=== PATIENT | female | born 1965 | race Caucasian/White ===

== ENCOUNTER → 2021-03-05 12:32 | Outpatient (BNVA) | payer MEDICARE, MEDICAID, SELFPAY | PROVIDERS: PCP Internal Medicine; Referring Provider Internal Medicine; Visit Provider Internal Medicine Cardiovascular Disease | DX: Z45.02 Encounter for adjustment and management of automatic implantable cardiac defibrillator (principal); R06.02 Shortness of breath; Z86.74 Personal history of sudden cardiac arrest | CPT/HCPCS: 93005; 99212 ==

== ENCOUNTER → 2021-10-02 14:09 | Outpatient (BNVA) | payer MEDICARE, MEDICAID, SELFPAY | PROVIDERS: PCP Internal Medicine; Referring Provider Internal Medicine; Visit Provider Internal Medicine Cardiovascular Disease | DX: Z45.02 Encounter for adjustment and management of automatic implantable cardiac defibrillator (principal); Z86.74 Personal history of sudden cardiac arrest | CPT/HCPCS: 99212 ==

== ENCOUNTER → 2022-03-14 14:04 | Outpatient (BNVA) | payer MEDICARE, MEDICAID, SELFPAY | PROVIDERS: PCP Internal Medicine; Referring Provider Internal Medicine; Visit Provider Internal Medicine Cardiovascular Disease | DX: Z45.02 Encounter for adjustment and management of automatic implantable cardiac defibrillator (principal) | CPT/HCPCS: 93005; 99212 ==

== ENCOUNTER 2022-05-25 14:18 | Inpatient (IN) | payer MEDICARE, MEDICAID, SELFPAY ==
[2022-05-25] VITALS (18 sets, daily range): BP systolic 92–173; BP diastolic 11–117; PULSE 92–134; RESP 13–18; TEMP 34.8–37.7; O2SAT 92–98; BMI 39.2; BMI 44.6; BMI 34.5; BMI 39.0
--- NOTE | ~2022-05-25 | CT_ITS ---
EXAMINATION: CT ANGIOGRAM OF THE CHEST WITH AND WITHOUT CONTRAST (CT PULMONARY ANGIOGRAM FOR PE) CT ABDOMEN AND PELVIS WITH IV CONTRAST CLINICAL INFORMATION: Shortness of breath, elevated d-dimer. Nausea/vomiting. COMPARISON: CT of the chest dated from 04/06/2016. Abdominal ultrasound dated from 05/16/2010. TECHNIQUE: Prior to contrast administration, noncontrast localization images were obtained. Subsequently, multidetector volumetric imaging was performed from the thoracic inlet to the pubic symphysis through the chest, abdomen, and pelvis following the administration of 100 mL Omnipaque 350 intravenous contrast. No contrast reaction reported Sagittal, coronal, and MIP oblique sagittal (through the chest only) reformatted images were obtained on the CT workstation, uploaded to PACS, and reviewed. Total exam dose-length product 1328 mGy-cm This CT examination was performed using dose optimization techniques as appropriate, variously including the following: *Automated exposure control *Adjustment of mA and/or kV according to patient size (this includes techniques or standardized protocols for targeted exams where dose is matched to indication/reason for exam; i.e. extremities or head) *Use of iterative reconstruction technique FINDINGS: QUALITY OF STUDY/CONTRAST BOLUS: Suboptimal. PULMONARY ARTERIES: Evaluation is limited due to respiratory motion. No central pulmonary emboli. There are equivocal nonocclusive filling defects in segmental branches of the left lower lobe. THORACIC AORTA: No aneurysm or dissection. Atherosclerotic disease. LUNG: Evaluation of parenchymal details and small pulmonary nodules is limited due to respiratory motion. An endotracheal tube terminates at 1 cm above the mary. There are dense airspace opacities in the left greater than right lung bases. There are multiple additional groundglass and patchy opacities bilaterally, for instance anteriorly in the right upper lobe image 152 and anterolateral in the left upper lobe image 130, series 9. No pulmonary mass. PLEURA: Small bilateral pleural effusions. No pneumothorax. MEDIASTINUM: Cardiomegaly. No pericardial effusion. No evidence of septal bowing or right heart strain. Coronary calcifications. No bulky mediastinal or hilar lymphadenopathy. There is a 1.6 cm left-sided thyroid nodule. CHEST WALL/AXILLA: Left-sided pacer/AICD with leads projecting over the right atrium and right ventricle. No chest wall mass. No axillary lymphadenopathy by size criteria. ABDOMEN/PELVIS: LIVER, GALLBLADDER AND BILIARY TREE: Hepatomegaly with decreased parenchymal attenuation suggesting hepatic steatosis. No focal liver lesions. Cholecystectomy. Mild dilatation of the common bile duct, not unusual in a post cholecystectomy state. No intrahepatic biliary ductal dilatation. PANCREAS: Normal; no mass or surrounding fluid. SPLEEN: Splenomegaly with heterogeneous attenuation of the parenchyma, likely related to early timing of IV contrast, limiting evaluation of focal abnormality. ADRENAL GLANDS: Normal; no mass. KIDNEYS AND URETERS: The kidneys are normal in size, shape, and attenuation. No hydronephrosis, hydroureter, or calculi. GASTROINTESTINAL TRACT: Enteric tube terminates in the stomach. There is wall thickening of the descending colon with mild pericolonic fat stranding. No evidence of bowel obstruction. Normal appendix. ABDOMINAL WALL: Anterior abdominal rectus muscle diastases. No significant hernia. LYMPHOVASCULAR STRUCTURES: No lymphadenopathy by size criteria. Aortoiliac atherosclerosis. BLADDER: Markedly distended. No focal abnormality. PELVIC VISCERA: No pelvic mass. OSSEOUS STRUCTURES: Posterior instrumentation at L4, L5 and S1 with interdisc spacers. Unchanged irregularity of the inferior endplate of L4 and superior endplate of L5 when compared to 12/20/2014. Vertebroplasty cement at L1 and L2. Progression of the compression deformity at L2 and new compression deformity at L1 when compared to 2015. CT/CT angio chest PE protocol IMPRESSION: Limited evaluation of PE due to respiratory motion. Equivocal nonocclusive filling defects in segmental branches of the left lower lobe. Endotracheal tube terminates a 1 cm above the mary. Recommend repositioning. Multifocal airspace opacities suggesting the presence of an atypical infectious or inflammatory process. These opacities are denser in the lung bases in which aspiration is not excluded. There are small bilateral pleural effusions. Colonic wall thickening and mild pericolonic fat stranding involving the descending colon suggesting acute colitis, uncertain etiology, could be ischemic due to distribution. Correlate clinically. Progression of compression deformity at the L2 vertebral body and new compression deformity at the L1 vertebral body when compared to a prior CT of the lumbar spine available from 12/20/2014. Correlate with point tenderness. Hepatomegaly and hepatic steatosis. Splenomegaly. Incidentally noted up to 1.6 cm left-sided thyroid nodule. If clinically deemed appropriate, correlation with an elective nonemergent thyroid ultrasound is recommended. VTE: indeterminate This critical result was discussed with DALLIN Hampton at 05/25/2022 6:54 PM and it was ascertained that the content and urgency of the report was understood at the time of direct communication.
--- NOTE | ~2022-05-25 | CT_ITS ---
EXAMINATION: CT HEAD WITHOUT CONTRAST CLINICAL INFORMATION: Altered mental status. COMPARISON: CT head dated from 02/20/2019. TECHNIQUE: Contiguous axial imaging was performed from the skull base to vertex without intravenous administration of contrast. This CT examination was performed using dose optimization techniques as appropriate, variously including the following: *Automated exposure control *Adjustment of mA and/or kV according to patient size (this includes techniques or standardized protocols for targeted exams where dose is matched to indication/reason for exam; i.e. extremities or head) *Use of iterative reconstruction technique DLP: 589 mGy-cm FINDINGS: There is no evidence of acute intracranial hemorrhage or edematous territorial infarction. There is no abnormal attenuation within the brain parenchyma. Helton-white matter differentiation is preserved. The ventricles are normal in size and configuration. No evidence for obstructive hydrocephalus. No abnormal mass effect or midline shift. No extra-axial fluid collections. No acute soft tissue or osseous abnormalities. The mastoid air cells and paranasal sinuses are clear. CT/CT head/brain wo IV con IMPRESSION: No evidence of acute intracranial hemorrhage or edematous territorial infarction.
--- NOTE | ~2022-05-25 | US_ITS ---
EXAMINATION: US EXTRACRANIAL CAROTID DUPLEX, BILATERAL CLINICAL INFORMATION: Left carotid not palpable. Question stenosis. COMPARISON: None TECHNIQUE: Real-time ultrasound and Doppler techniques (integrating B-mode 2-D vascular images, Doppler spectral analysis and color-flow Doppler imaging) were utilized to interrogate the extracranial carotid arteries, the vertebral arteries and proximal subclavian arteries bilaterally. The degree of stenosis is determined by criteria similar to NASCET. FINDINGS: Right Side: 1. There is no atherosclerotic plaque seen in the bifurcation/proximal ICA region. 2. The common carotid artery PSV proximally is 102 cm/s and distally 67.6 cm/s. 3. The proximal internal carotid artery velocities are 71.8 cm/s systolic and 31.0 cm/s diastolic. 4. The proximal external carotid artery PSV is 86.5 cm/s. 5. The vertebral artery shows 47.8 flow. 6. The subclavian artery waveforms are normal. The right central line obscures mid right CCA Left Side: 1. There is no atherosclerotic plaque seen in the bifurcation/proximal ICA region. 2. The common carotid artery PSV proximally is 116 cm/s and distally 82.6 cm/s. 3. The proximal internal carotid artery velocities are 71.1 cm/s systolic and 33.4 cm/s diastolic. 4. The proximal external carotid artery PSV is 67.6 cm/s. 5. The vertebral artery shows antegrade flow. 6. The subclavian artery waveforms are normal. Incidental finding of a heterogeneous area in the left neck question thyroid nodule versus artifact. Best visualized on image 47 of 79.. Bilateral internal jugular veins are patent. US/US carotid duplex BI IMPRESSION: 1. RIGHT: Normal right internal carotid artery without atherosclerotic plaque or hemodynamically significant stenosis. 2. LEFT: 0-49% range stenosis left ICA. 3. Normal antegrade flow seen in both vertebral arteries.
--- NOTE | ~2022-05-25 | XR_ITS ---
EXAMINATION: XR CHEST CLINICAL INFORMATION: Indication COMPARISON: Previous dated 04/06/2016 TECHNIQUE: Frontal view of the chest was obtained. FINDINGS: The ET tube is 1.6 cm above the mary. Catheter overlying the superior vena cava. There is no pneumothorax. Pacer wires overlying the right atrium and right ventricle. NG tube overlying the fundus of the stomach. The underlying lung [place] show mild vascular congestion. Mild elevation left hemidiaphragm. Left basilar atelectasis would be a consideration. XR/XR chest 1V IMPRESSION: ET tube 1.6 cm above mary. Other tubes and catheters as noted above. Mild elevation left hemidiaphragm. Left basilar atelectasis or possibly infiltrate. Mild vascular congestion.
--- NOTE | 2022-05-25 14:33 | ECG_ITS ---
Test Reason : WEAKNESS/ SEPSIS Blood Pressure : / mmHG Vent. Rate : 117 BPM Atrial Rate : 117 BPM P-R Int : 136 ms QRS Dur : 066 ms QT Int : 276 ms P-R-T Axes : 103 022 090 degrees QTc Int : 385 ms Sinus tachycardia Inferior infarct , age undetermined Possible Anterior infarct , age undetermined Abnormal ECG When compared with ECG of 06-APR-2016 17:53, Borderline criteria for Anterior infarct are now Present Inferior infarct is now Present Non-specific change in ST segment in Inferior leads Nonspecific T wave abnormality, worse in Anterior leads Referred By: Damon Heart Electronically Signed By:ROBERT SUAREZ
--- NOTE | 2022-05-25 14:34 | ED.AMS ---
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 Patient is not responding to my questions she is not alert, for EMS patient was saturating the low 80s on room air, according to boyfriend patient is not on oxygen. Patient was also noted to be hypotensive per EMS. I spoke to the boyfriend that tells me that since , 3 days ago patient has not been responding to him she has been altered since that day. Denies any trauma. He tells me she was complaining that she was not feeling well and since then she has been lethargic, somnolent and not responding. Unable to obtain an accurate history as dedraiend is not the best historian, patient unable to provide me history. Sepsis alert called upon patient's arrival to the Emergency Department Related Data Home Medications Medication Instructions Recorded Confirmed gabapentin 800 mg tablet 800 mg PO TID 03/05/21 05/25/22 clonazepam 1 mg tablet 1 mg PO BID 10/02/21 05/25/22 carisoprodol 350 mg tablet 350 mg PO BID PRN Spondylosis 03/14/22 05/25/22 dicyclomine 20 mg tablet 20 mg PO QID 03/14/22 05/25/22 morphine 15 mg tablet,extended 15 mg PO Q8H 03/14/22 05/25/22 release sucralfate 1 gram tablet 1 g PO BID 03/14/22 05/25/22 morphine 15 mg immediate release 1 tab PO Q8H PRN Pain (Scale Score 05/25/22 05/25/22 tablet 4-6) Previous Rx's Medication Instructions Recorded metoprolol tartrate 100 mg tablet 100 mg PO BID #180 tabs 05/24/22 Allergies Allergy/AdvReac Type Severity Reaction Status Date / Time Penicillins [PENICILLINS] Allergy Severe ANAPHYLAXIS Verified 03/14/22 14:29 hydromorphone [From DILAUDID] Allergy Unknown STOPS HEART Verified 03/14/22 14:29 ibuprofen [From MOTRIN] Allergy Unknown SEIZURE Verified 03/14/22 14:29 Review of Systems Review of Systems: Yes Unobtainable due to mental status [facility] Past Medical History Attestation statement: The following information was validated with the patient. Source: old records reviewed and nursing notes reviewed Medical History History of sudden cardiac successfully resuscitated ICD (implantable cardioverter-defibrillator) in place Surgical History History of cholecystectomy History of spinal surgery Family History Family History Mother Dementia Cancer Father Heart disease Social History Social History Alcohol intake: never Patient Tobacco Use Status: Current everyday Tobacco user Tobacco use type: Cigarette Cigarette Packs Per Day: 0.5 Cigarettes Per Day: 10 Years Smoked: 40 +/- Advance Directives: No Advance Directives Information Provided: Yes Physical Exam ED Vital Signs: Vital Signs - 24 hr 05/25/22 14:47 05/25/22 16:00 05/25/22 16:08 Temperature Pulse Rate 117 H 134 H Respiratory Rate 13 18 Blood Pressure 171/117 H Pulse Oximetry 95 98 Oxygen Delivery Method Nasal Cannula Fraction of Inspired Oxygen 100 05/25/22 15:00 05/25/22 17:51 Temperature 99.6 F Pulse Rate 107 H Respiratory Rate 14 Blood Pressure 114/58 L Pulse Oximetry 93 Oxygen Delivery Method Mechanical Ventilation Fraction of Inspired Oxygen BMI result Body Mass Index 34.5 Appearance: Patient lethargic, somnolent, not responding to verbal or physical stimuli. Patient with unlabored breathing however gargling is noted. Patient covered in feces upon arrival, unkempt. Head: Normocephalic, atraumatic, no step-offs or deformities Eyes: Pupils equal, round and reactive to light.? ENT: Pharynx normal. +Dry mucous membranes? However patient having difficulty controlling secretions. Neck: Normal inspection.? Neck supple.? CVS: M rate regular rhythm..? Pulses normal.? Respiratory: No respiratory distress.? Crackles appreciated throughout. Abdomen: Soft and nontender.? Skin: Skin warm and dry.? Normal skin color.? Normal skin turgor.?+ burn to buttocks with honey combing appearance Extremities: No lower extremity edema.? + extrmeities limp Neuro: + Patient lethargic, somnolent, not responding to verbal or physical stimuli. Not following comands. Unable to obtain an accurate neurological examination secondary to patient's altered mental status. Course Reevaluation(s) Reevaluation #1: Patient is noted to have a significant leukocytosis, with altered mental status, hypotension and hypoxia at this time infection suspected, a sepsis focused exam was done, patient anaphylactic to penicillin therefore Levaquin and vancomycin will be given. Will try to identify source likely UTI or aspiration pneumonia. Time: 15:09 Reevaluation #2: Patient started vomiting what looked like stool, question bowel obstruction. Patient unable to control her own airway therefore this PA-C intubated patient for airway protection. Patient is noted to have a significant acute kidney injury with an anion gap. Patient's lactic acid 2.5. Transaminases are noted to be markedly elevated. Troponin elevated at 4185.[address] elevations noted on EKG, concerns for ischemic event. BNP 341. Will continue the 30 cc/kilos bolus at this time. Creatinine kinase also markedly elevated concerning for rhabdomyolysis. Time: 15:49 Reevaluation #3: An OG tube was placed w/ large amount of dark brown content espressed. Bedside echo by Dr. Guillen- normal valve function. grossly normal echo. IVC flat likely secondary to dehydration/ poor po intake. States low suspicion for PE. Time: 16:14 Additional Reevaluation(s): 1614 Central line placed 16 G in right IJ CXR ordered for confirmation breath sounds present . Propofol for maintenance ordered. Patient with diarrhea, stool studies also ordered. 1800 Patient will be going to the ICU under the care of MDM - Altered Mental Status MDM Narrative Medical decision making narrative: [id number] 57-year-old female presenting to the emergency department from home with altered mental status x3 days. Not responding to verbal or painful stimuli. Noted to be hypoxic and hypotensive for EMS. Unable to obtain an accurate history as patient is not responding. Significant cardiac history. Upon chart review it appears as though patient is followed by cardiology. Physical examination patient unkempt, patient not responding, extremities limp, pupils equal round and reactive. No pain with palpation of abdomen, crackles noted bilaterally. Rapid rate regular rhythm, likely sinus tachycardia unable to appreciate a murmur. Patient dry mucous membranes. Skin with what appears to be a burn to buttocks w/ honey combing appearance. Unable to obtain an accurate neurological examination. Patient not following commands. Normal Babinski. Vital signs are stable at this time patient is currently on 4 L and saturating sign 94% Upon my initial examination patient having trouble with secretions, suction at the bedside with success. Plan at this time is to initiate a sepsis alert. Concerns for infection particularly pneumonia or aspiration pneumonia Will obtain cardiac workup as well to rule out cardiac etiologies. Obtain a CTA to rule out PE as patient was hypoxic at home. Will rule out toxic ingestion and drug abuse. Will obtain ABG to rule out metabolic imbalances. And urine to rule out UTI or infection. Patient in sinus tach on the monitor. Narcan given w/o effect. Medical Records Attestation: I reviewed the patient's medical records. Lab Data Attestation: I reviewed the patient's lab results. Result diagrams: 05/25/22 14:49 05/25/22 14:49 Labs: Lab Results 05/25/22 05/25/22 05/25/22 Range/Units 14:49 14:49 14:49 WBC 22.1 H (4.8-10.8) X10*3/uL RBC 4.81 (4.20-5.50) X10*6/uL Hgb 15.5 (12.0-16.0) g/dl Hct 47.0 (37.0-47.0) % MCV 97.7 (80.0-98.0) fL MCH 32.2 (27.0-33.0) pg MCHC 33.0 (31.0-35.0) g/dl RDW 14.4 (11.0-16.0) % Plt Count 103 L (160-400) X10*3/uL MPV 10.6 (9.4-12.3) fL Immature Gran % (Auto) 1.1 H (0.0-0.4) % Neut % (Auto) 79.4 H (45-73) % Lymph % (Auto) 13.1 L (20-40) % [place] % (Auto) 4.4 (2-11) % Eos % (Auto) 1.6 (0-4) % Baso % (Auto) 0.4 (0-2) % Lymph # (Auto) 2.9 (1.2-4.9) X10*3/uL [place] # (Auto) 1.0 (0.1-1.2) X10*3/uL Eos # (Auto) 0.4 (0.0-0.4) X10*3/uL Baso # (Auto) 0.1 (0.0-0.2) X10*3/uL Abs Immat Gran (auto) 0.24 H (0.00-0.03) X10*3/uL Absolute Neuts (auto) 17.6 H (2.0-8.3) x10*3/uL Absolute Nucleated RBC 0.020 H (0.0-0.012) X10*3/uL Nucleated RBC % (auto) 0.1 (0.0-0.2) /100WBC D-Dimer High Sensitivty 3082 NG/ML VBG pH (7.32-7.43) VBG pCO2 mmHg VBG pO2 mmHg VBG HCO3 (22-26) mmol/L VBG O2 Saturation % VBG Base Excess mmol/L Sodium 136 (135-145) mmol/L Potassium 4.8 (3.3-5.1) mmol/L Chloride 97 (96-108) mmol/L Carbon Dioxide 23 (22-29) mmol/L Anion Gap 21 H (12-20) BUN 54 H (9-16) mg/dL Creatinine 2.93 H (0.5-1.4) mg/dL Estim Creat Clear Calc 29.6 Estimated GFR 17 Random Glucose 138 H (60-115) mg/dL Lactic Acid (0.5-2.0) mmol/L Calcium 8.8 (8.4-10.2) mg/dL Magnesium 2.2 (1.6-2.6) mg/dL Total Bilirubin 1.0 (0.0-1.0) mg/dL AST 1042 H (5-31) U/L ALT 669 H (0-31) U/L Alkaline Phosphatase 106 (39-117) U/L Total Creatine Kinase 57159 H (26-140) U/L Troponin I High Sens (<3.5-17.0) ng/L B-Natriuretic Peptide (<100) pg/mL Total Protein 6.7 (6.5-8.0) g/dL Albumin 3.8 (3.5-5.0) g/dL Ethyl Alcohol < 10 mg/dL COVID-19 ([facility]) (Negative) COVID-19 Clin Com 05/25/22 05/25/22 05/25/22 Range/Units 14:49 14:49 14:49 WBC (4.8-10.8) X10*3/uL RBC (4.20-5.50) X10*6/uL Hgb (12.0-16.0) g/dl Hct (37.0-47.0) % MCV (80.0-98.0) fL MCH (27.0-33.0) pg MCHC (31.0-35.0) g/dl RDW (11.0-16.0) % Plt Count (160-400) X10*3/uL MPV (9.4-12.3) fL Immature Gran % (Auto) (0.0-0.4) % Neut % (Auto) (45-73) % Lymph % (Auto) (20-40) % [place] % (Auto) (2-11) % Eos % (Auto) (0-4) % Baso % (Auto) (0-2) % Lymph # (Auto) (1.2-4.9) X10*3/uL [place] # (Auto) (0.1-1.2) X10*3/uL Eos # (Auto) (0.0-0.4) X10*3/uL Baso # (Auto) (0.0-0.2) X10*3/uL Abs Immat Gran (auto) (0.00-0.03) X10*3/uL Absolute Neuts (auto) (2.0-8.3) x10*3/uL Absolute Nucleated RBC (0.0-0.012) X10*3/uL Nucleated RBC % (auto) (0.0-0.2) /100WBC D-Dimer High Sensitivty NG/ML VBG pH (7.32-7.43) VBG pCO2 mmHg VBG pO2 mmHg VBG HCO3 (22-26) mmol/L VBG O2 Saturation % VBG Base Excess mmol/L Sodium (135-145) mmol/L Potassium (3.3-5.1) mmol/L Chloride (96-108) mmol/L Carbon Dioxide (22-29) mmol/L Anion Gap (12-20) BUN (9-16) mg/dL Creatinine (0.5-1.4) mg/dL Estim Creat Clear Calc Estimated GFR Random Glucose (60-115) mg/dL Lactic Acid 2.5 H* (0.5-2.0) mmol/L Calcium (8.4-10.2) mg/dL Magnesium (1.6-2.6) mg/dL Total Bilirubin (0.0-1.0) mg/dL AST (5-31) U/L ALT (0-31) U/L Alkaline Phosphatase (39-117) U/L Total Creatine Kinase (26-140) U/L Troponin I High Sens 4185.7 H* (<3.5-17.0) ng/L B-Natriuretic Peptide 341 H (<100) pg/mL Total Protein (6.5-8.0) g/dL Albumin (3.5-5.0) g/dL Ethyl Alcohol mg/dL COVID-19 ([facility]) Negative (Negative) COVID-19 Clin Com See Note 05/25/22 Range/Units 16:16 WBC (4.8-10.8) X10*3/uL RBC (4.20-5.50) X10*6/uL Hgb (12.0-16.0) g/dl Hct (37.0-47.0) % MCV (80.0-98.0) fL MCH (27.0-33.0) pg MCHC (31.0-35.0) g/dl RDW (11.0-16.0) % Plt Count (160-400) X10*3/uL MPV (9.4-12.3) fL Immature Gran % (Auto) (0.0-0.4) % Neut % (Auto) (45-73) % Lymph % (Auto) (20-40) % [place] % (Auto) (2-11) % Eos % (Auto) (0-4) % Baso % (Auto) (0-2) % Lymph # (Auto) (1.2-4.9) X10*3/uL [place] # (Auto) (0.1-1.2) X10*3/uL Eos # (Auto) (0.0-0.4) X10*3/uL Baso # (Auto) (0.0-0.2) X10*3/uL Abs Immat Gran (auto) (0.00-0.03) X10*3/uL Absolute Neuts (auto) (2.0-8.3) x10*3/uL Absolute Nucleated RBC (0.0-0.012) X10*3/uL Nucleated RBC % (auto) (0.0-0.2) /100WBC D-Dimer High Sensitivty NG/ML VBG pH 7.36 (7.32-7.43) VBG pCO2 34 mmHg VBG pO2 119 mmHg VBG HCO3 19 L (22-26) mmol/L VBG O2 Saturation 99.0 % VBG Base Excess -4.7 mmol/L Sodium (135-145) mmol/L Potassium (3.3-5.1) mmol/L Chloride (96-108) mmol/L Carbon Dioxide (22-29) mmol/L Anion Gap (12-20) BUN (9-16) mg/dL Creatinine (0.5-1.4) mg/dL Estim Creat Clear Calc Estimated GFR Random Glucose (60-115) mg/dL Lactic Acid (0.5-2.0) mmol/L Calcium (8.4-10.2) mg/dL Magnesium (1.6-2.6) mg/dL Total Bilirubin (0.0-1.0) mg/dL AST (5-31) U/L ALT (0-31) U/L Alkaline Phosphatase (39-117) U/L Total Creatine Kinase (26-140) U/L Troponin I High Sens (<3.5-17.0) ng/L B-Natriuretic Peptide (<100) pg/mL Total Protein (6.5-8.0) g/dL Albumin (3.5-5.0) g/dL Ethyl Alcohol mg/dL COVID-19 ([facility]) (Negative) COVID-19 Clin Com Procedures Central Line Placement Right IJ: Time Out Performed: Yes Patient Placed on Monitor/Pulse Ox: Yes MD Prep: mask, gown and gloves Central Line Prep: Povidone-Iodine 1% and sterile drapes applied Local Anesthetic: lidocaine 1% Amount of anesthesia used (mL): 4 Ultrasound Used for Placement: Yes Central Line Lumen Inserted: triple Post Procedure: sutured in place, good blood return, all ports aspirated, flushed, capped and sterile dressing applied Post Procedure X-Ray: tip of catheter in good position Patient Tolerated Procedure: well Complications: none Intubation Time out performed: Yes sedative: Etomidate paralytic: Rocuronium Laryngoscope: fiber optic video scope Assist Device Used: fiber optic device ET Tube Size: 7.5 ET Tube Uncuffed: No Tube Secured Depth (cm): 23 Tube Secured Location: teeth Tube Placement Confirmation: visualized tube passing through cords, equal breath sounds bilaterally and confirmation by capnometry Patient Tolerated Procedure: well Intubation Complications: none Critical Care Time Critical Care Time Critical Care Time: Yes Total Critical Care Time: 120 Attestation: I attest to this time spent taking care of the patient, obtaining history, physical, reviewing labs, imaging, speaking to my attending, speaking to specialist. Discharge Plan Discharge Clinical Impression: Altered mental status, Sepsis, Elevated troponin, ASHLEY (acute kidney injury), Rhabdomyolysis Patient Disposition: Still a Patient Prescriptions: No Action metoprolol tartrate 100 mg tablet 100 mg PO BID Qty: 180 3RF morphine 15 mg tablet 1 tab PO Q8H PRN (Reason: Pain (Scale Score 4-6)) gabapentin 800 mg tablet 800 mg PO TID morphine 15 mg tablet extended release 15 mg PO Q8H clonazepam 1 mg tablet 1 mg PO BID carisoprodol 350 mg tablet 350 mg PO BID PRN (Reason: Spondylosis) dicyclomine 20 mg tablet 20 mg PO QID sucralfate 1 gram tablet 1 g PO BID Rx Instructions: before meals
[2022-05-25 14:58] LABS: MANUAL DIFF FLAG NO
[2022-05-25 15:03] LABS: Basophils Absolute Auto 0.1 X10*3/uL (0.0-0.2); Basophils Percent Auto 0.4 % (0-2); Eosinophils Absolute Auto 0.4 X10*3/uL (0.0-0.4); Eosinophils Percent Auto 1.6 % (0-4); Hemoglobin 15.5 g/dl (12.0-16.0); Imm Gran Abs Auto 0.24 X10*3/uL (0.00-0.03); Imm Gran Pct Auto 1.1 % (0.0-0.4); Lymphocytes Absolute Auto 2.9 X10*3/uL (1.2-4.9); Lymphocytes Percent Auto 13.1 % (20-40); Mean Corpuscular Hemoglobin 32.2 pg (27.0-33.0); Mean Corpuscular Volume 97.7 fL (80.0-98.0); Mean Platelet Volume 10.6 fL (9.4-12.3); Monocytes Percent Auto 4.4 % (2-11); NRBC Pct Auto 0.1 /100WBC (0.0-0.2); Neutrophils Absolute Auto 17.6 x10*3/uL (2.0-8.3); Neutrophils Percent Auto 79.4 % (45-73); Platelet Count 103 X10*3/uL (160-400); Red Blood Count 4.81 X10*6/uL (4.20-5.50); Red Cell Distribution Width 14.4 % (11.0-16.0); White Blood Count 22.1 X10*3/uL (4.8-10.8)
[2022-05-25] MEDS: Naloxone HCl Nasal 4 MG SPRAY NOSTRILALT (15:05)
[2022-05-25 15:09] LABS: D Dimer High Sensitivity 3082 NG/ML
[2022-05-25 15:23] LABS: COVID-19 Test Negative (Negative); IDNOW Serial# 55D5AD1C
[2022-05-25] MEDS: levoFLOXacin/D5W 750 MG/150 ML PIGGYBACK 100 MG IV (15:23)
[2022-05-25 15:24] LABS: Alanine Aminotransferase 669 U/L (0-31); Albumin Level 3.8 g/dL (3.5-5.0); Alkaline Phosphatase 106 U/L (39-117); Anion Gap 21 (12-20); Aspartate Amino Transferase 1042 U/L (5-31); Blood Urea Nitrogen 54 mg/dL (9-16); Calcium 8.8 mg/dL (8.4-10.2); Carbon Dioxide 23 mmol/L (22-29); Chloride 97 mmol/L (96-108); Creatinine Clr Calc Pharmacy 29.6; Estimated Glomerular Filt Rate 17; Ethanol < 10 mg/dL; Glucose Random 138 mg/dL (60-115); Magnesium 2.2 mg/dL (1.6-2.6); Potassium 4.8 mmol/L (3.3-5.1); Sodium 136 mmol/L (135-145); Total Protein 6.7 g/dL (6.5-8.0)
[2022-05-25 15:28] LABS: B Type Natriuretic Peptide 341 pg/mL (<100)
[2022-05-25 15:29] LABS: Lactic Acid 2.5 mmol/L (0.5-2.0)
[2022-05-25] MEDS: propofoL 1,000 MG/100 ML VIAL 23.27 MG IVCONT (16:08)
--- NOTE | 2022-05-25 16:19 | PC.NURSE ---
recorder note pt vomited approx 2L coffee ground emesis at 1430, celery stripper Dr. Guillen at bedside with u/s. plan to intubate pt. at bedside, estimated weight by staff approximately 100kg. 30 mg IV Etomidate given at 1543 by Niyah RN 50 mg IV Rocuronium given at 1544 by Niyah GARCÍA pt intubated with a 7.5 tube at 23 at the lip at 1545 by Kary ZAMARRIPA OG tube inserted at 1554 and connected to suction. coffee ground emesis visible in suction container Propofol 1000mg/100ml started at 30mcg/kg/hr with an estimated pt weight of 100kg. started at 1605. vitals: HR 134, 98% ventiator, 18 RR, BP 171/117 ([id number]) at 1607 Dr. Evans placed a 16F central line on the right at 1610. pt pending to go to CT
[2022-05-25 16:21] LABS: Venous Blood Gas Refer to POC result
[2022-05-25 16:22] LABS: VBG Base Excess -4.7 mmol/L; VBG HCO3 19 mmol/L (22-26); VBG pCO2 34 mmHg; VBG pH 7.36 (7.32-7.43); VBG pO2 119 mmHg
--- NOTE | 2022-05-25 16:23 | PHA.MEDREC ---
Pharmacy Consult ? Medication Reconciliation Pharmacy has completed the medication reconciliation. Patient could not answer any of my questions. Called son home phone number several times with no response. Called pharmacies ([facility] + [facility]) to confirm meds. [facility] confirmed most recent meds on claim history and verified that they were picked up. [facility] filled metoprolol tartrate 100mg on 05/24/22, however patient has not picked up medication yet according to them. Last time patient filled metoprolol tartrate was back in February according to [facility] for 90 day supply.
--- NOTE | 2022-05-25 16:37 | PM.CCHP ---
History of Present Illness Date of Service: 05/25/22 Attending physician on admission: Margarita Guillen Chief Complaint: altered mental status/ hypoxemic respiratory failure 57-year-old morbidly obese female nondiabetic began with altered mental status 2 days earlier brought in when unresponsive with room air saturation of 80% and in the emergency room witnessed aspiration with large volume of fecal into vomitus requiring emergent intubation at that time her GCS score was less than 3 and emergent right internal jugular central line was placed without complication and all imaging is still pending but there was a question of thrombus that I id noted in the left internal jugular vein and she has got an Arb background in that several years ago had a pacing ICD placed because of a sudden event apparently witnessed ventricular fibrillation but I have no indication from her primary apartment maintenance manager's note as to whether she had cardiac catheterization done at that time to rule out an ischemic etiology versus inherited channel op the Daiys blood pressure was 170 systolic and bedside echo revealed hyperdynamic left and right ventricle with preserved wall motion globally just did not get a great look at the lateral wall but everything else was moving and EKG although there were Q-waves in 3 and AVF that could be the vector of septal depolarization and the diminished R-wave progression but still with micro R-waves in V1 to V4 could easily be a clockwise rotation and there was no evidence of acute ST-T change but we have a 4000 troponin and 13,000 CPK and a BNP of 340 so clearly there is some kind of myocardial damaging Avante whether this might be ischemic or possibly even from her right ventricle due to an acute pulmonary embolism and with a D-dimer of 3000 not withstanding the fact that she has got a BUN and creatinine of 59 and 2.4 an obvious acute the renal failure and probable element of of rhabdomyolysis we need to proceed with contrast injection for a PE protocol and given the fecal in vomitus I think we need to at least dry scan her abdomen and pelvis and at some point I am going to need to get a stat duplex scan to look at her carotids and her jugular veins current rhythm is sinus tachycardia with resighini conduction and narrow QR when was described to me that some of her altered mental status at home had the appearance of just staring as though she was not there it may me wonder about potential seizure activity and then subsequently although not on her medication list we found out that she was on Keppra and was a history of seizure activity and due to deteriorating mental status at least the last 48 hours she may have withdrawn from that medication Review of Systems Review of Systems: Yes Unobtainable due to mental status PMFSH Past Medical History Medical History History of sudden cardiac successfully resuscitated ICD (implantable cardioverter-defibrillator) in place Family History Family History Mother Dementia Cancer Father Heart disease Surgical History Surgical History History of cholecystectomy History of spinal surgery Social History Social History Household Members: Unknown / Unable to assess Housing: Unknown / Unable to assess Unable to assess alcohol history related to: Unable to respond and Unknown Alcohol intake: unknown Patient Tobacco Use Status: Tobacco use Unknown Tobacco use type: Cigarette Cigarette Packs Per Day: 0.5 Cigarettes Per Day: 10 Years Smoked: 40 +/- Use of substances other than those prescribed or required for medical reasons: Unknown Currently Displaying Signs/Symptoms of Drug Intoxication Withdrawal: No Spiritual Healthcare Practices: UNKNOWN Religion Healthcare Practices: UNKNOWN Cultural Healthcare Practices: UNKNOWN Advance Directives: No Advance Directives Information Provided: Yes Advance Directives on File: No Meds Allergies Allergy/AdvReac Type Severity Reaction Status Date / Time Penicillins [PENICILLINS] Allergy Severe ANAPHYLAXIS Verified 03/14/22 14:29 hydromorphone [From DILAUDID] Allergy Unknown STOPS HEART Verified 03/14/22 14:29 ibuprofen [From MOTRIN] Allergy Unknown SEIZURE Verified 03/14/22 14:29 Active Medications: Current Medications Chlorhexidine Gluconate (Chlorhexidine Gluc Oral Rinse 15 Ml Mouthwash) 15 ml BUCCAL Q8H [facility] Levofloxacin (Levaquin) 750 mg in 150 mls @ 100 mls/hr IV ONCE ONE Stop: 05/25/22 16:36 Last Admin: 05/25/22 15:23 Dose: 100 mls/hr Vancomycin HCl (Vancomycin/Ns) 2,000 mg in 520 mls @ 260 mls/hr IV ONCE ONE Stop: 05/25/22 17:06 Propofol (Diprivan) 1,000 mg in 100 mls @ 0 mls/hr IVCONT .Q0M [facility]; Protocol Last Admin: 05/25/22 16:08 Dose: 30 mcg/kg/min, 23.27 mls/hr Sodium Chloride (Ns) 1,000 mls @ 100 mls/hr IVCONT .Q10H [facility] Pantoprazole Sodium 40 mg/ (Sodium Chloride) 110 mls @ 400 mls/hr IV DAILY@0630 [facility] Propofol (Diprivan) 1,000 mg in 100 mls @ 0 mls/hr IVCONT .Q0M [facility]; Protocol Pharmacy Consult (Consult Rx Perform Med Rec) 1 each MISCELLANE ONCE PRN PRN Reason: Consult order Pharmacy Consult (Consult Rx Vancomycin Dosing) 1 each MISCELLANE DAILY PRN PRN Reason: Consult order Home Medications Medication Instructions Recorded Confirmed Last Taken Type gabapentin 800 mg tablet 800 mg PO TID 03/05/21 05/25/22 Unknown History clonazepam 1 mg tablet 1 mg PO BID 10/02/21 05/25/22 Unknown History carisoprodol 350 mg tablet 350 mg PO BID PRN Spondylosis 03/14/22 05/25/22 Unknown History dicyclomine 20 mg tablet 20 mg PO QID 03/14/22 05/25/22 Unknown History morphine 15 mg tablet,extended 15 mg PO Q8H 03/14/22 05/25/22 Unknown History release sucralfate 1 gram tablet 1 g PO BID 03/14/22 05/25/22 Unknown History morphine 15 mg immediate release 1 tab PO Q8H PRN Pain (Scale Score 05/25/22 05/25/22 Unknown History tablet 4-6) Physical Exam Vital Signs: Vital Signs: Last Vital Signs Pulse 134 H 05/25/22 16:08 Resp 18 05/25/22 16:08 BP 171/117 H 05/25/22 16:08 Pulse Ox 98 05/25/22 16:08 O2 Del Method 05/25/22 14:47 FiO2 100 05/25/22 16:00 Oxygen Flow Rate 4 05/25/22 14:47 BMI result Body Mass Index 34.5 clearly was completely unresponsive and may actually been having an underlying seizure although at the very least clearly encephalopathic and hypoxic and then I immediately witnessed her with very high volume fecal in vomitus and and witnessed aspiration requiring immediate intubation for airway protection which went without complication central line access was obtained and then bedside echo indicated concentric left ventricular hypertrophy but no segmental wall motion abnormality ejection fraction if anything somewhat hyperdynamic and right ventricular dimension even though a little bit prominent was not terribly distended in the free wall was definitely moving it did not give me the impression of some body had significant pulmonary emboli but subsequent CT angiogram of the chest questions some segmental clot which I did not appreciate but definite left lower lobe consolidation consistent with probable aspiration the abdomen was difficult to evaluate no palpable organomegaly but CT of the abdomen showed thickening of the descending colon with some fat stranding in that area implying the possibility of colitis and given the history from home of a probable shaking chills 3 days earlier this might be even and infectious colitis/diverticulitis pressure sore on the buttocks was noted otherwise no peripheral livedo or acrocyanosis Results Labs CBC and Chem 7: 05/26/22 05:18 05/26/22 05:18 Labs: Laboratory Results - last 24 hr 05/25/22 05/25/22 05/25/22 14:49 14:49 14:49 MCV 97.7 MCH 32.2 MCHC 33.0 RDW 14.4 Plt Count 103 L MPV 10.6 Immature Gran % (Auto) 1.1 H Neut % (Auto) 79.4 H Lymph % (Auto) 13.1 L [place] % (Auto) 4.4 Eos % (Auto) 1.6 Baso % (Auto) 0.4 Lymph # (Auto) 2.9 [place] # (Auto) 1.0 Eos # (Auto) 0.4 Baso # (Auto) 0.1 Abs Immat Gran (auto) 0.24 H Absolute Neuts (auto) 17.6 H Absolute Nucleated RBC 0.020 H Nucleated RBC % (auto) 0.1 D-Dimer High Sensitivty 3082 VBG pH VBG pCO2 VBG pO2 VBG HCO3 VBG O2 Saturation VBG Base Excess Anion Gap 21 H Estim Creat Clear Calc 29.6 Estimated GFR 17 Random Glucose 138 H Lactic Acid Calcium 8.8 Magnesium 2.2 Total Bilirubin 1.0 AST 1042 H ALT 669 H Alkaline Phosphatase 106 Total Creatine Kinase 88874 H B-Natriuretic Peptide Total Protein 6.7 Albumin 3.8 Ethyl Alcohol < 10 COVID-19 ([facility]) COVID-19 Clin Com 05/25/22 05/25/22 05/25/22 14:49 14:49 14:49 MCV MCH MCHC RDW Plt Count MPV Immature Gran % (Auto) Neut % (Auto) Lymph % (Auto) [place] % (Auto) Eos % (Auto) Baso % (Auto) Lymph # (Auto) [place] # (Auto) Eos # (Auto) Baso # (Auto) Abs Immat Gran (auto) Absolute Neuts (auto) Absolute Nucleated RBC Nucleated RBC % (auto) D-Dimer High Sensitivty VBG pH VBG pCO2 VBG pO2 VBG HCO3 VBG O2 Saturation VBG Base Excess Anion Gap Estim Creat Clear Calc Estimated GFR Random Glucose Lactic Acid 2.5 H* Calcium Magnesium Total Bilirubin AST ALT Alkaline Phosphatase Total Creatine Kinase B-Natriuretic Peptide 341 H Total Protein Albumin Ethyl Alcohol COVID-19 ([facility]) Negative COVID-19 [email or web address] Com See Note 05/25/22 16:16 MCV MCH MCHC RDW Plt Count MPV Immature Gran % (Auto) Neut % (Auto) Lymph % (Auto) [place] % (Auto) Eos % (Auto) Baso % (Auto) Lymph # (Auto) [place] # (Auto) Eos # (Auto) Baso # (Auto) Abs Immat Gran (auto) Absolute Neuts (auto) Absolute Nucleated RBC Nucleated RBC % (auto) D-Dimer High Sensitivty VBG pH 7.36 VBG pCO2 34 VBG pO2 119 VBG HCO3 19 L VBG O2 Saturation 99.0 VBG Base Excess -4.7 Anion Gap Estim Creat Clear Calc Estimated GFR Random Glucose Lactic Acid Calcium Magnesium Total Bilirubin AST ALT Alkaline Phosphatase Total Creatine Kinase B-Natriuretic Peptide Total Protein Albumin Ethyl Alcohol COVID-19 ([facility]) COVID-19 [email or web address] Com Assessment and Plan (1) Altered mental status: Status: Acute (2) Sepsis: Status: Acute (3) Elevated troponin: Status: Acute (4) ASHLEY (acute kidney injury): Status: Acute (5) Rhabdomyolysis: Status: Acute (6) History of sudden cardiac successfully resuscitated: Status: Acute (7) ICD (implantable cardioverter-defibrillator) in place: Status: Acute (8) Colitis, acute: Status: Acute (9) Seizures complicating infection: Status: Acute (10) Sepsis with acute hypoxic respiratory failure: Status: Acute (11) Encephalopathy acute: Status: Acute Plan plan is to maintain antibiotics to cover abdominal source of infection with additional benefit for him potential aspiration with continued airway protection and ventilator support for probable sepsis with CVP monitoring via central line and restoring the by IV her a Keppra because of probable contribution from repeated seizures to her mental status
--- NOTE | 2022-05-25 16:49 | PC.NURSE ---
pt linens changed, soiled heavily w emesis/stool. tolerated procedure well, pt now being transported to ct scan w nurse and resp tx.
[2022-05-25 16:56] LABS: Reflex Lactate? Lactic Acid Added
[2022-05-25] MEDS: iohexoL 350 MG/ML 100 ML INFUS..BTL IV (17:26)
[2022-05-25] MEDS: Rocuronium Bromide 50 MG/5 ML VIAL IVPUSH (17:53)
[2022-05-25] MEDS: Etomidate 20 MG/10 ML VIAL 30 MG IVPUSH (17:55)
[2022-05-25 17:58] LABS: Appearance Urine Cloudy; Color Urine Dark Yellow; Glucose Urine UA Negative (Negative); Leukocyte Esterase Urine Trace (Negative); Nitrite Urine Negative (Negative); Specific Gravity - Urine 1.025 (1.005-1.025); UMIC TRIGGER UACC YES; Urine Blood Large (3+) (Negative); Urine Ketones Trace mg/dL (Negative); Urine Protein 100 (2+) mg/dL (Neg-Trace)
[2022-05-25 18:14] LABS: Amphetamine Screen Urine Not Detected (Not Detect); Barbiturates, Urine Not Detected (Not Detect); Benzodiazepines Screen Urine Not Detected (Not Detect); Cannabinoid Screen Urine Not Detected (Not Detect); Cocaine Screen Urine Not Detected (Not Detect); Fentanyl, urine Not Detected (Not Detect); Opiate Screen Urine POSITIVE (Not Detect); Phencyclidine Screen Urine Not Detected (Not Detect)
[2022-05-25 18:15] LABS: Bacteria Urine None Seen (None Seen); Granular Casts Urine Present; RBC Urine >20 /HPF (0-2); Squamous Epithelial Cell Urine 0-2 /HPF (0-2); WBC Urine 0-5 /HPF (0-5)
[2022-05-25] MEDS: propofoL 1,000 MG/100 ML VIAL 21 MG IVCONT (19:15)
[2022-05-25] MEDS: 0.9 % Sodium Chloride 1,000 ML 100 ML IVCONT (19:15)
[2022-05-25 19:49] LABS: Ammonia 68 umol/L (13-55)
[2022-05-25 19:57] LABS: Acetaminophen LAB < 1 mcg/mL (<30); Salicylate < 5.0 mg/dL (15-30)
[2022-05-25 20:07] LABS: Troponin-I High Sensitivity 3872.3 ng/L (<3.5-17.0); ~Lactic Acid-LAB USE ONLY 2.3 mmol/L (0.5-2.0)
[2022-05-25 20:51] LABS: Appearance Urine Clear; Color Urine Yellow; Glucose Urine UA Negative (Negative); Leukocyte Esterase Urine Negative (Negative); Nitrite Urine Negative (Negative); Specific Gravity - Urine >= 1.030 (1.005-1.025); UMIC TRIGGER UACC YES; Urine Blood Large (3+) (Negative); Urine Ketones Trace mg/dL (Negative); Urine Protein 100 (2+) mg/dL (Neg-Trace)
[2022-05-25 21:07] LABS: Occult Blood Gastric POSITIVE (NEG)
[2022-05-25 21:09] LABS: GASOB Int Neg Ctl Valid YES; GASOB Int Pos Ctl Valid YES; GASOB Lot 20512
[2022-05-25 21:14] LABS: INTERNATIONAL NORM RATIO 1.5 (0.9-1.1); Prothrombin Time 17.3 SEC (10.0-13.1)
[2022-05-25 21:39] LABS: Reflex Lactate? 2 Y
[2022-05-25] MEDS: metroNIDAZOLE/NS 500 MG/100 ML PIGGYBACK 100 MG IV (21:41)
[2022-05-25 21:46] LABS: PTT Heparin Drip 21.4 SEC (53-77.9)
[2022-05-25] MEDS: Chlorhexidine Gluc Oral Rinse 15 ML MOUTHWASH BUCCAL ×2 (22:04→22:27)
[2022-05-25 22:07] LABS: Venous Blood Gas Refer to POC result
[2022-05-25 22:08] LABS: VBG Base Excess -2.1 mmol/L; VBG HCO3 22 mmol/L (22-26); VBG pCO2 35 mmHg; VBG pH 7.39 (7.32-7.43); VBG pO2 57 mmHg
[2022-05-25] MEDS: Pantoprazole Sodium 40 MG/10 ML VIAL IVPUSH (22:16)
[2022-05-25 22:23] LABS: Bacteria Urine None Seen (None Seen); WBC Urine 0-5 /HPF (0-5)
[2022-05-25] MEDS: levETIRAcetam in NaCl (iso-os) 500 MG/100 ML PIGGYBACK 400 MG IV (22:27)
[2022-05-25 22:34] LABS: Alanine Aminotransferase 543 U/L (0-31); Albumin Level 3.1 g/dL (3.5-5.0); Alkaline Phosphatase 83 U/L (39-117); Anion Gap 20 (12-20); Aspartate Amino Transferase 818 U/L (5-31); Bilirubin Total 0.8 mg/dL (0.0-1.0); Blood Urea Nitrogen 48 mg/dL (9-16); Carbon Dioxide 19 mmol/L (22-29); Chloride 103 mmol/L (96-108); Creatinine Clr Calc Pharmacy 38.1; Estimated Glomerular Filt Rate 26; Glucose Random 112 mg/dL (60-115); Potassium 4.3 mmol/L (3.3-5.1); Sodium 138 mmol/L (135-145); Total Protein 5.3 g/dL (6.5-8.0)
[2022-05-25 22:43] LABS: TSH reflex Free T4 0.08 uIU/mL (0.32-4.0)
[2022-05-25 22:50] LABS: Phosphorus 1.4 mg/dL (2.7-4.5)
[2022-05-25 23:20] LABS: Free T4 (Free Thyroxine) 0.91 ng/dL (0.71-1.85)
[2022-05-25] MEDS: propofoL 1,000 MG/100 ML VIAL 18 MG IVCONT (23:29)
[2022-05-25 23:40] LABS: Procalcitonin 3.61 ng/mL
[2022-05-26] VITALS (36 sets, daily range): BP systolic 93–139; BP diastolic 47–75; PULSE 86–106; RESP 12–21; TEMP 34.8–37.9; O2SAT 91–99; BMI 40.6
--- NOTE | 2022-05-26 | ECG_ITS ---
Test Reason : check rthym Blood Pressure : / mmHG Vent. Rate : 102 BPM Atrial Rate : 102 BPM P-R Int : 112 ms QRS Dur : 058 ms QT Int : 306 ms P-R-T Axes : 000 029 042 degrees QTc Int : 398 ms Sinus tachycardia Otherwise normal ECG When compared with ECG of 25-MAY-2022 14:46, Criteria for Inferior infarct are no longer Present Nonspecific T wave abnormality is no longer Present Referred By: Margarita Guillen Electronically Signed By:ROBERT SUAREZ
[2022-05-26] MEDS: Lactated Ringers 1,000 ML 999 ML IV (01:00)
[2022-05-26 01:08] LABS: Hemoglobin 13.2 g/dl (12.0-16.0); PLT CLUMP 1
[2022-05-26 01:10] LABS: Hematocrit 39.2 % (37.0-47.0); Mean Corpuscular HGB Conc 33.7 g/dl (31.0-35.0); Mean Corpuscular Hemoglobin 32.8 pg (27.0-33.0); Mean Corpuscular Volume 97.5 fL (80.0-98.0); Mean Platelet Volume 10.4 fL (9.4-12.3); NRBC Pct Auto 0.1 /100WBC (0.0-0.2); Red Blood Count 4.02 X10*6/uL (4.20-5.50); Red Cell Distribution Width 14.4 % (11.0-16.0)
[2022-05-26 01:11] LABS: White Blood Count 16.5 X10*3/uL (4.8-10.8)
[2022-05-26 01:25] LABS: Platelet Count 74 X10*3/uL (160-400)
[2022-05-26] MEDS: 0.9 % Sodium Chloride 1,000 ML 100 ML IVCONT ×3 (01:27→20:54)
[2022-05-26 01:28] LABS: Band Neutrophils Percent 22 % (3-5); Lymphocytes Absolute Manual 1.3 X10*3/uL (1.2-4.9); Lymphocytes Percent Manual 8 % (20-40); Metamyelocytes Absolute 0.2 X10*3/uL; Metamyelocytes Percent 1 %; Monocytes Absolute Manual 0.8 X10*3/uL (0.1-1.2); Monocytes Percent Manual 5 % (2-11); Neutrophils Absolute Manual 14.2 X10*3/uL (2.0-8.3); Neutrophils Percent Manual 64 % (45-73)
[2022-05-26 01:29] LABS: Nucleated Red Blood Cells 2 /100WBC (0-0)
[2022-05-26 01:30] LABS: Platelet Estimate DECREASED (NORMAL); Platelet Morphology Comment NORMAL; RBC Morphology NOTED
[2022-05-26 01:31] LABS: Burr Cells 1+ (0-2) /OIF; Dohle Bodies PRESENT; Polychromasia 1+ (0-2) /OIF; Toxic Vacuolation PRESENT
[2022-05-26] MEDS: Pantoprazole Sodium 80 MG in 0.9 % Sodium Chloride 80 ML 10 MG IV ×3 (01:31→20:54)
[2022-05-26] MEDS: Potassium Phosphate/NS 15 MMOL/250 ML PLAST..BAG 62.5 MMOL IV (02:07)
[2022-05-26 05:23] LABS: VBG Base Excess -1.8 mmol/L; VBG HCO3 22 mmol/L (22-26); VBG pCO2 35 mmHg; VBG pO2 47 mmHg
[2022-05-26 05:27] LABS: Hematocrit 36.8 % (37.0-47.0); Hemoglobin 12.3 g/dl (12.0-16.0); Mean Corpuscular HGB Conc 33.4 g/dl (31.0-35.0); Mean Corpuscular Hemoglobin 33.1 pg (27.0-33.0); Mean Corpuscular Volume 98.9 fL (80.0-98.0); Mean Platelet Volume 10.7 fL (9.4-12.3); NRBC Pct Auto 0.1 /100WBC (0.0-0.2); Red Blood Count 3.72 X10*6/uL (4.20-5.50); Red Cell Distribution Width 14.6 % (11.0-16.0); WBC ABN SCTR FOR CBC 1
[2022-05-26 05:28] LABS: Platelet Count 68 X10*3/uL (160-400); White Blood Count 15.9 X10*3/uL (4.8-10.8)
[2022-05-26] MEDS: propofoL 1,000 MG/100 ML VIAL 18 MG IVCONT ×4 (05:29→18:15)
[2022-05-26] MEDS: metroNIDAZOLE/NS 500 MG/100 ML PIGGYBACK 100 MG IV ×3 (05:32→20:54)
[2022-05-26 05:49] LABS: Alanine Aminotransferase 465 U/L (0-31); Albumin Level 2.7 g/dL (3.5-5.0); Alkaline Phosphatase 75 U/L (39-117); Anion Gap 16 (12-20); Aspartate Amino Transferase 638 U/L (5-31); Bilirubin Total 0.8 mg/dL (0.0-1.0); Blood Urea Nitrogen 37 mg/dL (9-16); Calcium 7.6 mg/dL (8.4-10.2); Carbon Dioxide 21 mmol/L (22-29); Chloride 108 mmol/L (96-108); Creatinine Clr Calc Pharmacy 54.5; Estimated Glomerular Filt Rate 36; Glucose Random 121 mg/dL (60-115); Phosphorus 2.3 mg/dL (2.7-4.5); Potassium 4.3 mmol/L (3.3-5.1); Sodium 141 mmol/L (135-145); Total Protein 4.6 g/dL (6.5-8.0)
[2022-05-26 05:51] LABS: Troponin-I High Sensitivity 2386.5 ng/L (<3.5-17.0)
[2022-05-26 05:56] LABS: Band Neutrophils Percent 32 % (3-5); Lymphocytes Absolute Manual 1.3 X10*3/uL (1.2-4.9); Lymphocytes Percent Manual 8 % (20-40); Monocytes Absolute Manual 0.3 X10*3/uL (0.1-1.2); Monocytes Percent Manual 2 % (2-11); Neutrophils Absolute Manual 14.3 X10*3/uL (2.0-8.3); Neutrophils Percent Manual 58 % (45-73)
[2022-05-26 05:57] LABS: Burr Cells 1+ (0-2) /OIF; Dohle Bodies PRESENT; Large Platelet PRESENT; Platelet Estimate DECREASED (NORMAL); Platelet Morphology Comment NOTED; Polychromasia 1+ (0-2) /OIF; RBC Morphology NOTED; Toxic Vacuolation PRESENT
[2022-05-26 06:07] LABS: C Reactive Protein 16.83 mg/dL (< or = 0.50)
[2022-05-26] MEDS: Albumin Human 25 % 100 ML IV ×4 (06:21→10:11)
--- NOTE | 2022-05-26 06:35 | PC.NURSE ---
PT TO ICU LAST NIGHT AT 1900. ON ARRIVAL TO ICU, PT ON PROPOFOL GTT, INTUBATED AND ON AC VENT SETTINGS. GOOD VENT CCONTROL ON PROPOFOL. PT NOT FOLLOWING COMMANDS, OPENS EYES, NO TRACKING, MOVING ALL EXTREMITIES, RESPONSIVE TO TACTILE STIMULI. BP STABLE ON ARRIVAL TO THE UNIT. CENTRAL LINE INTACT RIGHT IJ. CVP 8 ON ARRIVAL. SPECIMEN SENT TO LAB FOR GASTRIC CONTENTS WHICH CAME BACK POSITIVE FOR OCCULT BLOOD. ASAD MOSCOSO PERFORMED DIGITAL EXAM FOR STOOL SAMPLE FOR OCCULT BLOOD WHICH CAME BACK POSITIVE. OGT TO LWS AND ONLY SMALL AMOUNT OF BROWN RETURNS NOTED. NS AT 100 ML/HR. BP STARTED DROPPING AROUND 0100 TO SBP 80'S-90'S. CVP DROPPED TO 2. U/O GOOD. STAT LABS DRAWN TO CHECK HGB/HCT BUT IT WAS GOOD 13.2 AND 39.2. PT STARTED ON LEVOPHED WITH QUICK RESPONSE AND CURRENTLY INFUSING AT 0.02 MCG/KG/MIN. PT ALSO GIVEN 1 LITER OF LR. PROTONIX GTT INFUS AT 8 MG/HR.
[2022-05-26 06:51] LABS: Venous Blood Gas Refer to POC result
[2022-05-26] MEDS: Chlorhexidine Gluc Oral Rinse 15 ML MOUTHWASH BUCCAL ×2 (07:34→15:17)
[2022-05-26] MEDS: levETIRAcetam in NaCl (iso-os) 500 MG/100 ML PIGGYBACK 400 MG IV ×2 (10:11→22:30)
[2022-05-26] MEDS: levoFLOXacin/D5W 250 MG/50 ML PIGGYBACK 50 MG IV (15:15)
--- NOTE | 2022-05-26 15:29 | PM.CCPN ---
Subjective Subjective Date of Service: 05/26/22 Interval History: 57-year-old obese female presented 4 days earlier with shaking chill progressive alteration in mental status to on arousability yesterday min brought to the emergency room and then had copious fecal into vomitus with aspiration witnessed emergent intubation for airway protection and central line placement ultimately probably has sepsis with an abdominal source questionable diverticulitis/colitis of the descending colon and then secondarily an aspiration pneumonia who came in with acute kidney insufficiency as well as acute hepatic failure and encephalopathy in a positive troponin for 4000 and CPK of over 13,000 in part I am sure myocardial in origin and in part rhabdomyolysis and with hydration and pressure support and ventilator support it seems that mental status was somewhat appropriate on upon some sedation withdrawal old today in and there is resolving renal and hepatic function is well Critical Care Time (minutes): 60 Physical Exam Vital Signs: Vital Signs: Last Vital Signs Temp 99.8 F 05/26/22 08:00 Pulse 93 05/26/22 14:00 Resp 17 05/26/22 14:00 BP 110/54 L 05/26/22 14:00 Pulse Ox 94 05/26/22 14:00 O2 Del Method 05/26/22 14:00 O2 Flow Rate 4 05/25/22 14:30 FiO2 35 05/26/22 14:00 Oxygen Flow Rate 4 05/25/22 14:47 BMI result Body Mass Index 40.6 she did respond appropriately on lower sedation doing well with modest minutes ventilatory requirement and reduced FiO2 to 30% bedside echo still preserved systolic LV function without segmental wall motion abnormality and troponin and CPK are all diminishing abdomen is soft with no organomegaly lungs without adventitious sounds Objective Data Labs CBC & Chem 7: 05/26/22 05:18 05/26/22 05:18 Labs: Laboratory Results - last 24 hr 05/25/22 05/25/22 05/25/22 14:49 14:49 14:49 WBC RBC Hgb Hct MCV MCH MCHC RDW Plt Count MPV Immature Gran % (Auto) Neut % (Auto) Lymph % (Auto) [place]icks[place] % (Auto) Eos % (Auto) Baso % (Auto) Lymph # (Auto) [place]ickson # (Auto) Eos # (Auto) Baso # (Auto) Abs Immat Gran (auto) Absolute Neuts (auto) Absolute Nucleated RBC Nucleated RBC % (auto) Neutrophils % (Manual) Band Neutrophils % Lymphocytes % (Manual) Monocytes % (Manual) Metamyelocytes % Abs Neuts (Manual) Lymphocytes # (Manual) Monocytes # (Manual) Metamyelocytes # Nucleated RBCs Toxic Vacuolation Dohle Bodies Platelet Estimate Large Platelets Plt Morphology Comment RBC Morphology Polychromasia [place] Cells PT INR aPTT Heparin Protocol VBG pH VBG pCO2 VBG pO2 VBG HCO3 VBG O2 Saturation VBG Base Excess Sodium Potassium Chloride Carbon Dioxide Anion Gap BUN Creatinine Estim Creat Clear Calc Estimated GFR Random Glucose Lactic Acid 2.5 H* Lactic Acid F/U @ 2Hr Calcium Phosphorus Total Bilirubin AST ALT Alkaline Phosphatase Ammonia Total Creatine Kinase 98912 H Troponin I High Sens 4185.7 H* C-Reactive Protein B-Natriuretic Peptide 341 H Total Protein Albumin Procalcitonin TSH Free T4 Urine Color Urine Appearance Urine pH Ur Specific [place] Urine Protein Urine Glucose (UA) Urine Ketones Urine Blood Urine Nitrite Ur Leukocyte Esterase Urine RBC Urine WBC Ur Squamous Epith Cells Urine Bacteria Hyaline Casts Granular Casts Gastric Occult Blood Stool Leukocytes, Qual Salicylates Urine Opiates Screen Urine Fentanyl Screen Acetaminophen Ur Barbiturates Screen Ur Phencyclidine Scrn Ur Amphetamines Screen U Benzodiazepines Scrn Urine Cocaine Screen U Marijuana (THC) Screen Blood Type Antibody Screen Crossmatch 05/25/22 05/25/22 05/25/22 16:16 17:50 17:50 WBC RBC Hgb Hct MCV MCH MCHC RDW Plt Count MPV Immature Gran % (Auto) Neut % (Auto) Lymph % (Auto) [place] % (Auto) Eos % (Auto) Baso % (Auto) Lymph # (Auto) [place] # (Auto) Eos # (Auto) Baso # (Auto) Abs Immat Gran (auto) Absolute Neuts (auto) Absolute Nucleated RBC Nucleated RBC % (auto) Neutrophils % (Manual) Band Neutrophils % Lymphocytes % (Manual) Monocytes % (Manual) Metamyelocytes % Abs Neuts (Manual) Lymphocytes # (Manual) Monocytes # (Manual) Metamyelocytes # Nucleated RBCs Toxic Vacuolation Dohle Bodies Platelet Estimate Large Platelets Plt Morphology Comment RBC Morphology Polychromasia [place] Cells PT INR aPTT Heparin Protocol VBG pH 7.36 VBG pCO2 34 VBG pO2 119 VBG HCO3 19 L VBG O2 Saturation 99.0 VBG Base Excess -4.7 Sodium Potassium Chloride Carbon Dioxide Anion Gap BUN Creatinine Estim Creat Clear Calc Estimated GFR Random Glucose Lactic Acid Lactic Acid F/U @ 2Hr Calcium Phosphorus Total Bilirubin AST ALT Alkaline Phosphatase Ammonia Total Creatine Kinase Troponin I High Sens C-Reactive Protein B-Natriuretic Peptide Total Protein Albumin Procalcitonin TSH Free T4 Urine Color Dark Yellow Urine Appearance Cloudy Urine pH 5.0 Ur Specific [place] 1.025 Urine Protein 100 (2+) H Urine Glucose (UA) Negative Urine Ketones Trace Urine Blood Large (3+) H Urine Nitrite Negative Ur Leukocyte Esterase Trace H Urine RBC >20 H Urine WBC 0-5 Ur Squamous Epith Cells 0-2 Urine Bacteria None Seen Hyaline Casts 3-5 Granular Casts Present Gastric Occult Blood Stool Leukocytes, Qual Salicylates Urine Opiates Screen POSITIVE H Urine Fentanyl Screen Not Detected Acetaminophen Ur Barbiturates Screen Not Detected Ur Phencyclidine Scrn Not Detected Ur Amphetamines Screen Not Detected U Benzodiazepines Scrn Not Detected Urine Cocaine Screen Not Detected U Marijuana (THC) Screen Not Detected Blood Type Antibody Screen Crossmatch 05/25/22 05/25/22 05/25/22 19:34 19:34 19:34 WBC RBC Hgb Hct MCV MCH MCHC RDW Plt Count MPV Immature Gran % (Auto) Neut % (Auto) Lymph % (Auto) [place]ickson % (Auto) Eos % (Auto) Baso % (Auto) Lymph # (Auto) [place]on # (Auto) Eos # (Auto) Baso # (Auto) Abs Immat Gran (auto) Absolute Neuts (auto) Absolute Nucleated RBC Nucleated RBC % (auto) Neutrophils % (Manual) Band Neutrophils % Lymphocytes % (Manual) Monocytes % (Manual) Metamyelocytes % Abs Neuts (Manual) Lymphocytes # (Manual) Monocytes # (Manual) Metamyelocytes # Nucleated RBCs Toxic Vacuolation Dohle Bodies Platelet Estimate Large Platelets Plt Morphology Comment RBC Morphology Polychromasia [place] Cells PT INR aPTT Heparin Protocol VBG pH VBG pCO2 VBG pO2 VBG HCO3 VBG O2 Saturation VBG Base Excess Sodium Potassium Chloride Carbon Dioxide Anion Gap BUN Creatinine Estim Creat Clear Calc Estimated GFR Random Glucose Lactic Acid Lactic Acid F/U @ 2Hr 2.3 H* Calcium Phosphorus Total Bilirubin AST ALT Alkaline Phosphatase Ammonia 68 H Total Creatine Kinase Troponin I High Sens C-Reactive Protein B-Natriuretic Peptide Total Protein Albumin Procalcitonin TSH Free T4 Urine Color Urine Appearance Urine pH Ur Specific [place] Urine Protein Urine Glucose (UA) Urine Ketones Urine Blood Urine Nitrite Ur Leukocyte Esterase Urine RBC Urine WBC Ur Squamous Epith Cells Urine Bacteria Hyaline Casts Granular Casts Gastric Occult Blood Stool Leukocytes, Qual Salicylates < 5.0 L Urine Opiates Screen Urine Fentanyl Screen Acetaminophen < 1 Ur Barbiturates Screen Ur Phencyclidine Scrn Ur Amphetamines Screen U Benzodiazepines Scrn Urine Cocaine Screen U Marijuana (THC) Screen Blood Type Antibody Screen Crossmatch 05/25/22 05/25/22 05/25/22 19:34 20:10 20:21 WBC RBC Hgb Hct MCV MCH MCHC RDW Plt Count MPV Immature Gran % (Auto) Neut % (Auto) Lymph % (Auto) [place] % (Auto) Eos % (Auto) Baso % (Auto) Lymph # (Auto) [place] # (Auto) Eos # (Auto) Baso # (Auto) Abs Immat Gran (auto) Absolute Neuts (auto) Absolute Nucleated RBC Nucleated RBC % (auto) Neutrophils % (Manual) Band Neutrophils % Lymphocytes % (Manual) Monocytes % (Manual) Metamyelocytes % Abs Neuts (Manual) Lymphocytes # (Manual) Monocytes # (Manual) Metamyelocytes # Nucleated RBCs Toxic Vacuolation Dohle Bodies Platelet Estimate Large Platelets Plt Morphology Comment RBC Morphology Polychromasia [place] Cells PT 17.3 H INR 1.5 H aPTT Heparin Protocol 21.4 L VBG pH VBG pCO2 VBG pO2 VBG HCO3 VBG O2 Saturation VBG Base Excess Sodium Potassium Chloride Carbon Dioxide Anion Gap BUN Creatinine Estim Creat Clear Calc Estimated GFR Random Glucose Lactic Acid Lactic Acid F/U @ 2Hr Calcium Phosphorus Total Bilirubin AST ALT Alkaline Phosphatase Ammonia Total Creatine Kinase Troponin I High Sens 3872.3 H* C-Reactive Protein B-Natriuretic Peptide Total Protein Albumin Procalcitonin TSH Free T4 Urine Color Urine Appearance Urine pH Ur Specific [place] Urine Protein Urine Glucose (UA) Urine Ketones Urine Blood Urine Nitrite Ur Leukocyte Esterase Urine RBC Urine WBC Ur Squamous Epith Cells Urine Bacteria Hyaline Casts Granular Casts Gastric Occult Blood POSITIVE H Stool Leukocytes, Qual Salicylates Urine Opiates Screen Urine Fentanyl Screen Acetaminophen Ur Barbiturates Screen Ur Phencyclidine Scrn Ur Amphetamines Screen U Benzodiazepines Scrn Urine Cocaine Screen U Marijuana (THC) Screen Blood Type Antibody Screen Crossmatch 05/25/22 05/25/22 05/25/22 21:58 21:58 21:58 WBC RBC Hgb Hct MCV MCH MCHC RDW Plt Count MPV Immature Gran % (Auto) Neut % (Auto) Lymph % (Auto) [place] % (Auto) Eos % (Auto) Baso % (Auto) Lymph # (Auto) [place] # (Auto) Eos # (Auto) Baso # (Auto) Abs Immat Gran (auto) Absolute Neuts (auto) Absolute Nucleated RBC Nucleated RBC % (auto) Neutrophils % (Manual) Band Neutrophils % Lymphocytes % (Manual) Monocytes % (Manual) Metamyelocytes % Abs Neuts (Manual) Lymphocytes # (Manual) Monocytes # (Manual) Metamyelocytes # Nucleated RBCs Toxic Vacuolation Dohle Bodies Platelet Estimate Large Platelets Plt Morphology Comment RBC Morphology Polychromasia [place] Cells PT INR aPTT Heparin Protocol VBG pH VBG pCO2 VBG pO2 VBG HCO3 VBG O2 Saturation VBG Base Excess Sodium 138 Potassium 4.3 Chloride 103 Carbon Dioxide 19 L Anion Gap 20 BUN 48 H Creatinine 1.98 H Estim Creat Clear Calc 38.1 Estimated GFR 26 Random Glucose 112 Lactic Acid 2.0 Lactic Acid F/U @ 2Hr Calcium 8.0 L D Phosphorus 1.4 L Total Bilirubin 0.8 AST 818 H ALT 543 H Alkaline Phosphatase 83 D Ammonia Total Creatine Kinase 78293 H Troponin I High Sens 3487.2 H* C-Reactive Protein B-Natriuretic Peptide Total Protein 5.3 L D Albumin 3.1 L Procalcitonin TSH 0.08 L Free T4 0.91 Urine Color Urine Appearance Urine pH Ur Specific [place] Urine Protein Urine Glucose (UA) Urine Ketones Urine Blood Urine Nitrite Ur Leukocyte Esterase Urine RBC Urine WBC Ur Squamous Epith Cells Urine Bacteria Hyaline Casts Granular Casts Gastric Occult Blood Stool Leukocytes, Qual Salicylates Urine Opiates Screen Urine Fentanyl Screen Acetaminophen Ur Barbiturates Screen Ur Phencyclidine Scrn Ur Amphetamines Screen U Benzodiazepines Scrn Urine Cocaine Screen U Marijuana (THC) Screen Blood Type Antibody Screen Crossmatch 05/25/22 05/25/22 05/25/22 22:01 22:28 Unknown WBC RBC Hgb Hct MCV MCH MCHC RDW Plt Count MPV Immature Gran % (Auto) Neut % (Auto) Lymph % (Auto) [place] % (Auto) Eos % (Auto) Baso % (Auto) Lymph # (Auto) [place] # (Auto) Eos # (Auto) Baso # (Auto) Abs Immat Gran (auto) Absolute Neuts (auto) Absolute Nucleated RBC Nucleated RBC % (auto) Neutrophils % (Manual) Band Neutrophils % Lymphocytes % (Manual) Monocytes % (Manual) Metamyelocytes % Abs Neuts (Manual) Lymphocytes # (Manual) Monocytes # (Manual) Metamyelocytes # Nucleated RBCs Toxic Vacuolation Dohle Bodies Platelet Estimate Large Platelets Plt Morphology Comment RBC Morphology Polychromasia [place] Cells PT INR aPTT Heparin Protocol VBG pH 7.39 VBG pCO2 35 VBG pO2 57 VBG HCO3 22 VBG O2 Saturation 87.0 VBG Base Excess -2.1 Sodium Potassium Chloride Carbon Dioxide Anion Gap BUN Creatinine Estim Creat Clear Calc Estimated GFR Random Glucose Lactic Acid Lactic Acid F/U @ 2Hr Calcium Phosphorus Total Bilirubin AST ALT Alkaline Phosphatase Ammonia Total Creatine Kinase Troponin I High Sens C-Reactive Protein B-Natriuretic Peptide Total Protein Albumin Procalcitonin 3.61 TSH Free T4 Urine Color Urine Appearance Urine pH Ur Specific [place] Urine Protein Urine Glucose (UA) Urine Ketones Urine Blood Urine Nitrite Ur Leukocyte Esterase Urine RBC Urine WBC Ur Squamous Epith Cells Urine Bacteria Hyaline Casts Granular Casts Gastric Occult Blood Stool Leukocytes, Qual Cancelled Salicylates Urine Opiates Screen Urine Fentanyl Screen Acetaminophen Ur Barbiturates Screen Ur Phencyclidine Scrn Ur Amphetamines Screen U Benzodiazepines Scrn Urine Cocaine Screen U Marijuana (THC) Screen Blood Type Antibody Screen Crossmatch 05/25/22 05/26/22 05/26/22 Unknown 01:01 01:01 WBC 16.5 H RBC 4.02 L Hgb 13.2 Hct 39.2 MCV 97.5 MCH 32.8 MCHC 33.7 RDW 14.4 Plt Count 74 L D MPV 10.4 Immature Gran % (Auto) Cancelled Neut % (Auto) Cancelled Lymph % (Auto) Cancelled [place] % (Auto) Cancelled Eos % (Auto) Cancelled Baso % (Auto) Cancelled Lymph # (Auto) Cancelled [place] # (Auto) Cancelled Eos # (Auto) Cancelled Baso # (Auto) Cancelled Abs Immat Gran (auto) Cancelled Absolute Neuts (auto) Cancelled Absolute Nucleated RBC 0.020 H Nucleated RBC % (auto) 0.1 Neutrophils % (Manual) 64 Band Neutrophils % 22 H Lymphocytes % (Manual) 8 L Monocytes % (Manual) 5 Metamyelocytes % 1 Abs Neuts (Manual) 14.2 H Lymphocytes # (Manual) 1.3 Monocytes # (Manual) 0.8 Metamyelocytes # 0.2 Nucleated RBCs 2 H Toxic Vacuolation PRESENT Dohle Bodies PRESENT Platelet Estimate DECREASED Large Platelets Plt Morphology Comment NORMAL RBC Morphology NOTED Polychromasia 1+ (0-2) [place] Cells 1+ (0-2) PT INR aPTT Heparin Protocol VBG pH VBG pCO2 VBG pO2 VBG HCO3 VBG O2 Saturation VBG Base Excess Sodium Potassium Chloride Carbon Dioxide Anion Gap BUN Creatinine Estim Creat Clear Calc Estimated GFR Random Glucose Lactic Acid 2.0 Lactic Acid F/U @ 2Hr Calcium Phosphorus Total Bilirubin AST ALT Alkaline Phosphatase Ammonia Total Creatine Kinase Troponin I High Sens C-Reactive Protein B-Natriuretic Peptide Total Protein Albumin Procalcitonin TSH Free T4 Urine Color Yellow Urine Appearance Clear Urine pH 6.0 Ur Specific [place] >= 1.030 H Urine Protein 100 (2+) H Urine Glucose (UA) Negative Urine Ketones Trace Urine Blood Large (3+) H Urine Nitrite Negative Ur Leukocyte Esterase Negative Urine RBC 3-5 H Urine WBC 0-5 Ur Squamous Epith Cells 3-5 Urine Bacteria None Seen Hyaline Casts 3-5 Granular Casts Gastric Occult Blood Stool Leukocytes, Qual Salicylates Urine Opiates Screen Urine Fentanyl Screen Acetaminophen Ur Barbiturates Screen Ur Phencyclidine Scrn Ur Amphetamines Screen U Benzodiazepines Scrn Urine Cocaine Screen U Marijuana (THC) Screen Blood Type Antibody Screen Crossmatch 05/26/22 05/26/22 05/26/22 01:01 05:17 05:18 WBC 15.9 H RBC 3.72 L Hgb 12.3 Hct 36.8 L MCV 98.9 H MCH 33.1 H MCHC 33.4 RDW 14.6 Plt Count 68 L MPV 10.7 Immature Gran % (Auto) Cancelled Neut % (Auto) Cancelled Lymph % (Auto) Cancelled [place] % (Auto) Cancelled Eos % (Auto) Cancelled Baso % (Auto) Cancelled Lymph # (Auto) Cancelled [place] # (Auto) Cancelled Eos # (Auto) Cancelled Baso # (Auto) Cancelled Abs Immat Gran (auto) Cancelled Absolute Neuts (auto) Cancelled Absolute Nucleated RBC 0.020 H Nucleated RBC % (auto) 0.1 Neutrophils % (Manual) 58 Band Neutrophils % 32 H Lymphocytes % (Manual) 8 L Monocytes % (Manual) 2 Metamyelocytes % Abs Neuts (Manual) 14.3 H Lymphocytes # (Manual) 1.3 Monocytes # (Manual) 0.3 Metamyelocytes # Nucleated RBCs Toxic Vacuolation PRESENT Dohle Bodies PRESENT Platelet Estimate DECREASED Large Platelets PRESENT Plt Morphology Comment NOTED RBC Morphology NOTED Polychromasia 1+ (0-2) [place] Cells 1+ (0-2) PT INR aPTT Heparin Protocol VBG pH 7.40 VBG pCO2 35 VBG pO2 47 VBG HCO3 22 VBG O2 Saturation 78.0 VBG Base Excess -1.8 Sodium Potassium Chloride Carbon Dioxide Anion Gap BUN Creatinine Estim Creat Clear Calc Estimated GFR Random Glucose Lactic Acid Lactic Acid F/U @ 2Hr Calcium Phosphorus Total Bilirubin AST ALT Alkaline Phosphatase Ammonia Total Creatine Kinase Troponin I High Sens C-Reactive Protein B-Natriuretic Peptide Total Protein Albumin Procalcitonin TSH Free T4 Urine Color Urine Appearance Urine pH Ur Specific [place] Urine Protein Urine Glucose (UA) Urine Ketones Urine Blood Urine Nitrite Ur Leukocyte Esterase Urine RBC Urine WBC Ur Squamous Epith Cells Urine Bacteria Hyaline Casts Granular Casts Gastric Occult Blood Stool Leukocytes, Qual Salicylates Urine Opiates Screen Urine Fentanyl Screen Acetaminophen Ur Barbiturates Screen Ur Phencyclidine Scrn Ur Amphetamines Screen U Benzodiazepines Scrn Urine Cocaine Screen U Marijuana (THC) Screen Blood Type O Positive Antibody Screen NEGATIVE Crossmatch See Detail 05/26/22 05/26/22 05:18 05:18 WBC RBC Hgb Hct MCV MCH MCHC RDW Plt Count MPV Immature Gran % (Auto) Neut % (Auto) Lymph % (Auto) [place] % (Auto) Eos % (Auto) Baso % (Auto) Lymph # (Auto) [place] # (Auto) Eos # (Auto) Baso # (Auto) Abs Immat Gran (auto) Absolute Neuts (auto) Absolute Nucleated RBC Nucleated RBC % (auto) Neutrophils % (Manual) Band Neutrophils % Lymphocytes % (Manual) Monocytes % (Manual) Metamyelocytes % Abs Neuts (Manual) Lymphocytes # (Manual) Monocytes # (Manual) Metamyelocytes # Nucleated RBCs Toxic Vacuolation Dohle Bodies Platelet Estimate Large Platelets Plt Morphology Comment RBC Morphology Polychromasia [place] Cells PT INR aPTT Heparin Protocol VBG pH VBG pCO2 VBG pO2 VBG HCO3 VBG O2 Saturation VBG Base Excess Sodium 141 Potassium 4.3 Chloride 108 Carbon Dioxide 21 L Anion Gap 16 BUN 37 H Creatinine 1.51 H Estim Creat Clear Calc 54.5 Estimated GFR 36 Random Glucose 121 H Lactic Acid Lactic Acid F/U @ 2Hr Calcium 7.6 L Phosphorus 2.3 L Total Bilirubin 0.8 AST 638 H ALT 465 H Alkaline Phosphatase 75 Ammonia Total Creatine Kinase Troponin I High Sens 2386.5 H* C-Reactive Protein 16.83 H B-Natriuretic Peptide Total Protein 4.6 L Albumin 2.7 L Procalcitonin TSH Free T4 Urine Color Urine Appearance Urine pH Ur Specific [place] Urine Protein Urine Glucose (UA) Urine Ketones Urine Blood Urine Nitrite Ur Leukocyte Esterase Urine RBC Urine WBC Ur Squamous Epith Cells Urine Bacteria Hyaline Casts Granular Casts Gastric Occult Blood Stool Leukocytes, Qual Salicylates Urine Opiates Screen Urine Fentanyl Screen Acetaminophen Ur Barbiturates Screen Ur Phencyclidine Scrn Ur Amphetamines Screen U Benzodiazepines Scrn Urine Cocaine Screen U Marijuana (THC) Screen Blood Type Antibody Screen Crossmatch Progress Note: A&P Assessment and plan (1) Pressure sore on buttocks: Status: Acute (2) Encephalopathy acute: Status: Acute (3) Sepsis with acute hypoxic respiratory failure: Status: Acute (4) Seizures complicating infection: Status: Acute (5) Colitis, acute: Status: Acute (6) Altered mental status: Status: Acute (7) Sepsis: Status: Acute (8) Elevated troponin: Status: Acute (9) ASHLEY (acute kidney injury): Status: Acute (10) Rhabdomyolysis: Status: Acute (11) History of sudden cardiac successfully resuscitated: Status: Acute (12) ICD (implantable cardioverter-defibrillator) in place: Status: Acute Plan plan is to continue antibiotics as above and other sedation holiday with attempt to wean if if cognitive function is appropriate and lung function appropriate and will try to obtain some of the old notes from the GI on previous endoscopy and continue Keppra maintenance as antiseizure Quality Stroke Does the patient have a stroke diagnosis?: No VTE Prior VTE?: No VTE Risk Level:: Medical - moderate - high VTE Device Contraindication: N/A - Device Ordered VTE Drug Contraindication: N/A - Med Ordered
[2022-05-26] MEDS: propofoL 1,000 MG/100 ML VIAL 24 MG IVCONT (21:33)
[2022-05-27] VITALS (20 sets, daily range): BP systolic 115–168; BP diastolic 62–93; PULSE 74–90; RESP 16–26; TEMP 34.8–37.1; O2SAT 90–99; BMI 42.4
[2022-05-27] MEDS: propofoL 1,000 MG/100 ML VIAL 24 MG IVCONT ×3 (01:23→07:07)
[2022-05-27] MEDS: metroNIDAZOLE/NS 500 MG/100 ML PIGGYBACK 100 MG IV ×3 (04:15→21:15)
[2022-05-27 05:21] LABS: VBG Base Excess -1.5 mmol/L; VBG HCO3 21 mmol/L (22-26); VBG pCO2 30 mmHg; VBG pH 7.45 (7.32-7.43); VBG pO2 47 mmHg
[2022-05-27 05:56] LABS: MANUAL DIFF FLAG NO
[2022-05-27 05:59] LABS: Basophils Absolute Auto 0.1 X10*3/uL (0.0-0.2); Basophils Percent Auto 0.5 % (0-2); Eosinophils Absolute Auto 0.1 X10*3/uL (0.0-0.4); Eosinophils Percent Auto 0.8 % (0-4); Hematocrit 31.7 % (37.0-47.0); Hemoglobin 10.5 g/dl (12.0-16.0); Imm Gran Abs Auto 0.27 X10*3/uL (0.00-0.03); Imm Gran Pct Auto 1.8 % (0.0-0.4); Lymphocytes Absolute Auto 3.3 X10*3/uL (1.2-4.9); Lymphocytes Percent Auto 21.7 % (20-40); Mean Corpuscular HGB Conc 33.1 g/dl (31.0-35.0); Mean Corpuscular Hemoglobin 32.7 pg (27.0-33.0); Mean Corpuscular Volume 98.8 fL (80.0-98.0); Monocytes Absolute Auto 1.2 X10*3/uL (0.1-1.2); Monocytes Percent Auto 7.8 % (2-11); NRBC Pct Auto 0.4 /100WBC (0.0-0.2); Neutrophils Absolute Auto 10.1 x10*3/uL (2.0-8.3); Neutrophils Percent Auto 67.4 % (45-73); Platelet Count 39 X10*3/uL (160-400); Red Blood Count 3.21 X10*6/uL (4.20-5.50); Red Cell Distribution Width 15.1 % (11.0-16.0)
[2022-05-27] MEDS: 0.9 % Sodium Chloride 1,000 ML 100 ML IVCONT ×2 (06:06→15:26)
[2022-05-27] MEDS: Pantoprazole Sodium 80 MG in 0.9 % Sodium Chloride 80 ML 10 MG IV ×2 (06:06→16:18)
[2022-05-27 06:24] LABS: Alanine Aminotransferase 272 U/L (0-31); Albumin Level 3.4 g/dL (3.5-5.0); Alkaline Phosphatase 66 U/L (39-117); Anion Gap 14 (12-20); Aspartate Amino Transferase 311 U/L (5-31); Bilirubin Total 1.1 mg/dL (0.0-1.0); Blood Urea Nitrogen 19 mg/dL (9-16); Calcium 7.8 mg/dL (8.4-10.2); Carbon Dioxide 20 mmol/L (22-29); Chloride 113 mmol/L (96-108); Creatinine Clr Calc Pharmacy 94.8; Estimated Glomerular Filt Rate > 60; Glucose Random 100 mg/dL (60-115); Phosphorus 0.9 mg/dL (2.7-4.5); Potassium 3.4 mmol/L (3.3-5.1); Sodium 144 mmol/L (135-145)
[2022-05-27 06:30] LABS: Troponin-I High Sensitivity 883.8 ng/L (<3.5-17.0)
[2022-05-27 06:38] LABS: Venous Blood Gas Refer to POC result
[2022-05-27] MEDS: Potassium Phosphate/NS 15 MMOL/250 ML PLAST..BAG 62.5 MMOL IV ×2 (07:07→11:20)
[2022-05-27] MEDS: Chlorhexidine Gluc Oral Rinse 15 ML MOUTHWASH BUCCAL (07:07)
--- NOTE | 2022-05-27 07:59 | ECG_ITS ---
Test Reason : patient had run of pvcs/checking rthym Blood Pressure : / mmHG Vent. Rate : 082 BPM Atrial Rate : 082 BPM P-R Int : 150 ms QRS Dur : 068 ms QT Int : 358 ms P-R-T Axes : 051 040 044 degrees QTc Int : 418 ms Atrial-paced rhythm Low voltage QRS Abnormal ECG When compared with ECG of 26-MAY-2022 07:29, Atrial-paced rhythm is now Present Referred By: Margarita Guillen Electronically Signed By:ROBERT SUAREZ
--- NOTE | 2022-05-27 09:35 | CA_ITS ---
Transthoracic Echocardiogram Patient (Last, First, Middle): Gayatri Lopez, Gender: Female Date of : 1965 Age: 57 Procedure Date: 05/27/2022 Procedure Type: Transthoracic Echocardiogram Location: ICU Height: 170.18 cm Weight: 122.47 kg BSA: 2.30 m2 Heart Rate: bpm BP: 149 / 83 mmHg Commercial L[employer] Assistant: HEATHER Referring MD: Margarita Guillen MD Symptoms: elevated troponin Study Quality: Technically Difficult/Contrast ECG Rhythm: Sinus Conclusions: - The left ventricular systolic function is normal. The visually estimated ejection fraction is between 65-70%. - Moderately increased right ventricular cavity size. - There is mild tricuspid valve regurgitation. - There is a small loculated pericardial effusion overlying the left ventricle. Findings Procedure Information Contrast agent, definity, is being given per protocol without apparent complications. Left Ventricle Normal left ventricular cavity size. There is mildly increased left ventricular wall thickness. The left ventricular systolic function is normal. The visually estimated ejection fraction is between 65-70%. There is no evidence of regional wall motion abnormalities. Diastolic function is normal for age. Right Ventricle The right ventricle was not well visualized. Moderately increased right ventricular cavity size. There is normal right ventricular systolic function. There is an ICD wire seen in the right ventricle. Atria Both atria are normal in size. Aortic Valve There is a normal trileaflet aortic valve. There is no aortic valve stenosis. There is no aortic valve regurgitation. Mitral Valve The mitral valve appears normal. There is trace mitral valve regurgitation. There is no mitral valve stenosis. Pulmonic Valve The pulmonic valve was not well visualized. Tricuspid Valve There is mild tricuspid valve regurgitation. The pulmonary artery systolic pressure is normal. Great Vessels The asc aorta is normal in size. Venous The inferior vena cava was not well visualized. Pericardium/Pleural There is a small loculated pericardial effusion overlying the left ventricle. There are no definitive echocardiographic findings of tamponade physiology. Prior Study Comparison Changes noted compared to prior study dated: 03/27/2017. Increase in right ventricular size. Measurements 2D Linear Measurements IVSd: 1.23 0.6-0.9/0.6-1.0 cm LVIDd: 4.86 3.9-5.3/4.2-5.9 cm LVIDd Index: 2.11 2.4-3.2/2.2-3.1 cm/m2 LVIDs: 3.70 2.0-3.6 cm LVPWd: 0.89 0.7-1.1 cm LA Diam: 3.40 2.7-3.8/3.0-4.0 cm LAIDs Index: 1.48 1.5-2.3 cm/m2 LV Mass: 234.44 67-162/88-224 g LV Mass Index: 101.93 43-95/49-115 g/m2 LVOT Diam: 2.10 3.0+(-)1.3 cm 2D Systolic Function EF 4C: 66.00 >55% EF 2C: 77.10 >55% EF BiP: 72.50 >55% Mitral Valve MV Pk E: 0.92 MV PK A: 0.97 MV Decel Time: 157.00 E/A: 0.90 E'Lateral: 10.30 E'Medial: 8.16 E/E' Med: 11.30 E/E' Lat: 8.90 PHT: 46.00 MVA PHT: 4.78 Decel [place]: 5.88 Aortic Valve AoV Pk Shady: 1.38 AoV Mn Shady: 1.00 AoV VTI: 0.28 AoV Pk Grad: 8.00 Aov Mn Grad: 4.00 RENY Cont.VTI: 3.76 LVOT LVOT Pk Shady: 1.20 LVOT Mn Shady: 0.80 LVOT VTI: 0.31 LVOT Pk Grad: 6.00 LVOT Mn Grad: 3.00 LVOT Diam: 2.10 LVOT Area: 3.46 Diastolic Function MV Pk E: 0.92 MV Pk A: 0.97 E/A: 0.90 E'Medial: 8.16 E/E' Med: 11.30 E' Laterial: 10.30 E/E' Lat: 8.90 Right Ventricle TAPSE (mm): 23.30 TVS' Shady: 15.50 Tricuspid Valve TR Pk Shady: 2.82 TR Pk Grad: 32.00 Great Vessels Aorta Sinus of Valsalva: 3.52 2.0-3.5 cm Ao Asc: 3.50 2.1-3.4 cm Updated in Other Vendor System with Status of Final Godwin Mcleod MD electronically signed on 05/27/2022 3:50:16 PM with status of Final
[2022-05-27] MEDS: levETIRAcetam in NaCl (iso-os) 500 MG/100 ML PIGGYBACK 400 MG IV ×2 (10:16→21:14)
--- NOTE | 2022-05-27 11:23 | P.CDIC_ITS ---
CDI Concurrent Query Documentation Clarification: PHYSICIAN'S DOCUMENTATION REQUEST Date of Query: 05/27/22 1124 Patient Name: Gayatri Lopez Admit Date: 05/25/22 Dear Doctor, A review of the medical record indicates additional documentation may be needed. Please review below and update the documentation accordingly. Clinical Indicators: Risk Factors/Clinical Indicators/Treatments PN - 05/26 - Encephalopathy Progressive alteration of mental status. History of seizure activity on Keppra, possible withdrawing from medication due to deterioration of mental status at least last 48 hours. Based on the above, please further specify, in the Progress Notes, the known or suspected type of the documented encephalopathy: * Metabolic * Septic * Toxic * Toxic metabolic * Hepatic (reported as hepatic failure and needs further specificity as to acute, subacute, or chronic) * Other (please specify) * Unable to determine Use of terms such as suspected, likely, concern for, or probable (associated with a specific diagnosis that is being evaluated, monitored, or treated as if it exists) are acceptable and can be coded in the inpatient setting, when documented at the time of discharge. Thank you, Bushra Caldwell [facility], CDIS Extension: [phone] Please use your independent medical judgment in providing your response. THIS QUERY IS PART OF THE PERMANENT MEDICAL RECORD
[2022-05-27 12:03] LABS: CDiff Gene PCR NEGATIVE (Negative)
[2022-05-27] MEDS: Sucralfate Oral Suspension 1 GM/10 ML ORAL.SUSP PO ×2 (13:05→21:15)
--- NOTE | 2022-05-27 15:05 | MHC.CM.PN ---
Met with patient and significant other @ beside. Patient was able to answer most questions. Patient would like to go home but also stating she's open to rehab if recommended. Reports having HCP @ [facility]. Not vaccinated for COVID. No services prior to admission. Significant other to transport @ D/C.
--- NOTE | 2022-05-27 15:24 | P.PNCC_ITS ---
Subjective Subjective Date of Service: 05/27/22 Interval History: 57-year-old morbidly obese female presented with altered mental status and hypoxic respiratory failure while in the emergency room had copious feet healing vomitus with aspiration witnessed emergent intubation required but extubated today and doing beautifully post extubation being observed all day with no respiratory difficulty and she is a smoker but she does not have a significant treated background lung history in 2013 had a witnessed primary VFib arrest and has a dual-chamber ICD that has not delivered a therapy and on my echo and the official echo she has I hypertrophic cardiomyopathy which may be primary and the 4000 CPK not withstanding she still does not have any acute ST-T changes nor did she have any wall motion abnormality so this does not appear to be ischemic but I would nonetheless recommend a screening nuclear stress test prior to leaving the hospital being followed now by Dr. Calero and [place] had previous colonoscopy without any significant pathology but the concern here was that she may have had a and ischemic colitis involving that portion of the descending colon and this could have precipitated a bacteremic episode accounting for the acute renal insufficiency and the acute elevation of liver function tests as well as potential myocarditis and everything is currently resolving comfortably extubated no respiratory insufficiency or difficulty and she remains on Levaquin and Flagyl as her antibiotics to which she is obviously responding and she passed her swallow study ready to eat and is on clear liquids currently and because she is chronically on clonazepam I am keeping her on a small dose of 0.25 mg b.i.d. to keep her from withdrawing Critical Care Time (minutes): 45 Physical Exam Vital Signs: Vital Signs: Last Vital Signs Temp 98.7 F 05/27/22 12:00 Pulse 84 05/27/22 14:00 Resp 19 05/27/22 14:00 BP 164/91 H 05/27/22 14:00 Pulse Ox 92 05/27/22 14:00 O2 Del Method 05/27/22 14:00 O2 Flow Rate 4 05/27/22 14:00 FiO2 35 05/27/22 11:06 Oxygen Flow Rate 4 05/25/22 14:47 BMI result Body Mass Index 42.4 awake alert oriented nonfocal neurologically she is back on Keppra which she was supposed to be taking at home so I would maintain the 500 mg IV b.i.d. lungs without adventitious sounds or effort bedside cardiac by echo as I explained concentrically hypertrophied with normal systoli c function abdomen is soft no organomegaly Objective Data Labs CBC & Chem 7: 05/27/22 05:13 05/27/22 05:13 Labs: Laboratory Results - last 24 hr 05/25/22 05/26/22 05/27/22 Unknown 01:01 05:13 WBC RBC Hgb Hct MCV MCH MCHC RDW Plt Count MPV Immature Gran % (Auto) Neut % (Auto) Lymph % (Auto) [place] % (Auto) Eos % (Auto) Baso % (Auto) Lymph # (Auto) [place] # (Auto) Eos # (Auto) Baso # (Auto) Abs Immat Gran (auto) Absolute Neuts (auto) Absolute Nucleated RBC Nucleated RBC % (auto) Smear Path Review SEE NOTE VBG pH VBG pCO2 VBG pO2 VBG HCO3 VBG O2 Saturation VBG Base Excess Sodium Potassium Chloride Carbon Dioxide Anion Gap BUN Creatinine Estim Creat Clear Calc Estimated GFR Random Glucose Calcium Phosphorus Total Bilirubin AST ALT Alkaline Phosphatase Troponin I High Sens 883.8 H* D Total Protein Albumin C. difficile Tox B Gene O & P Trichrome Stain Cancelled 05/27/22 05/27/22 05/27/22 05:13 05:13 05:16 WBC 15.0 H RBC 3.21 L Hgb 10.5 L Hct 31.7 L MCV 98.8 H MCH 32.7 MCHC 33.1 RDW 15.1 Plt Count 39 L D MPV 11.0 Immature Gran % (Auto) 1.8 H Neut % (Auto) 67.4 Lymph % (Auto) 21.7 [place] % (Auto) 7.8 Eos % (Auto) 0.8 Baso % (Auto) 0.5 Lymph # (Auto) 3.3 [place] # (Auto) 1.2 Eos # (Auto) 0.1 Baso # (Auto) 0.1 Abs Immat Gran (auto) 0.27 H Absolute Neuts (auto) 10.1 H Absolute Nucleated RBC 0.060 H Nucleated RBC % (auto) 0.4 H Smear Path Review VBG pH 7.45 H VBG pCO2 30 VBG pO2 47 VBG HCO3 21 L VBG O2 Saturation 80.0 VBG Base Excess -1.5 Sodium 144 Potassium 3.4 D Chloride 113 H Carbon Dioxide 20 L Anion Gap 14 BUN 19 H Creatinine 0.89 Estim Creat Clear Calc 94.8 Estimated GFR > 60 Random Glucose 100 Calcium 7.8 L Phosphorus 0.9 L* Total Bilirubin 1.1 H AST 311 H ALT 272 H Alkaline Phosphatase 66 Troponin I High Sens Total Protein 5.0 L Albumin 3.4 L D C. difficile Tox B Gene O & P Trichrome Stain 05/27/22 10:14 WBC RBC Hgb Hct MCV MCH MCHC RDW Plt Count MPV Immature Gran % (Auto) Neut % (Auto) Lymph % (Auto) [place] % (Auto) Eos % (Auto) Baso % (Auto) Lymph # (Auto) [place] # (Auto) Eos # (Auto) Baso # (Auto) Abs Immat Gran (auto) Absolute Neuts (auto) Absolute Nucleated RBC Nucleated RBC % (auto) Smear Path Review VBG pH VBG pCO2 VBG pO2 VBG HCO3 VBG O2 Saturation VBG Base Excess Sodium Potassium Chloride Carbon Dioxide Anion Gap BUN Creatinine Estim Creat Clear Calc Estimated GFR Random Glucose Calcium Phosphorus Total Bilirubin AST ALT Alkaline Phosphatase Troponin I High Sens Total Protein Albumin C. difficile Tox B Gene NEGATIVE O & P Trichrome Stain Microbiology Microbiology Results: Microbiology 05/25/22 15:06 Blood - Venous Blood Culture - Preliminary No growth after 24 hours. 05/25/22 14:49 Blood - Venous Blood Culture - Preliminary No growth after 24 hours. Progress Note: A&P Assessment and plan (1) Pressure sore on buttocks: Status: Acute (2) Encephalopathy acute: Status: Acute (3) Sepsis with acute hypoxic respiratory failure: Status: Acute (4) Seizures complicating infection: Status: Acute (5) Colitis, acute: Status: Acute (6) Altered mental status: Status: Acute (7) Sepsis: Status: Acute (8) Elevated troponin: Status: Acute (9) ASHLEY (acute kidney injury): Status: Acute (10) Rhabdomyolysis: Status: Acute (11) History of sudden cardiac successfully resuscitated: Status: Acute (12) ICD (implantable cardioverter-defibrillator) in place: Status: Acute Plan so we continue with the above antibiotics and and graduation if he tolerates on her diet eventual possibly pre discharge Lexiscan nuclear stress testing as a screen for underlying ischemia foot given the positive troponin continue to follow both renal function and and her liver functions a until they completely resolve as I presume they will Quality Stroke Does the patient have a stroke diagnosis?: No VTE Prior VTE?: No VTE Risk Level:: Medical - moderate - high VTE Device Contraindication: N/A - Device Ordered VTE Drug Contraindication: N/A - Med Ordered
[2022-05-27] MEDS: levoFLOXacin/D5W 250 MG/50 ML PIGGYBACK 50 MG IV (15:26)
[2022-05-27] MEDS: traMADoL HCL 50 MG TABLET 25 MG PO (16:16)
--- NOTE | 2022-05-27 16:31 | PM.EVENT ---
Event Note Date of Service: 05/27/22 Event Note: GI consult dictated Picture seems consistent with ischemic colitis, which she also had in 2017. GI panel ordered. Hold off on colonoscopy given elevated troponins.
[2022-05-27 17:37] LABS: Triiodothyronine T3 Free 1.7 pg/mL (2.3-4.2)
--- NOTE | 2022-05-28 02:39 | CONS_ITS ---
DATE OF SERVICE: 05/27/2022 REFERRING PHYSICIAN: Margarita Guillen MD REASON FOR CONSULTATION: Colitis. HISTORY OF PRESENT ILLNESS: The patient is a pleasant 57-year-old woman, who was admitted to the hospital after presenting to the emergency room with altered mental status and respiratory failure. She was reportedly found to be minimally responsive at home and was brought to the emergency room, where an oxygen saturation was 80% and she vomited a large amount of brownish stomach contents. She required intubation and was monitored overnight in the ICU, where she was extubated later this morning. She reportedly had some diarrhea and as part of evaluation underwent CT scanning of the abdomen and pelvis, which is reviewed. This is interpreted as showing colonic wall thickening and mild pericolonic fat stranding involving the descending colon suggesting acute colitis, possibly ischemic. She did undergo colonoscopy in 2017 at [facility], which showed ischemic colitis. Currently, the patient complains of some generalized abdominal discomfort. She has had diarrhea and stool specimens have been sent with Clostridium difficile testing negative. PAST MEDICAL HISTORY: 1. ICD placement for history of sudden cardiac . 2. LV systolic dysfunction. 3. Irritable bowel syndrome. 4. Back pain. 5. Vitamin D deficiency. 6. Anxiety/depression. CURRENT MEDICATIONS: Her current medication list is reviewed in the chart. ALLERGIES: MULTIPLE MEDICATION ALLERGIES ARE REVIEWED. FAMILY HISTORY: This is reviewed in the electronic medical record and is noncontributory. SOCIAL HISTORY: She reportedly does use tobacco. There is no history of alcohol abuse. REVIEW OF SYSTEMS: SKIN: No pruritus. HEENT: Negative. CARDIOPULMONARY: She denies shortness of breath or chest pain. GASTROINTESTINAL: As above. GENITOURINARY: Negative. NEUROPSYCHIATRIC: Negative. PHYSICAL EXAMINATION: GENERAL: Shows a pleasant female, lying comfortably in bed. VITAL SIGNS: Reviewed in electronic medical record and are stable. SKIN: Pale. HEENT: Shows no scleral icterus. NECK: Without lymphadenopathy or thyromegaly. LUNGS: Clear. HEART: Shows a regular rate and rhythm. S1, S2. No murmur. ABDOMEN: Obese, soft, and mildly diffusely tender. Bowel sounds are present. No organomegaly is noted. EXTREMITIES: Without edema. LABORATORY DATA: Shows a white blood cell count of 15, hematocrit 31.7. IMPRESSION: Abdominal pain with history of ischemic colitis. The CT scan is suggestive of another episode of ischemic colitis based on its location. I would recommend checking stool GI panel and hold off on any lower gastrointestinal tract endoscopy given her elevated troponin levels. She is currently being treated with antibiotics, which should cover any type of infectious colitis as well. Thanks for asking me to see her. I will follow her in the hospital with you. MD LESLYE Braswell/DEVON / [phone] BELLA
[2022-05-28] MEDS: Pantoprazole Sodium 80 MG in 0.9 % Sodium Chloride 80 ML 10 MG IV (03:09)
[2022-05-28 03:26] VITALS: BP 138/76; PULSE 77; RESP 14; TEMP 36.6; O2SAT 96
[2022-05-28 06:00] VITALS: BMI 41.8
[2022-05-28] MEDS: metroNIDAZOLE/NS 500 MG/100 ML PIGGYBACK 100 MG IV ×3 (07:24→21:08)
[2022-05-28 08:00] VITALS: BP 142/80; PULSE 79; RESP 18; TEMP 36.6; O2SAT 97
--- NOTE | 2022-05-28 10:03 | PM.CNCAR ---
History of Present Illness History of Present Illness Date of Service: 05/28/22 Chief complaint: AMS Hypoxemic Resp Failure Narrative: We have been asked to see her regarding NSTEMI. Chart was reviewed and also discussed with Dr. Bruno from hospitalist service. Based on the ER note, it seems that patient came to the ER from home with altered mental status for a few days time. She was apparently hypoxic and hypotensive for EMS. No clear history of obtainable. There was concern for infection, particularly pneumonia or aspiration pneumonia. It seems that at that point she was intubated and then sent to the ICU where she was for a few days. Now she is in the floor. Patient states that she really cannot recall much but things that she mainly had some abdominal discomfort prior to coming in and probable diarrhea but again somewhat vague. There is a concern that she could be having ischemic colitis. From a cardiac and, there has been a high elevation of CK and troponins and hence we have been asked to see her. Patient however does not have any chest pain or in fact any cardiac symptoms at all. In fact she states she has had no cardiac symptoms at any point. However, there is a history of sudden cardiac of unclear etiology, suspect to be long QT syndrome from many years ago. She is being followed by Dr. Cain. She also has an ICD in place. Review of Systems Review of Systems: Yes all other systems are reviewed and are negative Constitutional: Constitutional: Reports as per HPI Eyes: Eyes: Reports as per HPI ENT: Reports as per HPI Cardiovascular: Cardiovascular: Reports as per HPI, Denies acrocyanosis, Denies cool extremities, Denies chest pain, Denies leg edema, Denies lightheadedness, Denies palpitations and Denies dyspnea Respiratory: Respiratory: Reports as per HPI, Reports no additional respiratory complaints and Denies dyspnea Gastrointestinal: Gastrointestinal: Reports as per HPI and Reports no additional gastrointestinal complaints Genitourinary: Genitourinary: Reports as per HPI Musculoskeletal: Musculoskeletal: Reports no additional musculoskeletal complaints and Reports as per HPI Integumentary/Breasts: Skin/Breast: Reports system reviewed and no additional complaints, except as docu Neurologic: Reports system reviewed and no additional complaints, except as documented and Reports as per HPI Psychiatric: Psychiatric: Reports no additional psychiatric complaints and Reports as per HPI Endocrine: Endocrine: Reports no additional endocrine complaints, Reports as per HPI and Denies palpitations Hematologic/Lymphatic: Hematologic/Lymphatic: Reports no additional hematologic/lymphatic complaints and Reports as per HPI Allergic/Immunologic: Allergic/Immunologic: Reports no additional allergic/immunologic complaints and Reports as per HPI [facility] Past Medical History Medical History History of sudden cardiac successfully resuscitated ICD (implantable cardioverter-defibrillator) in place Family History Family History Mother Dementia Cancer Father Heart disease Surgical History Surgical History History of cholecystectomy History of spinal surgery Social History Social History Household Members: Unknown / Unable to assess Housing: Unknown / Unable to assess Unable to assess alcohol history related to: Unable to respond and Unknown Alcohol intake: unknown Patient Tobacco Use Status: Tobacco use Unknown Tobacco use type: Cigarette Cigarette Packs Per Day: 0.5 Cigarettes Per Day: 10 Years Smoked: 40 +/- Use of substances other than those prescribed or required for medical reasons: Unknown Currently Displaying Signs/Symptoms of Drug Intoxication Withdrawal: No Spiritual Healthcare Practices: UNKNOWN Sabianism Healthcare Practices: UNKNOWN Cultural Healthcare Practices: UNKNOWN Advance Directives: No Advance Directives Information Provided: Yes Advance Directives on File: No service: No Current occupational status: disabled Meds Allergies Allergy/AdvReac Type Severity Reaction Status Date / Time Penicillins [PENICILLINS] Allergy Severe ANAPHYLAXIS Verified 03/14/22 14:29 hydromorphone [From DILAUDID] Allergy Unknown STOPS HEART Verified 03/14/22 14:29 ibuprofen [From MOTRIN] Allergy Unknown SEIZURE Verified 03/14/22 14:29 Active Medications: Current Medications Carisoprodol (Carisoprodol 350 Mg Tablet) 350 mg PO BID PRN PRN Reason: Spondylosis Clonazepam (Clonazepam 0.125 Mg Tab.Rapdis) 0.25 mg PO BID [facility]AN Last Admin: 05/27/22 21:15 Dose: 0.25 mg Gabapentin (Gabapentin 400 Mg Capsule) 800 mg PO TID BOSSMAN Levofloxacin (Levaquin) 250 mg in 50 mls @ 50 mls/hr IV Q24H [facility] Last Infusion: 05/27/22 16:26 Dose: Infused Metronidazole (Flagyl) 500 mg in 100 mls @ 100 mls/hr IV Q8H [facility] Last Admin: 05/28/22 07:24 Dose: 100 mls/hr Levetiracetam (Levetiracetam 500 Mg Tablet) 500 mg PO BID [facility] Metoprolol Tartrate (Metoprolol Tartrate 100 Mg Tablet) 100 mg PO BID [facility]; Protocol Morphine Sulfate (Morphine Sulfate Er 15 Mg Tablet.Er) 15 mg PO Q8H [facility] Ondansetron HCl (Ondansetron Hcl 4 Mg/2 Ml Vial) 4 mg IVPUSH Q8H PRN PRN Reason: Nausea and Vomiting Pharmacy Consult (Consult Rx Perform Med Rec) 1 each MISCELLANE ONCE PRN PRN Reason: Consult order Pharmacy Consult (Consult Rx Vancomycin Dosing) 1 each MISCELLANE DAILY PRN PRN Reason: Consult order Sucralfate (Sucralfate Oral Suspension 1 Gm/10 Ml Oral.Susp) 1 gm PO QIDACHS [facility] Last Admin: 05/27/22 21:15 Dose: 1 gm Home Medications Medication Instructions Recorded Confirmed Last Taken Type gabapentin 800 mg tablet 800 mg PO TID 03/05/21 05/25/22 Unknown History clonazepam 1 mg tablet 1 mg PO BID 10/02/21 05/25/22 Unknown History carisoprodol 350 mg tablet 350 mg PO BID PRN Spondylosis 03/14/22 05/25/22 Unknown History dicyclomine 20 mg tablet 20 mg PO QID 03/14/22 05/25/22 Unknown History morphine 15 mg tablet,extended 15 mg PO Q8H 03/14/22 05/25/22 Unknown History release sucralfate 1 gram tablet 1 g PO BID 03/14/22 05/25/22 Unknown History morphine 15 mg immediate release 1 tab PO Q8H PRN Pain (Scale Score 05/25/22 05/25/22 Unknown History tablet 4-6) Physical Exam Vital Signs: Vital Signs: Last Vital Signs Temp 97.8 F 05/28/22 08:00 Pulse 79 05/28/22 08:00 Resp 18 05/28/22 08:00 BP 142/80 H 05/28/22 08:00 Pulse Ox 97 05/28/22 08:00 O2 Del Method 05/28/22 08:00 O2 Flow Rate 2 05/28/22 03:26 FiO2 35 05/27/22 11:06 Oxygen Flow Rate 4 05/25/22 14:47 BMI result Body Mass Index 41.8 Const: General: comfortable and no acute distress Orientation/consciousness: patient oriented x3 HEENT: Other: Unremarkable Head: Yes normal to inspection Neck: Neck: Yes normal visual inspection Chest: Chest palpation & inspection: normal inspection of the chest Resp: Auscultation: clear to auscultation bilaterally Cardio: Palpation: normal PMI Heart sounds: S1 normal heart sound present, S2 normal heart sound present, no gallops, no murmurs and no rubs GI: Palpation (GI): Soft to palpation Back/Spine/Pelvis: Other: unremarkable Skin: General skin exam: no rashes or lesions noted Neuro: General: patient oriented x3 Extrem: General: Yes normal to inspection Psych: Mental Status: mental status grossly normal Objective Labs and Meds Result diagrams: 05/27/22 05:13 05/27/22 05:13 Lab results: Laboratory Results - last 24 hr 05/25/22 05/26/22 05/27/22 22:28 01:01 10:14 Smear Path Review SEE NOTE Free T3 1.7 L C. difficile Tox B Gene NEGATIVE ECG Interpretation: EKG from 05/25-sinus tachycardia, 117/Min; cannot exclude old anterior infarct or inferior infarct. Compared to prior EKG, there is loss of QRS amplitude along the anterior leads. Inferior changes also new. However, in the repeat EKG these changes seem essentially resolved. Hence could be all from lead placement. Assessment and Plan (1) NSTEMI (non-ST elevated myocardial infarction): Status: Acute (2) Thrombocytopenia: Status: Acute Plan Labs reviewed. Peak troponin is 4185. It has been coming down since that time. Peak CK is 13,358. That is also improving. Not clear if it is all rhabdomyolysis or a coronary event. She has no coronary symptoms whatsoever. She has multiple other laboratory abnormalities including low phosphorus, elevated liver enzymes, abnormal thyroid, very low platelets among others. Echocardiogram with LVEF 65-70% without any clear wall motion abnormalities. RV size appears enlarged. Small loculated effusion over the left ventricle. At this time, no clear evidence of type 1 NSTEMI. Either this is rhabdomyolysis or type 2 NSTEMI but not clear either way. She has no chest pain any case. Due to markedly low platelets, not suitable for any cardiac procedures at this time. Possibly consider perfusion imaging once more stable. Will follow up with you. Discussed with Dr. Bruno. Procedures Date of Service Date of Service: 05/28/22
[2022-05-28] MEDS: Sucralfate Oral Suspension 1 GM/10 ML ORAL.SUSP PO ×4 (10:13→21:08)
[2022-05-28] MEDS: levETIRAcetam 500 MG TABLET PO ×2 (10:13→21:08)
[2022-05-28] MEDS: Morphine Sulfate ER 15 MG TABLET.ER PO ×2 (10:13→17:29)
--- NOTE | 2022-05-28 10:34 | MHC.CLN ---
F/U PT EXTUBATED YESTERDAY AND TRANSFERRED OUT OF ICU PT WITH INCREASED NUTRITION RISK R/T PRESSURE INJURY DIET RX: REGULAR-APPROPRIATE RECOMMEND ADDING ENSURE BID TO INCREASE KCALS AND PROMOTE WOUND HEALING SUPP TO PROVIDE 700KCALS, 40G PROTEIN MONITOR PO INTAKE CLOSELY
--- NOTE | 2022-05-28 11:25 | HO.PM.IMPN ---
Subjective Subjective Date of Service: 05/28/22 Interval History: cc: abd pain diarrhea interval history: back pain, weakness Cardiovascular Cardiovascular: Reports no additional cardiovascular complaints Respiratory Respiratory: Reports no additional respiratory complaints Physical Exam Vital Signs: Vital Signs: Last Vital Signs Temp 97.8 F 05/28/22 08:00 Pulse 79 05/28/22 08:00 Resp 18 05/28/22 08:00 BP 142/80 H 05/28/22 08:00 Pulse Ox 97 05/28/22 08:00 O2 Del Method 05/28/22 08:00 O2 Flow Rate 2 05/28/22 03:26 FiO2 35 05/27/22 11:06 Oxygen Flow Rate 4 05/25/22 14:47 BMI result Body Mass Index 41.8 General: AO X 3, no acute distress, ill appearing Resp: CTA bilateral, no accessory muscles used CVS: S1,S2,RRR GI: soft, non tender, non distended Neuro: motor grossly intact, alert Psych: appropriate affect, appropriate insight Objective Data Active Medications Carisoprodol (Carisoprodol 350 Mg Tablet) 350 mg PO BID PRN PRN Reason: Spondylosis Clonazepam (Clonazepam 0.125 Mg Tab.Rapdis) 0.25 mg PO BID [facility] Last Admin: 05/28/22 10:13 Dose: 0.25 mg Documented By: RITA Gabapentin (Gabapentin 400 Mg Capsule) 800 mg PO TID [facility] Levofloxacin (Levaquin) 250 mg in 50 mls @ 50 mls/hr IV Q24H [facility] Last Infusion: 05/27/22 16:26 Dose: 0 mls/hr Documented By: YANELI Metronidazole (Flagyl) 500 mg in 100 mls @ 100 mls/hr IV Q8H [facility] Last Infusion: 05/28/22 10:04 Dose: 0 mls/hr Documented By: RITA Levetiracetam (Levetiracetam 500 Mg Tablet) 500 mg PO BID [facility] Last Admin: 05/28/22 10:13 Dose: 500 mg Documented By: RITA Metoprolol Tartrate (Metoprolol Tartrate 100 Mg Tablet) 100 mg PO BID [facility]; Protocol Morphine Sulfate (Morphine Sulfate Er 15 Mg Tablet.Er) 15 mg PO Q8H [facility] Last Admin: 05/28/22 10:13 Dose: 15 mg Documented By: RITA Ondansetron HCl (Ondansetron Hcl 4 Mg/2 Ml Vial) 4 mg IVPUSH Q8H PRN PRN Reason: Nausea and Vomiting Pharmacy Consult (Consult Rx Perform Med Rec) 1 each MISCELLANE ONCE PRN PRN Reason: Consult order Pharmacy Consult (Consult Rx Vancomycin Dosing) 1 each MISCELLANE DAILY PRN PRN Reason: Consult order Sucralfate (Sucralfate Oral Suspension 1 Gm/10 Ml Oral.Susp) 1 gm PO QIDACHS [facility] Last Admin: 05/28/22 10:13 Dose: 1 gm Documented By: RITA Labs CBC & Chem 7: 05/27/22 05:13 05/27/22 05:13 Labs: Laboratory Results - last 24 hr 05/25/22 05/26/22 05/27/22 22:28 01:01 10:14 Smear Path Review SEE NOTE Free T3 1.7 L C. difficile Tox B Gene NEGATIVE Microbiology Microbiology Results: Microbiology 05/25/22 15:06 Blood Culture - Preliminary Blood - Venous No growth after 48 hours. 05/25/22 14:49 Blood Culture - Preliminary Blood - Venous No growth after 48 hours. Assessment and Plan (1) Thrombocytopenia: Status: Acute Plan 57F with PMH seizures, morbid obesity, chronic back pain, LongQT s/p cardiac arrest and AICD, presented to ED with abdominal pain and diarrhea, CT with colitis, then vomitted fecal material and aspirated leading to acute hypoxic respiratory failure, septic shock requiring intubation, complicated by NSTEMI, thrombocytopenia, now extubated and downgraded to medical floor Ischemic colitis Levaquin Flagyl Tolerating solid diet Acute hypoxic respiratory failure and septic shock due to aspiration pneumonia/pneumonitis Continue Levaquin and Flagyl Respiratory failure resolved Septic shock resolved NSTEMI Cardiology appreciated Not candidate for anticoagulation due to thrombocytopenia Rhabdomyolysis would be differential No regional wall motion abnormality on echocardiogram Severe thrombocytopenia CT abdomen did show splenomegaly and steatohepatitis Hematology eval Long QT Has AICD Seizure disorder Keppra Chronic back pain/opiate dependence Continue pain meds Morbid obesity Weight loss DVT prophylaxis-mechanical due to thrombocytopenia DNR/DNI-discussion had with patient at bedside, she would like to be do not resuscitate/do not intubate reason for continued hospitalization: monitoring thrombocytopenia, iv abx for colitis and pneumonia Quality Stroke Does the patient have a stroke diagnosis?: No VTE Prior VTE?: No VTE Risk Level:: Medical - moderate - high VTE Device Contraindication: N/A - Device Ordered VTE Drug Contraindication: N/A - Med Ordered
[2022-05-28 11:37] VITALS: BP 138/73; PULSE 75; RESP 18; TEMP 36.4; O2SAT 96
[2022-05-28] MEDS: Gabapentin 400 MG CAPSULE 800 MG PO ×2 (15:48→21:08)
[2022-05-28 15:49] VITALS: BP 137/69; PULSE 79; RESP 20; TEMP 36.6; O2SAT 96
[2022-05-28] MEDS: levoFLOXacin/D5W 250 MG/50 ML PIGGYBACK 50 MG IV (15:49)
--- NOTE | 2022-05-28 16:47 | PM.GIPN ---
Subjective Subjective Date of Service: 05/28/22 Interval History: abdominal pain improving tolerating clear liquids Critical Care Time (minutes): 0 Physical Exam Vital Signs: Vital Signs: Last Vital Signs Temp 97.9 F 05/28/22 15:49 Pulse 79 05/28/22 15:49 Resp 20 05/28/22 15:49 BP 137/69 05/28/22 15:49 Pulse Ox 96 05/28/22 15:49 O2 Del Method 05/28/22 15:49 O2 Flow Rate 2 05/28/22 03:26 FiO2 35 05/27/22 11:06 Oxygen Flow Rate 4 05/25/22 14:47 BMI result Body Mass Index 41.8 GI: Other: soft, nontender Objective Data Labs CBC & Chem 7: 05/27/22 05:13 05/27/22 05:13 Labs: Laboratory Results - last 24 hr 05/25/22 22:28 Free T3 1.7 L Microbiology Microbiology Results: Microbiology 05/25/22 15:06 Blood - Venous Blood Culture - Preliminary No growth after 48 hours. 05/25/22 14:49 Blood - Venous Blood Culture - Preliminary No growth after 48 hours. Procedures Date of Service Date of Service: 05/28/22 Progress Note: A&P Assessment and plan (1) Colitis, acute: Status: Acute Assessment and Plan: improving gi panel pending advance diet Time Spent With Patient Time: Total time spent is greater than 50% in coordination of care (as documented) at patient's floor/unit and/or counseling patient: Quality Stroke Does the patient have a stroke diagnosis?: No VTE Prior VTE?: No VTE Risk Level:: Medical - moderate - high VTE Device Contraindication: N/A - Device Ordered VTE Drug Contraindication: N/A - Med Ordered
--- NOTE | 2022-05-28 17:09 | P.CNHO_ITS ---
Subjective - Subjective Chief complaint: Abdominal discomfort Patient: new to practice Consult date: 05/28/22 Primary Care Provider: Brad Kebede III, MD HPI - Consult Narrative Reason for consult: Thrombocytopenia Narrative: Gayatri Lopez is a 57 year old female who has been admitted because of colitis and abdominal pain. She was briefly intubated because of respiratory failure. She presented to the hospital with altered mental status and respiratory failure, CT abdomen revealed colonic wall thickening and mild pericolonic fat stranding involving descending colon suggestive of acute colitis, possibly ischemic. She has a history of ischemic colitis diagnosed at [facility] in 2017. On the day of admission her platelet counts were low at 103 K, she had leukocytosis but normal hemoglobin. Prior to that in 2019 she had normal platelet counts of 246 K with normal WBC and hemoglobin. Since admission she has had gradual drop in platelet counts as well as anemia. Patient states that she has been on Keppra for about 4-5 years. She has not been told of low blood counts in the past. At this time she has no acute complaints but reports some generalized discomfort. She is beginning to eat, denies nausea or emesis. No fever or chills. Review of Systems - Constitutional Reports as per HPI, Reports fatigue, Denies fever(s), Reports malaise - Cardiovascular Reports no additional cardiovascular complaints - Respiratory Reports no additional respiratory complaints - Neurologic Reports no additional neurologic complaints, Reports as per HPI [facility] Medical History: Medical History (Last Reviewed 05/26/22 @ 04:51 by Kirti Blas RN) History of sudden cardiac successfully resuscitated ICD (implantable cardioverter-defibrillator) in place Family History: Family History (Last Reviewed 05/26/22 @ 04:51 by Kirti Blas RN) Mother Dementia Cancer Father Heart disease Surgical History: Surgical History (Last Reviewed 05/26/22 @ 04:51 by Kirti Blas RN) History of cholecystectomy History of spinal surgery Social History: Social History (Last Reviewed 05/26/22 @ 04:51 by Kirti Blas RN) Living Situation History: Household Members: Unknown / Unable to asses Housing: Unknown / Unable to asses Alcohol History: Unable to assess alcohol history related to: Unable to respond Unable to assess alcohol history related to: Unknown Alcohol History Details: Last drink: Unknown Currently Displaying Signs/Symptoms of Alcohol Withdrawal: No Tobacco History: Patient Tobacco Use Status: Tobacco use Unknown Tobacco use type: Cigarette Cigarette Packs Per Day: 0.5 Years Smoked: 40 +/- Additional Comments: PT INTUBATED AND SEDATED, NO FAMILY PRESENT Substance Use History: Use of substances other than those prescribed or required for medical reasons : Unknown Currently Displaying Signs/Symptoms of Drug Intoxication Withdrawal: No Healthcare Practices: Spiritual Healthcare Practices: UNKNOWN [employer] Healthcare Practices: UNKNOWN Cultural Healthcare Practices: UNKNOWN Advance Directives: Advance Directives: No Advance Directives Information Provided: Yes Advance Directives on File: No Nutrition Assessment: Patient : Patient comment: UNKNOWN Occupation Assessmet: service: No Current occupational status: disabled Home Medications and Allergies Current Medications: Current Medications Carisoprodol (Carisoprodol 350 Mg Tablet) 350 mg PO BID PRN PRN Reason: Spondylosis Clonazepam (Clonazepam 0.125 Mg Tab.Rapdis) 0.25 mg PO BID [facility] Last Admin: 05/28/22 10:13 Dose: 0.25 mg Gabapentin (Gabapentin 400 Mg Capsule) 800 mg PO TID [facility] Last Admin: 05/28/22 15:48 Dose: 800 mg Levofloxacin (Levaquin) 250 mg in 50 mls @ 50 mls/hr IV Q24H [facility] Last Infusion: 05/28/22 16:59 Dose: Infused Metronidazole (Flagyl) 500 mg in 100 mls @ 100 mls/hr IV Q8H [facility] Last Infusion: 05/28/22 14:00 Dose: Infused Levetiracetam (Levetiracetam 500 Mg Tablet) 500 mg PO BID [facility] Last Admin: 05/28/22 10:13 Dose: 500 mg Metoprolol Tartrate (Metoprolol Tartrate 100 Mg Tablet) 100 mg PO BID [facility]; Protocol Morphine Sulfate (Morphine Sulfate Er 15 Mg Tablet.Er) 15 mg PO Q8H [facility] Last Admin: 05/28/22 10:13 Dose: 15 mg Ondansetron HCl (Ondansetron Hcl 4 Mg/2 Ml Vial) 4 mg IVPUSH Q8H PRN PRN Reason: Nausea and Vomiting Pharmacy Consult (Consult Rx Perform Med Rec) 1 each MISCELLANE ONCE PRN PRN Reason: Consult order Pharmacy Consult (Consult Rx Vancomycin Dosing) 1 each MISCELLANE DAILY PRN PRN Reason: Consult order Sucralfate (Sucralfate Oral Suspension 1 Gm/10 Ml Oral.Susp) 1 gm PO QIDACHS [facility] Last Admin: 05/28/22 15:48 Dose: 1 gm Home Medications Medication Instructions Recorded Confirmed Type gabapentin 800 mg tablet 800 mg PO TID 03/05/21 05/25/22 History clonazepam 1 mg tablet 1 mg PO BID 10/02/21 05/25/22 History carisoprodol 350 mg tablet 350 mg PO BID PRN Spondylosis 03/14/22 05/25/22 History dicyclomine 20 mg tablet 20 mg PO QID 03/14/22 05/25/22 History morphine 15 mg tablet,extended 15 mg PO Q8H 03/14/22 05/25/22 History release sucralfate 1 gram tablet 1 g PO BID 03/14/22 05/25/22 History morphine 15 mg immediate release 1 tab PO Q8H PRN Pain (Scale Score 05/25/22 05/25/22 History tablet 4-6) Allergies Allergy/AdvReac Type Severity Reaction Status Date / Time Penicillins [PENICILLINS] Allergy Severe ANAPHYLAXIS Verified 03/14/22 14:29 hydromorphone [From DILAUDID] Allergy Unknown STOPS HEART Verified 03/14/22 14:29 ibuprofen [From MOTRIN] Allergy Unknown SEIZURE Verified 03/14/22 14:29 Physical Exam Vital signs: Vital Signs Temp 97.9 F 05/28/22 15:49 Pulse 79 05/28/22 15:49 Resp 20 05/28/22 15:49 BP 137/69 05/28/22 15:49 Pulse Ox 96 05/28/22 15:49 O2 Del Method 05/28/22 15:49 O2 Flow Rate 2 05/28/22 03:26 FiO2 35 05/27/22 11:06 Intake & Output 05/27/22 05/28/22 05/28/22 18:59 06:59 18:59 Intake Total 2132.933 / 3852.933 1720.000 / 3852.933 1359.5 / 1359.5 Output Total 465 / 465 800 / 800 Balance 1667.933 / 3387.933 1720.000 / 3387.933 559.5 / 559.5 Urine Output (Average ml/kg/hr) 0.32 0.32 0.55 Intake: Intake, Oral Amount 240 / 660 420 / 660 1040 / 1040 Intake, IV Amount 1892.933 / 3192.933 1300.000 / 3192.933 319.5 / 319.5 Pantoprazole Sodium 80 mg In 0. 100 / 200 100 / 200 69.5 / 69.5 9 % Sodium Chloride 80 ml @ 8 MG/HR 10 mls/hr IV .Q10H [facility] Rx #:[id number] Potassium Phosphate/NS 15 mmol 500 / 500 In 250 ml @ 62.5 mls/hr IV Q4H [facility] Rx#:[id number] levETIRAcetam in NaCl (iso-os) 100 / 200 100 / 200 500 mg In 100 ml @ 400 mls/hr IV Q12H [facility] Rx#:[id number] levoFLOXacin/D5W 250 mg In 50 50 / 50 50 / 50 ml @ 50 mls/hr IV Q24H [facility] Rx#: [id number] metroNIDAZOLE/NS 500 mg In 100 100 / 200.000 100.000 / 200.000 200 / 200 ml @ 100 mls/hr IV Q8H [facility] Rx#: [id number] 0.9 % Sodium Chloride 1,000 ml 933.333 / 0797.737 2502 / 1933.333 @ 100 mls/hr IVCONT .Q10H [facility] Rx#:[id number] Norepinephrine Bitartrate/NS 8 0 / 0 mg In 250 ml @ Per Protocol IVCONT .Q0M [facility] Rx#:[id number] propofoL 1,000 mg In 100 ml @ 109.6 / 109.6 Per Protocol IVCONT .Q0M [facility] Rx #:[id number] Output: Output, Urine Amount 800 / 800 Output, Urine Amount (Catheter) 465 / 465 Urethral 465 / 465 Other: Breakfast % Eaten 100% Lunch % Eaten 100% Number of Bowel Movements 2 1 3 Urine lee Urine Color Manolo Last Bowel Movement 05/27/22 05/28/22 05/28/22 Stool Incontinent Incontinent Incontinent Stool Amount Moderate Small Large Stool Color Brown Brown Black (Tarry) Stool Consistency Loose Liquid Liquid Continuous Bladder Irrigation Fluid - Amount Instilled Urethral 450 Weight 122.9 kg 121 kg Weight in Grams [id number] Weight 121 kg - Constitutional Present: no acute distress, obese - Routine HEENT Exam Head: Present: normal inspection Eye: Present: PERRL. Absent: scleral icterus - Routine Neck Exam Absent: lymphadenopathy - Routine Respiratory Exam Absent: accessory muscle use - Routine Cardiovascular Exam Cardiovascular: Present: S1, S2 Hem/Onc Consult Result - Labs CBC & Chem 7: 05/29/22 05:53 05/29/22 05:53 Assessment and Plan Patient Active problem list reviewed?: Yes (1) Thrombocytopenia Status: Acute Assessment and plan: 1. This is a pleasant 57-year-old woman admitted for colitis. She was noted to have worsening of thrombocytopenia as well as anemia. She had normal blood counts in 2019. Her drop in platelets and red blood cells along with neutrophilic leukocytosis with toxic granulation is indicative of acute illness related cytopenias and leukocytosis respectively. There is no evidence of hemolysis. Her kidney functions are improving. Her liver functions are also improving. She has history of fatty liver with splenomegaly which could be contributing to her cytopenias as well. She is not on any medications that would cause cytopenias. Levaquin is rarely associated with pancytopenia. Submit vitamin B12, folic acid levels, ferritin and reticulocyte count. I expect the blood counts to come up has her clinical picture improves. There is no suspicion of heparin-induced thrombocytopenia, DIC or TTP. I thank you for this consult. - Time Spent With Patient Time Spent with Patient (in minutes): 15
[2022-05-28 19:59] VITALS: BP 139/72; PULSE 81; RESP 20; TEMP 36.9
[2022-05-28] MEDS: Metoprolol Tartrate 100 MG TABLET PO (21:08)
[2022-05-29] VITALS (7 sets, daily range): BP systolic 88–142; BP diastolic 48–71; PULSE 57–76; RESP 17–20; TEMP 36–36.8; O2SAT 94–98
[2022-05-29] MEDS: Morphine Sulfate ER 15 MG TABLET.ER PO ×3 (01:29→18:28)
[2022-05-29] MEDS: metroNIDAZOLE/NS 500 MG/100 ML PIGGYBACK 100 MG IV ×3 (04:33→20:19)
[2022-05-29 06:48] LABS: Hemoglobin 10.9 g/dl (12.0-16.0); Mean Corpuscular Hemoglobin 32.2 pg (27.0-33.0); Mean Corpuscular Volume 97.6 fL (80.0-98.0); NRBC Pct Auto 0.2 /100WBC (0.0-0.2); Red Blood Count 3.38 X10*6/uL (4.20-5.50); Red Cell Distribution Width 14.4 % (11.0-16.0); White Blood Count 15.8 X10*3/uL (4.8-10.8)
[2022-05-29 06:50] LABS: Platelet Count 60 X10*3/uL (160-400)
[2022-05-29 07:12] LABS: Alanine Aminotransferase 133 U/L (0-31); Albumin Level 2.9 g/dL (3.5-5.0); Alkaline Phosphatase 64 U/L (39-117); Anion Gap 12 (12-20); Aspartate Amino Transferase 125 U/L (5-31); Bilirubin Direct 0.5 mg/dL (0.0-0.5); Blood Urea Nitrogen 12 mg/dL (9-16); Calcium 7.7 mg/dL (8.4-10.2); Carbon Dioxide 21 mmol/L (22-29); Chloride 111 mmol/L (96-108); Creatinine Clr Calc Pharmacy 134.9; Estimated Glomerular Filt Rate > 60; Glucose Fasting 101 mg/dL (60-99); Magnesium 1.6 mg/dL (1.6-2.6); Phosphorus 2.1 mg/dL (2.7-4.5); Potassium 3.1 mmol/L (3.3-5.1); Sodium 141 mmol/L (135-145); Total Protein 4.6 g/dL (6.5-8.0)
[2022-05-29] MEDS: Gabapentin 400 MG CAPSULE 800 MG PO ×3 (09:13→20:21)
[2022-05-29] MEDS: Metoprolol Tartrate 100 MG TABLET PO ×2 (09:14→20:21)
[2022-05-29] MEDS: Sucralfate Oral Suspension 1 GM/10 ML ORAL.SUSP PO ×4 (09:14→20:21)
[2022-05-29] MEDS: levETIRAcetam 500 MG TABLET PO ×2 (09:14→20:21)
[2022-05-29] MEDS: Potassium Chloride Packet 20 MEQ PACKET 40 MEQ PO (09:15)
[2022-05-29 10:39] LABS: Immature Retic Fraction 33.5 % (3.0-15.9); Retic HGB Equivalent 35.9 pg (30.0-35.0); Reticulocyte Percent 3.5 % (0.5-1.8); Reticulocytes Absolute 0.117 X10*6/uL (0.026-0.095)
[2022-05-29 11:10] LABS: Ferritin 413 ng/mL (10-250)
[2022-05-29 11:28] LABS: Folate 3.3 ng/mL (> or = 4.0); Vitamin B12 819 pg/mL (200-900)
--- NOTE | 2022-05-29 11:36 | PC.NURSE ---
During skin prevalence pt had loose stool, got patient up to a commode with the sinan stedy, finished having loose stool on the commode. Pt was cleaned up, skin on bilateral buttocks is red but blanchable, few bruises noted across lower back. Cream applied to buttocks, pt to chair via sinan stedy, blue cushion on chair for patient's comfort and to relieve pressure. Tolerated well.
--- NOTE | 2022-05-29 12:06 | MHC.CLN ---
F/U PO INTAKE 100% X 2 MEALS DIET RX: REGULAR-APPROPRIATE PT RECEIVING ENSURE BID TO INCREASE KCALS AND PROMOTE WOUND HEALING SUPP PROVIDES 700KCALS, 40G PROTEIN MONITOR PO INTAKE CLOSELY
--- NOTE | 2022-05-29 12:32 | MHC.CM.PN ---
Addendum entered by Debbie Parra 05/29/22 15:42: PT EVAL recommends Home with P.T.. Preferences obtained referral sent. Discharge anticipated tomorrow. Original Note: Female 57 DXAMS Hypoxic Respiratory failure. Met with Pt and SO to review the discharge plan. The patient wants to go home. She states that she is ready for a P.T. eval today. Notified Pt requesting a PT eval. ordered the PT eval. DP Home with or without services. Patients S.O will provide transportation home.
--- NOTE | 2022-05-29 14:49 | HO.PM.IMPN ---
Subjective Subjective Date of Service: 05/29/22 Interval History: the patient was seen and evaluated this morning Laying in bed, feels comfortable, weaned off oxygen denies any abdominal pain as she is tolerating some diet but reporting mild nausea No reported other overnight events. Systemic review: No fever, chills but has generalized weakness No chest pain, palpitation No shortness of breath or coughing No abdominal pain, but has some nausea No urinary symptoms No any rash or wounds Physical Exam Vital Signs: Vital Signs: Last Vital Signs Temp 98.2 F 05/29/22 11:35 Pulse 57 05/29/22 11:35 Resp 19 05/29/22 11:35 BP 126/67 05/29/22 11:35 Pulse Ox 94 05/29/22 11:35 O2 Del Method 05/29/22 11:35 O2 Flow Rate 2 05/28/22 03:26 FiO2 35 05/27/22 11:06 Oxygen Flow Rate 4 05/25/22 14:47 BMI result Body Mass Index 41.8 Const: Other: Constitutional : Alert, not in distress Neck : Normal inspection, Supple Cardiovascular : RRR, no JVP, no lower extremity edema Respiratory : fair bilateral air entry, no crackles, wheezes or rhonchi Gastrointestinal: soft, lax, Normal bowel sounds, Non tender Skin : Warm, Dry Neurological : Alert & oriented x3, No focal deficit Objective Data Active Medications Carisoprodol (Carisoprodol 350 Mg Tablet) 350 mg PO BID PRN PRN Reason: Spondylosis Clonazepam (Clonazepam 0.125 Mg Tab.Rapdis) 0.25 mg PO BID [facility] Last Admin: 05/29/22 09:14 Dose: 0.25 mg Documented By: RITA Gabapentin (Gabapentin 400 Mg Capsule) 800 mg PO TID [facility] Last Admin: 05/29/22 09:13 Dose: 800 mg Documented By: RITA Metronidazole (Flagyl) 500 mg in 100 mls @ 100 mls/hr IV Q8H [facility] Last Infusion: 05/29/22 13:47 Dose: 0 mls/hr Documented By: RITA Levofloxacin (Levaquin) 750 mg in 150 mls @ 100 mls/hr IV Q24H [facility] Levetiracetam (Levetiracetam 500 Mg Tablet) 500 mg PO BID [facility] Last Admin: 05/29/22 09:14 Dose: 500 mg Documented By: RITA Metoprolol Tartrate (Metoprolol Tartrate 100 Mg Tablet) 100 mg PO BID [facility]; Protocol Last Admin: 05/29/22 09:14 Dose: 100 mg Documented By: RITA Morphine Sulfate (Morphine Sulfate Er 15 Mg Tablet.Er) 15 mg PO Q8H [facility] Last Admin: 05/29/22 09:14 Dose: 15 mg Documented By: RITA Ondansetron HCl (Ondansetron Hcl 4 Mg/2 Ml Vial) 4 mg IVPUSH Q8H PRN PRN Reason: Nausea and Vomiting Pharmacy Consult (Consult Rx Perform Med Rec) 1 each MISCELLANE ONCE PRN PRN Reason: Consult order Pharmacy Consult (Consult Rx Vancomycin Dosing) 1 each MISCELLANE DAILY PRN PRN Reason: Consult order Sucralfate (Sucralfate Oral Suspension 1 Gm/10 Ml Oral.Susp) 1 gm PO QIDACHS [facility] Last Admin: 05/29/22 12:35 Dose: 1 gm Documented By: RITA Labs CBC & Chem 7: 05/29/22 05:53 05/29/22 05:53 Labs: Laboratory Results - last 24 hr 05/29/22 05/29/22 05/29/22 05:53 05:53 05:53 MCV 97.6 MCH 32.2 MCHC 33.0 RDW 14.4 Plt Count 60 L D MPV 11.0 Absolute Nucleated RBC 0.030 H Nucleated RBC % (auto) 0.2 Absolute Retic Percent Retic Immature Retic Fraction Retic Hgb Equivalent Anion Gap 12 Estim Creat Clear Calc 134.9 Estimated GFR > 60 Fasting Glucose 101 H Calcium 7.7 L Phosphorus 2.1 L Magnesium 1.6 Ferritin 413 H Total Bilirubin 1.0 Direct Bilirubin 0.5 AST 125 H ALT 133 H Alkaline Phosphatase 64 Total Protein 4.6 L Albumin 2.9 L Vitamin B12 819 Folate 3.3 L 05/29/22 05:53 MCV MCH MCHC RDW Plt Count MPV Absolute Nucleated RBC Nucleated RBC % (auto) Absolute Retic 0.117 H Percent Retic 3.5 H Immature Retic Fraction 33.5 H Retic Hgb Equivalent 35.9 H Anion Gap Estim Creat Clear Calc Estimated GFR Fasting Glucose Calcium Phosphorus Magnesium Ferritin Total Bilirubin Direct Bilirubin AST ALT Alkaline Phosphatase Total Protein Albumin Vitamin B12 Folate Assessment and Plan (1) Thrombocytopenia: Status: Acute (2) Pressure sore on buttocks: Status: Acute (3) Sepsis with acute hypoxic respiratory failure: Status: Acute (4) Rhabdomyolysis: Status: Acute (5) ASHLEY (acute kidney injury): Status: Acute (6) Encephalopathy acute: Status: Acute (7) Sepsis: Status: Acute Plan 57F with PMH seizures, morbid obesity, chronic back pain, LongQT s/p cardiac arrest and AICD, presented to ED with abdominal pain and diarrhea, CT with colitis, then vomitted fecal material and aspirated leading to acute hypoxic respiratory failure, septic shock requiring intubation, complicated by NSTEMI, thrombocytopenia, extubated and downgraded to medical floor Ischemic colitis Continue Levaquin Flagyl GI input appreciated Tolerating solid diet Acute hypoxic respiratory failure and septic shock due to aspiration pneumonia/pneumonitis Septic shock resolved Respiratory failure resolved Continue Levaquin and Flagyl NSTEMI Cardiology appreciated Not candidate for anticoagulation due to thrombocytopenia Rhabdomyolysis would be differential No regional wall motion abnormality on echocardiogram Cardiology to decide on nuclear study before discharge Severe thrombocytopenia CT abdomen did show splenomegaly and steatohepatitis Hematology input appreciated, check vitamins and monitor, likely from acute illness Long QT Has AICD Seizure disorder Keppra Chronic back pain/opiate dependence Continue pain meds Morbid obesity Weight loss DVT prophylaxis mechanical due to thrombocytopenia DNR/DNI-discussion had with patient at bedside, she would like to be do not resuscitate/do not intubate reason for continued hospitalization: monitoring thrombocytopenia, iv abx for colitis and pneumonia to prevent possible decompensation to respiratory failure and sepsis Quality Stroke Does the patient have a stroke diagnosis?: No VTE Prior VTE?: No VTE Risk Level:: Medical - moderate - high VTE Device Contraindication: N/A - Device Ordered VTE Drug Contraindication: N/A - Med Ordered
[2022-05-29] MEDS: levoFLOXacin/D5W 750 MG/150 ML PIGGYBACK 100 MG IV (16:35)
[2022-05-30] MEDS: Morphine Sulfate ER 15 MG TABLET.ER PO ×2 (02:05→09:25)
[2022-05-30 03:57] VITALS: BP 120/63; PULSE 61; RESP 17; TEMP 35.5; O2SAT 94
[2022-05-30] MEDS: metroNIDAZOLE/NS 500 MG/100 ML PIGGYBACK 100 MG IV (05:40)
[2022-05-30 06:29] VITALS: BMI 41.9
[2022-05-30 07:00] LABS: Hematocrit 31.1 % (37.0-47.0); Hemoglobin 10.5 g/dl (12.0-16.0); Mean Corpuscular HGB Conc 33.8 g/dl (31.0-35.0); Mean Corpuscular Hemoglobin 32.9 pg (27.0-33.0); Mean Corpuscular Volume 97.5 fL (80.0-98.0); Mean Platelet Volume 10.2 fL (9.4-12.3); Red Blood Count 3.19 X10*6/uL (4.20-5.50); Red Cell Distribution Width 14.8 % (11.0-16.0); White Blood Count 17.5 X10*3/uL (4.8-10.8)
[2022-05-30 07:01] LABS: Platelet Count 70 X10*3/uL (160-400)
[2022-05-30 07:06] VITALS: BP 114/60; PULSE 64; RESP 18; TEMP 36.3; O2SAT 98
[2022-05-30 07:14] LABS: Anion Gap 11 (12-20); Blood Urea Nitrogen 11 mg/dL (9-16); Calcium 7.9 mg/dL (8.4-10.2); Carbon Dioxide 25 mmol/L (22-29); Chloride 108 mmol/L (96-108); Creatinine Clr Calc Pharmacy 135.2; Estimated Glomerular Filt Rate > 60; Glucose Random 122 mg/dL (60-115); Potassium 2.9 mmol/L (3.3-5.1); Sodium 141 mmol/L (135-145)
--- NOTE | 2022-05-30 08:28 | P.PNHO-ONC_ITS ---
Interval History Interval history: Gayatri Lopez is a 57 year old female who has been admitted because of colitis and abdominal pain. She was briefly intubated because of respiratory failure. She presented to the hospital with altered mental status and respiratory failure, CT abdomen revealed colonic wall thickening and mild pericolonic fat stranding involving descending colon suggestive of acute colitis, possibly ischemic. 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 On the day of admission her platelet counts were low at 103 K, she had leukocytosis but normal hemoglobin. Prior to that in 2019 she had normal platelet counts of 246 K with normal WBC and hemoglobin. Since admission she has had gradual drop in platelet counts as well as anemia. Patient states that she has been on Keppra for about 4-5 years. She has not been told of low blood counts in the past. At this time she has no acute complaints but reports some generalized discomfort. She is beginning to eat, denies nausea or emesis. No fever or chills. 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 Family History: Family History (Last Reviewed 05/26/22 @ 04:51 by Kirti Blas RN) Mother Dementia Cancer Father Heart disease Surgical History: Surgical History (Last Reviewed 05/26/22 @ 04:51 by Kirti Blas RN) History of cholecystectomy History of spinal surgery Social History: Social History (Last Reviewed 05/26/22 @ 04:51 by Kirti Blas RN) Living Situation History: Household Members: Unknown / Unable to asses Housing: Unknown / Unable to asses Alcohol History: Unable to assess alcohol history related to: Unable to respond Unable to assess alcohol history related to: Unknown Alcohol History Details: Last drink: Unknown Currently Displaying Signs/Symptoms of Alcohol Withdrawal: No Tobacco History: Patient Tobacco Use Status: Tobacco use Unknown Tobacco use type: Cigarette Cigarette Packs Per Day: 0.5 Years Smoked: 40 +/- Additional Comments: PT INTUBATED AND SEDATED, NO FAMILY PRESENT Substance Use History: Use of substances other than those prescribed or required for medical reasons : Unknown Currently Displaying Signs/Symptoms of Drug Intoxication Withdrawal: No Healthcare Practices: Spiritual Healthcare Practices: UNKNOWN [employer] Healthcare Practices: UNKNOWN Cultural Healthcare Practices: UNKNOWN Advance Directives: Advance Directives: No Advance Directives Information Provided: Yes Advance Directives on File: No Nutrition Assessment: Patient : Patient comment: UNKNOWN Occupation Assessmet: service: No Current occupational status: disabled Home Medications and Allergies Current Medications: Current Medications Carisoprodol (Carisoprodol 350 Mg Tablet) 350 mg PO BID PRN PRN Reason: Spondylosis Clonazepam (Clonazepam 0.125 Mg Tab.Rapdis) 0.25 mg PO BID [facility] Last Admin: 05/29/22 20:34 Dose: 0.25 mg Folic Acid (Folic Acid 1 Mg Tablet) 1 mg PO DAILY [facility] Gabapentin (Gabapentin 400 Mg Capsule) 800 mg PO TID [facility] Last Admin: 05/29/22 20:21 Dose: 800 mg Metronidazole (Flagyl) 500 mg in 100 mls @ 100 mls/hr IV Q8H [facility] Last Infusion: 05/30/22 07:01 Dose: Infused Levofloxacin (Levaquin) 750 mg in 150 mls @ 100 mls/hr IV Q24H [facility] Last Infusion: 05/29/22 18:24 Dose: Infused Levetiracetam (Levetiracetam 500 Mg Tablet) 500 mg PO BID [facility] Last Admin: 05/29/22 20:21 Dose: 500 mg Metoprolol Tartrate (Metoprolol Tartrate 100 Mg Tablet) 100 mg PO BID [facility]; Protocol Last Admin: 05/29/22 20:21 Dose: 100 mg Morphine Sulfate (Morphine Sulfate Er 15 Mg Tablet.Er) 15 mg PO Q8H [facility] Last Admin: 05/30/22 02:05 Dose: 15 mg Ondansetron HCl (Ondansetron Hcl 4 Mg/2 Ml Vial) 4 mg IVPUSH Q8H PRN PRN Reason: Nausea and Vomiting Pharmacy Consult (Consult Rx Perform Med Rec) 1 each MISCELLANE ONCE PRN PRN Reason: Consult order Pharmacy Consult (Consult Rx Vancomycin Dosing) 1 each MISCELLANE DAILY PRN PRN Reason: Consult order Sucralfate (Sucralfate Oral Suspension 1 Gm/10 Ml Oral.Susp) 1 gm PO QIDACHS [facility] Last Admin: 05/29/22 20:21 Dose: 1 gm Home Medications Medication Instructions Recorded Confirmed Type gabapentin 800 mg tablet 800 mg PO TID 03/05/21 05/25/22 History clonazepam 1 mg tablet 1 mg PO BID 10/02/21 05/25/22 History carisoprodol 350 mg tablet 350 mg PO BID PRN Spondylosis 03/14/22 05/25/22 History dicyclomine 20 mg tablet 20 mg PO QID 03/14/22 05/25/22 History morphine 15 mg tablet,extended 15 mg PO Q8H 03/14/22 05/25/22 History release sucralfate 1 gram tablet 1 g PO BID 03/14/22 05/25/22 History morphine 15 mg immediate release 1 tab PO Q8H PRN Pain (Scale Score 05/25/22 05/25/22 History tablet 4-6) Allergies Allergy/AdvReac Type Severity Reaction Status Date / Time Penicillins [PENICILLINS] Allergy Severe ANAPHYLAXIS Verified 03/14/22 14:29 hydromorphone [From DILAUDID] Allergy Unknown STOPS HEART Verified 03/14/22 14:29 ibuprofen [From MOTRIN] Allergy Unknown SEIZURE Verified 03/14/22 14:29 Exam Vital signs: Vital Signs Temp 97.4 F 05/30/22 07:06 Pulse 64 05/30/22 07:06 Resp 18 05/30/22 07:06 BP 114/60 05/30/22 07:06 Pulse Ox 98 05/30/22 07:06 O2 Del Method 05/30/22 07:06 O2 Flow Rate 2 05/28/22 03:26 FiO2 35 05/27/22 11:06 Intake & Output 05/29/22 05/30/22 05/30/22 18:59 06:59 18:59 Intake Total 1100 / 1560 460 / 1560 100 / 100 Output Total 700 / 850 150 / 850 Balance 400 / 710 310 / 710 100 / 100 Urine Output (Average ml/kg/hr) 0.48 0.10 0.10 Intake: Intake, Oral Amount 850 / 1210 360 / 1210 Intake, IV Amount 250 / 350 100 / 350 100 / 100 levoFLOXacin/D5W 750 mg In 150 150 / 150 ml @ 100 mls/hr IV Q24H [facility] Rx# :[id number] metroNIDAZOLE/NS 500 mg In 100 100 / 200 100 / 200 100 / 100 ml @ 100 mls/hr IV Q8H [facility] Rx#: [id number] Output: Output, Urine Amount 700 / 700 Output, Urine Amount (Catheter) 150 / 150 Urethral 150 / 150 Other: Breakfast % Eaten 100% Lunch % Eaten 100% Dinner % Eaten 100% Number of Unmeasured Voids 1 1 Number of Bowel Movements 2 1 Urine Bathroom Urine Color Yell Last Bowel Movement 05/29/22 05/29/22 Stool Incontinent Bathroom Stool Amount Large Moderate Stool Color Black (Tarry) Black (Tarry) Stool Consistency Liquid Mushy Weight 121.4 kg Kevil Weight in Grams [id number] Weight 121.4 kg BMI result Body Mass Index 41.9 - Constitutional Present: no acute distress, obese - Routine HEENT Exam Head: Present: normal inspection - Routine Respiratory Exam Absent: accessory muscle use - Routine Cardiovascular Exam Cardiovascular: Present: S1, S2 Data - Labs CBC & Chem 7: 05/30/22 06:31 05/30/22 06:31 Labs: 05/25/22 UA ClnCatch+Micro w/rflx Cult Stat US carotid duplex BI Stat 05/25/22 09:00 Etomidate [Amidate] 20 mg IVPUSH .STK-MED ONE Rocuronium Patterson [Zemuron] 50 mg .ROUTE .STK-MED ONE 05/25/22 14:33 ECG 12 lead EKG Stat EKG Documentation DIRECTED CT head/brain wo IV con Stat 05/25/22 14:49 BNP [B Type Natriuretic Peptide] Stat COVID-19 ID NOW ([place]) Stat CPK [Creatine Kinase Total] Stat Complete Blood Count Auto Diff Stat Comprehensive Met. Panel Stat D Dimer High Sensitivity Stat Ethanol Stat Lactic Acid Stat Magnesium Stat Troponin-I High Sensitivity Stat 05/25/22 15:01 Naloxone HCl Nasal [Narcan Nasal] 4 mg NOSTRILALT ONCE ONE ABG (RT) ONCE 05/25/22 15:07 levoFLOXacin/D5W [Levaquin] 750 mg in 150 ml IV ONCE vancomycin/NS 2,000 mg in 520 ml IV ONCE 05/25/22 15:08 0.9 % Sodium Chloride [Ns] 3,878.22 ml IV 3,878.22 mls/hr 05/25/22 15:46 propofoL [Diprivan] 1,000 mg in 100 ml IVCONT As directed 05/25/22 15:48 XR chest 1V Stat 05/25/22 16:00 propofoL [Diprivan] 1,000 mg in 100 ml IVCONT Per Protocol mcg/kg/min 05/25/22 16:11 Venous Blood Gas Stat 05/25/22 16:16 Venous Blood Gases - POC Routine 05/25/22 16:18 Ventilator Mgmt Protocol CONT. PER PROTOCOL Vent Settings Q4HR 05/25/22 16:27 CT abdomen pelvis w IV con Stat CT angio chest PE protocol Stat 05/25/22 16:29 Code Status Routine 05/25/22 16:30 0.9 % Sodium Chloride [Ns] 1,000 ml IVCONT 100 mls/hr Chlorhexidine Gluc Oral Rinse [Peridex] 15 ml BUCCAL Q8H 05/25/22 16:31 Insert/maintain urinary catheter DAILY@1000,2200 Ventilator Assessment/Vent Bundle Q4HR NPO Diet 05/25/22 16:35 Transfer Order Routine 05/25/22 16:38 Rocuronium Patterson [Zemuron] 50 mg IVPUSH ONCE ONE 05/25/22 16:39 Etomidate [Amidate] 30 mg IVPUSH ONCE ONE 05/25/22 16:45 propofoL [Diprivan] 1,000 mg in 100 ml IVCONT Per Protocol mcg/kg/min 05/25/22 17:25 iohexoL 350 MG/ML [Omnipaque 350 MG/ML] 100 ml IV ONCE ONE 05/25/22 17:50 Drug Screen Urine Stat UA ClnCatch+Micro w/rflx Cult Stat 05/25/22 19:34 Acetaminophen LAB Stat Ammonia Stat Salicylate Stat Troponin-I High Sensitivity Stat ~Lactic Acid-LAB USE ONLY Stat 05/25/22 20:10 PTT Heparin Drip Stat Prothrombin Time INR Stat 05/25/22 20:18 Aspirin 300 mg CO ONCE ONE 05/25/22 21:44 Pantoprazole Sodium [Protonix] 40 mg .ROUTE .STK-MED ONE 05/25/22 21:52 VBG [Venous Blood Gas] Stat 05/25/22 21:58 CMP [Comprehensive Met. Panel] Stat CPK [Creatine Kinase Total] Stat Free T4 (Free Thyroxine) Stat Lactic Acid Stat Phosphorus Stat TSH reflex Free T4 Stat Troponin-I High Sensitivity Stat 05/25/22 22:00 levETIRAcetam in NaCl (iso-os) [Keppra] 500 mg in 100 ml IV Q12H 05/25/22 22:01 Venous Blood Gases - POC Routine 05/25/22 22:28 Procalcitonin Stat T3 Free [Triiodothyronine T3 Free] Stat 05/26/22 ECG 12 lead EKG Routine 05/26/22 00:13 Pantoprazole Sodium [Protonix] 40 mg IVPUSH ONCE ONE 05/26/22 00:15 0.9 % Sodium Chloride [Ns] 80 ml Pantoprazole Sodium [Protonix] 80 mg IV 8 mg/hr 05/26/22 00:50 Pantoprazole Sodium [Protonix] 40 mg .ROUTE .STK-MED ONE 05/26/22 01:00 Lactated Ringers [Lr] 1,000 ml IV 999 mls/hr Norepinephrine Bitartrate/NS [Levophed] 8 mg in 250 ml IVCONT Per Protocol m cg/kg/min 05/26/22 01:01 Type and Screen Stat C Reactive Protein Routine Complete Blood Count Auto Diff DAILY@0600 Complete Blood Count Man Dif Stat Comprehensive Met. Panel DAILY@0600 Comprehensive Met. Panel DAILY@0600 Gastric Occult Blood Test Stat Lactic Acid Stat Phosphorus Routine Phosphorus Routine Troponin-I High Sensitivity Routine Troponin-I High Sensitivity Routine Venous Blood Gas Routine Venous Blood Gas Routine 05/26/22 01:51 PNEUMATIC [Compression Therapy] QSHIFT 05/26/22 02:15 Potassium Phosphate/NS [KPhos] 15 mmol in 250 ml IV ONCE 05/26/22 05:17 Venous Blood Gases - POC Routine 05/26/22 05:18 Complete Blood Count Man Dif Routine 05/26/22 06:00 Albumin Human 25 % [Kedbumin 25 %] 100 ml IV Q1H 05/26/22 07:01 EKG Documentation DIRECTED 05/26/22 16:00 levoFLOXacin/D5W [Levaquin] 250 mg in 50 ml IV Q24H 05/26/22 22:15 Pantoprazole Sodium [Protonix] 40 mg IVPUSH DAILY@0630 05/27/22 05:16 Venous Blood Gases - POC Routine 05/27/22 07:00 Potassium Phosphate/NS [KPhos] 15 mmol in 250 ml IV Q4H 05/27/22 07:59 ECG 12 lead EKG Routine 05/27/22 08:00 EKG Documentation DIRECTED 05/27/22 09:00 Chlorhexidine Gluc Oral Rinse [Peridex] 15 ml BUCCAL TID 05/27/22 09:35 CA echo transthorac w con Routine 05/27/22 10:14 CDiff Gene PCR Stat 05/27/22 14:04 Perflutren Lipid Microspheres [Definity] 2.2 mg IVPUSH .STK-MED ONE 05/27/22 15:21 Transfer Order Routine 05/27/22 15:45 HYDROmorphone HCl [Dilaudid] 0.5 mg .ROUTE .STK-MED ONE 05/27/22 15:56 traMADoL HCL [Ultram] 25 mg PO ONCE ONE 05/28/22 03:04 Pantoprazole Sodium [Protonix] 40 mg .ROUTE .STK-MED ONE 05/29/22 05:53 BMP [Basic Metabolic Panel Fasting] Routine Complete Blood Count no Diff AM Ferritin Routine Liver Panel Routine Magnesium Routine Phosphorus DAILY@0600 Reticulocyte Count Routine Vitamin B12 and Folate Routine 05/29/22 08:52 Potassium Chloride Packet [Klor-Con Packet] 40 meq PO ONCE ONE 05/29/22 10:34 Add Laboratory Test Urgent 05/30/22 06:31 Basic Metabolic Panel AM Complete Blood Count no Diff AM Laboratory Last Values WBC 17.5 X10*3/uL (4.8-10.8) H 05/30/22 06:31 RBC 3.19 X10*6/uL (4.20-5.50) L 05/30/22 06:31 Hgb 10.5 g/dl (12.0-16.0) L 05/30/22 06:31 Hct 31.1 % (37.0-47.0) L 05/30/22 06:31 MCV 97.5 fL (80.0-98.0) 05/30/22 06:31 MCH 32.9 pg (27.0-33.0) 05/30/22 06:31 MCHC 33.8 g/dl (31.0-35.0) 05/30/22 06:31 RDW 14.8 % (11.0-16.0) 05/30/22 06:31 Plt Count 70 X10*3/uL (160-400) L 05/30/22 06:31 MPV 10.2 fL (9.4-12.3) 05/30/22 06:31 Immature Gran % (Auto) 1.8 % (0.0-0.4) H 05/27/22 05:13 Neut % (Auto) 67.4 % (45-73) 05/27/22 05:13 Lymph % (Auto) 21.7 % (20-40) 05/27/22 05:13 [place] % (Auto) 7.8 % (2-11) 05/27/22 05:13 Eos % (Auto) 0.8 % (0-4) 05/27/22 05:13 Baso % (Auto) 0.5 % (0-2) 05/27/22 05:13 Lymph # (Auto) 3.3 X10*3/uL (1.2-4.9) 05/27/22 05:13 [place] # (Auto) 1.2 X10*3/uL (0.1-1.2) 05/27/22 05:13 Eos # (Auto) 0.1 X10*3/uL (0.0-0.4) 05/27/22 05:13 Baso # (Auto) 0.1 X10*3/uL (0.0-0.2) 05/27/22 05:13 Abs Immat Gran (auto) 0.27 X10*3/uL (0.00-0.03) H 05/27/22 05:13 Absolute Neuts (auto) 10.1 x10*3/uL (2.0-8.3) H 05/27/22 05:13 Absolute Nucleated RBC 0.000 X10*3/uL (0.0-0.012) 05/30/22 06:31 Nucleated RBC % (auto) 0.0 /100WBC (0.0-0.2) 05/30/22 06:31 Neutrophils % (Manual) 58 % (45-73) 05/26/22 05:18 Band Neutrophils % 32 % (3-5) H 05/26/22 05:18 Lymphocytes % (Manual) 8 % (20-40) L 05/26/22 05:18 Monocytes % (Manual) 2 % (2-11) 05/26/22 05:18 Metamyelocytes % 1 % 05/26/22 01:01 Abs Neuts (Manual) 14.3 X10*3/uL (2.0-8.3) H 05/26/22 05:18 Lymphocytes # (Manual) 1.3 X10*3/uL (1.2-4.9) 05/26/22 05:18 Monocytes # (Manual) 0.3 X10*3/uL (0.1-1.2) 05/26/22 05:18 Metamyelocytes # 0.2 X10*3/uL 05/26/22 01:01 Nucleated RBCs 2 /100WBC (0-0) H 05/26/22 01:01 Toxic Vacuolation PRESENT 05/26/22 05:18 Dohle Bodies PRESENT 05/26/22 05:18 Platelet Estimate DECREASED (NORMAL) 05/26/22 05:18 Large Platelets PRESENT 05/26/22 05:18 Plt Morphology Comment NOTED 05/26/22 05:18 RBC Morphology NOTED 05/26/22 05:18 Polychromasia 1+ (0-2) /OIF 05/26/22 05:18 Belkis Cells 1+ (0-2) /OIF 05/26/22 05:18 Smear Path Review SEE NOTE 05/26/22 01:01 Absolute Retic 0.117 X10*6/uL (0.026-0.095) H 05/29/22 05:53 Percent Retic 3.5 % (0.5-1.8) H 05/29/22 05:53 Immature Retic Fraction 33.5 % (3.0-15.9) H 05/29/22 05:53 Retic Hgb Equivalent 35.9 pg (30.0-35.0) H 05/29/22 05:53 PT 17.3 SEC (10.0-13.1) H 05/25/22 20:10 INR 1.5 (0.9-1.1) H 05/25/22 20:10 aPTT Heparin Protocol 21.4 SEC (53-77.9) L 05/25/22 20:10 D-Dimer High Sensitivty 3082 NG/ML 05/25/22 14:49 VBG pH 7.45 (7.32-7.43) H 05/27/22 05:16 VBG pCO2 30 mmHg 05/27/22 05:16 VBG pO2 47 mmHg 05/27/22 05:16 VBG HCO3 21 mmol/L (22-26) L 05/27/22 05:16 VBG O2 Saturation 80.0 % 05/27/22 05:16 VBG Base Excess -1.5 mmol/L 05/27/22 05:16 Sodium 141 mmol/L (135-145) 05/30/22 06:31 Potassium 2.9 mmol/L (3.3-5.1) L 05/30/22 06:31 Chloride 108 mmol/L (96-108) 05/30/22 06:31 Carbon Dioxide 25 mmol/L (22-29) 05/30/22 06:31 Anion Gap 11 (12-20) L 05/30/22 06:31 BUN 11 mg/dL (9-16) 05/30/22 06:31 Creatinine 0.62 mg/dL (0.5-1.4) 05/30/22 06:31 Estim Creat Clear Calc 135.2 05/30/22 06:31 Estimated GFR > 60 05/30/22 06:31 Random Glucose 122 mg/dL (60-115) H 05/30/22 06:31 Fasting Glucose 101 mg/dL (60-99) H 05/29/22 05:53 Lactic Acid 2.0 mmol/L (0.5-2.0) 05/26/22 01:01 Lactic Acid F/U @ 2Hr 2.3 mmol/L (0.5-2.0) H* 05/25/22 19:34 Calcium 7.9 mg/dL (8.4-10.2) L 05/30/22 06:31 Phosphorus 2.1 mg/dL (2.7-4.5) L 05/29/22 05:53 Magnesium 1.6 mg/dL (1.6-2.6) 05/29/22 05:53 Ferritin 413 ng/mL (10-250) H 05/29/22 05:53 Total Bilirubin 1.0 mg/dL (0.0-1.0) 05/29/22 05:53 Direct Bilirubin 0.5 mg/dL (0.0-0.5) 05/29/22 05:53 AST 125 U/L (5-31) H 05/29/22 05:53 ALT 133 U/L (0-31) H 05/29/22 05:53 Alkaline Phosphatase 64 U/L (39-117) 05/29/22 05:53 Ammonia 68 umol/L (13-55) H 05/25/22 19:34 Total Creatine Kinase 39462 U/L (26-140) H 05/25/22 21:58 Troponin I High Sens 883.8 ng/L (<3.5-17.0) H* D 05/27/22 05:13 C-Reactive Protein 16.83 mg/dL (< or = 0.50) H 05/26/22 05:18 B-Natriuretic Peptide 341 pg/mL (<100) H 05/25/22 14:49 Total Protein 4.6 g/dL (6.5-8.0) L 05/29/22 05:53 Albumin 2.9 g/dL (3.5-5.0) L 05/29/22 05:53 Vitamin B12 819 pg/mL (200-900) 05/29/22 05:53 Folate 3.3 ng/mL (> or = 4.0) L 05/29/22 05:53 Procalcitonin 3.61 ng/mL 05/25/22 22:28 TSH 0.08 uIU/mL (0.32-4.0) L 05/25/22 21:58 Free T4 0.91 ng/dL (0.71-1.85) 05/25/22 21:58 Free T3 1.7 pg/mL (2.3-4.2) L 05/25/22 22:28 Urine Color Yellow 05/25/22 Unknown Urine Appearance Clear 05/25/22 Unknown Urine pH 6.0 (5.0-9.0) 05/25/22 Unknown Ur Specific [place] >= 1.030 (1.005-1.025) H 05/25/22 Unknown Urine Protein 100 (2+) mg/dL (Neg-Trace) H 05/25/22 Unknown Urine Glucose (UA) Negative mg/dL (Negative) 05/25/22 Unknown Urine Ketones Trace mg/dL (Negative) 05/25/22 Unknown Urine Blood Large (3+) (Negative) H 05/25/22 Unknown Urine Nitrite Negative (Negative) 05/25/22 Unknown Ur Leukocyte Esterase Negative (Negative) 05/25/22 Unknown Urine RBC 3-5 /HPF (0-2) H 05/25/22 Unknown Urine WBC 0-5 /HPF (0-5) 05/25/22 Unknown Ur Squamous Epith Cells 3-5 /HPF (0-2) 05/25/22 Unknown Urine Bacteria None Seen (None Seen) 05/25/22 Unknown Hyaline Casts 3-5 /LPF (0-2) 05/25/22 Unknown Granular Casts Present 05/25/22 17:50 Gastric Occult Blood POSITIVE (NEG) H 05/25/22 20:21 Stool Leukocytes, Qual Cancelled 05/25/22 Unknown Salicylates < 5.0 mg/dL (15-30) L 05/25/22 19:34 Urine Opiates Screen POSITIVE (Not Detect) H 05/25/22 17:50 Urine Fentanyl Screen Not Detected (Not Detect) 05/25/22 17:50 Acetaminophen < 1 mcg/mL (<30) 05/25/22 19:34 Ur Barbiturates Screen Not Detected (Not Detect) 05/25/22 17:50 Ur Phencyclidine Scrn Not Detected (Not Detect) 05/25/22 17:50 Ur Amphetamines Screen Not Detected (Not Detect) 05/25/22 17:50 U Benzodiazepines Scrn Not Detected (Not Detect) 05/25/22 17:50 Urine Cocaine Screen Not Detected (Not Detect) 05/25/22 17:50 U Marijuana (THC) Screen Not Detected (Not Detect) 05/25/22 17:50 Ethyl Alcohol < 10 mg/dL 05/25/22 14:49 C. difficile Tox B Gene NEGATIVE (Negative) 05/27/22 10:14 COVID-19 ([facility]) Negative (Negative) 05/25/22 14:49 COVID-19 Clin Com See Note 05/25/22 14:49 O & P Trichrome Stain Cancelled 05/25/22 Unknown Blood Type O Positive 05/26/22 01:01 Antibody Screen NEGATIVE 05/26/22 01:01 Crossmatch See Detail 05/26/22 01:01 - Imaging Radiologist's impression: ITS Impressions Chest X-Ray 05/25/22 17:25 IMPRESSION: ET tube 1.6 cm above mary. Other tubes and catheters as noted above. Mild elevation left hemidiaphragm. Left basilar atelectasis or possibly infiltrate. Mild vascular congestion. Head CT 05/25/22 17:31 IMPRESSION: No evidence of acute intracranial hemorrhage or edematous territorial infarction. Abdomen/Pelvis CT 05/25/22 17:37 IMPRESSION: Limited evaluation of PE due to respiratory motion. Equivocal nonocclusive filling defects in segmental branches of the left lower lobe. Endotracheal tube terminates a 1 cm above the mary. Recommend repositioning. Multifocal airspace opacities suggesting the presence of an atypical infectious or inflammatory process. These opacities are denser in the lung bases in which aspiration is not excluded. There are small bilateral pleural effusions. Colonic wall thickening and mild pericolonic fat stranding involving the descending colon suggesting acute colitis, uncertain etiology, could be ischemic due to distribution. Correlate clinically. Progression of compression deformity at the L2 vertebral body and new compression deformity at the L1 vertebral body when compared to a prior CT of the lumbar spine available from 12/20/2014. Correlate with point tenderness. Hepatomegaly and hepatic steatosis. Splenomegaly. Incidentally noted up to 1.6 cm left-sided thyroid nodule. If clinically deemed appropriate, correlation with an elective nonemergent thyroid ultrasound is recommended. VTE: indeterminate This critical result was discussed with DALLIN Hampton at 05/25/2022 6:54 PM and it was ascertained that the content and urgency of the report was understood at the time of direct communication. Chest CTA 05/25/22 17:37 IMPRESSION: Limited evaluation of PE due to respiratory motion. Equivocal nonocclusive filling defects in segmental branches of the left lower lobe. Endotracheal tube terminates a 1 cm above the mary. Recommend repositioning. Multifocal airspace opacities suggesting the presence of an atypical infectious or inflammatory process. These opacities are denser in the lung bases in which aspiration is not excluded. There are small bilateral pleural effusions. Colonic wall thickening and mild pericolonic fat stranding involving the descending colon suggesting acute colitis, uncertain etiology, could be ischemic due to distribution. Correlate clinically. Progression of compression deformity at the L2 vertebral body and new compression deformity at the L1 vertebral body when compared to a prior CT of the lumbar spine available from 12/20/2014. Correlate with point tenderness. Hepatomegaly and hepatic steatosis. Splenomegaly. Incidentally noted up to 1.6 cm left-sided thyroid nodule. If clinically deemed appropriate, correlation with an elective nonemergent thyroid ultrasound is recommended. VTE: indeterminate This critical result was discussed with DALLIN Hampton at 05/25/2022 6:54 PM and it was ascertained that the content and urgency of the report was understood at the time of direct communication. Carotid Doppler Study 05/25/22 17:57 IMPRESSION: 1. RIGHT: Normal right internal carotid artery without atherosclerotic plaque or hemodynamically significant stenosis. 2. LEFT: 0-49% range stenosis left ICA. 3. Normal antegrade flow seen in both vertebral arteries. Assessment and Plan (1) Thrombocytopenia Status: Acute Assessment and plan: 1. This is a pleasant 57-year-old woman admitted for colitis. She was noted to have worsening of thrombocytopenia as well as anemia. She had normal blood counts in 2019. Her drop in platelets and red blood cells along with neutrophilic leukocytosis with toxic granulation is indicative of acute illness related cytopenias and leukocytosis respectively. There is no evidence of hemolysis. Her kidney functions are improving. Her liver functions are also improving. She has history of fatty liver with splenomegaly which could be contributing to her cytopenias as well. She is not on any medications that would cause cytopenias. Levaquin is rarely associated with pancytopenia. Submit vitamin B12, folic acid levels, ferritin and reticulocyte count. I expect the blood counts to come up has her clinical picture improves. There is no suspicion of heparin-induced thrombocytopenia, DIC or TTP. I thank you for this consult.
--- NOTE | 2022-05-30 09:00 | P.CDIC_ITS ---
CDI Concurrent Query Documentation Clarification: PHYSICIAN'S DOCUMENTATION REQUEST Date of Query: 05/30/22 0900 Patient Name: Gayatri Lopez Admit Date: 05/25/22 Dear Doctor, A review of the medical record indicates additional documentation may be needed. Please review below and update the documentation accordingly. Clinical Indicators: Risk Factors/Clinical Indicators/Treatments PN - 05/26: Encephalopathy Progressive alteration of mental status. History of seizure activity on Keppra, possible withdrawing from medication due to deterioration of mental status at least last 48 hours. Based on the above, please further specify, in the Progress Notes, the known or suspected type of the documented encephalopathy: Present on arrival, resolved etc. * Metabolic * Septic * Toxic * Toxic metabolic * Due to a specified condition * Other (please specify) * Unable to determine Use of terms such as suspected, likely, concern for, or probable (associated with a specific diagnosis that is being evaluated, monitored, or treated as if it exists) are acceptable and can be coded in the inpatient setting, when documented at the time of discharge. Thank you, Bushra Caldwell [facility], CDIS Extension: [phone] Please use your independent medical judgment in providing your response. THIS QUERY IS PART OF THE PERMANENT MEDICAL RECORD Provider Response: Other Other Diagnosis: Toxic metabolic encephalopathy
[2022-05-30] MEDS: Sucralfate Oral Suspension 1 GM/10 ML ORAL.SUSP PO ×2 (09:24→12:00)
[2022-05-30] MEDS: Metoprolol Tartrate 100 MG TABLET PO (09:25)
[2022-05-30] MEDS: Gabapentin 400 MG CAPSULE 800 MG PO (09:25)
[2022-05-30] MEDS: levETIRAcetam 500 MG TABLET PO (09:26)
[2022-05-30] MEDS: Folic Acid 1 MG TABLET PO (09:26)
[2022-05-30] MEDS: Potassium Chloride Packet 20 MEQ PACKET 40 MEQ PO ×2 (09:27→12:00)
--- NOTE | 2022-05-30 09:48 | PM.PNCARD ---
Subjective Subjective Date of Service: 05/30/22 Interval history: She states she feels fine. No chest pain or in fact any cardiac symptoms at all. Review of Systems Review of Systems Yes all other systems are reviewed and are negative Constitutional: Reports as per HPI Eyes: Reports as per HPI Reports as per HPI Cardiovascular: Reports as per HPI, Denies acrocyanosis, Denies cool extremities, Denies chest pain, Denies leg edema, Denies lightheadedness, Denies palpitations and Denies dyspnea Respiratory: Reports as per HPI, Reports no additional respiratory complaints and Denies dyspnea Gastrointestinal: Reports as per HPI and Reports no additional gastrointestinal complaints Genitourinary: Reports as per HPI Musculoskeletal: Reports no additional musculoskeletal complaints and Reports as per HPI Skin/Breast: Reports system reviewed and no additional complaints, except as docu Reports system reviewed and no additional complaints, except as documented and Reports as per HPI Psychiatric: Reports no additional psychiatric complaints and Reports as per HPI Endocrine: Reports no additional endocrine complaints, Reports as per HPI and Denies palpitations Hematologic/Lymphatic: Reports no additional hematologic/lymphatic complaints and Reports as per HPI Allergic/Immunologic: Reports no additional allergic/immunologic complaints and Reports as per HPI Physical Exam Vital Signs: Last Vital Signs Temp 97.4 F 05/30/22 07:06 Pulse 64 05/30/22 07:06 Resp 18 05/30/22 07:06 BP 114/60 05/30/22 07:06 Pulse Ox 98 05/30/22 07:06 O2 Del Method 05/30/22 07:06 O2 Flow Rate 2 05/28/22 03:26 FiO2 35 05/27/22 11:06 Oxygen Flow Rate 4 05/25/22 14:47 BMI result Body Mass Index 41.9 Const General: comfortable and no acute distress Orientation/consciousness: patient oriented x3 HEENT Other: Unremarkable Head: Yes normal to inspection Neck Neck: Yes normal visual inspection Chest Chest palpation & inspection: normal inspection of the chest Resp Auscultation: clear to auscultation bilaterally Cardio Palpation: normal PMI Heart sounds: S1 normal heart sound present, S2 normal heart sound present, no gallops, no murmurs and no rubs GI Palpation (GI): Soft to palpation Back/Spine/Pelvis Other: unremarkable Skin General skin exam: no rashes or lesions noted Neuro General: patient oriented x3 Extrem General: Yes normal to inspection Psych Mental Status: mental status grossly normal Objective Labs and Meds Result diagrams: 05/30/22 06:31 05/30/22 06:31 Lab results: Laboratory Results - last 24 hr 05/29/22 05/29/22 05/29/22 05:53 05:53 05:53 WBC RBC Hgb Hct MCV MCH MCHC RDW Plt Count MPV Absolute Nucleated RBC Nucleated RBC % (auto) Absolute Retic 0.117 H Percent Retic 3.5 H Immature Retic Fraction 33.5 H Retic Hgb Equivalent 35.9 H Sodium Potassium Chloride Carbon Dioxide Anion Gap BUN Creatinine Estim Creat Clear Calc Estimated GFR Random Glucose Calcium Ferritin 413 H Vitamin B12 819 Folate 3.3 L 05/30/22 05/30/22 06:31 06:31 WBC 17.5 H RBC 3.19 L Hgb 10.5 L Hct 31.1 L MCV 97.5 MCH 32.9 MCHC 33.8 RDW 14.8 Plt Count 70 L MPV 10.2 Absolute Nucleated RBC 0.000 Nucleated RBC % (auto) 0.0 Absolute Retic Percent Retic Immature Retic Fraction Retic Hgb Equivalent Sodium 141 Potassium 2.9 L Chloride 108 Carbon Dioxide 25 Anion Gap 11 L BUN 11 Creatinine 0.62 Estim Creat Clear Calc 135.2 Estimated GFR > 60 Random Glucose 122 H Calcium 7.9 L Ferritin Vitamin B12 Folate Progress Note: A&P Assessment and plan (1) NSTEMI (non-ST elevated myocardial infarction): Status: Acute (2) Thrombocytopenia: Status: Acute Plan Based on review of labs, there is elevation of creatinine kinase as well as high sensitivity troponins. Not clear if resolved abnormalities or for was coronary event as well. More than likely, this is secondary as opposed to being the primary issue. Clinically, she has got no cardiac symptoms at all whatsoever. Multiple other coexisting metabolic issues including hypokalemia, hypophosphatemia, liver function abnormalities, thrombocytopenia among others. Echocardiogram with preserved LVEF and no wall motion abnormalities. Overall, she seems fairly stable from cardiac standpoint. Will need to address the metabolic issues. Will also need to ensure platelets return back to normal. At some point, can consider ischemic workup with a stress test. This can be accomplished as an outpatient after the above issues are addressed and she is a bit more stable. Discussed about this with the patient's significant other and they are in agreement and they would also like to postpone any cardiac testing and perform rather as an outpatient. Discussed with Dr. Dias. Time Spent With Patient Time: Total time spent is greater than 50% in coordination of care (as documented) at patient's floor/unit and/or counseling patient: 35min. Progress Note: Quality Stroke Does the patient have a stroke diagnosis?: No Procedures Date of Service Date of Service: 05/30/22
--- NOTE | 2022-05-30 11:23 | P.DS_ITS ---
DS: Providers Provider Date of Service: 05/30/22 Date of admission: 05/25/22 16:29 Primary care physician: Brad Kebede III, MD Consults: 05/27/22 09:33 Consult to Gastroenterology Stat Consulting Provider: Kashif Thurston Reason for consultation: anisa BARON 05/27/22 15:06 Consult to Cardiology Routine Consulting Provider: Godwin Mcleod Reason for consultation: nstemi 05/28/22 11:33 Consult to Hematology / Oncology Routine Consulting Provider: Capri Powell Reason for consultation: thrombocytopenia DS: Diagnosis Discharge Diagnosis (1) NSTEMI (non-ST elevated myocardial infarction): Status: Acute (2) Thrombocytopenia: Status: Acute (3) Toxic metabolic encephalopathy: Status: Acute (4) Sepsis with acute hypoxic respiratory failure: Status: Acute (5) Seizures complicating infection: Status: Acute (6) Colitis, acute: Status: Acute (7) Sepsis: Status: Acute (8) ASHLEY (acute kidney injury): Status: Acute (9) Rhabdomyolysis: Status: Acute (10) Elevated troponin: Status: Acute DS: Summary Hospital Course Hospital Course: Admission note HPI ?57-year-old morbidly obese female nondiabetic began with altered mental status 2 days earlier brought in when unresponsive with room air saturation of 80% and in the emergency room witnessed aspiration with large volume of fecal into vomitus requiring emergent intubation at that time her GCS score was less than 3 and emergent right internal jugular central line was placed without complication and all imaging is still pending but there was a question of thrombus that I id noted in the left internal jugular vein and she has got an Arb background in that several years ago had a pacing ICD placed because of a sudden event apparently witnessed ventricular fibrillation but I have no indication from her primary assistant media planner's note as to whether she had cardiac catheterization done at that time to rule out an ischemic etiology versus inherited channel op the Daisy ?blood pressure was 170 systolic and bedside echo revealed hyperdynamic left and right ventricle with preserved wall motion globally just did not get a great look at the lateral wall but everything else was moving and EKG although there were Q-waves in 3 and AVF that could be the vector of septal depolarization and the diminished R-wave progression but still with micro R-waves in V1 to V4 could easily be a clockwise rotation and there was no evidence of acute ST-T change bu t we have a 4000 troponin and 13,000 CPK and a BNP of 340 so clearly there is some kind of myocardial damaging Avante whether this might be ischemic or possibly even from her right ventricle due to an acute pulmonary embolism and with a D-dimer of 3000 not withstanding the fact that she has got a BUN and creatinine of 59 and 2.4 an obvious acute the renal failure and probable element of of rhabdomyolysis we need to proceed with contrast injection for a PE protocol and given the fecal in vomitus I think we need to at least dry scan her abdomen and pelvis and at some point I am going to need to get a stat duplex scan to look at her carotids and her jugular veins ?current rhythm is sinus tachycardia with [place] conduction and narrow QR when was described to me that some of her altered mental status at home had the appearance of just staring as though she was not there it may me wonder about potential seizure activity and then subsequently although not on her medication list we found out that she was on Keppra and was a history of seizure activity and due to deteriorating mental status at least the last 48 hours she may have withdrawn from that medication Hospital course The patient was admitted to ICU intubated on 05/25 for acute hypoxic respiratory failure and septic shock due to aspiration pneumonia from vomiting reported fecal material from an evidence of ischemic colitis on CT scan. Treated with IV antibiotics of Levaquin and Flagyl with fair response a sepsis resolved and started to wean of the ventilator. Blood cultures remain negative. Evaluated by lap machine operator Dr. Calero who recommended not to intervene with colonoscopy at this stage and to be followed as outpatient as the patient started to tolerate diet well after being extubated on 05/27. Diet advanced as tolerated as the patient was weaned off oxygen to room air. Noted to have elevated troponin with no significant EKG changes or reported chest pain. Was not anticoagulated due to severe thrombocytopenia. No regional wall motion abnormality on echocardiogram. Evaluated by Cardiology team who decided to follow the patient after complete resolution of the infection for cardiac workup as outpatient as her elevated troponin seem to be type 2 and could be related to elevated CPK. Treated for acute kidney injury and evidence of rhabdomyolysis with IV fluid with complete resolution and improvement of her kidney function back to normal baseline. Evaluated by Hematology for an evidence of Severe thrombocytopenia as CT abdomen did show splenomegaly and steatohepatitis. Started on folic acid with a plan to follow-up with hematology as outpatient as Dr. Powell thinks her numbers should improve as the acute illness resolves. Reported that she had a seizures at home and checking her medications she is supposed to be on Keppra that she has not been taking. Keppra was restarted with good response as no seizure was noted during the hospital stay. Has low TSH reading of 0.08. Believed to be subclinical hypothyroidism from acute illness. Normal free T4 reading. TSH to be repeated as outpatient with PCP. continue Levaquin and Flagyl as prescribed Restart your home dose Keppra Start folic acid daily To do physical therapy at home To follow-up with Dr. Calero at the office for outpatient colonoscopy To follow-up with Dr. Mcleod at cardiology office for further cardiac wo rkup To repeat CBC as outpatient and follow with your PCP or Dr. Powell from Hematology Time Spent with Patient Time attestation: Total time spent providing and/or coordinating discharge services: Discharge coordination time: Greater than 30 minutes Quality: Safe Use of Opioids Does Pt have an Active Cancer Diagnosis on the Problem List?: No Quality: Stroke Does the patient have a stroke diagnosis?: No Physical Exam Vital Signs: Vital Signs: Last Vital Signs Temp 97.4 F 05/30/22 07:06 Pulse 64 05/30/22 07:06 Resp 18 05/30/22 07:06 BP 114/60 05/30/22 07:06 Pulse Ox 98 05/30/22 07:06 O2 Del Method 05/30/22 07:06 O2 Flow Rate 2 05/28/22 03:26 FiO2 35 05/27/22 11:06 Oxygen Flow Rate 4 05/25/22 14:47 BMI result Body Mass Index 41.9 Const: Other: Constitutional : Alert, not in distress, obese Neck : Normal inspection, Supple Cardiovascular : RRR, no JVP, no lower extremity edema Respiratory : fair bilateral air entry, no crackles, wheezes or rhonchi Gastrointestinal: soft, lax, Normal bowel sounds, Non tender Skin : Warm, Dry Neurological : Alert & oriented x3, No focal deficit DS: Data Data Completed and Pending Labs on day of discharge: Laboratory Results - last 24 hr 05/29/22 05/30/22 05/30/22 05:53 06:31 06:31 WBC 17.5 H RBC 3.19 L Hgb 10.5 L Hct 31.1 L MCV 97.5 MCH 32.9 MCHC 33.8 RDW 14.8 Plt Count 70 L MPV 10.2 Absolute Nucleated RBC 0.000 Nucleated RBC % (auto) 0.0 Sodium 141 Potassium 2.9 L Chloride 108 Carbon Dioxide 25 Anion Gap 11 L BUN 11 Creatinine 0.62 Estim Creat Clear Calc 135.2 Estimated GFR > 60 Random Glucose 122 H Calcium 7.9 L Vitamin B12 819 Folate 3.3 L Preliminary micro results at discharge 05/25/22 15:06 Blood Culture - Preliminary Blood - Venous No growth after 48 hours. 05/25/22 14:49 Blood Culture - Preliminary Blood - Venous No growth after [address] scan - abdomen: Radiologist's impression: ITS Impressions Chest X-Ray 05/25/22 17:25 IMPRESSION: ET tube 1.6 cm above mary. Other tubes and catheters as noted above. Mild elevation left hemidiaphragm. Left basilar atelectasis or possibly infiltrate. Mild vascular congestion. Head CT 05/25/22 17:31 IMPRESSION: No evidence of acute intracranial hemorrhage or edematous territorial infarction. Abdomen/Pelvis CT 05/25/22 17:37 IMPRESSION: Limited evaluation of PE due to respiratory motion. Equivocal nonocclusive filling defects in segmental branches of the left lower lobe. Endotracheal tube terminates a 1 cm above the mary. Recommend repositioning. Multifocal airspace opacities suggesting the presence of an atypical infectious or inflammatory process. These opacities are denser in the lung bases in which aspiration is not excluded. There are small bilateral pleural effusions. Colonic wall thickening and mild pericolonic fat stranding involving the descending colon suggesting acute colitis, uncertain etiology, could be ischemic due to distribution. Correlate clinically. Progression of compression deformity at the L2 vertebral body and new compression deformity at the L1 vertebral body when compared to a prior CT of the lumbar spine available from 12/20/2014. Correlate with point tenderness. Hepatomegaly and hepatic steatosis. Splenomegaly. Incidentally noted up to 1.6 cm left-sided thyroid nodule. If clinically deemed appropriate, correlation with an elective nonemergent thyroid ultrasound is recommended. VTE: indeterminate This critical result was discussed with DALLIN Hampton at 05/25/2022 6:54 PM and it was ascertained that the content and urgency of the report was understood at the time of direct communication. Chest CTA 05/25/22 17:37 IMPRESSION: Limited evaluation of PE due to respiratory motion. Equivocal nonocclusive filling defects in segmental branches of the left lower lobe. Endotracheal tube terminates a 1 cm above the mary. Recommend repositioning. Multifocal airspace opacities suggesting the presence of an atypical infectious or inflammatory process. These opacities are denser in the lung bases in which aspiration is not excluded. There are small bilateral pleural effusions. Colonic wall thickening and mild pericolonic fat stranding involving the descending colon suggesting acute colitis, uncertain etiology, could be ischemic due to distribution. Correlate clinically. Progression of compression deformity at the L2 vertebral body and new compression deformity at the L1 vertebral body when compared to a prior CT of the lumbar spine available from 12/20/2014. Correlate with point tenderness. Hepatomegaly and hepatic steatosis. Splenomegaly. Incidentally noted up to 1.6 cm left-sided thyroid nodule. If clinically deemed appropriate, correlation with an elective nonemergent thyroid ultrasound is recommended. VTE: indeterminate This critical result was discussed with DALLIN Hampton at 05/25/2022 6:54 PM and it was ascertained that the content and urgency of the report was understood at the time of direct communication. Carotid Doppler Study 05/25/22 17:57 IMPRESSION: 1. RIGHT: Normal right internal carotid artery without atherosclerotic plaque or hemodynamically significant stenosis. 2. LEFT: 0-49% range stenosis left ICA. 3. Normal antegrade flow seen in both vertebral arteries. Discharge Plan Discharge Patient Disposition: Home Health Service Discharge Diagnosis: Acute ischemic colitis Sepsis Acute kidney injury Rhabdomyolysis Seizure Referrals: Javier PATRICK [Outside] - 1 Week Brad Kebede III, MD [Primary Care Provider] - 1 Week Discharge Medications: New levetiracetam 500 mg Tablet 500 mg PO BID 30 Days Qty: 60 0RF folic acid 1 mg Tablet 1 mg PO DAILY Qty: 30 0RF levofloxacin 500 mg tablet 500 mg PO Q24H Qty: 2 0RF metronidazole [Flagyl] 375 mg capsule 375 mg PO BID Qty: 8 0RF Continued metoprolol tartrate 100 mg tablet 100 mg PO BID Qty: 180 3RF morphine 15 mg tablet 1 tab PO Q8H PRN (Reason: Pain (Scale Score 4-6)) gabapentin 800 mg tablet 800 mg PO TID morphine 15 mg tablet extended release 15 mg PO Q8H clonazepam 1 mg tablet 1 mg PO BID carisoprodol 350 mg tablet 350 mg PO BID PRN (Reason: Spondylosis) dicyclomine 20 mg tablet 20 mg PO QID sucralfate 1 gram tablet 1 g PO BID Rx Instructions: before meals Discharge Orders: Discharge Order (Routine); Ordered 05/30/22 Ordered By: Eda Dias Diet: Advance to usual diet Activity on Discharge: As tolerated Stand Alone Forms: Patient Portal Discharge page Other Ambulatory Orders: Complete Blood Count no Diff (Routine) Timeframe: 1 Week Facility: [facility] - Location: [address]-Lab Ordered By: Eda Dias Care Plan Goals: Read below Health Concerns: Read below Plan of Treatment: Read below Assessment: You were admitted to the hospital for abdominal pain and vomiting. Required admission to ICU and intubation for respiratory failure. Evaluated by lap machine operator as CT abdomen showed evidence of colitis that believed to be ischemic in nature. Treated with IV antibiotics with good response over the course of hospital stay. Noted to have elevated cardiac enzymes. Evaluated by assistant media planner who would like to follow-up with you as outpatient for further workup. Noted to have low platelet count. Evaluated by lithograph press feeder who recommended to repeat the blood work as outpatient and follow in the clinic. Developed seizure. Restarted Keppra with good response. continue Levaquin and Flagyl as prescribed Restart your home dose Keppra Start folic acid daily To do physical therapy at home To follow-up with Dr. Calero at the office for outpatient colonoscopy To follow-up with Dr. Mcleod at cardiology office for further cardiac workup To repeat CBC as outpatient and follow with your PCP or Dr. Powell from Hematology
[2022-05-30 11:27] VITALS: BP 111/56; PULSE 60; RESP 18; TEMP 36.4; O2SAT 95
--- NOTE | 2022-05-30 11:33 | MHC.CM.PN ---
Patient has been medically cleared for dc to home today, with services. A referral has been made to [facility], who has been notified of today's dc. IMM addressed today with Patient at bedside and original has been given to her and a copy has been placed on the chart.
--- NOTE | 2022-05-30 11:34 | P.F2F_ITS ---
Service Date Service Date: 05/30/22 Encounter Date of encounter: 05/30/22 Reasons for Services Signs and symptoms assessed: Physical deconditioning Reason for nursing home: medication management and teach disease management Reason for physical therapy: home safety and mobility and therapeutic exercises Homebound: Leaving the home is medically contraindicated at this time without the asist of a device and/or another person due th the listed conditions above and below. Reason homebound: unsteady gait / fall risk Certification: Based on the above findings, I certify that this patient is confined to the home and needs intermittent nursing home care, physical therapy and/or speech therapy, or continues to need occupational therapy. The patient is under my care, and I have initiated the establishment of the plan of care. The patient will be followed by a physician who will periodically review the plan of care.
--- NOTE | 2022-05-30 13:31 | PC.NURSE ---
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 Pt due to be discharged today. Partner at bedside with pt, discharge education given. Pt and family member verbalized understanding and stated no further questions. Triple lumen to R IJ removed, tele monitor removed. Pt assisted down to lobby by FUNCTIONAL TESTER.
== END 2022-05-30 13:30 | disposition home health service (06) | DRG 871 ==
LOC: HO.ED 16:31 → HO.EDOVER 18:03 → HO.ICU 18:16 → HO.IMC 05-27 15:35
PROVIDERS: Internal Medicine; Physician Assistant; Physician Assistant Medical; Admitting Provider Internal Medicine Cardiovascular Disease; Emergency Provider Internal Medicine; PCP Internal Medicine; Visit Provider Student in an Organized Health Care Education/Training Program
DX: A41.9 Sepsis, unspecified organism (principal); G92.8 Other toxic encephalopathy; I21.A1 Myocardial infarction type 2; J96.01 Acute respiratory failure with hypoxia; J69.0 Pneumonitis due to inhalation of food and vomit; R65.21 Severe sepsis with septic shock; N17.9 Acute kidney failure, unspecified; M62.82 Rhabdomyolysis; Z68.41 Body mass index [BMI] 40.0-44.9, adult; I42.2 Other hypertrophic cardiomyopathy; K55.9 Vascular disorder of intestine, unspecified; F41.9 Anxiety disorder, unspecified; F32.A Depression, unspecified; I25.5 Ischemic cardiomyopathy; E66.01 Morbid (severe) obesity due to excess calories; E86.0 Dehydration; E55.9 Vitamin D deficiency, unspecified; F17.210 Nicotine dependence, cigarettes, uncomplicated; G89.29 Other chronic pain; D69.6 Thrombocytopenia, unspecified; K75.81 Nonalcoholic steatohepatitis (NASH); L89.309 Pressure ulcer of unspecified buttock, unspecified stage; E87.6 Hypokalemia; M54.50 Low back pain, unspecified; Z71.6 Tobacco abuse counseling; Z20.822 Contact with and (suspected) exposure to COVID-19; Z86.74 Personal history of sudden cardiac arrest; Z95.810 Presence of automatic (implantable) cardiac defibrillator; Z88.0 Allergy status to penicillin; Z88.5 Allergy status to narcotic agent; Z88.6 Allergy status to analgesic agent; Z79.899 Other long term (current) drug therapy
CPT/HCPCS: 36415; 70450; 71045; 71275; 74177; 80048; 80053; 80076; 80143; 80179; 80307; 81001; 81003; 82077; 82140; 82271; 82550; 82607; 82728; 82746; 82803; 83605; 83735; 83880; 84100; 84145; 84439; 84443; 84481; 84484; 85007; 85025; 85027; 85045; 85379; 85610; 85730; 86140; 86850; 86900; 86901; 86923; 87040; 87177; 87493; 87635; 93005; 93306; 93880; 94002; 94003; 94799; 97162; 99285; C1758; J1953; J1956; J3370; P9047; Q9967

== ENCOUNTER 2022-07-10 16:30 | Outpatient (REF) | payer MEDICARE, MEDICAID, SELFPAY ==
[2022-07-10 16:56] LABS: MANUAL DIFF FLAG NO
[2022-07-10 17:20] LABS: Basophils Percent Auto 0.4 % (0-2); Eosinophils Absolute Auto 0.4 X10*3/uL (0.0-0.4); Eosinophils Percent Auto 4.9 % (0-4); Hematocrit 44.6 % (37.0-47.0); Hemoglobin 14.8 g/dl (12.0-16.0); Imm Gran Abs Auto 0.01 X10*3/uL (0.00-0.03); Imm Gran Pct Auto 0.1 % (0.0-0.4); Lymphocytes Absolute Auto 3.6 X10*3/uL (1.2-4.9); Lymphocytes Percent Auto 48.3 % (20-40); Mean Corpuscular HGB Conc 33.2 g/dl (31.0-35.0); Mean Corpuscular Volume 99.3 fL (80.0-98.0); Mean Platelet Volume 9.7 fL (9.4-12.3); Monocytes Absolute Auto 0.5 X10*3/uL (0.1-1.2); Neutrophils Absolute Auto 2.9 x10*3/uL (2.0-8.3); Neutrophils Percent Auto 39.3 % (45-73); Platelet Count 200 X10*3/uL (160-400); Red Blood Count 4.49 X10*6/uL (4.20-5.50); Red Cell Distribution Width 13.4 % (11.0-16.0); White Blood Count 7.4 X10*3/uL (4.8-10.8)
[2022-07-10 17:49] LABS: Alanine Aminotransferase 31 U/L (0-31); Albumin Level 3.9 g/dL (3.5-5.0); Alkaline Phosphatase 104 U/L (39-117); Aspartate Amino Transferase 56 U/L (5-31); Bilirubin Direct 0.2 mg/dL (0.0-0.5); Bilirubin Total 0.2 mg/dL (0.0-1.0); C Reactive Protein 1.08 mg/dL (< or = 0.50)
[2022-07-10 18:01] LABS: Erythrocyte Sedimentation Rate 8 MM/HR (0-20)
[2022-07-12 12:26] LABS: Gliadin Deamidated IgA Ab 158.6 U/mL; Gliadin Deamidated IgG Ab <1.0 U/mL; Transglutaminase Ab IgG <1.0 U/mL; Transglutaminase IgA <1.0 U/mL
[2022-07-12 14:32] LABS: Immunoglobulin A 239 mg/dL (47-310)
[2022-07-15 14:16] LABS: Endomysial IgA Antibody Negative (Negative)
== END 2022-07-10 16:31 | disposition home or self-care (01) ==
LOC: HO.LAB 16:30
PROVIDERS: Absent Provider Student in an Organized Health Care Education/Training Program; PCP Internal Medicine; Visit Provider Internal Medicine
DX: R19.7 Diarrhea, unspecified (principal)
CPT/HCPCS: 36415; 80076; 82784; 85025; 85652; 86140; 86231; 86258; 86364

== ENCOUNTER 2022-07-11 17:30 | Outpatient (REF) | payer MEDICARE, MEDICAID, SELFPAY ==
[2022-07-11 18:29] LABS: Leukocytes Stool Qualitative NEGATIVE (NEGATIVE)
[2022-07-12 03:17] LABS: CDiff Gene PCR NEGATIVE (Negative)
[2022-07-12 11:46] LABS: Campylobacter Not Detected (Not Detect.); Plesiomonas shigelloides Not Detected (Not Detect.)
[2022-07-12 11:47] LABS: Adenovirus F 40/41 Not Detected (Not Detect.); Astrovirus Not Detected (Not Detect.); Cryptosporidium Not Detected (Not Detect.); Cyclospora cayetanensis Not Detected (Not Detect.); E. coli EAEC Not Detected (Not Detect.); E. coli EPEC Not Detected (Not Detect.); E. coli ETEC Not Detected (Not Detect.); E. coli STEC Not Detected (Not Detect.); Entamoeba histolytica Not Detected (Not Detect.); Giardia lamblia Not Detected (Not Detect.); Norovirus GI/GII Not Detected (Not Detect.); Rotavirus A Not Detected (Not Detect.); Salmonella Not Detected (Not Detect.); Sapovirus Not Detected (Not Detect.); Shigella sp./EIEC Not Detected (Not Detect.); Vibrio Not Detected (Not Detect.); Vibrio Cholerae Not Detected (Not Detect.); Yersinia enterocolitica Not Detected (Not Detect.)
[2022-07-19 22:52] LABS: Calprotectin, Fecal 36 mcg/g
== END 2022-07-11 17:31 | disposition home or self-care (01) ==
LOC: HO.LNP 17:30
PROVIDERS: Visit Provider Internal Medicine
DX: R19.7 Diarrhea, unspecified (principal)
CPT/HCPCS: 83993; 87493; 87507; 89055

== ENCOUNTER → 2022-09-17 14:19 | Outpatient (BNVA) | payer MEDICARE, MEDICAID, SELFPAY | PROVIDERS: PCP Internal Medicine; Referring Provider Internal Medicine; Visit Provider Internal Medicine Cardiovascular Disease | DX: Z45.02 Encounter for adjustment and management of automatic implantable cardiac defibrillator (principal); I22.2 Subsequent non-ST elevation (NSTEMI) myocardial infarction; Z86.74 Personal history of sudden cardiac arrest | CPT/HCPCS: 99212 ==

== ENCOUNTER 2022-10-18 07:22 | Day surgery (SDC) | payer MEDICARE, MEDICAID, SELFPAY ==
[2022-10-18 07:39] VITALS: BMI 39.0
[2022-10-18 07:57] VITALS: BP 159/118; PULSE 111; RESP 18; TEMP 36.8; O2SAT 97
[2022-10-18] MEDS: Lactated Ringers 1,000 ML 80 ML IVCONT (08:02)
--- NOTE | 2022-10-18 09:07 | HO.ANESPROP2 ---
HPI - Anesthesia Eval Consult details Narrative: egdfor fu of gastric ulcers colonoscopy for screening and ro colitis and fu of celiac disease PMFSH Active Problems Active Problems: All Active Problems (Updated 10/17/22 @ 10:30 by Mary Pantoja RN) Toxic metabolic encephalopathy (Acute) Thrombocytopenia (Acute) ICD (implantable cardioverter-defibrillator) in place (Acute) History of sudden cardiac successfully resuscitated (Acute) Past Medical History Medical History (Updated 10/17/22 @ 10:30 by Mary Pantoja RN) Depression GERD (gastroesophageal reflux disease) History of sudden cardiac successfully resuscitated ICD (implantable cardioverter-defibrillator) in place Ischemic colitis Peptic ulcer disease Pressure sore on buttocks PTSD (post-traumatic stress disorder) Spinal cord stimulator status Thrombocytopenia Functional capacity: wheelchair bound Family History Family History Mother Dementia Cancer Father Heart disease Family history of problems with anesthesia: No Surgical History Surgical History (Updated 10/17/22 @ 10:30 by Mary Pantoja RN) History of cholecystectomy History of spinal surgery History of Problems with Anesthesia: No Social History Social History Household Members: Unknown / Unable to assess Housing: Unknown / Unable to assess Unable to assess alcohol history related to: Unable to respond and Unknown Alcohol intake: unknown Patient Tobacco Use Status: Current everyday Tobacco user Tobacco use type: Cigarette Cigarette Packs Per Day: 0.5 Years Smoked: 40 +/- Date Education Initiated: 10/18/22 Use of substances other than those prescribed or required for medical reasons: No Are you DNR?: Yes Advance Directives: No Advance Directives Information Provided: Yes service: No Current occupational status: disabled Meds Allergies Allergy/AdvReac Type Severity Reaction Status Date / Time hydromorphone [From DILAUDID] Allergy Unknown STOPS HEART Verified 03/14/22 14:29 ibuprofen [From MOTRIN] Allergy Unknown SEIZURE Verified 03/14/22 14:29 Active Medications: Current Medications Lactated Ringer's (Lr) 1,000 mls @ 80 mls/hr IVCONT .[id number] BOSSMAN Last Admin: 10/18/22 08:02 Dose: 80 mls/hr Sodium Biphosphate/Sodium Phosphate (Sodium Phosphate,[place]-Dibasic 133 Ml Enema) 133 ml ID ONCE PRN PRN Reason: Poor Colonoscopy Prep Results Home Medications Medication Instructions Recorded Confirmed Last Taken Type gabapentin 800 mg tablet 800 mg PO TID 03/05/21 09/17/22 Unknown History clonazepam 1 mg tablet 1 mg PO BID 10/02/21 09/17/22 Unknown History carisoprodol 350 mg tablet 350 mg PO BID PRN Spondylosis 03/14/22 09/17/22 Unknown History dicyclomine 20 mg tablet 20 mg PO QID 03/14/22 09/17/22 Unknown History morphine 15 mg tablet,extended 15 mg PO Q8H 03/14/22 09/17/22 Unknown History release sucralfate 1 gram tablet 1 g PO BID 03/14/22 09/17/22 Unknown History morphine 15 mg immediate release 1 tab PO Q8H PRN Pain (Scale Score 05/25/22 09/17/22 Unknown History tablet 4-6) levetiracetam 500 mg tablet 750 mg PO BID 06/14/22 09/17/22 Unknown History (Virgie) levofloxacin 500 mg tablet 500 mg PO Q24H 09/17/22 09/17/22 Unknown History sulfamethoxazole 800 1 tab PO BID 09/17/22 09/17/22 Unknown History mg-trimethoprim 160 mg tablet Exam Exam Date and Time: October 18, 2022 0907 Height,Weight and Vital Signs: Height 5 ft Weight 90.718 kg Last Vital Signs Temp 98.2 F 10/18/22 07:57 Pulse 111 H 10/18/22 07:57 Resp 18 10/18/22 07:57 BP 159/118 H 10/18/22 07:57 Pulse Ox 97 10/18/22 07:57 O2 Del Method 10/18/22 07:57 Airway Mallampati Class: II TM Dist: >3cm Neck ROM: Limited Loose/Missing/Broken Teeth: Yes (Poor missing) Heart: rr Lungs: cta Assessment and Plan Final Anesthetic Review Family History of Problems with Anesthesia: No History of Problems with Anesthesia: No NPO: Yes ASA Class: III Final Preanesthetic Review: No Changes in Pt Med Stat Patient Risk: Intermediate Procedure Risk: Low Anesthetic Plan Anesthetic Plan: MAC: Disposition: Standard PACU
[2022-10-18 09:23] VITALS: BP 106/62; PULSE 117; RESP 16; TEMP 36.1; O2SAT 100
--- NOTE | 2022-10-18 09:23 | PM.OP ---
Brief Operative Note Date of Service: 10/18/22 Pre-op diagnosis: Diarrhea, Screening Post-op diagnosis: other (R/O celiac disease, R/O Microscopic colitis, Colon polyp) Procedure: EGD with biopsies, Colonoscopy to the cecum and TI with biopsies and biopsy/removal of polyp Surgeon: Kashif Thurston Anesthesia: MAC Was an Licensed Physical Therapist Assistant used for this Procedure?: No Estimated blood loss (mL): 3.0 Pathology: other (A. Descending duodenum B. Duodenal bulb C. Gastric antrum D. Terminal ileum E. Ascending colon F. Transverse colon G. Descending colon) Condition: stable Disposition: PACU
[2022-10-18 09:38] VITALS: BP 108/69; PULSE 90; RESP 16; TEMP 36.7; O2SAT 97
--- NOTE | 2022-10-18 11:16 | OP_ITS ---
SURGEON: Kashif Thurston MD INDICATIONS: The patient presents for evaluation of diarrhea, elevated celiac disease laboratories, and colorectal cancer screening. Full consent has been obtained from her for both procedures, including risks of bleeding and perforation. PREOPERATIVE DIAGNOSIS: POSTOPERATIVE DIAGNOSIS: PROCEDURE PERFORMED: Esophagogastroduodenoscopy with biopsies, colonoscopy to the cecum and terminal ilium with biopsies, and biopsy and removal of polyps. ESTIMATED BLOOD LOSS: COMPLICATIONS: ANESTHESIA: Monitored anesthesia care. ASSISTANTS: SPECIMENS: PREOPERATIVE DIAGNOSES: Diarrhea, elevated celiac disease laboratories, colorectal cancer screening and family history of colon cancer. POSTOPERATIVE DIAGNOSES: Diarrhea, elevated celiac disease laboratories, colorectal cancer screening and family history of colon cancer, rule out celiac disease, gastritis, hiatal hernia, colon polyp, rule out microscopic colitis, diverticulosis, and internal hemorrhoids. DESCRIPTION OF PROCEDURE: The patient was placed in the left lateral decubitus position. The Olympus video gastroscope was passed in the posterior oropharynx and upper esophagus under direct vision. The scope was passed slowly to the distal esophagus. The gastroesophageal junction appeared at 36 cm. There was no sign of any esophagitis nor Trinh's esophagus. The scope was entered into the stomach. There was a small hiatal hernia. The scope was advanced to the pylorus, and the duodenum was cannulated to the descending portion. The duodenum including the bulb appeared normal without mass or ulceration. Biopsies were obtained from the second and third portions of duodenum, as well as from the duodenal bulb. Scope was withdrawn back into the stomach. The gastric antrum had some mild changes of gastritis with some edema. Biopsies were obtained from the gastric antrum. There was good peristalsis. Scope was retroflexed visualizing the proximal stomach carefully, which appeared normal without any mass or ulceration. The scope was straightened and withdrawn back to the esophagus. The esophageal mucosa appeared normal. The scope was withdrawn from the patient. She was turned around for the colonoscopy. The digital rectal exam revealed no abnormalities. The Olympus video pediatric colonoscope was entered into the rectum and advanced easily to the cecum. Once in the cecum, I did identify a normal-appearing cecal pouch with appendiceal orifice and a normal-appearing ileocecal valve. The terminal ileum was cannulated and it appeared normal. Biopsies were obtained from the ileum. The scope was withdrawn back in the colon. The entire cecum and ileocecal valve appeared normal. The scope was slowly withdrawn assessing all mucosal surfaces carefully. Preparation was excellent. I did not visualize any sign of colitis nor angiodysplasias. In the transverse colon, there was flat, approximately 3 or 4 mm polyp, which was biopsied and completely removed with the cold biopsy forceps. I did obtain random biopsies in the ascending and descending colon as well. There was a mild amount of diverticulosis. In the rectum, the scope ws retroflexed visualizing some internal hemorrhoids, but no other pathology. The rectal mucosa appeared normal. The scope was straightened and withdrawn from the patient. She tolerated the procedure well and was returned to the recovery area in stable condition. IMPRESSION: 1. Rule out celiac disease. 2. Rule out microscopic colitis. 3. Colon polyp. 4. Diverticulosis. 5. Internal hemorrhoids. 6. Mild gastritis. 7. Small hiatal hernia. PLAN: The results of the pathology will be checked. She was advised not to use any aspirin nor NSAIDs for at least one week, although given her previous history of peptic ulcer disease, she should remain off those terminal carman. She will continue her Imodium and dicyclomine for the intermittent diarrhea and presumed irritable bowel syndrome. The results of the biopsies will be checked. I would recommend a colonoscopy in 5 years given the family history of colon cancer. She was instructed to make an appointment to see me for followup as well. MD DREA Grimaldo/DEVON / [id number] MTDD
== END 2022-10-18 10:13 | disposition home or self-care (01) ==
PROVIDERS: PCP Internal Medicine; Visit Provider Internal Medicine
PROC: (CPT 45380; principal; 2022-10-18 08:30)
DX: R19.7 Diarrhea, unspecified (principal); K55.9 Vascular disorder of intestine, unspecified; R76.8 Other specified abnormal immunological findings in serum; Z80.0 Family history of malignant neoplasm of digestive organs; D12.3 Benign neoplasm of transverse colon; K57.30 Diverticulosis of large intestine without perforation or abscess without bleeding; K64.8 Other hemorrhoids; K58.9 Irritable bowel syndrome, unspecified; K29.50 Unspecified chronic gastritis without bleeding; K44.9 Diaphragmatic hernia without obstruction or gangrene; Z95.810 Presence of automatic (implantable) cardiac defibrillator; Z79.899 Other long term (current) drug therapy; F32.A Depression, unspecified; Z87.11 Personal history of peptic ulcer disease; Z86.74 Personal history of sudden cardiac arrest; F17.210 Nicotine dependence, cigarettes, uncomplicated
CPT/HCPCS: 45380; 43239; 88305; 88342

== ENCOUNTER 2023-06-30 13:43 | Outpatient (AMB) | payer MEDICARE, MEDICAID, SELFPAY ==
[2023-06-30 13:51] VITALS: BP 138/80; PULSE 100; BMI 41.8
--- NOTE | 2023-06-30 13:51 | A.OFFVIS_ITS ---
Intake Vital Signs 06/30/23 13:51 Height 5 ft Weight 213 lb 13.574 oz BMI 41.8 BP 138/80 Blood Pressure Location Lt brachial Position Sitting Pulse 100 Intake Visit Reasons: follow up Intake Note: Follow-up with ekg and [facility] check Relocation Manager Required: No Allergies hydromorphone [From DILAUDID] Allergy (Unknown, Verified 03/14/22 14:29) STOPS HEART ibuprofen [From MOTRIN] Allergy (Unknown, Verified 03/14/22 14:29) SEIZURE Medication List - Last Reconciled 06/30/23 by Aquiles Bowen MD carisoprodol 350 mg PO BID PRN clonazepam 1 mg PO BID dicyclomine 20 mg PO QID gabapentin 800 mg PO TID levetiracetam (Keppra) 750 mg PO BID levofloxacin 500 mg PO Q24H metoprolol tartrate 100 mg PO BID morphine 1 tab PO Q8H PRN morphine ER 15 mg PO Q8H sucralfate 1 g PO BID sulfamethoxazole-trimethoprim 800-160 mg 1 tab PO BID HPI HPI Comments History of Present Illness Details Gayatri comes for follow-up. She has no active cardiac complaints. She has no ICD discharge. She denies any syncopal episode. Her main issues currently on noncardiac with overall pain issues as well as issues with her GI tract. [facility] Medical History Spinal cord stimulator status Depression PTSD (post-traumatic stress disorder) Ischemic colitis GERD (gastroesophageal reflux disease) Peptic ulcer disease Thrombocytopenia Pressure sore on buttocks History of sudden cardiac successfully resuscitated ICD (implantable cardioverter-defibrillator) in place Surgical History History of spinal surgery History of cholecystectomy Family History Mother Dementia Cancer Father Heart disease Social History Household Members: Unknown / Unable to assess Housing: Unknown / Unable to assess Unable to assess alcohol history related to: Unable to respond and Unknown Alcohol intake: unknown Patient Tobacco Use Status: Current everyday Tobacco user Tobacco use type: Cigarette Cigarette Packs Per Day: 0.5 Years Smoked: 40 +/- service: No Current occupational status: disabled Review of Systems Const Denies chills, Denies fatigue, Denies fever(s), Denies frequent falls, Denies weakness, Denies weight gain and Denies weight loss ENT Denies dizziness Card Denies chest pain, Denies leg edema, Denies lightheadedness, Denies pal pitations, Denies dyspnea, Denies dyspnea on exertion, Denies orthopnea and Denies other (loss of consciousness) Resp Denies cough, Denies dyspnea and Denies dyspnea on exertion GI Denies hematochezia and Denies change in stool character Musc Denies abnormal gait, Denies muscle weakness, Denies numbness, Denies radiating pain into limb and Denies tingling Neuro Denies abnormal gait, Denies dizziness, Denies frequent falls, Denies numbness, Denies tingling and Denies weakness Endo Denies fatigue and Denies palpitations Physical Exam Vital Signs: Last Vital Signs Pulse 100 06/30/23 13:51 BP 138/80 06/30/23 13:51 BMI result Body Mass Index 41.8 Const General: cooperative, comfortable, no acute distress, alert and awake Nutritional Appearance: obese Orientation/consciousness: patient oriented x3 Limitations: ambulation with cane Neck Neck: Yes trachea midline, Yes supple and Yes no JVD Resp Effort & Inspection: normal respiratory effort Auscultation: clear to auscultation bilaterally and diminished lung sounds Cardio Jugular venous distension: no JVD Palpation: normal PMI Rate: regular rate Rhythm: regular rhythm Heart sounds: S1 normal heart sound present and S2 normal heart sound present GI Auscultation: normal bowel sounds Skin General skin exam: no rashes or lesions noted Neuro General: patient oriented x3 and no focal motor deficits Extrem General: Yes no clubbing, cyanosis or edema Psych Appearance: grossly normal Office Procedures Cardiac Device Check Cardiac Device Check Details: Dual-chamber [place] ICD in place, programmed in DDDR at 55 beats per minute. Atrial pacing about 5% time. No arrhythmias detected. Pacing and shock lead impedance is within stable limits. Atrial ventricular pacing thresholds adequate. Battery life is at about 1 and half years [id number] Cardiac Device Check, dual lead implantable defibrillator Procedure code (CPT) selection complete EKG Details: EKG shows normal sinus rhythm with 100 beats per minute poor R-wave progression most likely due to lead placement with normal QT interval. [id number], Complete Assessment & Plan Assessment & Plan (1) History of sudden cardiac successfully resuscitated: Code(s): Z86.74 - Personal history of sudden cardiac arrest Plan: Personal history of sudden cardiac with dual-chamber ICD in place for secondary prophylaxis. Suspected 10 a lot a 30. Currently on metoprolol therapy. Device is working well. She cannot pursue remote monitoring. Will therefore schedule low for 6 month follow up in the clinic. Importance of follow-up in the clinic was discussed. Will follow up in 6 months time, sooner p.r.n.. Thank you for allowing me to partake in her care Coding Level of Care Code Est Pt Level 3 (87161) Diagnoses History of sudden cardiac successfully resuscitated Z86.74 CPT Codes Cardiac Device Check - Cardiac Device 5: [id number] Cardiac Device Check, dual le ad implantable defibrillator ([id number]) EKG - CPT: 09580-[id number], Complete ([id number])
== END 2023-06-30 14:10 | disposition home or self-care (01) ==
PROVIDERS: PCP Internal Medicine; Visit Provider Internal Medicine Cardiovascular Disease
DX: Z86.74 Personal history of sudden cardiac arrest (principal); Z95.810 Presence of automatic (implantable) cardiac defibrillator
CPT/HCPCS: 93283; 99213

== ENCOUNTER → 2023-06-30 13:43 | Outpatient (BNVA) | payer MEDICARE, MEDICAID, SELFPAY | PROVIDERS: PCP Internal Medicine; Visit Provider Internal Medicine Cardiovascular Disease | DX: Z45.02 Encounter for adjustment and management of automatic implantable cardiac defibrillator (principal); Z86.74 Personal history of sudden cardiac arrest | CPT/HCPCS: 93005; 99212 ==

== ENCOUNTER 2023-07-29 14:42 | Outpatient (AMB) | payer MEDICARE, MEDICAID, SELFPAY ==
--- NOTE | 2023-07-29 14:46 | A.OFFPC_ITS ---
Vital Signs 07/29/23 14:52 Height 5 ft Weight 207 lb BMI 40.4 BP 118/62 Blood Pressure Location Rt brachial Position Sitting Respiration 13 Pulse 83 Pulse Source Pulse Oximeter Pulse Oximetry (%) 96 Oxygen Delivery Method Room Air Intake Visit Reasons: [facility]/ Pain management/ Med review Intake Note: Patient is here to establish care. Patient reports she has had several surgeries, injections, neurostimulator implant x5-6 years (removed after 6 years), has a pain management provider and she is leaving her practice. Patient reports she has a complex history she would like to discuss with her provider. Home Care Companion Required: No Accompanied by: Self / Same As Patient Allergies hydromorphone [From DILAUDID] Allergy (Unknown, Verified 07/29/23 15:06) STOPS HEART ibuprofen [From MOTRIN] Allergy (Unknown, Verified 07/29/23 15:06) SEIZURE Medication List - Last Reconciled 07/29/23 by Alvino Mcfarlane MD carisoprodol 350 mg PO BID PRN clonazepam 1 mg PO BID dicyclomine 20 mg PO QID gabapentin 800 mg PO TID levetiracetam (Keppra) 750 mg PO BID metoprolol tartrate 100 mg PO BID morphine 1 tab PO Q8H PRN morphine ER 15 mg PO Q8H sucralfate 1 g PO BID Tobacco use date assessed: 07/29/23 Dental Screening Dental Screen Date: 07/29/23 Did you have a dental visit in the last 12 months?: Yes Did you have a dental problem in the last 6 months where you did not have access to dental care?: No Was dental information given to patient?: Patient has dentist HPI [facility]/ Pain management/ Med review HPI Details New patient Prior PCP:? Dr Kebede, Previously Dr Sanchez Last office visit/CPE: April. > 1 yr for CPE Acute issue(s): Chronic back pain PMHx: ?PTSD,?Anxiety, Thrombocytopenia,?sudden?cardiac??and ICD in place, Sepsis 05/30, Osteoporosis, Osteoarthritis, GI ulcers - Dr. Thurston, ischemic colitis, IBS, Long QT SurgHx:, cholecystectomy,?Sheppard?cyst,?neurostimulator,?diskectomy,?vertebrop lasty,?ICD?implant FHx: Mother: Long QT, Colon Cancer. Father: Hypotension. GF: Colon CA, SocHx: 1/2 - 1 ppd since childhood. EtOH: None. No drugs PFSH Medical History (Updated 07/29/23 @ 16:45 by Alvino Mcfarlane MD) Spinal cord stimulator status Depression PTSD (post-traumatic stress disorder) Ischemic colitis GERD (gastroesophageal reflux disease) Peptic ulcer disease Thrombocytopenia Pressure sore on buttocks History of sudden cardiac successfully resuscitated ICD (implantable cardioverter-defibrillator) in place Surgical History History of spinal surgery History of cholecystectomy Family History Mother Dementia Cancer Father Heart disease Household Members: Spouse Housing: House Alcohol intake: never Patient Tobacco Use Status: Current everyday Tobacco user Tobacco use type: Cigarette Cigarette Packs Per Day: 0.5 Cigarettes Per Day: 10 Years Smoked: 40 +/- e-Cigarette/Vaping Use: Never Used service: No Current occupational status: disabled Current occupational exposures/hazards: No Sexual orientation: Unable to collect Gender identity: Unable to collect Cognitive needs: No Hearing needs: No Vision needs: Yes (Wears glasses) Questionnaire PHQ-9 Over the last 2 weeks, how often have you been bothered by any of the following problems? 1. Little interest or pleasure in doing things: nearly every day 2. Feeling down, depressed, or hopeless: nearly every day 3. Trouble falling or staying asleep, or sleeping too much: nearly every day 4. Feeling tired or having little energy: nearly every day 5. Poor appetite or overeating: nearly every day 6. Feeling bad about yourself - or that you are a failure or have let yourself or your family down: nearly every day 7. Trouble concentrating on things, such as reading the newspaper or watching television: more than half the days 8. Moving or speaking so slowly that other people could have noticed. Or the o pposite - being so fidgety or restless that you have been moving around a lot more than usual: not at all 9. Thoughts that you would be better off or of hurting yourself in some way: not at all Total score: 20 Depression Screening Interpretation: Positive Depression Screening Done: Yes Source: Developed by Drs. Kashif Turpin, Tona Estes, Jose De Anda and colleagues, with an educational johanny from [employer]. Thrive Questionnaire Date Thrive assessed: 07/29/23 I am a: Patient What is your living situation today?: I have a steady place to live Within the past 12 months, did the food you bought not last and you didn't have the money to get more?: Often true Within the past 12 months, did you worry whether your food would run out before you got money to buy more?: Sometimes True Do you have trouble paying for medicines?: No Do you have trouble getting transportation to medical appointments?: No Do you have trouble paying your heating and electricity bill?: No Do you have trouble taking care of your child, family member or friend?: No Do you have trouble with day-to-day activities such as bathing, preparing meals, shopping, managing finances, etc.?: Yes ( My has to help me bathe, cook, clean, and works 60+ hours weekly. ) Are you currently unemployed and looking for a job?: No Are you interested in more education?: No Please select the resources that you would like help with: Care for elder or disabled and Daily support Currently or been in a relationship where the following occur: no concerns reported AUDIT C Alcohol Use Questionnaire (AUDIT-C) 1. How often do you have a drink containing alcohol?: Never 3. How often do you have six or more drinks on one occasion?: Never Total Score: 0 MARIN-7 AMB Questionnaire MARIN-7 Date MARIN - 7 assessed: 07/29/23 Feeling nervous, anxious, or on edge: 3 = Nearly every day Not being able to stop or control worryin = Nearly every day Worrying too much about different things: 3 = Nearly every day Trouble relaxin = Nearly every day Being so restless that it is hard to sit still: 0 = Not at all Becoming easily annoyed or irritable: 2 = More than half the days Feeling afraid as if something awful might happen: 3 = Nearly every day Total MARIN-7 score (0-4 normal; 5-9 mild; 10-14 moderate; 15-21 severe): 17 Source: Developed by Drs. Kashif Turpin, Tona Estes, Jose De Anda and colleagues, with an educational johanny from [employer]. MARIN-7 Assessment Billing MARIN-7 Assessment Tool: MARIN-7 Assessment 87935 Review of Systems Const Denies chills, Denies fatigue, Denies fever(s), Denies headache(s) and Denies weakness ENT Denies dizziness and Denies headache(s) Card Denies chest pain, Denies lightheadedness, Denies dyspnea and Denies other (Palpitations) Resp Denies cough, Denies dyspnea, Denies wheezing and Denies other ( shortness of breath) Musc Reports back pain, Denies numbness and Denies tingling Neuro Denies dizziness, Denies headache(s), Denies numbness, Denies tingling, Denies paresthesias and Denies weakness Psych Denies anxiety and Denies depression Endo Denies fatigue Aller/Immun Denies wheezing Physical exam (Primary Care) Vital Signs: Last Vital Signs Pulse 83 07/29/23 14:52 Resp 13 07/29/23 14:52 BP 118/62 07/29/23 14:52 Pulse Ox 96 07/29/23 14:52 Oxygen Delivery Method Room Air 07/29/23 14:52 BMI result Body Mass Index 40.4 Tobacco/Smoking Status: Tobacco use Status Tobacco use date assessed 07/29/23 07/29/23 15:12 Patient Tobacco Use Status Current everyday Tobacco 07/29/23 15:13 Tobacco use type Cigarette 07/29/23 15:13 e-Cigarette/Vaping Use Never Used 07/29/23 15:13 PHQ-9: PHQ-9 Score PHQ-9: Total score 20 07/29/23 15:18 Depression Screening Interpretation: Positive Currently or been in a relationship where the following occur: no concerns reported Const General: no acute distress and well developed Nutritional Appearance: obese morbidly obese Orientation/consciousness: patient oriented x3 HENMT Head: Yes normocephalic and Yes atraumatic Eyes General: appearance normal, both eyes and all related structures Pupils: Equal, round and reactive pupils present EOM: EOMs intact bilaterally Resp Effort & Inspection: normal respiratory effort Auscultation: clear to auscultation bilaterally Cardio Rate: regular rate Rhythm: regular rhythm Heart sounds: S1 normal heart sound present, S2 normal heart sound present, no gallops, no murmurs and no rubs Neuro General: patient oriented x3 and gait normal Cranial nerves: Yes Equal, round and reactive pupils present Psych Affect: normal affect Assessment and Plan Assessment & Plan (1) Chronic back pain: Code(s): M54.9 - Dorsalgia, unspecified; G89.29 - Other chronic pain Plan: Patient's?pain?management?specialist?is?leaving?her?practice GEOSPATIAL IMAGERY INTELLIGENCE ANALYST?shows?consistent?use?of?opioid?medications Followed?by?[facility] Will?refer?to?[facility]?pain?management (2) ICD (implantable cardioverter-defibrillator) in place: Comment: dual-chamber [place] ICD in place for sudden cardiac with VF Code(s): Z95.810 - Presence of automatic (implantable) cardiac defibrillator Plan: Stable Follow-up?with?Cardiology (3) History of sudden cardiac successfully resuscitated: Code(s): Z86.74 - Personal history of sudden cardiac arrest Plan: Now?has?ICD Follow-up?with?Cardiology?as?recommended (4) Anxiety with depression: Code(s): F41.8 - Other specified anxiety disorders Plan: Significant?anxiety.??Patient?is?also?a?smoker Will?try?some?bupropion?as?first-line?medication She?can?continue?clonazepam?as?prescribed We?discussed?that?if?she?does?not?tolerate?bupropion?or?does?not?help,?we?should ?try?other?first-line?medications. If?no?other?first- line?medications?are?working?however,?would?consider?continuing?her?clonazepam?a s?she?is?fairly?stable?on?this. (5) PTSD (post-traumatic stress disorder): Code(s): F43.10 - Post-traumatic stress disorder, unspecified Plan: Currently?fairly?stable We?discussed?therapy?today.??Patient?had? a?therapist?in?the?past?but?she?says?he?started?asking?questions?that?were? too? deep She?will?let?me?know?if?she?wants?to?consider?therapy?again (6) Osteoporosis: Code(s): M81.0 - Age-related osteoporosis without current pathological fracture Plan: Not?currently?on?a?bisphosphonate?but?aislinn jasso?notes?that?she?has?significant?GI?ulcers May?need?an?infusion Will?follow (7) Osteoarthritis: Code(s): M19.90 - Unspecified osteoarthritis, unspecified site Plan: Unable?to?take?NSAIDs?due?to?GI?ulcer (8) History of bleeding ulcers: Code(s): Z87.11 - Personal history of peptic ulcer disease Plan: Follow-up?with? (9) IBS (irritable bowel syndrome): Code(s): K58.9 - Irritable bowel syndrome without diarrhea Plan: Follow-up?with? (10) Thrombocytopenia: Code(s): D69.6 - Thrombocytopenia, unspecified Plan: Check?CBC (11) Smoker: Code(s): F17.200 - Nicotine dependence, unspecified, uncomplicated Plan: Try?bupropion Encouraged?weaning (12) Long QT syndrome: Code(s): I45.81 - Long QT syndrome Plan: Has?ICD Follow-up?with?Cardiology?as?recommended (13) Seizure disorder: Code(s): G40.909 - Epilepsy, unspecified, not intractable, without status epilepticus Plan: On?Keppra?and?gabapentin Continue?current?medications Follow-up?with?Neurology?as?recommended Orders: Orders Complete Blood Count Auto Diff Today Z00.00 - Encounter for general adult medical examination without abnormal findings Microalbumin, Random (w Creat) Today I10 - Essential (primary) hypertension Lipid Panel Today Z00.00 - Encounter for general adult medical examination without abnormal findings Vitamin B12 and Folate Today E53.8 - Deficiency of other specified B group vitamins Comprehensive [place]. Panel Fast Today Z00.00 - Encounter for general adult medical examination without abnormal findings UA and rflx microscopic Today Z00.00 - Encounter for general adult medical examination without abnormal findings TSH reflex Free T4 Today Z00.00 - Encounter for general adult medical examination without abnormal findings Vitamin D 25-OH Total Today E55.9 - Vitamin D deficiency, unspecified Referrals Pain Management Referral G89.29 - Other chronic pain, M54.9 - Dorsalgia, uns pecified, M96.1 - Postlaminectomy syndrome, not elsewhere classified Medications: New bupropion HCl 37.5 mg (1/2 x 75 mg) PO BID 30 days 30 tabs 1RF famotidine 20 mg PO DAILY 30 days 30 tabs 2RF clonidine HCl 0.05 mg (1/2 x 0.1 mg) PO TID 30 days PRN 45 tabs 1RF withdrawal symptoms Coding Level of Care Code New Pt Level 4 (50532) Diagnoses Chronic back pain M54.9; G89.29 ICD (implantable cardioverter-defibrillator) in place Z95.810 History of sudden cardiac successfully resuscitated Z86.74 Anxiety with depression F41.8 PTSD (post-traumatic stress disorder) F43.10 Osteoporosis M81.0 Osteoarthritis M19.90 History of bleeding ulcers Z87.11 IBS (irritable bowel syndrome) K58.9 Thrombocytopenia D69.6 Smoker F17.200 Long QT syndrome I45.81 Seizure disorder G40.909 Additional Codes MARIN-7 Assessment Billing - MARIN-7 Assessment Tool: MARIN-7 Assessment [id number] ([id number])
[2023-07-29 14:52] VITALS: BP 118/62; PULSE 83; RESP 13; O2SAT 96; BMI 40.4
== END 2023-07-29 16:05 | disposition home or self-care (01) ==
PROVIDERS: PCP Internal Medicine; Visit Provider Family Medicine
DX: F43.10 Post-traumatic stress disorder, unspecified (principal); F41.8 Other specified anxiety disorders
CPT/HCPCS: 96127; 99204

== ENCOUNTER 2023-08-08 12:45 | Outpatient (AMB) | payer MEDICARE, MEDICAID, SELFPAY ==
--- NOTE | 2023-08-08 12:50 | MHC.OFFVIS ---
Intake Vital Signs 08/08/23 12:57 Height 5 ft Weight 208 lb 2 oz BMI 40.6 BP 113/59 L Blood Pressure Location Lt brachial Position Sitting Pulse 68 Pulse Source Pulse Oximeter Pulse Oximetry (%) 97 Oxygen Delivery Method Room Air Intake Visit Reasons: Dorsalgia, Unspecified/lvm Marketing Information Coordinator Required: No Accompanied by: Unknown Allergies hydromorphone [From DILAUDID] Allergy (Unknown, Verified 08/08/23 13:00) STOPS HEART ibuprofen [From MOTRIN] Allergy (Unknown, Verified 08/08/23 13:00) SEIZURE HPI Dorsalgia, Unspecified/lvm HPI Details Patient is a 58 years old female with complex medical and surgical history, including sudden cardiac with dual chamber ICD, depression, PTSD, chronic history of low back pain s/p back surgeries, neck and bilateral knee pain presents today to discuss medical management as her previous provider is no longer practicing. She has been managed by [facility] with long-term pain medication as she failed conservative and interventional treatments in remote and recent past. Patient reports she was seen by [facility] on 07/21/23 and was discussed interventional treatments including right diagnostic SIJ injection for potential RFA which she declined. Her last injections at [facility] were in 2017. She also had spinal cord stimulator throught [facility] [place] [facility] for 5-6 years with minimal pain relief. Patient reports she was reffered to our office by her PCP for opiod prescribing. She states that she has been compliant with her opioid medications his previous provider and that she is prevent primarily looking for long-term medication management and is not interested in interventional treatments. She reports taking Soma 350 mg BID prn, gabapentin 800 mg TID, Morphine 15 mg TID prn, MS Contin 15 mg ER TID with good relief and tolerance and medication [facility] I have informed patient that our office does not offer opioid prescribing at this time. Patient was also aware that our office does not prescribe Soma. Location Neck and lower back pain, right hip and left knee pain Duration Chronic pain for many years Characteristics of symptom or complaint Aching, stabbing, shooting, burning, throbbing, tight, radiating, squeezing Aggravating or associated factors Sitting, standing, walking, cold weather changes, movements Relieving factors Morphine immediate and extended release, Soma, gabapentin Treatment Injections- some helped SCS implant-no significant relief [facility] Medical History Spinal cord stimulator status Depression PTSD (post-traumatic stress disorder) Ischemic colitis GERD (gastroesophageal reflux disease) Peptic ulcer disease Thrombocytopenia Pressure sore on buttocks History of sudden cardiac successfully resuscitated ICD (implantable cardioverter-defibrillator) in place Surgical History History of spinal surgery History of cholecystectomy Family History Mother Dementia Cancer Father Heart disease Social History Household Members: Spouse Housing: House Alcohol intake: never Comment: restraints Patient Tobacco Use Status: Current everyday Tobacco user Tobacco use type: Cigarette Cigarette Packs Per Day: 0.5 Cigarettes Per Day: 10 Years Smoked: 40 +/- e-Cigarette/Vaping Use: Never Used service: No Current occupational status: disabled Current occupational exposures/hazards: No Sexual orientation: Unable to collect Gender identity: Unable to collect Cognitive needs: No Hearing needs: No Vision needs: Yes (Wears glasses) Review of Systems Const All systems reviewed & are unremarkable except as noted in HPI and below Physical Exam Vital Signs: Last Vital Signs Pulse 68 08/08/23 12:57 BP 113/59 L 08/08/23 12:57 Pulse Ox 97 08/08/23 12:57 Oxygen Delivery Method Room Air 08/08/23 12:57 BMI result Body Mass Index 40.6 General: Appears afebrile. Alert and oriented. Mood and affect appropriate. Follows and participates in conversation appropriately. Respiratory effort is unlabored. No cough. Able to transition from sit to stand unassisted. Uses cane with ambulation. Ambulates with bilaterally normal heel strike and toe off. Back/Spine/Pelvis Other: Limited lumbar spine ROM with flexion and extension. Demonstrates 5/5 strength of quadriceps bilaterally as well as flexion/dorsiflexion of bilateral feet against resistance. 2+ pedal pulses bilaterally. Seated straight leg rise with dorsiflexion negative bilaterally. Facet loading test positive bilaterally. Cervical Spine: cervical muscular tenderness, pain with cervical ROM and No Cervical spine tenderness Thoracic/Lumbar Spine: thoracic and lumbar spine normal to inspection, Thoracic/lumbar spine scar(s), Lasegue's sign negative, straight leg raise negative bilaterally, pain with thoraco-lumbar ROM, paraspinal muscle tenderness, thoraco-lumbar ROM limited, No thoracic spinal tenderness and lumbar spinal tenderness at L4 and at L5 Pelvis: buttock tenderness bilaterally Sacroiliac joints: bilaterally (Right>Left, +Nakul's ) tender to palpation Results Reviewed Results Reviewed: XR LUMBOSACRAL SPINE 12/20/2014 CLINICAL INFORMATION: Back pain. No trauma. Prior surgery. COMPARISON: Lumbar spine 02/27/2014. FINDINGS: Orthopedic hardware intact. Transpedicular screws at L4-S1. Multiple surgical clips anterior to the L4-L5, L5-S1 disc levels. L4-L5 and L5-S1 disc heights are narrowed. There is compression of the L2 vertebra. There is about 30% loss of height of the vertebra. There is depression of the central anterior superior endplate of L1 with slight loss of height of the vertebra. These compression fractures are new compared to prior lumbosacral spine study of February 2014 but otherwise indeterminate for age. Sacroiliac joints are normal. Neurostimulator device overlies posterior left lower back. There are surgical clips in the right upper quadrant of the abdomen. Bowel pattern is nonobstructive without dilated bowel loop. IMPRESSION: 1. Status post lumbar fusion L4-S1. 2. Compression fracture of L1-L2 indeterminate for age. CT/CT abdomen pelvis w IV con 05/25/22 OSSEOUS STRUCTURES: Posterior instrumentation at L4, L5 and S1 with interdisc spacers. Unchanged irregularity of the inferior endplate of L4 and superior endplate of L5 when compared to 12/20/2014. Vertebroplasty cement at L1 and L2. Progression of the compression deformity at L2 and new compression deformity at L1 when compared to 2014. Assessment & Plan Assessment & Plan (1) Failed back surgical syndrome: Code(s): M96.1 - Postlaminectomy syndrome, not elsewhere classified (2) Chronic back pain: Code(s): M54.9 - Dorsalgia, unspecified; G89.29 - Other chronic pain (3) Chronic pain syndrome: Code(s): G89.4 - Chronic pain syndrome (4) Opioid dependence with current use: Code(s): F11.20 - Opioid dependence, uncomplicated (5) Neck pain: Code(s): M54.2 - Cervicalgia Plan Discussed interventional treatments and none opioid medical management for patient's multiple pain generators. Patient is adamant that she is not interested in further interventional treatments and is only interested in long-term medication management with Soma 350 mg BID prn, gabapentin 800 mg TID, Morphine 15 mg TID prn, MS Contin 15 mg ER TID. MassPat reviewed and consistent with patient's history intake. Patient was informed that our office does not prescribe Soma and does not offer opioid prescribing at this time. I can take over gabapentin prescribing and discuss consider a different muscle relaxant if needed. All questions have been answered. Patient may contact our office to discuss interventional treatments if she wishes. Coding Level of Care Code New Pt Level 4 (36312) Diagnoses Failed back surgical syndrome M96.1 Chronic back pain M54.9; G89.29 Chronic pain syndrome G89.4 Opioid dependence with current use F11.20 Neck pain M54.2
[2023-08-08 12:57] VITALS: BP 113/59; PULSE 68; O2SAT 97; BMI 40.6
== END 2023-08-08 13:24 | disposition home or self-care (01) ==
PROVIDERS: PCP Family Medicine; Visit Provider Nurse Practitioner Family
DX: G89.4 Chronic pain syndrome (principal); M96.1 Postlaminectomy syndrome, not elsewhere classified; M54.9 Dorsalgia, unspecified; Z79.891 Long term (current) use of opiate analgesic; G89.29 Other chronic pain; M54.2 Cervicalgia
CPT/HCPCS: 99204

== ENCOUNTER → 2023-08-08 12:45 | Outpatient (BNVA) | payer MEDICARE, MEDICAID, SELFPAY | PROVIDERS: PCP Family Medicine; Visit Provider Nurse Practitioner Family | DX: M96.1 Postlaminectomy syndrome, not elsewhere classified (principal); M54.9 Dorsalgia, unspecified; M54.2 Cervicalgia; G89.29 Other chronic pain; F11.20 Opioid dependence, uncomplicated | CPT/HCPCS: 99202 ==

== ENCOUNTER 2023-09-03 16:27 | Outpatient (REF) | payer MEDICARE, MEDICAID, SELFPAY ==
[2023-09-03 17:56] LABS: Basophils Absolute Auto 0.1 X10*3/uL (0.0-0.2); Basophils Percent Auto 0.5 % (0-2); Eosinophils Absolute Auto 0.1 X10*3/uL (0.0-0.4); Eosinophils Percent Auto 1.3 % (0-4); Hematocrit 43.8 % (37.0-47.0); Hemoglobin 14.9 g/dl (12.0-16.0); Imm Gran Abs Auto 0.03 X10*3/uL (0.00-0.03); Imm Gran Pct Auto 0.3 % (0.0-0.4); Lymphocytes Absolute Auto 4.4 X10*3/uL (1.2-4.9); Lymphocytes Percent Auto 43.6 % (20-40); MANUAL DIFF FLAG NO; Mean Corpuscular Hemoglobin 32.3 pg (27.0-33.0); Mean Corpuscular Volume 94.8 fL (80.0-98.0); Mean Platelet Volume 9.8 fL (9.4-12.3); Monocytes Absolute Auto 0.6 X10*3/uL (0.1-1.2); Monocytes Percent Auto 5.7 % (2-11); Neutrophils Absolute Auto 4.9 x10*3/uL (2.0-8.3); Neutrophils Percent Auto 48.6 % (45-73); Platelet Count 248 X10*3/uL (160-400); Red Blood Count 4.62 X10*6/uL (4.20-5.50); Red Cell Distribution Width 13.7 % (11.0-16.0); White Blood Count 10.2 X10*3/uL (4.8-10.8)
[2023-09-03 19:47] LABS: Alanine Aminotransferase 19 U/L (0-31); Albumin Level 4.3 g/dL (3.5-5.0); Alkaline Phosphatase 127 U/L (39-117); Anion Gap 16 (12-20); Aspartate Amino Transferase 30 U/L (5-31); Bilirubin Total 0.5 mg/dL (0.0-1.0); Blood Urea Nitrogen 7 mg/dL (9-16); Calcium 9.5 mg/dL (8.4-10.2); Carbon Dioxide 23 mmol/L (22-29); Chloride 106 mmol/L (96-108); Cholesterol 213 mg/dL (<200); Estimated Glomerular Filt Rate > 60; Glucose Fasting 103 mg/dL (60-99); HDL Cholesterol 53 mg/dL (>40); LDL Cholesterol Calculated 115 mg/dL (<100); Potassium 3.9 mmol/L (3.3-5.1); Sodium 141 mmol/L (135-145); Total Protein 7.6 g/dL (6.5-8.0); Triglycerides 226 mg/dL (<150)
[2023-09-03 20:02] LABS: Folate 4.7 ng/mL (> or = 4.0); TSH reflex Free T4 0.35 uIU/mL (0.32-4.0); Vitamin D 25-OH Total 8.4 ng/mL (>30)
[2023-09-04 14:33] LABS: Vitamin B12 424 pg/mL (200-900)
== END 2023-09-03 16:28 | disposition home or self-care (01) ==
LOC: HO.LAB 16:27
PROVIDERS: PCP Family Medicine; Visit Provider Family Medicine
DX: Z00.00 Encounter for general adult medical examination without abnormal findings (principal); I10 Essential (primary) hypertension; E55.9 Vitamin D deficiency, unspecified; E53.8 Deficiency of other specified B group vitamins
CPT/HCPCS: 36415; 80053; 80061; 82306; 82607; 82746; 84443; 85025

== ENCOUNTER 2023-09-04 15:14 | Outpatient (AMB) | payer MEDICARE, MEDICAID, SELFPAY ==
--- NOTE | 2023-09-04 15:18 | MHC.PC.OV ---
Vital Signs 09/04/23 15:19 Height 5 ft Weight 211 lb BMI 41.2 BP 136/80 Blood Pressure Location Lt brachial Position Sitting Respiration 13 Pulse 100 Pulse Source Pulse Oximeter Pulse Oximetry (%) 97 Oxygen Delivery Method Room Air Intake Visit Reasons: f/u chronic back pain Intake Note: Patient is here to follow up for chronic back pain and anxiety. Patient reports she went to pain management and was informed by the doctor there that Dr. Mcfarlane does prescribe pain medications. Patient reports she does not want the back and forth between doctors and she would like to continue her course of medications that do work for her. Senior Media Buyer Required: No Accompanied by: Self / Same As Patient Allergies hydromorphone [From DILAUDID] Allergy (Unknown, Verified 09/04/23 15:25) STOPS HEART ibuprofen [From MOTRIN] Allergy (Unknown, Verified 09/04/23 15:25) SEIZURE Tobacco use date assessed: 07/29/23 HPI f/u chronic back pain HPI Details 58 y/o female presents to f/u chronic back pain. 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 Had referred her to a new pain management speecialist. Patient reports she went to pain management and was informed by the doctor there that Dr. Mcfarlane does prescribe pain medications. Patient reports she does not want the back and forth between doctors and she would like to continue her course of medications that do work for her. Pt reports she did not tolerate bupropion for anxiety. Labs were drawn 09/03/23. Reviewed some labs with pt. Vitamin D low at 8.4 ng/mL. Also f/u elevated fasting blood sugars. [facility] Medical History Spinal cord stimulator status Depression PTSD (post-traumatic stress disorder) Ischemic colitis GERD (gastroesophageal reflux disease) Peptic ulcer disease Thrombocytopenia Pressure sore on buttocks History of sudden cardiac successfully resuscitated ICD (implantable cardioverter-defibrillator) in place Surgical History History of spinal surgery History of cholecystectomy Family History Mother Dementia Cancer Father Heart disease Social History Household Members: Spouse Housing: House Alcohol intake: never Comment: restraints Patient Tobacco Use Status: Current everyday Tobacco user Tobacco use type: Cigarette Cigarette Packs Per Day: 0.5 Cigarettes Per Day: 10 Years Smoked: 40 +/- e-Cigarette/Vaping Use: Never Used service: No Current occupational status: disabled Current occupational exposures/hazards: No Sexual orientation: Unable to collect Gender identity: Unable to collect Cognitive needs: No Hearing needs: No Vision needs: Yes (Wears glasses) Questionnaire Thrive Questionnaire Date Thrive assessed: 07/29/23 MARIN-7 AMB Questionnaire MARIN-7 Date MARIN - 7 assessed: 07/29/23 Source: Developed by Drs. Kashif Turpin, Tona Estes, Jose De Anda and colleagues, with an educational johanny from [employer]. Review of Systems Const Denies chills, Denies fatigue, Denies fever(s), Denies headache(s) and Denies weakness ENT Denies dizziness and Denies headache(s) Card Denies chest pain, Denies lightheadedness, Denies dyspnea and Denies other (Palpitations) Resp Denies cough, Denies dyspnea, Denies wheezing and Denies other ( shortness of breath) Musc Denies numbness and Denies tingling Neuro Denies dizziness, Denies headache(s), Denies numbness, Denies tingling, Denies paresthesias and Denies weakness Psych Denies anxiety and Denies depression Endo Denies fatigue Aller/Immun Denies wheezing Physical exam (Primary Care) Vital Signs: Last Vital Signs Pulse 100 09/04/23 15:19 Resp 13 09/04/23 15:19 BP 136/80 09/04/23 15:19 Pulse Ox 97 09/04/23 15:19 Oxygen Delivery Method Room Air 09/04/23 15:19 BMI result Body Mass Index 41.2 Tobacco/Smoking Status: Tobacco use Status Tobacco use date assessed 07/29/23 09/04/23 15:24 Patient Tobacco Use Status Current everyday Tobacco 09/04/23 15:24 Tobacco use type Cigarette 09/04/23 15:24 e-Cigarette/Vaping Use Never Used 09/04/23 15:24 Thrive Assessment: Date of Thrive Assessment Date Thrive assessed 07/29/23 09/04/23 15:24 Const General: no acute distress and well developed Nutritional Appearance: obese morbidly obese Orientation/consciousness: patient oriented x3 [facility]: Yes normocephalic and Yes atraumatic Eyes General: appearance normal, both eyes and all related structures Pupils: Equal, round and reactive pupils present EOM: EOMs intact bilaterally Resp Effort & Inspection: normal respiratory effort Auscultation: clear to auscultation bilaterally Cardio Rate: regular rate Rhythm: regular rhythm Heart sounds: S1 normal heart sound present, S2 normal heart sound present, no gallops, no murmurs and no rubs Neuro General: patient oriented x3 and gait normal Cranial nerves: Yes Equal, round and reactive pupils present Psych Affect: normal affect Assessment and Plan Assessment & Plan (1) Chronic pain syndrome: Code(s): G89.4 - Chronic pain syndrome Plan: Ongoing,?severe?chronic?back?pain?and?multiple?failed?surgeries. Had?referred?her?to?pain?management?at[place]but?patient?feels?they?have?not?really?offered?her?anything?helpful. We?discussed?that?I?will?try?to?manage?her?pain?with?her?current?medications?at?lower?doses.??Also?asking?her?to?try?seeing?pain?management?at?[facility]?for?2nd?opinion.?? Patient?agrees?to?this. Will?need?pain?management?agreement?signed?at?her?next?visit. (2) Failed back surgical syndrome: Code(s): M96.1 - Postlaminectomy syndrome, not elsewhere classified Plan: As?above (3) Anxiety with depression: Code(s): F41.8 - Other specified anxiety disorders Plan: Did?not?tolerate?bupropion. Continue?clonazepam?and?will?try?buspirone (4) Low vitamin D level: Code(s): R79.89 - Other specified abnormal findings of blood chemistry Plan: Very?low?vitamin-D?and?I?have?sent?a?script (5) Elevated fasting glucose: Code(s): R73.01 - Impaired fasting glucose Plan: Will?check?A1c?with?her?next?visit. Medications: New cholecalciferol (vitamin D3) 1,250 mcg PO QWEEK 28 days 4 caps 1RF buspirone 10 mg PO BID 60 tabs 0RF 30 days Changed From carisoprodol 350 mg PO BID PRN Spondylosis To carisoprodol 350 mg PO BID 30 days PRN 60 tabs 0RF Pain/Spasm From clonazepam 1 mg PO BID To clonazepam MassPat Verified 1 mg PO BID 60 tabs 0RF 30 days From morphine ER 15 mg PO Q8H 0RF To morphine ER MassPat Verified. Partial refill upon request. 15 mg PO Q12H 30 days 60 tabs 0RF From morphine 1 tab PO Q8H PRN Pain (Scale Score 4-6) To morphine MassPat Verified. Partial Refill Upon Request. 15 mg PO Q8H 30 days PRN 90 tabs 0RF pain Coding Level of Care Code Est Pt Level 4 (70529) Diagnoses Chronic pain syndrome G89.4 Failed back surgical syndrome M96.1 Anxiety with depression F41.8 Low vitamin D level R79.89 Elevated fasting glucose R73.01
[2023-09-04 15:19] VITALS: BP 136/80; PULSE 100; RESP 13; O2SAT 97; BMI 41.2
== END 2023-09-04 16:28 | disposition home or self-care (01) ==
PROVIDERS: PCP Family Medicine; Visit Provider Family Medicine
DX: G89.4 Chronic pain syndrome (principal); M96.1 Postlaminectomy syndrome, not elsewhere classified; F41.8 Other specified anxiety disorders; R79.89 Other specified abnormal findings of blood chemistry; R73.01 Impaired fasting glucose
CPT/HCPCS: 99214

== ENCOUNTER 2023-10-13 10:17 | Outpatient (AMB) | payer MEDICARE, MEDICAID, SELFPAY ==
--- NOTE | 2023-10-13 10:23 | A.OFFPC_ITS ---
Vital Signs 10/13/23 10:27 Height 5 ft Weight 214 lb BMI 41.8 BP 131/58 L Blood Pressure Location Lt brachial Position Sitting Pulse 66 Pulse Oximetry (%) 95 Oxygen Delivery Method Room Air Intake Visit Reasons: pain med/contract Intake Note: Patient is here for pain med contract. Allergies hydromorphone [From DILAUDID] Allergy (Unknown, Verified 10/13/23 10:28) STOPS HEART ibuprofen [From MOTRIN] Allergy (Unknown, Verified 10/13/23 10:28) SEIZURE Tobacco use date assessed: 10/13/23 HPI pain med/contract HPI Details 58 y/o male presents to f/u chronic pain syndrome. Pt reports pain at L5 to the L and radiates into buttocks. Also pain at L2-L3 and entire cervical spine/shoulders. She states she has seen pain management. Pt is on morphine, gabapentin 800mg t.i.d. carisoprodol. Pt reports she has also been using excedrin but had been warned against before for this due to ulcers. [facility] Medical History Spinal cord stimulator status Depression PTSD (post-traumatic stress disorder) Ischemic colitis GERD (gastroesophageal reflux disease) Peptic ulcer disease Thrombocytopenia Pressure sore on buttocks History of sudden cardiac successfully resuscitated ICD (implantable cardioverter-defibrillator) in place Surgical History History of spinal surgery History of cholecystectomy Family History Mother Dementia Cancer Father Heart disease Social History Household Members: Spouse Housing: House Alcohol intake: never Comment: restraints Patient Tobacco Use Status: Current everyday Tobacco user Tobacco use type: Cigarette Cigarette Packs Per Day: 0.5 Cigarettes Per Day: 10 Years Smoked: 40 +/- e-Cigarette/Vaping Use: Never Used service: No Current occupational status: disabled Current occupational exposures/hazards: No Sexual orientation: Unable to collect Gender identity: Unable to collect Cognitive needs: No Hearing needs: No Vision needs: Yes (Wears glasses) Questionnaire PHQ-9 Over the last 2 weeks, how often have you been bothered by any of the following problems? 1. Little interest or pleasure in doing things: nearly every day (because of her health.) 2. Feeling down, depressed, or hopeless: several days 3. Trouble falling or staying asleep, or sleeping too much: nearly every day 4. Feeling tired or having little energy: nearly every day 5. Poor appetite or overeating: nearly every day 6. Feeling bad about yourself - or that you are a failure or have let yourself or your family down: nearly every day 7. Trouble concentrating on things, such as reading the newspaper or watching television: not at all 8. Moving or speaking so slowly that other people could have noticed. Or the opp osite - being so fidgety or restless that you have been moving around a lot more than usual: several days 9. Thoughts that you would be better off or of hurting yourself in some way: not at all Total score: 17 Source: Developed by Drs. Kashif Turpin, Tona Estes, Jose De Anda and colleagues, with an educational johanny from [employer] Thrive Questionnaire Date Thrive assessed: 07/29/23 MARIN-7 AMB Questionnaire MARIN-7 Date MARIN - 7 assessed: 10/13/23 Feeling nervous, anxious, or on edge: 1 = Several days Not being able to stop or control worryin = Several days Worrying too much about different things: 1 = Several days Trouble relaxin = Several days Being so restless that it is hard to sit still: 1 = Several days Becoming easily annoyed or irritable: 1 = Several days Feeling afraid as if something awful might happen: 1 = Several days Total MARIN-7 score (0-4 normal; 5-9 mild; 10-14 moderate; 15-21 severe): 7 Source: Developed by Drs. Kashif Turpin, Jose Lepe and colleagues, with an educational johanny from [employer] Physical exam (Primary Care) Vital Signs: Last Vital Signs Pulse 66 10/13/23 10:27 BP 131/58 L 10/13/23 10:27 Pulse Ox 95 10/13/23 10:27 Oxygen Delivery Method Room Air 10/13/23 10:27 BMI result Body Mass Index 41.8 Tobacco/Smoking Status: Tobacco use Status Tobacco use date assessed 10/13/23 10/13/23 10:39 Patient Tobacco Use Status Current everyday Tobacco 10/13/23 10:24 Tobacco use type Cigarette 10/13/23 10:24 e-Cigarette/Vaping Use Never Used 10/13/23 10:24 PHQ-9: PHQ-9 Score PHQ-9: Total score 17 10/13/23 10:47 Thrive Assessment: Date of Thrive Assessment Date Thrive assessed 07/29/23 10/13/23 10:24 Assessment and Plan Assessment & Plan (1) Chronic pain syndrome: Code(s): G89.4 - Chronic pain syndrome Plan: Longs tanding?chronic?back?pain?after?multiple?surgeries?and?failed?back?syndrome. Pain?at?L5?level?to?the?left?and?radiates?into?buttocks.??Pain?at?L2- L3?in?the?center?of?her?back. Pain?of?entire?cervical?spine?and?shoulders. She?has?seen?pain?management.??Thorough?evaluation?does?not?find?any?disqualifie d?vacation?for?using?opioid?pain?medications?though?they?declined?to?manage?thes e.??They?offered? modalities?that?she?has?already?had?in?the?past?without?much?improvement,?albeit ?not?for?many?years. Patient?has?been?compliant?with?her?medications.??No?red?flags We?discussed?that?I?will?manage?he r?medications?but?would?seek?further?advisement?from?pain?management?or?other?sp ecialists?if?she?needs?adjustments?upwards?in?her?medications. She?has?signed?a?pain?contract?today?and?agrees?to?receiv e?pain?medications?only?from?me?without?letting?me?know - eg patient?could?receive?acute?pain?medication?treatment?for?dental?procedures?as?l atul?as?she?calls?me. She?had?been?on?higher?doses?of?opioi d?medications?in?the?past.??I?am?continuing?her?current?regimen?however. Also?uses?carisoprodol?but?still?has?a?couple?of?refills?from?her?prior?provider .??She?intends?to?use?these?1st?and?then?will? call?for?refills?in?a?couple?of?months. She?will?return?in?a?month?for?follow-up. Advised?her?to?bring?her?pills?for?pill?count?and?will?likely?perform?a?urine?te st?as?well. Coding Level of Care Code Est Pt Level 3 (00819) Diagnoses Chronic pain syndrome G89.4
[2023-10-13 10:27] VITALS: BP 131/58; PULSE 66; O2SAT 95; BMI 41.8
== END 2023-10-13 11:30 | disposition home or self-care (01) ==
PROVIDERS: PCP Family Medicine; Visit Provider Family Medicine
DX: G89.4 Chronic pain syndrome (principal)
CPT/HCPCS: 99213

== ENCOUNTER 2023-11-10 09:35 | Outpatient (AMB) | payer MEDICARE, MEDICAID, SELFPAY ==
[2023-11-10 09:56] VITALS: BP 132/78; PULSE 90; O2SAT 97; BMI 43.4
--- NOTE | 2023-11-10 09:56 | MHC.PC.OV ---
Vital Signs 11/10/23 09:56 Height 5 ft Weight 222 lb BMI 43.4 BP 132/78 Blood Pressure Location Lt brachial Position Sitting Pulse 90 Pulse Source Pulse Oximeter Pulse Oximetry (%) 97 Oxygen Delivery Method Room Air Intake Visit Reasons: f/u chronic pain Intake Note: Patient is here to follow up on chronic pain. Allergies hydromorphone [From DILAUDID] Allergy (Unknown, Verified 11/10/23 09:57) STOPS HEART ibuprofen [From MOTRIN] Allergy (Unknown, Verified 11/10/23 09:57) SEIZURE Tobacco use date assessed: 11/10/23 Dental Screening Dental Screen Date: 11/10/23 Did you have a dental visit in the last 12 months?: Yes HPI f/u chronic pain HPI Details 58 y/o female presents to f/u chronic pain. Hx of failed back syndrome and chronic pain. Also anxiety/depression. Low vitamin D level.She states she has been tolerating her vitamin D supplement. She reports ongoing difficulty sleeping. She states she has no problems falling asleep but notes she wakes up after about an hour panting. [facility] Medical History Spinal cord stimulator status Depression PTSD (post-traumatic stress disorder) Ischemic colitis GERD (gastroesophageal reflux disease) Peptic ulcer disease Thrombocytopenia Pressure sore on buttocks History of sudden cardiac successfully resuscitated ICD (implantable cardioverter-defibrillator) in place Surgical History History of spinal surgery History of cholecystectomy Family History Mother Dementia Cancer Father Heart disease Social History Household Members: Spouse Housing: House Alcohol intake: never Comment: restraints Patient Tobacco Use Status: Current everyday Tobacco user Tobacco use type: Cigarette Cigarette Packs Per Day: 0.5 Cigarettes Per Day: 10 Years Smoked: 40 +/- e-Cigarette/Vaping Use: Never Used service: No Current occupational status: disabled Current occupational exposures/hazards: No Sexual orientation: Unable to collect Gender identity: Unable to collect Cognitive needs: No Hearing needs: No Vision needs: Yes (Wears glasses) Questionnaire Thrive Questionnaire Date Thrive assessed: 07/29/23 MARIN-7 AMB Questionnaire MARIN-7 Date MARIN - 7 assessed: 10/13/23 Source: Developed by Drs. Kashif Turpin, Tona Estes, Jose De Anda and colleagues, with an educational johanny from [employer]. Physical exam (Primary Care) Vital Signs: Last Vital Signs Pulse 90 11/10/23 09:56 BP 132/78 11/10/23 09:56 Pulse Ox 97 11/10/23 09:56 Oxygen Delivery Method Room Air 11/10/23 09:56 BMI result Body Mass Index 43.4 Tobacco/Smoking Status: Tobacco use Status Tobacco use date assessed 11/10/23 11/10/23 09:58 Patient Tobacco Use Status Current everyday Tobacco 11/10/23 09:58 Tobacco use type Cigarette 11/10/23 09:58 e-Cigarette/Vaping Use Never Used 11/10/23 09:58 Thrive Assessment: Date of Thrive Assessment Date Thrive assessed 07/29/23 11/10/23 09:58 Assessment and Plan Assessment & Plan (1) Failed back surgical syndrome: Code(s): M96.1 - Postlaminectomy syndrome, not elsewhere classified Plan: Fairly?well?controlled?with?morphine?immediate?and?extended?release. Continue?this?as?well?as?gabapentin?and?carisoprodol. Encouraged?walking?and?gentle?exercise (2) Chronic pain syndrome: Code(s): G89.4 - Chronic pain syndrome Plan: As?above Patient?has?contract?signed. She?will?get?urine?drug?screen?done?today. (3) Anxiety with depression: Code(s): F41.8 - Other specified anxiety disorders Plan: Had?tried?buspirone?and?bupropion?though?these?did?not?help. She?has?been?on?clonazepam?for?a?long?time?and?we?will?continue?this (4) Low vitamin D level: Code(s): R79.89 - Other specified abnormal findings of blood chemistry Plan: Is?significantly?low?vitamin-D?level?and?started?her On?vitamin-D?which?she?is?tolerating. (5) Difficulty sleeping: Code(s): G47.9 - Sleep disorder, unspecified Plan: Offered?to?refer?her?to?sleep?medicine?or?check?sleep?study. She?declines?this?but?I?let?her?know?she?can?discuss?this?again?with?me?in?the?future. Will?readdress Orders: Orders UA and rflx microscopic Today Z00.00 - Encounter for general adult medical examination without abnormal findings Vitamin D 25-OH Total Today E55.9 - Vitamin D deficiency, unspecified Vitamin B12 and Folate Today E53.8 - Deficiency of other specified B group vitamins Drug Screen Urine Today F11.20 - Opioid dependence, uncomplicated, G89.4 - Chronic pain syndrome Comprehensive Annabella. Panel Fast Today Z00.00 - Encounter for general adult medical examination without abnormal findings Complete Blood Count Auto Diff Today Z00.00 - Encounter for general adult medical examination without abnormal findings Lipid Panel Today Z00.00 - Encounter for general adult medical examination without abnormal findings Microalbumin, Random (w Creat) Today I10 - Essential (primary) hypertension TSH reflex Free T4 Today Z00.00 - Encounter for general adult medical examination without abnormal findings Medications: Refilled morphine MassPat Verified. Partial Refill Upon Request. 15 mg PO Q8H PRN 84 tabs 0RF pain 28 days morphine ER MassPat Verified. Partial refill upon request. 15 mg PO Q12H 56 tabs 0RF 28 days Discontinued bupropion HCl Discontinued Reason: Patient no longer taking 37.5 mg (1/2 x 75 mg) PO BID 30 days 30 tabs 1RF buspirone Discontinued Reason: Patient no longer taking 10 mg PO BID 30 days 60 tabs 0RF Coding Level of Care Code Est Pt Level 4 (54214) Diagnoses Failed back surgical syndrome M96.1 Chronic pain syndrome G89.4 Anxiety with depression F41.8 Low vitamin D level R79.89 Difficulty sleeping G47.9
== END 2023-11-10 10:54 | disposition home or self-care (01) ==
PROVIDERS: PCP Family Medicine; Visit Provider Family Medicine
DX: M96.1 Postlaminectomy syndrome, not elsewhere classified (principal); G89.4 Chronic pain syndrome; F41.8 Other specified anxiety disorders; R79.89 Other specified abnormal findings of blood chemistry; G47.9 Sleep disorder, unspecified
CPT/HCPCS: 99214

== ENCOUNTER 2023-11-10 10:54 | Outpatient (REF) | payer MEDICARE, MEDICAID, SELFPAY ==
[2023-11-10 14:24] LABS: Appearance Urine Cloudy; Color Urine Dark Yellow; Glucose Urine UA Negative (Negative); Leukocyte Esterase Urine Trace (Negative); Nitrite Urine Negative (Negative); PH 5.5 (5.0-9.0); Specific Gravity - Urine >= 1.030 (1.005-1.025); UMIC TRIGGER UA YES; Urine Blood Negative (Negative); Urine Ketones Trace mg/dL (Negative); Urine Protein 30 (1+) mg/dL (Neg-Trace)
[2023-11-10 14:30] LABS: Amphetamine Screen Urine Not Detected (Not Detect); Barbiturates, Urine Not Detected (Not Detect); Benzodiazepines Screen Urine POSITIVE (Not Detect); Cannabinoid Screen Urine Not Detected (Not Detect); Cocaine Screen Urine Not Detected (Not Detect); Fentanyl, urine Not Detected (Not Detect); Opiate Screen Urine POSITIVE (Not Detect); Phencyclidine Screen Urine Not Detected (Not Detect)
[2023-11-10 14:35] LABS: Bacteria Urine 1+ (None Seen); Calcium Oxalate Crystals Urine Present; RBC Urine 0-2 /HPF (0-2); WBC Urine 0-5 /HPF (0-5)
[2023-11-10 14:36] LABS: Basophils Absolute Auto 0.1 X10*3/uL (0.0-0.2); Basophils Percent Auto 0.6 % (0-2); Eosinophils Absolute Auto 0.2 X10*3/uL (0.0-0.4); Hemoglobin 14.3 g/dl (12.0-16.0); Imm Gran Abs Auto 0.04 X10*3/uL (0.00-0.03); Imm Gran Pct Auto 0.4 % (0.0-0.4); Lymphocytes Absolute Auto 5.5 X10*3/uL (1.2-4.9); Lymphocytes Percent Auto 53.1 % (20-40); MANUAL DIFF FLAG SCAN; Mean Corpuscular HGB Conc 32.5 g/dl (31.0-35.0); Mean Corpuscular Hemoglobin 32.5 pg (27.0-33.0); Mean Platelet Volume 9.9 fL (9.4-12.3); Monocytes Absolute Auto 0.6 X10*3/uL (0.1-1.2); Monocytes Percent Auto 5.3 % (2-11); Neutrophils Percent Auto 38.6 % (45-73); Platelet Count 233 X10*3/uL (160-400); Red Cell Distribution Width 13.6 % (11.0-16.0); SCAN SMEAR FLAG 1; White Blood Count 10.4 X10*3/uL (4.8-10.8)
[2023-11-10 15:15] LABS: SLIDE REVIEW VERIFIED
[2023-11-10 15:44] LABS: Alanine Aminotransferase 17 U/L (0-31); Albumin Level 4.4 g/dL (3.5-5.0); Alkaline Phosphatase 112 U/L (39-117); Anion Gap 13 (12-20); Aspartate Amino Transferase 26 U/L (5-31); Bilirubin Total 0.3 mg/dL (0.0-1.0); Blood Urea Nitrogen 10 mg/dL (9-16); Calcium 9.2 mg/dL (8.4-10.2); Carbon Dioxide 29 mmol/L (22-29); Chloride 103 mmol/L (96-108); Cholesterol 234 mg/dL (<200); Estimated Glomerular Filt Rate > 60; Glucose Fasting 93 mg/dL (60-99); HDL Cholesterol 61 mg/dL (>40); LDL Cholesterol Calculated 132 mg/dL (<100); Potassium 3.5 mmol/L (3.3-5.1); Sodium 141 mmol/L (135-145); Total Protein 7.6 g/dL (6.5-8.0); Triglycerides 207 mg/dL (<150)
[2023-11-10 15:55] LABS: Folate 3.9 ng/mL (> or = 4.0); Vitamin B12 351 pg/mL (200-900)
[2023-11-10 15:58] LABS: Microalbum/Creatinine Ratio Ur 8.8 ug/mg cr (<30)
[2023-11-10 16:01] LABS: TSH reflex Free T4 3.13 uIU/mL (0.32-4.0)
== END 2023-11-10 10:55 | disposition home or self-care (01) ==
LOC: HO.WFDLDS 10:54
PROVIDERS: Visit Provider Family Medicine
DX: Z00.00 Encounter for general adult medical examination without abnormal findings (principal); G89.4 Chronic pain syndrome; F11.20 Opioid dependence, uncomplicated; E55.9 Vitamin D deficiency, unspecified; E53.8 Deficiency of other specified B group vitamins; I10 Essential (primary) hypertension
CPT/HCPCS: 80053; 80061; 80307; 81001; 82043; 82306; 82570; 82607; 82746; 84443; 85025

== ENCOUNTER 2023-11-13 13:54 | Outpatient (AMB) | payer MEDICARE, MEDICAID, SELFPAY ==
[2023-11-13 14:01] VITALS: BP 120/68; PULSE 70; O2SAT 96; BMI 43.7
--- NOTE | 2023-11-13 14:01 | MHC.PC.OV ---
Vital Signs 11/13/23 14:01 Height 5 ft Weight 224 lb BMI 43.7 BP 120/68 Blood Pressure Location Rt brachial Position Sitting Pulse 70 Pulse Source Pulse Oximeter Pulse Oximetry (%) 96 Oxygen Delivery Method Room Air Intake Visit Reasons: Extended exam with f/u labs and health maint. Intake Note: Patient is here for extended exam with follow up labs and health maintenance. Allergies hydromorphone [From DILAUDID] Allergy (Unknown, Verified 11/13/23 14:06) STOPS HEART ibuprofen [From MOTRIN] Allergy (Unknown, Verified 11/13/23 14:06) SEIZURE Medication List - Last Reconciled 11/13/23 by Alvino Mcfarlane MD carisoprodol 350 mg PO BID PRN 30 days cholecalciferol (vitamin D3) 1,250 mcg PO QWEEK 28 days clonazepam 1 mg PO BID 30 days clonidine HCl 0.05 mg (1/2 x 0.1 mg) PO TID PRN 30 days dicyclomine 20 mg PO QID famotidine 20 mg PO DAILY 30 days gabapentin 800 mg PO TID levetiracetam (Keppra) 750 mg PO BID levetiracetam 750 mg PO BID metoprolol tartrate 100 mg PO BID morphine 15 mg PO Q8H PRN 28 days morphine ER 15 mg PO Q12H 28 days sucralfate 1 g PO BID Tobacco use date assessed: 11/10/23 HPI Extended exam with f/u labs and health maint. HPI Details 58 y/o female presents fo ran extended exam with f/u labs and health maintenance. Labs were drawn 11/10/23. Reviewed labs with pt. Triglycerides 207. TC 234. LDL 132. HDL 61. PFSH Medical History Spinal cord stimulator status Depression PTSD (post-traumatic stress disorder) Ischemic colitis GERD (gastroesophageal reflux disease) Peptic ulcer disease Thrombocytopenia Pressure sore on buttocks History of sudden cardiac successfully resuscitated ICD (implantable cardioverter-defibrillator) in place Surgical History History of spinal surgery History of cholecystectomy Family History Mother Dementia Cancer Father Heart disease Social History Household Members: Spouse Housing: House Alcohol intake: never Comment: restraints Patient Tobacco Use Status: Current everyday Tobacco user Tobacco use type: Cigarette Cigarette Packs Per Day: 0.5 Cigarettes Per Day: 10 Years Smoked: 40 +/- Packs Per Year: 0 Packs per year/per ci.00 e-Cigarette/Vaping Use: Never Used service: No Current occupational status: disabled Current occupational exposures/hazards: No Sexual orientation: Unable to collect Gender identity: Unable to collect Cognitive needs: No Hearing needs: No Vision needs: Yes (Wears glasses) Questionnaire Thrive Questionnaire Date Thrive assessed: 07/29/23 MARIN-7 AMB Questionnaire MARIN-7 Date MARIN - 7 assessed: 10/13/23 Source: Developed by Drs. Kashif Turpin, Tona Estes, Jose De Anda and colleagues, with an educational johanny from [employer]. Review of Systems Const Denies chills, Denies fatigue, Denies fever(s), Denies headache(s) and Denies weakness Eyes Denies change in vision ENT Denies dizziness, Denies headache(s), Denies hearing loss, Denies nasal congestion, Denies sinus pain, Denies sinus pressure and Denies sore throat Card Denies chest pain, Denies lightheadedness, Denies dyspnea and Denies other (palpitations) Resp Denies cough, Denies dyspnea and Denies wheezing GI Denies abdominal pain, Denies melena, Denies hematochezia, Denies change in bowel habits, Denies dyspepsia and Denies nausea Denies hematuria and Denies dysuria Musc Denies abnormal gait, Denies myalgias, Denies arthralgias, Denies numbness and Denies tingling Skin/Breast Denies rash, Denies unusual bruising and Denies wounds Neuro Denies abnormal gait, Denies dizziness, Denies headache(s), Denies memory loss, Denies numbness, Denies Sensory deficit (Neuro), Denies tingling and Denies weakness Psych Denies anxiety, Denies depression and Denies memory loss Endo Denies cold intolerance, Denies fatigue, Denies heat intolerance, Denies polydipsia and Denies polyuria Vikas/Lymph Denies easy bleeding and Denies easy bruising Aller/Immun Denies wheezing Physical exam (Primary Care) Vital Signs: Last Vital Signs Pulse 70 11/13/23 14:01 BP 120/68 11/13/23 14:01 Pulse Ox 96 11/13/23 14:01 Oxygen Delivery Method Room Air 11/13/23 14:01 BMI result Body Mass Index 43.7 Tobacco/Smoking Status: Tobacco use Status Tobacco use date assessed 11/10/23 11/13/23 14:01 Patient Tobacco Use Status Current everyday Tobacco 11/13/23 14:01 Tobacco use type Cigarette 11/13/23 14:01 e-Cigarette/Vaping Use Never Used 11/13/23 14:01 Thrive Assessment: Date of Thrive Assessment Date Thrive assessed 07/29/23 11/13/23 14:01 Const General: no acute distress, well developed, alert and awake Nutritional Appearance: well nourished Orientation/consciousness: patient oriented x3 HENMT Head: Yes normocephalic and Yes atraumatic Ears: hearing grossly normal bilaterally and TM's normal bilaterally General nose exam: Normal external nose present and Normal nares present Mouth: Normal oral and palatal mucosa present and moist mucous membranes Teeth and gingiva: dentition normal Throat: Yes posterior oropharynx normal Eyes General: appearance normal, both eyes and all related structures Pupils: Equal, round and reactive pupils present and Pupil accommodation reflex normal EOM: EOMs intact bilaterally Neck Neck: Yes normal visual inspection, Yes no lymphadenopathy and Yes trachea midline Thyroid: Thyroid normal Carotids: no bruits Lymphatic: no lymphadenopathy noted Chest Chest palpation & inspection: normal inspection of the chest Resp Effort & Inspection: normal respiratory effort Auscultation: clear to auscultation bilaterally Cardio Rate: regular rate Rhythm: regular rhythm Heart sounds: S1 normal heart sound present, S2 normal heart sound present, no gallops, no murmurs and no rubs Bruits: no abdominal aortic bruits and no carotid bruits GI Palpation (GI): No Abdominal aortic bruit present, Soft to palpation, nontender, No hepatosplenomegaly present and No Rebound tenderness present Auscultation: normal bowel sounds General: Yes no CVA tenderness Back/Spine/Pelvis Back: no CVA tenderness Cervical Spine: cervical ROM normal and No Cervical spine tenderness Thoracic/Lumbar Spine: thoraco-lumbar ROM normal, No pain with thoraco-lumbar ROM, No thoracic spinal tenderness and No lumbar spinal tenderness Skin Lesions: no lesions Rashes: no rashes Trauma: no lacerations or abrasions Wounds: no wounds Nails: normal Neuro General: patient oriented x3 Cranial nerves: Yes Equal, round and reactive pupils present Cognition (Neuro): normal cognition Gait exam (Neuro): gait abnormal (Cautious gait, walks with cane) Motor exam (neuro): 5/5 motor strength present throughout Sensory Exam: No Sensory deficit (Neuro) Deep tendon reflexes (DTR's): Right patellar reflex intensity grade: 2+ and Left patellar reflex intensity grade: 2+ Extrem General: Yes normal to inspection and No edema Psych Appearance: grossly normal Affect: normal affect Attitude: cooperative Thought process: Normal thought process present Assessment and Plan Assessment & Plan (1) Hypercholesterolemia: Code(s): E78.00 - Pure hypercholesterolemia, unspecified Plan: LDL?cholesterol?mildly?elevated.??HDL?ratios?are?okay Encouraged?diet?lower?in?saturated?fats?and?cholesterol (2) Chronic pain syndrome: Code(s): G89.4 - Chronic pain syndrome Plan: Tolerating?pain?with?current?medication?regimen No?changes?made?today Recent?urine?drug?screen?was?appropriate (3) Macrocytosis: Code(s): D75.89 - Other specified diseases of blood and blood-forming organs Plan: Mild?macrocytosis?and?her?folate?is?a?little?low She?notes?that?it?has?been?low?in?the?past?and?she?had?a?folic?acid?supplement?so?I?sent?a?new?script?for?this?as?well. (4) Screening for colon cancer: Code(s): Z12.11 - Encounter for screening for malignant neoplasm of colon Plan: Patient?says?she?had?a?colonoscopy?with??within?the?past?year. Requesting?report (5) Screening for cervical cancer: Code(s): Z12.4 - Encounter for screening for malignant neoplasm of cervix Plan: No?recent?Pap?smear.??She?would?like?to?defer?a?referral?for?this?to?another?visit. Will?readdress (6) Osteoporosis: Code(s): M81.0 - Age-related osteoporosis without current pathological fracture Plan: History?of?osteoporosis?and?patient?is?on?chronic?opioids Due?for?bone?density?test-ordered (7) Breast cancer screening by mammogram: Code(s): Z12.31 - Encounter for screening mammogram for malignant neoplasm of breast Plan: No?recent?mammogram Ordered (8) Adult general medical exam: Code(s): Z00.00 - Encounter for general adult medical examination without abnormal findings Plan: 58-year-old?female?presents?for?an?extended?exam Stable Orders: Orders XR DEXA axial skeleton Today M81.0 - Age-related osteoporosis without current pathological fracture MM tomosynthesis screening BI Today Z12.31 - Encounter for screening mammogram for malignant neoplasm of breast Medications: New folic acid 0.4 mg PO DAILY 30 days 30 tabs 3RF Coding Level of Care Code Est Pt Level 4 (09639) Diagnoses Hypercholesterolemia E78.00 Chronic pain syndrome G89.4 Macrocytosis D75.89 Screening for colon cancer Z12.11 Screening for cervical cancer Z12.4 Osteoporosis M81.0 Breast cancer screening by mammogram Z12.31 Adult general medical exam Z00.00
== END 2023-11-13 14:49 | disposition home or self-care (01) ==
PROVIDERS: PCP Family Medicine; Visit Provider Family Medicine
DX: Z00.00 Encounter for general adult medical examination without abnormal findings (principal); E78.00 Pure hypercholesterolemia, unspecified; G89.4 Chronic pain syndrome; D75.89 Other specified diseases of blood and blood-forming organs; Z12.11 Encounter for screening for malignant neoplasm of colon; M81.0 Age-related osteoporosis without current pathological fracture; Z12.31 Encounter for screening mammogram for malignant neoplasm of breast
CPT/HCPCS: 99213; 99396

== ENCOUNTER 2023-12-05 12:52 | Outpatient (AMB) | payer MEDICARE, MEDICAID, SELFPAY ==
--- NOTE | 2023-12-05 13:06 | MHC.PC.OV ---
Vital Signs 12/05/23 13:13 Height 5 ft Weight 226 lb 2 oz BMI 44.2 BP 124/86 Blood Pressure Location Lt brachial Position Sitting Respiration 14 Pulse 59 Pulse Source Pulse Oximeter Temp 98 F Temp Source Temporal Artery Scan Pulse Oximetry (%) 98 Oxygen Delivery Method Room Air Intake Visit Reasons: 28 day follow up Intake Note: Follow up Certified Scrub Tech Required: No Allergies hydromorphone [From DILAUDID] Allergy (Unknown, Verified 12/05/23 13:07) STOPS HEART ibuprofen [From MOTRIN] Allergy (Unknown, Verified 12/05/23 13:07) SEIZURE Tobacco use date assessed: 12/05/23 Dental Screening Dental Screen Date: 11/10/23 Did you have a dental visit in the last 12 months?: No Did you have a dental problem in the last 6 months where you did not have access to dental care?: No Was dental information given to patient?: Patient has dentist HPI 28 day follow up HPI Details 58 y/o female presents to f/u pain meds. Pt reports she continues to smoke. Pt is precontemplative/contemplative about quitting. HPI Comments History of Present Illness Details Documentation assistance for Alvino Mcfarlane MD, was provided by Nico Harley, [employer]rentice on 12/05/2023 1:29 PM EST. I, Dr. Mcfarlane, have read, observed, and verified documentation. [facility] Medical History Spinal cord stimulator status Depression PTSD (post-traumatic stress disorder) Ischemic colitis GERD (gastroesophageal reflux disease) Peptic ulcer disease Thrombocytopenia Pressure sore on buttocks History of sudden cardiac successfully resuscitated ICD (implantable cardioverter-defibrillator) in place Surgical History History of spinal surgery History of cholecystectomy Family History Mother Dementia Cancer Father Heart disease Social History Household Members: Spouse Housing: House Alcohol intake: never Comment: restraints Patient Tobacco Use Status: Current everyday Tobacco user Tobacco use type: Cigarette Cigarette Packs Per Day: 0.5 Cigarettes Per Day: 10 Years Smoked: 40 +/- Packs Per Year: 0 Packs per year/per ci.00 e-Cigarette/Vaping Use: Never Used service: No Current occupational status: disabled Current occupational exposures/hazards: No Sexual orientation: Unable to collect Gender identity: Unable to collect Cognitive needs: No Hearing needs: No Vision needs: Yes (Wears glasses) Questionnaire Thrive Questionnaire Date Thrive assessed: 07/29/23 AUDIT C Alcohol Use Questionnaire (AUDIT-C) 1. How often do you have a drink containing alcohol?: Never 3. How often do you have six or more drinks on one occasion?: Never Total Score: 0 MARIN-7 AMB Questionnaire MARIN-7 Date MARIN - 7 assessed: 10/13/23 Source: Developed by Drs. Kashif Turpin, Tona Estes, Jose De Anda and colleagues, with an educational johanny from [employer]. Review of Systems Const Denies chills, Denies fatigue, Denies fever(s), Denies headache(s) and Denies weakness ENT Denies dizziness and Denies headache(s) Card Denies dyspnea Resp Denies cough, Denies dyspnea, Denies wheezing and Denies other (shortness of breath) Musc Denies numbness and Denies tingling Neuro Denies dizziness, Denies headache(s), Denies numbness, Denies tingling and Denies weakness Psych Denies anxiety and Denies depression Endo Denies fatigue Aller/Immun Denies wheezing Physical exam (Primary Care) Vital Signs: Last Vital Signs Temp 98 F 12/05/23 13:13 Pulse 59 12/05/23 13:13 Resp 14 12/05/23 13:13 BP 124/86 12/05/23 13:13 Pulse Ox 98 12/05/23 13:13 Oxygen Delivery Method Room Air 12/05/23 13:13 BMI result Body Mass Index 44.2 Tobacco/Smoking Status: Tobacco use Status Tobacco use date assessed 12/05/23 12/05/23 13:18 Patient Tobacco Use Status Current everyday Tobacco 12/05/23 13:18 Tobacco use type Cigarette 12/05/23 13:18 e-Cigarette/Vaping Use Never Used 12/05/23 13:18 Thrive Assessment: Date of Thrive Assessment Date Thrive assessed 07/29/23 12/05/23 13:18 Const General: well developed; No acute distress Nutritional Appearance: well nourished Orientation/consciousness: patient oriented x3 [facility] Head: Yes normocephalic and Yes atraumatic Eyes General: appearance normal, both eyes and all related structures Pupils: Equal, round and reactive pupils present EOM: EOMs intact bilaterally Resp Effort & Inspection: normal respiratory effort Auscultation: clear to auscultation bilaterally Cardio Rate: regular rate Rhythm: regular rhythm Heart sounds: S1 normal heart sound present, S2 normal heart sound present, no gallops, no murmurs and no rubs Neuro General: patient oriented x3 and gait normal Cranial nerves: Yes Equal, round and reactive pupils present Psych Affect: normal affect Assessment and Plan Assessment & Plan (1) Chronic pain syndrome: Code(s): G89.4 - Chronic pain syndrome Plan: Taking?medication?as?prescribed.??Pill?count?is?appropriate. Most?recent?urine?drug?screen?was?appropriate?and?she?will?repeat?this?today. Pain?appears?well?controlled Continue?current?medication?regimen (2) Smoker: Code(s): F17.200 - Nicotine dependence, unspecified, uncomplicated Plan: Encouraged?cessation.??Patient?is?pre?contemplative/contemplative We?discussed?that?we?can?continue?to?address?this?in?the?future Coding Level of Care Code Est Pt Level 3 (99380) Diagnoses Chronic pain syndrome G89.4 Smoker F17.200
[2023-12-05 13:13] VITALS: BP 124/86; PULSE 59; RESP 14; TEMP 36.6; O2SAT 98; BMI 44.2
== END 2023-12-05 13:56 | disposition home or self-care (01) ==
PROVIDERS: PCP Family Medicine; Visit Provider Family Medicine
DX: G89.4 Chronic pain syndrome (principal); F17.210 Nicotine dependence, cigarettes, uncomplicated
CPT/HCPCS: 99213

== ENCOUNTER 2023-12-05 13:52 | Outpatient (REF) | payer MEDICARE, MEDICAID, SELFPAY ==
[2023-12-05 18:51] LABS: Amphetamine Screen Urine Not Detected (Not Detect); Barbiturates, Urine Not Detected (Not Detect); Benzodiazepines Screen Urine POSITIVE (Not Detect); Cannabinoid Screen Urine Not Detected (Not Detect); Cocaine Screen Urine Not Detected (Not Detect); Fentanyl, urine Not Detected (Not Detect); Opiate Screen Urine POSITIVE (Not Detect); Phencyclidine Screen Urine Not Detected (Not Detect)
== END 2023-12-05 13:53 | disposition home or self-care (01) ==
LOC: HO.LAB 13:52
PROVIDERS: Visit Provider Family Medicine
DX: F11.20 Opioid dependence, uncomplicated (principal)
CPT/HCPCS: 80307

== ENCOUNTER 2023-12-23 13:07 | Outpatient (REF) | payer MEDICARE, MEDICAID, SELFPAY ==
--- NOTE | ~2023-12-23 | MM_ITS ---
EXAMINATION: MM SCREENING DIGITAL BREAST TOMOSYNTHESIS, BILATERAL CLINICAL INFORMATION: Screening. Asymptomatic. COMPARISON: Mammography: This study is compared with prior exams dating back to 2018. TECHNIQUE: Digital breast tomosynthesis is performed in both the craniocaudal and mediolateral oblique views along with computer-aided detection (CAD). Synthesized 2D images are generated from the tomosynthesis. FINDINGS: There are scattered areas of fibroglandular density (ACR BI-RADS breast composition Category b). There are no significant masses, abnormal calcifications, or other abnormalities. There is a pacemaker in the superior aspect of the left side of chest. MM/MM tomosynthesis screening BI IMPRESSION: No mammographic evidence of malignancy. ASSESSMENT: BI-RADS BI-RADS 1 - Negative RECOMMENDATION: Routine annual mammography screening. 1 year F/U This examination should not preclude the clinical evaluation of a suspicious palpable abnormality. This patient's information was entered into a reminder system with a target due date for their next mammogram.
--- NOTE | ~2023-12-23 | MM_ITS ---
EXAMINATION: BONE DENSITOMETRY CLINICAL INDICATION: Age-related osteoporosis without current pathological fracture. COMPARISON: This is the patient's baseline examination. TECHNIQUE: Using a [employer] DXA System (software version: 13.1) manufactured by [employer], dual-energy x-ray absorptiometry was performed of the lumbar spine, left hip and left forearm radius 33%. The images are of good technical quality. Summary results are attached. FINDINGS: LEFT FEMUR, NECK: BMD 0.773 g/cm2, Z-score -1.5, T-score -1.9, osteopenia. LEFT FEMUR, TOTAL: BMD 0.911 g/cm2, Z-score -0.7, T-score -0.8, normal. AP SPINE L1-L3 (excluding L4): The data of L1-L4 has been changed to exclude the L4 vertebral body, because metallic artifact at this level may cause overestimation of lumbar spine density. BMD 1.220 g/cm2, Z-score 0.4, T-score 0.4, normal. LEFT FOREARM RADIUS 33%: BMD 0.832 g/cm2, Z-score 0.3, T-score -0.5, normal. IDENTIFIED RISK FACTORS: Osteoporosis, current smoker, recurrent falls, low calcium intake, history of fracture (adult), glucocorticoids, menopause, anticonvulsant. HISTORY OF FRACTURE: Spine. MEDICATIONS: Vitamin D. MM/XR DEXA axial skeleton IMPRESSION: 1. DIAGNOSIS: Osteopenia based on the lowest T-score value of -1.9 in the femoral neck applying World Health Organization criteria. 2. 10-YEAR FRACTURE RISK PREDICTION, FRAX: Major osteoporotic fracture (clinical spine, forearm, hip or shoulder) 21.6%. Hip fracture 4.7%. 3. Treatment Recommendations: NOF guidelines recommend consideration for treatment in postmenopausal women and men age 50 and older presenting with the following: -A hip or vertebral (clinical or morphometric) fracture. -T-score less than or equal to -2.5 at the femoral neck or spine after appropriate evaluation to exclude secondary causes. -Low bone mass at the hip or spine and a 10-year fracture probability by FRAX of greater than or equal to 3% for hip fracture or greater than or equal to 20% for major osteoporotic fracture based on the [place] adapted WHO algorithm. 4. Other Recommendations: All treatment decisions require clinical judgment and consideration of individual patient factors, including patient preferences, comorbidities, previous drug use, risk factors not captured in the FRAX model (e.g. frailty, falls, vitamin D deficiency, increased bone turnover, interval significant decline in bone density) and possible under or overestimation of fracture risk by FRAX. Additional medical evaluation for secondary cause of low bone mineral density may be appropriate. FUTURE SCAN RECOMMENDATION: People with diagnosed cases of osteoporosis or at high risk for fracture should have regular bone mineral density tests. For patients eligible for Medicare, routine testing is allowed once every 2 years. The testing frequency can be increased to one year for patients who have rapidly progressing disease, those who are receiving or discontinuing medical therapy to restore bone mass, or have additional risk factors.
== END 2023-12-23 13:08 | disposition home or self-care (01) ==
LOC: HO.MAMMO 13:07
PROVIDERS: PCP Family Medicine; Visit Provider Family Medicine
DX: Z12.31 Encounter for screening mammogram for malignant neoplasm of breast (principal); Z13.820 Encounter for screening for osteoporosis; Z78.0 Asymptomatic menopausal state; M81.0 Age-related osteoporosis without current pathological fracture
CPT/HCPCS: 77063; 77067; 77080

== ENCOUNTER → 2023-12-23 13:30 | Outpatient (BNV) | payer MEDICARE, MEDICAID, SELFPAY | PROVIDERS: PCP Family Medicine; Visit Provider Radiology Diagnostic Radiology | DX: Z12.31 Encounter for screening mammogram for malignant neoplasm of breast (principal) | CPT/HCPCS: 77063; 77067 ==

== ENCOUNTER 2024-01-05 13:48 | Outpatient (AMB) | payer MEDICARE, MEDICAID, SELFPAY ==
[2024-01-05 13:51] VITALS: BP 124/80; PULSE 102; BMI 44.3
--- NOTE | 2024-01-05 13:51 | MHC.OFFVIS ---
Vital Signs 01/05/24 13:51 Height 5 ft Weight 227 lb 1.218 oz BMI 44.3 BP 124/80 Blood Pressure Location Lt brachial Position Sitting Pulse 102 H Intake Visit Reasons: 6M with pacer check Intake Note: 6 month follow-up [facility] pacer check Rand Cementer Required: No Allergies hydromorphone [From DILAUDID] Allergy (Unknown, Verified 12/05/23 13:07) STOPS HEART ibuprofen [From MOTRIN] Allergy (Unknown, Verified 12/05/23 13:07) SEIZURE Medication List - Last Reconciled 01/05/24 by Aquiles Bowen MD carisoprodol 350 mg PO BID PRN 30 days cholecalciferol (vitamin D3) 1,250 mcg PO QWEEK 28 days clonazepam 1 mg PO BID 30 days dicyclomine 20 mg PO QID famotidine 20 mg PO DAILY 30 days folic acid 0.4 mg PO DAILY 30 days gabapentin 800 mg PO TID levetiracetam (Keppra) 750 mg PO BID metoprolol tartrate 100 mg PO BID morphine 15 mg PO Q8H PRN 28 days morphine ER 15 mg PO Q12H 28 days sucralfate 1 g PO BID HPI Comments Details: Gayatri comes for follow-up. Has had no cardiac events. She said over the last few weeks she has lot of personal stress related to her daughter's wedding. She has been not sleeping well. She also has increase in her pain syndrome. Heart rate today was elevated. She has been taking all her medications. No palpitations, lightheadedness, syncope. No ICD discharge. No heart failure symptoms. [facility] Medical History Spinal cord stimulator status Depression PTSD (post-traumatic stress disorder) Ischemic colitis GERD (gastroesophageal reflux disease) Peptic ulcer disease Thrombocytopenia Pressure sore on buttocks History of sudden cardiac successfully resuscitated ICD (implantable cardioverter-defibrillator) in place Surgical History History of spinal surgery History of cholecystectomy Family History Mother Dementia Cancer Father Heart disease Social History Household Members: Spouse Housing: House Alcohol intake: never Comment: restraints Patient Tobacco Use Status: Current everyday Tobacco user Tobacco use type: Cigarette Cigarette Packs Per Day: 0.5 Cigarettes Per Day: 10 Years Smoked: 40 +/- e-Cigarette/Vaping Use: Never Used service: No Current occupational status: disabled Current occupational exposures/hazards: No Sexual orientation: Unable to collect Gender identity: Unable to collect Cognitive needs: No Hearing needs: No Vision needs: Yes (Wears glasses) Review of Systems Const Denies chills, Denies fatigue, Denies fever(s), Denies frequent falls, Denies weakness, Denies weight gain and Denies weight loss ENT Denies dizziness Card Denies chest pain, Denies leg edema, Denies lightheadedness, Denies palpitations, Denies dyspnea, Denies dyspnea on exertion, Denies orthopnea and Denies other (loss of consciousness) Resp Denies cough, Denies dyspnea and Denies dyspnea on exertion GI Denies hematochezia and Denies change in stool character Musc Denies abnormal gait, Denies muscle weakness, Denies numbness, Denies radiating pain into limb and Denies tingling Neuro Denies abnormal gait, Denies dizziness, Denies frequent falls, Denies numbness, Denies tingling and Denies weakness Endo Denies fatigue and Denies palpitations Physical Exam Vital Signs: Last Vital Signs Pulse 102 H 01/05/24 13:51 BP 124/80 01/05/24 13:51 BMI result Body Mass Index 44.3 Const General: cooperative, comfortable, no acute distress, alert and awake Nutritional Appearance: obese Orientation/consciousness: patient oriented x3 Limitations: ambulation with cane Neck Neck: Yes trachea midline, Yes supple and Yes no JVD Resp Effort & Inspection: normal respiratory effort Auscultation: clear to auscultation bilaterally and diminished lung sounds Cardio Jugular venous distension: no JVD Palpation: normal PMI Rate: regular rate Rhythm: regular rhythm Heart sounds: S1 normal heart sound present and S2 normal heart sound present GI Auscultation: normal bowel sounds Skin General skin exam: no rashes or lesions noted Neuro General: patient oriented x3 and no focal motor deficits Extrem General: Yes no clubbing, cyanosis or edema Psych Appearance: grossly normal Office Procedures Cardiac Device Check Cardiac Device Check Details: Dual-chamber [employer] ICD in place. Programmed in DDDR at 55 beats per minute. Atrial pacing 6.4% of time. No episodes of atrial fibrillation ventricular arrhythmias. Atrial ventricular capture thresholds adequate. Atrial ventricular sensing is adequate. Pacing and shock lead impedance is stable. Battery life is 7.6 hours [id number]-MA Cardiac Device Check, dual lead implantable defibrillator Procedure code (CPT) selection complete Assessment & Plan Assessment & Plan (1) History of sudden cardiac successfully resuscitated: Code(s): Z86.74 - Personal history of sudden cardiac arrest Category: Medical Plan: Personal history of sudden cardiac of unclear etiology. Suspected to be prolonged QT syndrome although since then she has no had any issues with it. ICD is been working well. See below. (2) ICD (implantable cardioverter-defibrillator) in place: Comment: dual-chamber [employer] ICD in place for sudden cardiac with VF Code(s): Z95.810 - Presence of automatic (implantable) cardiac defibrillator Category: Medical Plan: Dual-chamber ICD in place. No significant issues since implantation. Battery life is low. Follow up in the clinic in 6 months time. If she has any unusual long she is advised to call my office. Hopefully the next ICD would have cell phone based monitoring system. Continue metoprolol therapy. Avoidance of stimulants was discussed. Follow up in the clinic in 6 months time after an echocardiogram. Thank you for allowing me to partake in the care Coding Level of Care Code Est Pt Level 4 (38529) Diagnoses History of sudden cardiac successfully resuscitated Z86.74 ICD (implantable cardioverter-defibrillator) in place Z95.810 CPT Codes Cardiac Device Check - Cardiac Device 5: 57116-PO Cardiac Device Check, dual lead implantable defibrillator ([id number])
== END 2024-01-05 14:21 | disposition home or self-care (01) ==
PROVIDERS: PCP Internal Medicine; Visit Provider Internal Medicine Cardiovascular Disease
DX: Z86.74 Personal history of sudden cardiac arrest (principal); Z95.810 Presence of automatic (implantable) cardiac defibrillator; Z45.02 Encounter for adjustment and management of automatic implantable cardiac defibrillator
CPT/HCPCS: 93283; 99214

== ENCOUNTER → 2024-01-05 13:48 | Outpatient (BNVA) | payer MEDICARE, MEDICAID, SELFPAY | PROVIDERS: PCP Internal Medicine; Visit Provider Internal Medicine Cardiovascular Disease | DX: Z45.018 Encounter for adjustment and management of other part of cardiac pacemaker (principal); Z86.74 Personal history of sudden cardiac arrest; Z95.810 Presence of automatic (implantable) cardiac defibrillator | CPT/HCPCS: 99212 ==

== ENCOUNTER 2024-01-24 20:40 | Emergency (ER) | payer MEDICARE, MEDICAID, SELFPAY ==
--- NOTE | ~2024-01-24 | XR_ITS ---
EXAMINATION: XR ANKLE, RIGHT CLINICAL INFORMATION: Fall, pain COMPARISON: None available. TECHNIQUE: AP, lateral, and mortise views of the right ankle. FINDINGS: Acute, minimally displaced oblique fracture through the distal fibular metaphysis (Rodriguez B). Ankle mortise is grossly congruent within limitations of mild obliquity. Talar dome is intact. Small plantar calcaneal enthesophyte. Probable small tibiotalar joint effusion. Marked lateral soft tissue swelling. XR/XR ankle RT min 3V IMPRESSION: Acute, minimally displaced right distal fibular fracture
[2024-01-24 22:35] VITALS: BP 103/54; PULSE 56; RESP 16; TEMP 37.3; BMI 39.0
[2024-01-25] MEDS: Acetaminophen 325 MG TABLET 975 MG PO (05:21)
--- NOTE | 2024-01-25 07:52 | ED_ITS ---
HPI - Extremity Injury (Lower) General Chief Complaint: Extremity Injury, Lower Stated Complaint: Fall/R ankle inj Time Seen by Provider: 01/25/24 07:24 Source: patient Mode of arrival: ambulatory Limitations: no limitations History of Present Illness ED Provider: Daniella CORTEZ HPI Narrative: 58 year old female hx of sudden cardiac with ICD (Dual-chamber [employer] pacemaker) in place, LV systolic disfunction, current smoker, anxiety, derpession, opioid dependence with current use, chronic pain syndrom, ibs, ptsd, thrombocytopenia presents w/ fall yesterday and now having r ankle pain s/p fall. Patient reports she got up suddenly felt dizzy after standing and then fell. No longer expierencing dizziness. She does report that she had been sick for the past week but now feels better her IBS was acting up and she had nausea, vomiting and diarrhea which has now resolved. Only complaint today is r ankle pain. No head strike or LOC with fall. She states she fell onto her right foot. Denies preceding sx to fall (other than dizziness after quickly getting up) , cp, sob, nausea, vomiting, abd pain, diarrhea, headache, vision changes, dizziness, weakness. Related Data Home Medications ?Medication ?Instructions ?Recorded ?Confirmed gabapentin 800 mg tablet 800 mg PO TID 03/05/21 01/05/24 dicyclomine 20 mg tablet 20 mg PO QID 03/14/22 01/05/24 sucralfate 1 gram tablet 1 g PO BID 03/14/22 01/05/24 levetiracetam 500 mg tablet 750 mg PO BID 06/14/22 01/05/24 (Virgie) Previous Rx's ?Medication ?Instructions ?Recorded metoprolol tartrate 100 mg tablet 100 mg PO BID #180 tabs 02/07/23 famotidine 20 mg tablet 20 mg PO DAILY 30 days #30 tabs 07/29/23 clonazepam 1 mg tablet 1 mg PO BID 30 days #60 tabs 09/04/23 cholecalciferol (vitamin D3) 1,250 1,250 mcg PO QWEEK 28 days #4 caps 10/28/23 mcg (50,000 unit) capsule folic acid 400 mcg tablet 0.4 mg PO DAILY 30 days #30 tabs 11/13/23 morphine 15 mg immediate release 15 mg PO Q8H PRN pain 28 days #84 01/01/24 tablet tabs carisoprodol 350 mg tablet 350 mg PO BID PRN Pain/Spasm 30 01/02/24 days #60 tabs morphine 15 mg tablet,extended 15 mg PO Q12H 28 days #56 tabs 01/02/24 release acetaminophen 325 mg capsule 650 mg (2 x 325 mg) PO Q4H PRN 01/25/24 (Tylenol) pain #30 caps Allergies Allergy/AdvReac Type Severity Reaction Status Date / Time hydromorphone [From DILAUDID] Allergy Unknown STOPS HEART Verified 01/24/24 22:45 ibuprofen [From MOTRIN] Allergy Unknown SEIZURE Verified 01/24/24 22:45 NSAIDS (Non-Steroidal Allergy Unknown Verified 01/24/24 22:45 Anti-Inflamma Review of Systems 2 Review of Systems: Yes all other systems are reviewed and are negative [facility] Past Medical History Attestation statement: The following information was validated with the patient. Source: old records reviewed and nursing notes reviewed Medical History Spinal cord stimulator status Depression PTSD (post-traumatic stress disorder) Ischemic colitis GERD (gastroesophageal reflux disease) Peptic ulcer disease Thrombocytopenia Pressure sore on buttocks History of sudden cardiac successfully resuscitated ICD (implantable cardioverter-defibrillator) in place Surgical History History of spinal surgery History of cholecystectomy Family History Family History Mother Dementia Cancer Father Heart disease Social History Social History Household Members: Spouse Housing: House Alcohol intake: never Comment: restraints Patient Tobacco Use Status: Current everyday Tobacco user Tobacco use type: Cigarette Cigarette Packs Per Day: 0.5 Cigarettes Per Day: 10 Years Smoked: 40 +/- e-Cigarette/Vaping Use: Never Used Advance Directives: No Advance Directives Information Provided: No Do you have a plan to hurt others: No Plan service: No Current occupational status: disabled Current occupational exposures/hazards: No Sexual orientation: Unable to collect Gender identity: Unable to collect Cognitive needs: No Hearing needs: No Vision needs: Yes (Wears glasses) Physical Exam 2 Vital Signs: Vital Signs: Last Vital Signs Temp 99.2 F 01/24/24 22:35 Pulse 56 01/25/24 08:13 Resp 16 01/25/24 08:13 BP 111/61 01/25/24 08:13 Pulse Ox 95 01/25/24 08:13 O2 Del Method Room Air 01/25/24 08:13 BMI result Body Mass Index 39.0 vss Appearance: Alert.? Oriented X3.? No acute distress.? Head: Normocephalic, atraumatic, no step-offs or deformities Eyes: Pupils equal, round and reactive to light.? Neck: Normal inspection.? Neck supple.?No Cspine tenderness CVS: Normal heart rate and rhythm.? Pulses normal.? Respiratory: No respiratory distress.? Breath sounds normal.? Abdomen: Soft and nontender.?Normal BS Skin: Skin warm and dry.? Normal skin color.? Normal skin turgor.? Extremities: No lower extremity edema.? No calf ttp. global weakness. + ttp to entire right ankle w/ a/c swelling to antierior and medial aspect of ankle no ecchymosis. Pain w/ rom of right ankle. Normal sensation distally b/l. Cap refil < 2 seconds to b/l LE. 2+ DP,AT,PT pulses equal an b/l. Normal handgrip. Neuro: Oriented X 3.? No motor deficit.? No sensory deficit. CN 2-12 intact Course Reevaluation(s) Reevaluation #1: CBC unremarkable. Chemistry no acute findings requiring intervention. BUN slightly elevated however patient tolerating p.o.. This is likely secondary to dehydration. Encouraged to drink plenty of fluids. X-ray of right ankle acute minimally displaced right distal fibular fracture. Medications Administered Discontinued Medications Generic Name Dose Route Start Last Admin Trade Name Freq PRN Reason Stop Dose Admin Acetaminophen 975 mg 01/25/24 05:19 01/25/24 05:21 Acetaminophen 325 Mg Tablet PO 01/25/24 05:20 975 mg ONCE ONE Administration Morphine Sulfate 15 mg 01/25/24 07:55 01/25/24 08:13 Morphine Sulfate Immed Release 15 Mg Tablet PO 01/25/24 07:56 15 mg ONCE ONE Administration Medical Decision Making Medical Decision Making [facility] Narrative: [id number] 58 year old female presents sp fall compaling of r ankle pain. Dizziness preceding to fall PE- No lower extremity edema.? No calf ttp. global weakness. + ttp to entire right ankle w/ a/c swelling to antierior and medial aspect of ankle no ecchymosis. Pain w/ rom of right ankle. Normal sensation distally b/l. Cap refil < 2 seconds to b/l LE. 2+ DP,AT,PT pulses equal an b/l. Normal handgrip. History and physical exam concerning for right ankle fracture/sprain or strain/contusion. Unlikely neurovascular compromise acute threat to limb. Dizziness likely secondary to orthostatic hypotension secondary to GI losses due to nausea, vomiting, diarrhea that patient had been experiencing for about a week which is now resolved. Will rule out metabolic derangements. Unlikely stroke, posterior stroke, intracranial hemorrhage. Unlikely traumatic injury to chest, abdomen or pelvis. Diarrhea likely due to viral illness or IBS. Unlikely Cdiff or infectious diarrhea Plan- basic labs, imaging, morphine, it says patient has an allergy to Dilaudid and it stops her heart however patient takes p.o. morphine multiple times a day without difficulties. Appropriate to prescribe Differential Diagnosis Differential Diagnoses: The differential diagnosis associated with the presentation includes History and physical exam concerning for right ankle fracture/sprain or strain/contusion. Unlikely neurovascular compromise acute threat to limb. Dizziness likely secondary to orthostatic hypotension secondary to GI losses due to nausea, vomiting, diarrhea that patient had been experiencing for about a week which is now resolved. Will rule out metabolic derangements. Unlikely stroke, posterior stroke, intracranial hemorrhage. Unlikely traumatic injury to chest, abdomen or pelvis. Diarrhea likely due to viral illness or IBS. Unlikely Cdiff or infectious diarrhea Admission/Observation Consideration of admission/observation: Escalation of care including admission/observation considered [facility] Lab Data 01/25/24 08:04 01/25/24 08:04 Labs: Lab Results 01/25/24 Range/Units 08:04 WBC 10.7 (4.8-10.8) X10*3/uL RBC 4.12 L (4.20-5.50) X10*6/uL Hgb 13.9 (12.0-16.0) g/dl Hct 39.7 (37.0-47.0) % MCV 96.4 (80.0-98.0) fL MCH 33.7 H (27.0-33.0) pg MCHC 35.0 (31.0-35.0) g/dl RDW 13.9 (11.0-16.0) % Plt Count 180 (160-400) X10*3/uL MPV 9.6 (9.4-12.3) fL Immature Gran % (Auto) 0.3 (0.0-0.4) % Neut % (Auto) 48.3 (45-73) % Lymph % (Auto) 41.9 H (20-40) % [place] % (Auto) 7.4 (2-11) % Eos % (Auto) 1.5 (0-4) % Baso % (Auto) 0.6 (0-2) % Lymph # (Auto) 4.5 (1.2-4.9) X10*3/uL [place] # (Auto) 0.8 (0.1-1.2) X10*3/uL Eos # (Auto) 0.2 (0.0-0.4) X10*3/uL Baso # (Auto) 0.1 (0.0-0.2) X10*3/uL Abs Immat Gran (auto) 0.03 (0.00-0.03) X10*3/uL Absolute Neuts (auto) 5.2 (2.0-8.3) x10*3/uL Absolute Nucleated RBC 0.000 (0.0-0.012) X10*3/uL Nucleated RBC % (auto) 0.0 (0.0-0.2) /100WBC Smear Tech's Comments VERIFIED Sodium 137 (135-145) mmol/L Potassium 3.5 (3.3-5.1) mmol/L Chloride 104 (96-108) mmol/L Carbon Dioxide 19 L (22-29) mmol/L Anion Gap 18 (12-20) BUN 22 H (9-16) mg/dL Creatinine 0.98 (0.5-1.4) mg/dL Estim Creat Clear Calc 62.7 Estimated GFR 58 Random Glucose 110 (60-115) mg/dL Calcium 9.3 (8.4-10.2) mg/dL Total Bilirubin 0.3 (0.0-1.0) mg/dL AST 23 (5-31) U/L ALT 14 (0-31) U/L Alkaline Phosphatase 92 (39-117) U/L Total Protein 7.3 (6.5-8.0) g/dL Albumin 4.2 (3.5-5.0) g/dL Independent Interpretation I performed an independent interpretation of an: Plain X-Ray (XR/XR ankle RT min 3V IMPRESSION: Acute, minimally displaced right distal fibular fracture) Radiology Impression Discussion of test interpretation with radiology: I have reviewed the radiologist's reading. External Record Review External record reviewed: Inpatient record, Office record, Outpatient record, Prior outpatient labs, Prior outpatient radiology, Primary care record and Outside ED record Chronic Conditions Patient?s care impacted by: Other (sudden cardiac with ICD (Dual-chamber [employer] pacemaker) in place, LV systolic disfunction, current smoker, anxiety, derpession, opioid dependence with current use, chronic pain syndrom, ibs, ptsd, thrombocytopenia) Critical Care Time Critical Care Time Critical Care Time: No Discharge Plan Discharge Clinical Impression: Fracture of distal end of fibula, Fall, Diarrhea Patient Disposition: Still a Patient Instructions: Acute Diarrhea (ED), Nutrition Tips for Relief of Diarrhea (ED), Fall Prevention (ED) Additional Instructions: Take your medications as prescribed. If you were prescribed antibiotics today, it is important that you take your medication to their entirety, do not skip any doses, do not finish them early. Follow-up with your primary care provider this week. Return to the emergency department with new or worsening symptoms. Such as fevers, chills, chest pain, shortness of breath, nausea, vomiting, dizziness, headache, vision changes, lethargy In case of emergency call 911 Follow up with the orthopedic team Take your pain meds as prescribed Wear your walking boot as instructed. You should take it off at night and elevate extremity Prescriptions: New acetaminophen [Tylenol] 325 mg capsule 650 mg PO Q4H PRN (Reason: pain) Qty: 30 0RF No Action metoprolol tartrate 100 mg tablet 100 mg PO BID Qty: 180 3RF cholecalciferol (vitamin D3) 1,250 mcg (50,000 unit) capsule 1,250 mcg PO QWEEK 28 Days Qty: 4 1RF morphine 15 mg tablet 15 mg PO Q8H PRN (Reason: pain) 28 Days Qty: 84 0RF Rx Instructions: MassPat Verified. Partial Refill Upon Request. carisoprodol 350 mg tablet 350 mg PO BID PRN (Reason: Pain/Spasm) 30 Days Qty: 60 0RF morphine 15 mg tablet extended release 15 mg PO Q12H 28 Days Qty: 56 0RF Rx Instructions: MassPat Verified. Partial refill upon request. levetiracetam [Keppra] 500 mg tablet 750 mg PO BID clonazepam 1 mg tablet 1 mg PO BID 30 Days Qty: 60 0RF Rx Instructions: MassPat Verified folic acid 400 mcg tablet 0.4 mg PO DAILY 30 Days Qty: 30 3RF famotidine 20 mg tablet 20 mg PO DAILY 30 Days Qty: 30 2RF gabapentin 800 mg tablet 800 mg PO TID dicyclomine 20 mg tablet 20 mg PO QID sucralfate 1 gram tablet 1 g PO BID Rx Instructions: before meals Referrals: [facility] [place] Orthopedic Surgeons [Provider Group] - 1 day Alvino Mcfarlane MD [Primary Care Provider] - 1 day Stand Alone Forms: Work/School Release Print Language: Belarusian
[2024-01-25 08:13] VITALS: BP 111/61; PULSE 56; RESP 16; O2SAT 95
[2024-01-25] MEDS: Morphine Sulfate Immed Release 15 MG TABLET PO (08:13)
[2024-01-25 08:15] LABS: Basophils Absolute Auto 0.1 X10*3/uL (0.0-0.2); Basophils Percent Auto 0.6 % (0-2); Eosinophils Absolute Auto 0.2 X10*3/uL (0.0-0.4); Eosinophils Percent Auto 1.5 % (0-4); Hematocrit 39.7 % (37.0-47.0); Hemoglobin 13.9 g/dl (12.0-16.0); Imm Gran Abs Auto 0.03 X10*3/uL (0.00-0.03); Imm Gran Pct Auto 0.3 % (0.0-0.4); Lymphocytes Absolute Auto 4.5 X10*3/uL (1.2-4.9); Lymphocytes Percent Auto 41.9 % (20-40); MANUAL DIFF FLAG SCAN; Mean Corpuscular Hemoglobin 33.7 pg (27.0-33.0); Mean Corpuscular Volume 96.4 fL (80.0-98.0); Mean Platelet Volume 9.6 fL (9.4-12.3); Monocytes Absolute Auto 0.8 X10*3/uL (0.1-1.2); Monocytes Percent Auto 7.4 % (2-11); Neutrophils Absolute Auto 5.2 x10*3/uL (2.0-8.3); Neutrophils Percent Auto 48.3 % (45-73); PLT CLUMP 1; Red Blood Count 4.12 X10*6/uL (4.20-5.50); Red Cell Distribution Width 13.9 % (11.0-16.0); SCAN SMEAR FLAG 1
[2024-01-25 08:33] LABS: Alanine Aminotransferase 14 U/L (0-31); Albumin Level 4.2 g/dL (3.5-5.0); Alkaline Phosphatase 92 U/L (39-117); Anion Gap 18 (12-20); Aspartate Amino Transferase 23 U/L (5-31); Bilirubin Total 0.3 mg/dL (0.0-1.0); Blood Urea Nitrogen 22 mg/dL (9-16); Calcium 9.3 mg/dL (8.4-10.2); Carbon Dioxide 19 mmol/L (22-29); Chloride 104 mmol/L (96-108); Creatinine Clr Calc Pharmacy 62.7; Estimated Glomerular Filt Rate 58; Glucose Random 110 mg/dL (60-115); Platelet Count 180 X10*3/uL (160-400); Potassium 3.5 mmol/L (3.3-5.1); Sodium 137 mmol/L (135-145); Total Protein 7.3 g/dL (6.5-8.0)
[2024-01-25 08:35] LABS: White Blood Count 10.7 X10*3/uL (4.8-10.8)
[2024-01-25 08:37] LABS: SLIDE REVIEW VERIFIED
[2024-01-25 09:06] VITALS: BP 134/64; PULSE 57
[2024-01-25 09:09] VITALS: BP 127/78; PULSE 58
[2024-01-25 09:12] VITALS: BP 118/82; PULSE 95
--- NOTE | 2024-01-25 09:25 | PC.NURSE ---
ortho boot applied, pt educated with crutches, discharging to home with family
[2024-01-25 09:26] VITALS: BP 118/82; PULSE 95; RESP 16; TEMP 36.7; O2SAT 96
== END 2024-01-25 09:27 | disposition home or self-care (01) ==
PROVIDERS: Physician Assistant; Emergency Provider Emergency Medicine; PCP Family Medicine
DX: S82.431A Displaced oblique fracture of shaft of right fibula, initial encounter for closed fracture (principal); W18.30XA Fall on same level, unspecified, initial encounter; R42 Dizziness and giddiness; R19.7 Diarrhea, unspecified; F11.20 Opioid dependence, uncomplicated; Z95.0 Presence of cardiac pacemaker; F17.210 Nicotine dependence, cigarettes, uncomplicated; Y93.89 Activity, other specified; Y92.009 Unspecified place in unspecified non-institutional (private) residence as the place of occurrence of the external cause; Y99.9 Unspecified external cause status
CPT/HCPCS: 36415; 73610; 80053; 85025; 99283; 99284

== ENCOUNTER 2024-02-03 12:51 | Outpatient (AMB) | payer MEDICARE, MEDICAID, SELFPAY ==
--- NOTE | 2024-02-03 12:59 | MHC.OFFVIS ---
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 Patient reports that she fell on 01/25/24, She reports that she had gotten up to go to the bathroom when she got dizzy and took a fall. She had pain as soon as she fell. She was seen at [facility] ED where she was placed in a Tall walking boot. She is asking for an additional xrays. extensive history of spinal surgery Allergies hydromorphone [From DILAUDID] Allergy (Unknown, Verified 02/03/24 13:19) STOPS HEART ibuprofen [From MOTRIN] Allergy (Unknown, Verified 02/03/24 13:19) SEIZURE NSAIDS (Non-Steroidal Anti-Inflamma Allergy (Verified 02/03/24 13:19) Unknown Medication List - Last Reconciled 02/03/24 by Agustin Marie PA-C acetaminophen (Tylenol) 650 mg (2 x 325 mg) PO Q4H PRN carisoprodol 350 mg PO BID PRN 30 days cholecalciferol (vitamin D3) 1,250 mcg PO QWEEK 28 days clonazepam 1 mg PO BID 30 days dicyclomine 20 mg PO QID famotidine 20 mg PO DAILY 30 days folic acid 0.4 mg PO DAILY 30 days gabapentin 800 mg PO TID levetiracetam (Keppra) 750 mg PO BID metoprolol tartrate 100 mg PO BID morphine 15 mg PO Q8H PRN 28 days morphine ER 15 mg PO Q12H 28 days sucralfate 1 g PO BID HPI 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 She reports she got up to go to the bathroom when she got dizzy and took a fall. She felt immediate pain and was seen at ED where she was placed in a walking boot. She has an extensive history of spinal surgery. She does not have a history of diabetes. [facility] Medical History Spinal cord stimulator status Depression PTSD (post-traumatic stress disorder) Ischemic colitis GERD (gastroesophageal reflux disease) Peptic ulcer disease Thrombocytopenia Pressure sore on buttocks History of sudden cardiac successfully resuscitated ICD (implantable cardioverter-defibrillator) in place Surgical History History of spinal surgery History of cholecystectomy Family History Mother Dementia Cancer Father Heart disease Social History Household Members: Spouse Housing: House Alcohol intake: never Comment: restraints Patient Tobacco Use Status: Current everyday Tobacco user Tobacco use type: Cigarette Cigarette Packs Per Day: 0.5 Cigarettes Per Day: 10 Years Smoked: 40 +/- e-Cigarette/Vaping Use: Never Used service: No Current occupational status: disabled Current occupational exposures/hazards: No Sexual orientation: Unable to collect Gender identity: Unable to collect Cognitive needs: No Hearing needs: No Vision needs: Yes (Wears glasses) Review of Systems Const All systems reviewed & are unremarkable except as noted in HPI and below Physical Exam Const General: cooperative, healthy appearing, comfortable, no acute distress, well developed and alert Orientation/consciousness: patient oriented x3 HEENT Head: Yes normal to inspection, Yes normocephalic and Yes atraumatic Eyes General: appearance normal, both eyes and all related structures Resp Effort & Inspection: normal respiratory effort and able to speak in complete sentences Cardio Rate: regular rate Peripheral pulses: Peripheral pulses 2+ throughout GI Palpation (GI): Soft to palpation Skin Lesions: no lesions Rashes: no rashes Neuro General: patient oriented x3 Extrem Other: Right ankle: Normal to inspection. She has bruising and swelling along the distal end of the leg which extends to the ankle and foot. She has tenderness along the lateral malleolus. NVI. Office Procedures Casting/Splints 59703-[id number] Leg Cast Application Procedure code (CPT) selection complete Fracture Care Fracture Billing Code: Fracture Billing Code Results Reviewed Results Reviewed: Xrays were obtained in the office today and personally reviewed by me of the right ankle show lateral malleolus fx with ankle mortise intact. Assessment & Plan Assessment & Plan (1) Fx lateral malleolus-closed: Code(s): S82.63XA - Displaced fracture of lateral malleolus of unspecified fibula, initial encounter for closed fracture Category: Medical Qualifiers: Encounter type: initial encounter Fracture alignment: nondisplaced Laterality: right Qualified Code(s): S82.64XA - Nondisplaced fracture of lateral malleolus of right fibula, initial encounter for closed fracture Plan We discussed options which include continued limited weight bearing and casting. She preferred a cast as she does not feel good with balance on foot and she does not have good bone healing. She will remain in the cast non weight bearing and see me back in 4 weeks for a follow-up, sooner if needed. Patient Instructions: Scribed for Agustin Marie PA-C, by Angelo Faustin registered medical assistant, on 02/03/2024 at 1:00 PM EST.? I, Agustin Marie PA-C, have personally reviewed and agree with the information entered by the scribe. Coding Level of Care Code New Pt Level 3 (81340) Diagnoses Closed nondisplaced fracture of lateral malleolus of right fibula, initial encounter S82.64XA Encounter type: initial encounter Fracture alignment: nondisplaced Laterality: right CPT Codes Casting - CPT: 37770-Cpixq Leg Cast Application ([id number]) Fracture Care - Fracture Billing Code: Fracture Billing Code ([id number])
== END 2024-02-03 14:44 | disposition home or self-care (01) ==
PROVIDERS: PCP Family Medicine; Visit Provider Physician Assistant
DX: S82.64XA Nondisplaced fracture of lateral malleolus of right fibula, initial encounter for closed fracture (principal); W19.XXXA Unspecified fall, initial encounter
CPT/HCPCS: 27786; 99203

== ENCOUNTER → 2024-02-03 12:51 | Outpatient (BNVA) | payer MEDICARE, MEDICAID, SELFPAY | PROVIDERS: PCP Family Medicine; Visit Provider Physician Assistant | DX: S82.64XA Nondisplaced fracture of lateral malleolus of right fibula, initial encounter for closed fracture (principal) | CPT/HCPCS: 27786; 99202 ==

== ENCOUNTER 2024-02-27 12:44 | Outpatient (AMB) | payer MEDICARE, MEDICAID, SELFPAY ==
--- NOTE | 2024-02-27 12:48 | MHC.PC.OV ---
Vital Signs 02/27/24 12:53 Height 5 ft Weight 222 lb BMI 43.4 BP 128/78 Pulse 104 H Pulse Source Pulse Oximeter Pulse Oximetry (%) 95 Oxygen Delivery Method Room Air Intake Visit Reasons: f/u chronic pain Intake Note: Patient is here to follow up on chronic pain, and would like reill of the Carisoprodol, Morphine 15mgSR, and Morphine ER 15 mg. Allergies hydromorphone [From DILAUDID] Allergy (Unknown, Verified 02/27/24 12:56) STOPS HEART ibuprofen [From MOTRIN] Allergy (Unknown, Verified 02/27/24 12:56) SEIZURE NSAIDS (Non-Steroidal Anti-Inflamma Allergy (Verified 02/27/24 12:56) Unknown Medication List - Last Reconciled 02/27/24 by Alvino Mcfarlane MD acetaminophen (Tylenol) 650 mg (2 x 325 mg) PO Q4H PRN carisoprodol 350 mg PO BID PRN 30 days cholecalciferol (vitamin D3) 1,250 mcg PO QWEEK 28 days clonazepam 1 mg PO BID 30 days dicyclomine 20 mg PO QID famotidine 20 mg PO DAILY 30 days folic acid 0.4 mg PO DAILY 30 days gabapentin 800 mg PO TID levetiracetam (Keppra) 750 mg PO BID metoprolol tartrate 100 mg PO BID morphine 15 mg PO Q8H PRN 28 days morphine ER 15 mg PO Q12H 28 days sucralfate 1 g PO BID Tobacco use date assessed: 12/05/23 Dental Screening Dental Screen Date: 11/10/23 HPI f/u chronic pain HPI Details 59 y/o female presents to f/u chronic pain. Recent mammogram was fine and is up to date. Bone density test 12/23/23 shows osteopenia. [facility] Medical History Spinal cord stimulator status Depression PTSD (post-traumatic stress disorder) Ischemic colitis GERD (gastroesophageal reflux disease) Peptic ulcer disease Thrombocytopenia Pressure sore on buttocks History of sudden cardiac successfully resuscitated ICD (implantable cardioverter-defibrillator) in place Surgical History History of spinal surgery History of cholecystectomy Family History Mother Dementia Cancer Father Heart disease Social History Household Members: Spouse Housing: House Alcohol intake: never Comment: restraints Patient Tobacco Use Status: Current everyday Tobacco user Tobacco use type: Cigarette Cigarette Packs Per Day: 0.75 Cigarettes Per Day: 10 Years Smoked: 40 +/- e-Cigarette/Vaping Use: Never Used service: No Current occupational status: disabled Current occupational exposures/hazards: No Sexual orientation: Unable to collect Gender identity: Unable to collect Cognitive needs: No Hearing needs: No Vision needs: Yes (Wears glasses) Questionnaire Thrive Questionnaire Date Thrive assessed: 07/29/23 MARIN-7 AMB Questionnaire MARIN-7 Date MARIN - 7 assessed: 10/13/23 Source: Developed by Drs. Kashif Turpin, Tona Estes, Jose De Anda and colleagues, with an educational johanny from [employer],. Review of Systems Const Denies chills, Denies fatigue, Denies fever(s), Denies headache(s) and Denies weakness ENT Denies dizziness and Denies headache(s) Card Denies dyspnea Resp Denies cough, Denies dyspnea, Denies wheezing and Denies other (shortness of breath) Musc Denies numbness and Denies tingling Neuro Denies dizziness, Denies headache(s), Denies numbness, Denies tingling and Denies weakness Psych Denies anxiety and Denies depression Endo Denies fatigue Aller/Immun Denies wheezing Physical exam (Primary Care) Vital Signs: Last Vital Signs Pulse 104 H 02/27/24 12:53 BP 128/78 02/27/24 12:53 Pulse Ox 95 02/27/24 12:53 Oxygen Delivery Method Room Air 02/27/24 12:53 BMI result Body Mass Index 43.4 Tobacco/Smoking Status: Tobacco use Status Tobacco use date assessed 12/05/23 02/27/24 12:52 Patient Tobacco Use Status Current everyday Tobacco 02/27/24 12:52 Tobacco use type Cigarette 02/27/24 12:52 e-Cigarette/Vaping Use Never Used 02/27/24 12:52 Thrive Assessment: Date of Thrive Assessment Date Thrive assessed 07/29/23 02/27/24 12:52 Const General: well developed; No acute distress Nutritional Appearance: well nourished and obese morbidly obese Orientation/consciousness: patient oriented x3 [facility] Head: Yes normocephalic and Yes atraumatic Eyes General: appearance normal, both eyes and all related structures Pupils: Equal, round and reactive pupils present EOM: EOMs intact bilaterally Resp Effort & Inspection: normal respiratory effort Auscultation: clear to auscultation bilaterally Cardio Rate: regular rate Rhythm: regular rhythm Heart sounds: S1 normal heart sound present, S2 normal heart sound present, no gallops, no murmurs and no rubs Neuro General: patient oriented x3 and gait normal Cranial nerves: Yes Equal, round and reactive pupils present Psych Affect: normal affect Assessment and Plan Assessment & Plan (1) Fx lateral malleolus-closed: Code(s): S82.63XA - Displaced fracture of lateral malleolus of unspecified fibula, initial encounter for closed fracture Qualifiers: Encounter type: initial encounter Fracture alignment: nondisplaced Laterality: right Qualified Code(s): S82.64XA - Nondisplaced fracture of lateral malleolus of right fibula, initial encounter for closed fracture Plan: Now?in?cast?and?has?follow-up?with?ortho Encouraged?smoking?cessation (2) Osteopenia: Code(s): M85.80 - Other specified disorders of bone density and structure, unspecified site Plan: Continue?vitamin-D?and?will?recheck?levels Good?sources?of?calcium-will?send?script (3) Chronic pain syndrome: Code(s): G89.4 - Chronic pain syndrome Plan: Controlled?on?current?pain?medications Will?continue?without?change (4) Smoker: Code(s): F17.200 - Nicotine dependence, unspecified, uncomplicated Plan: As?above,?recommend?smoking?cessation Patient?says?she?is?too?stressed?at?present We?will?readdress (5) Screening for cervical cancer: Code(s): Z12.4 - Encounter for screening for malignant neoplasm of cervix Plan: Patient?wanted?to?put?this?off?until?after?her?daughter's?wedding She?would?still?like?to?put?off?further?but?agrees?to?have?referral?placed?and?she?will?schedule?for?around?May. (6) Breast cancer screening by mammogram: Code(s): Z12.31 - Encounter for screening mammogram for malignant neoplasm of breast Plan: Mammogram?negative?for?malignancies Will?continue?annual?screening Orders: Orders Vitamin D 25-OH Total Today E55.9 - Vitamin D deficiency, unspecified, M85.80 - Other specified disorders of bone density and structure, unspecified site Hemoglobin A1c Today R73.01 - Impaired fasting glucose Comprehensive [place]. Panel Fast Today R73.01 - Impaired fasting glucose, Z00.00 - Encounter for general adult medical examination without abnormal findings Referrals MAINTENANCE PIPEFITTER Referral Z12.4 - Encounter for screening for malignant neoplasm of cervix Medications: New calcium carbonate 400 mg PO BID 90 days 180 tabs 2RF Refilled morphine ER [facility] Verified. Partial refill upon request. 15 mg PO Q12H 28 days 56 tabs 0RF morphine [facility]Pat Verified. Partial Refill Upon Request. 15 mg PO Q8H 28 days PRN 84 tabs 0RF pain carisoprodol 350 mg PO BID 30 days PRN 60 tabs 0RF Pain/Spasm cholecalciferol (vitamin D3) 1,250 mcg PO QWEEK 28 days 4 caps 1RF Coding Level of Care Code Est Pt Level 4 (92396) Diagnoses Closed nondisplaced fracture of lateral malleolus of right fibula, initial encounter S82.64XA Encounter type: initial encounter Fracture alignment: nondisplaced Laterality: right Osteopenia M85.80 Chronic pain syndrome G89.4 Smoker F17.200 Screening for cervical cancer Z12.4 Breast cancer screening by mammogram Z12.31
[2024-02-27 12:53] VITALS: BP 128/78; PULSE 104; O2SAT 95; BMI 43.4
== END 2024-02-27 15:11 | disposition home or self-care (01) ==
PROVIDERS: PCP Family Medicine; Visit Provider Family Medicine
DX: S82.64XA Nondisplaced fracture of lateral malleolus of right fibula, initial encounter for closed fracture (principal); M85.80 Other specified disorders of bone density and structure, unspecified site; G89.4 Chronic pain syndrome; F17.210 Nicotine dependence, cigarettes, uncomplicated; Z12.31 Encounter for screening mammogram for malignant neoplasm of breast
CPT/HCPCS: 99214

== ENCOUNTER 2024-03-15 12:04 | Outpatient (REF) | payer MEDICARE, MEDICAID, SELFPAY ==
--- NOTE | ~2024-03-15 | XR_ITS ---
EXAMINATION: XR ANKLE, RIGHT CLINICAL INFORMATION: Ankle pain. COMPARISON: X-ray 01/24/2024. TECHNIQUE: AP, lateral, and mortise views of the right ankle. FINDINGS: Stable positioning of the mildly displaced oblique fracture of the distal fibular metaphysis. The fracture is ill-defined suggesting healing changes. No new acute fracture is seen. Interval decrease in the soft tissue swelling. Plantar calcaneal spur. Study presented for dictation on 03/31/2024. XR/XR ankle RT min 3V IMPRESSION: Stable positioning of the right distal fibular fracture with healing changes.
== END 2024-03-15 12:05 | disposition home or self-care (01) ==
LOC: HO.HOSX 12:04
PROVIDERS: Visit Provider Physician Assistant
DX: S82.64XD Nondisplaced fracture of lateral malleolus of right fibula, subsequent encounter for closed fracture with routine healing (principal)
CPT/HCPCS: 73610; 99212

== ENCOUNTER 2024-03-15 14:18 | Outpatient (AMB) | payer MEDICARE, MEDICAID, SELFPAY ==
[2024-03-15 14:46] VITALS: BMI 43.0
--- NOTE | 2024-03-15 14:46 | A.OFFVIS_ITS ---
Vital Signs 03/15/24 14:46 Height 5 ft Weight 220 lb BMI 43.0 Intake Visit Reasons: OV-r ankle pain s/p fall-01/25/24 Intake Note: Gayatri is a 59 yr old female who presents today for her right ankle pain. Pt reports that she has not put any weight on it but still feels pain in the back of the ankle and foot. Allergies hydromorphone [From DILAUDID] Allergy (Unknown, Verified 03/15/24 14:48) STOPS HEART ibuprofen [From MOTRIN] Allergy (Unknown, Verified 03/15/24 14:48) SEIZURE NSAIDS (Non-Steroidal Anti-Inflamma Allergy (Verified 03/15/24 14:48) Unknown Medication List - Last Reconciled 03/15/24 by Agustin Marie PA-C acetaminophen (Tylenol) 650 mg (2 x 325 mg) PO Q4H PRN calcium carbonate 400 mg PO BID 90 days carisoprodol 350 mg PO BID PRN 30 days cholecalciferol (vitamin D3) 1,250 mcg PO QWEEK 28 days clonazepam 1 mg PO BID 30 days dicyclomine 20 mg PO QID famotidine 20 mg PO DAILY 30 days folic acid 0.4 mg PO DAILY 30 days gabapentin 800 mg PO TID levetiracetam (Keppra) 750 mg PO BID metoprolol tartrate 100 mg PO BID morphine 15 mg PO Q8H PRN 28 days morphine ER 15 mg PO Q12H 28 days sucralfate 1 g PO BID HPI HPI OV-r ankle pain s/p fall-01/25/24: Details: 59-year-old female who returns to the office today for a follow-up of right ankle pain. She states she has pain at the posterior aspect of her ankle and foot. She continues to wear her cast as instructed. She has not been weight bearing on her leg. She has no other concerns. [facility] Medical History Spinal cord stimulator status Depression PTSD (post-traumatic stress disorder) Ischemic colitis GERD (gastroesophageal reflux disease) Peptic ulcer disease Thrombocytopenia Pressure sore on buttocks History of sudden cardiac successfully resuscitated ICD (implantable cardioverter-defibrillator) in place Surgical History History of spinal surgery History of cholecystectomy Family History Mother Dementia Cancer Father Heart disease Social History Household Members: Spouse Housing: House Alcohol intake: never Comment: restraints Patient Tobacco Use Status: Current everyday Tobacco user Tobacco use type: Cigarette Cigarette Packs Per Day: 0.75 Cigarettes Per Day: 10 Years Smoked: 40 +/- e-Cigarette/Vaping Use: Never Used service: No Current occupational status: disabled Current occupational exposures/hazards: No Sexual orientation: Unable to collect Gender identity: Unable to collect Cognitive needs: No Hearing needs: No Vision needs: Yes (Wears glasses) Review of Systems Const All systems reviewed & are unremarkable except as noted in HPI and below Physical Exam Vital Signs: BMI result Body Mass Index 43.0 Const General: cooperative, healthy appearing, comfortable, no acute distress, well developed and alert Orientation/consciousness: patient oriented x3 HEENT Head: Yes normal to inspection, Yes normocephalic and Yes atraumatic Eyes General: appearance normal, both eyes and all related structures Resp Effort & Inspection: normal respiratory effort and able to speak in complete sentences Cardio Rate: regular rate Peripheral pulses: Peripheral pulses 2+ throughout GI Palpation (GI): Soft to palpation Skin Lesions: no lesions Rashes: no rashes Neuro General: patient oriented x3 Extrem Other: Right ankle: Normal to inspection. She has bruising and swelling along the distal end of the leg which extends to the ankle and foot. She has tenderness along the lateral malleolus. NVI. Results Reviewed Results Reviewed: Xrays were obtained in the office today and personally reviewed by me of the right ankle show stable, minimally displaced right distal fibular fracture with interval healing Assessment & Plan Assessment & Plan (1) Fx lateral malleolus-closed: Code(s): S82.63XA - Displaced fracture of lateral malleolus of unspecified fibula, initial encounter for closed fracture Category: Medical Qualifiers: Encounter type: subsequent encounter Fracture alignment: nondisplaced Laterality: right Fracture healing: with routine healing Qualified Code(s): S82.64XD - Nondisplaced fracture of lateral malleolus of right fibula, subsequent encounter for closed fracture with routine healing Plan She was transitioned to a tall boot weight bearing as tolerated. She can remove the boot for hygiene and resting. She will ambulate with the boot only and see me back in 6 weeks with new x-rays, sooner if needed. Orders: Orders XR ankle RT min 3V 03/15/24 M25.571 - Pain in right ankle and joints of right foot Patient Instructions: Scribed for Agustin Marie PA-C, by Angelo Faustin medical services coordinator, on 03/15/2024 at 2:30 PM EST.? I, Agustin Marie PA-C, have personally reviewed and agree with the information entered by the scribe. Coding Level of Care Code Global (46683) Diagnoses Closed nondisplaced fracture of lateral malleolus of right fibula with routine healing, subsequent encounter S82.64XD Encounter type: subsequent encounter Fracture alignment: nondisplaced Laterality: right Fracture healing: with routine healing
== END 2024-03-15 15:24 | disposition home or self-care (01) ==
PROVIDERS: PCP Family Medicine; Visit Provider Physician Assistant
DX: S82.64XD Nondisplaced fracture of lateral malleolus of right fibula, subsequent encounter for closed fracture with routine healing (principal)
CPT/HCPCS: 99024

== ENCOUNTER 2024-05-03 13:30 | Outpatient (REF) | payer MEDICARE, MEDICAID, SELFPAY ==
--- NOTE | ~2024-05-03 | XR_ITS ---
EXAMINATION: XR ANKLE, RIGHT CLINICAL INFORMATION: Right ankle pain. Fracture. COMPARISON: Most recent right ankle radiograph dated 03/15/2024. TECHNIQUE: AP, lateral, and mortise views of the right ankle. FINDINGS: Predominantly healed distal fibular fracture in anatomic alignment with lateral new bone/callus formation. No new fracture or dislocation. The ankle mortise is maintained. No joint space narrowing or marginal osteophytes. No osseous erosion. Plantar calcaneal spur. XR/XR ankle RT min 3V IMPRESSION: Predominantly healed distal fibular fracture in anatomic alignment with lateral new bone/callus formation. Electronically signed by: Cale Yi MD 05/07/2024 11:05 AM EDT
== END 2024-05-03 13:31 | disposition home or self-care (01) ==
LOC: HO.HOSX 13:30
PROVIDERS: PCP Family Medicine; Visit Provider Physician Assistant
DX: M25.571 Pain in right ankle and joints of right foot (principal); S82.64XD Nondisplaced fracture of lateral malleolus of right fibula, subsequent encounter for closed fracture with routine healing
CPT/HCPCS: 73610; 99212

== ENCOUNTER 2024-05-03 15:06 | Outpatient (AMB) | payer MEDICARE, MEDICAID, SELFPAY ==
--- NOTE | 2024-05-03 15:13 | MHC.OFFVIS ---
Vital Signs 05/03/24 15:17 Height 5 ft Weight 220 lb BMI 43.0 Intake Visit Reasons: OV-r ankle pain s/p fall-01/25/24-6 week follow up Intake Note: Gayatri is a 58 year old female who presents today for a follow up of right ankle fracture, DOI 01/25/24, Patient reports ongoing pain that is tender to the touch. She continues to wearing boot as instructed. States her discomfort may be from her applying more weight to her leg. Allergies hydromorphone [From DILAUDID] Allergy (Unknown, Verified 05/03/24 15:20) STOPS HEART ibuprofen [From MOTRIN] Allergy (Unknown, Verified 05/03/24 15:20) SEIZURE NSAIDS (Non-Steroidal Anti-Inflamma Allergy (Verified 05/03/24 15:20) Unknown HPI HPI OV-r ankle pain s/p fall-01/25/24-6 week follow up: Details: 59-year-old female who returns to the office today for a follow-up of right ankle pain s/p fall, 01/25/24. She reports tenderness in her ankle with touch. Her pain is aggravated with applying more weight to her leg. She continues to wear her boot as instructed. She has no other concerns today. [facility] Medical History Spinal cord stimulator status Depression PTSD (post-traumatic stress disorder) Ischemic colitis GERD (gastroesophageal reflux disease) Peptic ulcer disease Thrombocytopenia Pressure sore on buttocks History of sudden cardiac successfully resuscitated ICD (implantable cardioverter-defibrillator) in place Surgical History History of spinal surgery History of cholecystectomy Family History Mother Dementia Cancer Father Heart disease Social History Household Members: Spouse Housing: House Alcohol intake: never Comment: restraints Patient Tobacco Use Status: Current everyday Tobacco user Tobacco use type: Cigarette Cigarette Packs Per Day: 0.75 Cigarettes Per Day: 10 Years Smoked: 40 +/- e-Cigarette/Vaping Use: Never Used service: No Current occupational status: disabled Current occupational exposures/hazards: No Sexual orientation: Unable to collect Gender identity: Unable to collect Cognitive needs: No Hearing needs: No Vision needs: Yes (Wears glasses) Review of Systems Const All systems reviewed & are unremarkable except as noted in HPI and below Physical Exam Vital Signs: BMI result Body Mass Index 43.0 Const General: cooperative, healthy appearing, comfortable, no acute distress, well developed and alert Orientation/consciousness: patient oriented x3 HEENT Head: Yes normal to inspection, Yes normocephalic and Yes atraumatic Eyes General: appearance normal, both eyes and all related structures Resp Effort & Inspection: normal respiratory effort and able to speak in complete sentences Cardio Rate: regular rate Peripheral pulses: Peripheral pulses 2+ throughout GI Palpation (GI): Soft to palpation Skin Lesions: no lesions Rashes: no rashes Neuro General: patient oriented x3 Extrem Other: Right ankle: Normal to inspection. She has bruising and swelling along the distal end of the leg which extends to the ankle and foot. She has tenderness along the lateral malleolus. NVI. Results Reviewed Results Reviewed: Xrays were obtained in the office today and personally reviewed by me of the right ankle show stable, minimally displaced right distal fibular fracture with interval healing Assessment & Plan Assessment & Plan (1) Fx lateral malleolus-closed: Code(s): S82.63XA - Displaced fracture of lateral malleolus of unspecified fibula, initial encounter for closed fracture Category: Medical Qualifiers: Encounter type: subsequent encounter Fracture alignment: nondisplaced Fracture healing: with routine healing Laterality: right Qualified Code(s): S82.64XD - Nondisplaced fracture of lateral malleolus of right fibula, subsequent encounter for closed fracture with routine healing Plan She transitioned to a lace up ankle brace. I did recommend formal physical therapy however she declined and agreed on home exercises which I did provide her today. She will increase activities as tolerated and see me back as needed. Orders: Orders XR ankle RT min 3V 05/03/24 M25.571 - Pain in right ankle and joints of right foot Patient Instructions: Scribed for Agustin Marie PA-C, by Angelo Faustin medical technician assistant, on 05/03/2024 at 3:15 PM EST.? I, Agustin Marie PA-C, have personally reviewed and agree with the information entered by the scribe. Coding Level of Care Code Global (28629) Diagnoses Closed nondisplaced fracture of lateral malleolus of right fibula with routine healing, subsequent encounter S82.64XD Encounter type: subsequent encounter Fracture alignment: nondisplaced Fracture healing: with routine healing Laterality: right
[2024-05-03 15:17] VITALS: BMI 43.0
== END 2024-05-03 16:19 | disposition home or self-care (01) ==
PROVIDERS: PCP Family Medicine; Visit Provider Physician Assistant
DX: S82.64XD Nondisplaced fracture of lateral malleolus of right fibula, subsequent encounter for closed fracture with routine healing (principal)
CPT/HCPCS: 99024

== ENCOUNTER 2024-06-28 15:29 | Outpatient (AMB) | payer MEDICARE, MEDICAID, SELFPAY ==
--- NOTE | 2024-06-28 15:35 | MHC.PC.OV ---
Vital Signs 06/28/24 15:38 Height 5 ft Weight 248 lb BMI 48.4 BP 128/68 Blood Pressure Location Rt brachial Position Sitting Respiration 12 Pulse 95 Pulse Source Pulse Oximeter Temp 98.6 F Temp Source Temporal Artery Scan Pulse Oximetry (%) 91 L Oxygen Delivery Method Room Air Intake Visit Reasons: F/U CHRONIC PAIN/CONDITIONS - see comments Intake Note: chronic pain f/u Allergies hydromorphone [From DILAUDID] Allergy (Unknown, Verified 06/28/24 15:37) STOPS HEART ibuprofen [From MOTRIN] Allergy (Unknown, Verified 06/28/24 15:37) SEIZURE NSAIDS (Non-Steroidal Anti-Inflamma Allergy (Verified 06/28/24 15:37) Unknown Medication List - Last Reconciled 06/28/24 by Alvino Mcfarlane MD acetaminophen (Tylenol) 650 mg (2 x 325 mg) PO Q4H PRN calcium carbonate 400 mg PO BID 90 days carisoprodol 350 mg PO BID PRN 30 days cholecalciferol (vitamin D3) 1,250 mcg PO QWEEK 28 days clonazepam 1 mg PO BID 30 days dicyclomine 20 mg PO QID famotidine 20 mg PO DAILY 30 days folic acid 0.4 mg PO DAILY 30 days gabapentin 800 mg PO TID levetiracetam (Keppra) 750 mg PO BID metoprolol tartrate 100 mg PO BID morphine 15 mg PO Q8H PRN 28 days morphine ER 15 mg PO Q12H 28 days sucralfate 1 g PO BID Tobacco use date assessed: 12/05/23 Dental Screening Dental Screen Date: 11/10/23 HPI F/U CHRONIC PAIN/CONDITIONS - see comments HPI Details 59 y/o female presents to f/u chronic pain/chronic conditions. PHQ-9 25 today. Notes ongoing significant pain which has been causing her increased stressors. She notes she has been meditating to help with mood. She reports she used to have a therapist but she feels if she sees one again her anxiety/depression may worsen. HPI Comments History of Present Illness Details Documentation assistance for Alvino Mcfarlane MD, was provided by Nico Harley,? Cardiac Rn on 06/28/2024 at 3:56 PM EST. I, Dr. Mcfarlane, have read, observed, and verified documentation. [facility] Medical History Spinal cord stimulator status Depression PTSD (post-traumatic stress disorder) Ischemic colitis GERD (gastroesophageal reflux disease) Peptic ulcer disease Thrombocytopenia Pressure sore on buttocks History of sudden cardiac successfully resuscitated ICD (implantable cardioverter-defibrillator) in place Surgical History History of spinal surgery History of cholecystectomy Family History Mother Dementia Cancer Father Heart disease Social History Household Members: Spouse Housing: House Alcohol intake: never Comment: restraints Patient Tobacco Use Status: Current everyday Tobacco user Tobacco use type: Cigarette Cigarette Packs Per Day: 0.75 Cigarettes Per Day: 10 Years Smoked: 40 +/- e-Cigarette/Vaping Use: Never Used service: No Current occupational status: disabled Current occupational exposures/hazards: No Sexual orientation: Unable to collect Gender identity: Unable to collect Cognitive needs: No Hearing needs: No Vision needs: Yes (Wears glasses) Questionnaire PHQ-9 Over the last 2 weeks, how often have you been bothered by any of the following problems? 1. Little interest or pleasure in doing things: nearly every day 2. Feeling down, depressed, or hopeless: nearly every day 3. Trouble falling or staying asleep, or sleeping too much: nearly every day 4. Feeling tired or having little energy: nearly every day 5. Poor appetite or overeating: nearly every day 6. Feeling bad about yourself - or that you are a failure or have let yourself or your family down: nearly every day 7. Trouble concentrating on things, such as reading the newspaper or watching television: nearly every day 8. Moving or speaking so slowly that other people could have noticed. Or the opposite - being so fidgety or restless that you have been moving around a lot more than usual: nearly every day 9. Thoughts that you would be better off or of hurting yourself in some way: several days Total score: 25 Depression Screening Interpretation: Positive Depression Screening Done: Yes 92801 - PHQ-9 Billing: Yes Source: Developed by Drs. Kashif Turpin, Tona Estes, Jose De Anda and colleagues, with an educational johanny from [employer]. Thrive Questionnaire Date Thrive assessed: 06/28/24 I am a: Patient What is your living situation today?: I have a steady place to live Within the past 12 months, did the food you bought not last and you didn't have the money to get more?: Often true Within the past 12 months, did you worry whether your food would run out before you got money to buy more?: Often true Do you have trouble paying for medicines?: No Do you have trouble getting transportation to medical appointments?: Yes Do you have trouble paying your heating and electricity bill?: Yes Do you have trouble taking care of your child, family member or friend?: Yes Do you have trouble with day-to-day activities such as bathing, preparing meals, shopping, managing finances, etc.?: Yes Are you currently unemployed and looking for a job?: I choose not to answer this question Are you interested in more education?: No THRIVE Score: 4 AUDIT C Alcohol Use Questionnaire (AUDIT-C) 3. How often do you have six or more drinks on one occasion?: Never Total Score: 0 MARIN-7 AMB Questionnaire MARIN-7 Date MARIN - 7 assessed: 10/13/23 Source: Developed by Drs. Kashif Turpin, Tona Estes, Jose De Anda and colleagues, with an educational johanny from [employer]. Review of Systems Const Denies chills, Denies fatigue, Denies fever(s), Denies headache(s) and Denies weakness ENT Denies dizziness and Denies headache(s) Card Denies dyspnea Resp Denies cough, Denies dyspnea, Denies wheezing and Denies other (shortness of breath) Musc Denies numbness and Denies tingling Neuro Denies dizziness, Denies headache(s), Denies numbness, Denies tingling and Denies weakness Psych Reports depression Endo Denies fatigue Aller/Immun Denies wheezing Physical exam (Primary Care) Vital Signs: Last Vital Signs Temp 98.6 F 06/28/24 15:38 Pulse 95 06/28/24 15:38 Resp 12 06/28/24 15:38 BP 128/68 06/28/24 15:38 Pulse Ox 91 L 06/28/24 15:38 Oxygen Delivery Method Room Air 06/28/24 15:38 BMI result Body Mass Index 48.4 Tobacco/Smoking Status: Tobacco use Status Tobacco use date assessed 12/05/23 06/28/24 15:35 Patient Tobacco Use Status Current everyday Tobacco 06/28/24 15:35 Tobacco use type Cigarette 06/28/24 15:35 e-Cigarette/Vaping Use Never Used 06/28/24 15:35 PHQ-9: PHQ-9 Score PHQ-9: Total score 25 06/28/24 15:35 Depression Screening Interpretation: Positive Thrive Assessment: Date of Thrive Assessment Date Thrive assessed 06/28/24 06/28/24 15:35 Const General: well developed; No acute distress Nutritional Appearance: well nourished Orientation/consciousness: patient oriented x3 HENMT Head: Yes normocephalic and Yes atraumatic Eyes General: appearance normal, both eyes and all related structures Pupils: Equal, round and reactive pupils present EOM: EOMs intact bilaterally Resp Effort & Inspection: normal respiratory effort Auscultation: clear to auscultation bilaterally Cardio Rate: regular rate Rhythm: regular rhythm Heart sounds: S1 normal heart sound present, S2 normal heart sound present, no gallops, no murmurs and no rubs Neuro General: patient oriented x3 and gait normal Cranial nerves: Yes Equal, round and reactive pupils present Psych Affect: normal affect Coding Level of Care Code Tele Est Pt Level 3 (84100) Diagnoses Chronic pain syndrome G89.4 Closed nondisplaced fracture of lateral malleolus of right fibula with routine healing, subsequent encounter S82.64XD Encounter type: subsequent encounter Fracture alignment: nondisplaced Fracture healing: with routine healing Laterality: right Anxiety with depression F41.8 Assessment & Plan Assessment & Plan (1) Chronic pain syndrome: Code(s): G89.4 - Chronic pain syndrome Category: Medical Plan: Acute?on?chronic?pain?with?right?ankle?fracture She?has?been?followed?by?[facility] [place]?[facility]?and?now?has?an?appointment?with?new?[facility]. Follow-up?as?recommended Does?appear?somewhat?sleepy?today?and?may?need?medication?dose?adjustment?at?subsequent?visit. (2) Fx lateral malleolus-closed: Code(s): S82.63XA - Displaced fracture of lateral malleolus of unspecified fibula, initial encounter for closed fracture Category: Medical Qualifiers: Encounter type: subsequent encounter Fracture alignment: nondisplaced Fracture healing: with routine healing Laterality: right Qualified Code(s): S82.64XD - Nondisplaced fracture of lateral malleolus of right fibula, subsequent encounter for closed fracture with routine healing Plan: As?above (3) Anxiety with depression: Code(s): F41.8 - Other specified anxiety disorders Category: Medical Plan: Significant?anxiety?depression?and?has?history?of?PTSD. No?current?therapist?or?psychiatrist. No?current?medication?therapy Will?refer?to?[facility] [place]?outpatient?psychiatric?consult?team. Orders: Referrals Psychiatry Outpatient Consultation Service F41.8 - Other specified anxiety disorders, F43.10 - Post-traumatic stress disorder, unspecified, G89.4 - Chronic pain syndrome
[2024-06-28 15:38] VITALS: BP 128/68; PULSE 95; RESP 12; TEMP 37; O2SAT 91; BMI 48.4
== END 2024-06-28 16:12 | disposition home or self-care (01) ==
PROVIDERS: PCP Family Medicine; Visit Provider Family Medicine
DX: G89.4 Chronic pain syndrome (principal); S82.64XD Nondisplaced fracture of lateral malleolus of right fibula, subsequent encounter for closed fracture with routine healing; F41.8 Other specified anxiety disorders

== ENCOUNTER → 2024-06-28 15:29 | Outpatient (BNVA) | payer MEDICARE, MEDICAID, SELFPAY | PROVIDERS: PCP Family Medicine; Visit Provider Family Medicine | DX: G89.4 Chronic pain syndrome (principal); S82.64XD Nondisplaced fracture of lateral malleolus of right fibula, subsequent encounter for closed fracture with routine healing; F41.8 Other specified anxiety disorders; F43.10 Post-traumatic stress disorder, unspecified | CPT/HCPCS: 96127; 99212 ==

== ENCOUNTER → 2024-07-06 15:44 | Outpatient (REF) | payer MEDICARE, MEDICAID, SELFPAY ==
--- NOTE | 2024-07-06 15:47 | CA_ITS ---
Transthoracic Echocardiogram Patient (Last, First, Middle): Gayatri Lopez, Gender: Female Date of : 1965 Age: 59 Procedure Date: 07/06/2024 Procedure Type: Transthoracic Echocardiogram Location: OP Height: 152.4 cm Weight: 113.4 kg BSA: 2.05 m2 Heart Rate: bpm BP: 130 / 70 mmHg Patient Carrier: Referring MD: Aquiles Bowen MD Symptoms: Z86.74 - Personal history of sudden cardiac arrest Study Quality: Adequate ECG Rhythm: Sinus Conclusions: - The left ventricular systolic function is normal. The calculated ejection fraction is 66% by biplane method. - Moderate focal hypertrophy of the basal septum. - No obvious valvular pathology seen on this study. Findings Left Ventricle Normal left ventricular cavity size. The left ventricular systolic function is normal. The calculated ejection fraction is 66% by biplane method. There is no evidence of regional wall motion abnormalities. Diastolic function is normal for age. Moderate focal hypertrophy of the basal septum. In other areas, endocardium not well visualized to accurately measure wall thickness. Right Ventricle Normal right ventricular cavity size and systolic function. Atria Both atria are normal in size. Aortic Valve There is a normal trileaflet aortic valve. There is no aortic valve stenosis. There is no aortic valve regurgitation. Mitral Valve The mitral valve appears normal. There is trace mitral valve regurgitation. There is no mitral valve stenosis. Pulmonic Valve The pulmonic valve is likely normal. Tricuspid Valve There is mild tricuspid valve regurgitation. There is no evidence of pulmonary hypertension. Great Vessels The asc aorta is normal in size. Venous The inferior vena cava is normal in size and collapses greater than 50% with inspiration. Pericardium/Pleural There is a trivial pericardial effusion. Prior Study Comparison Changes noted compared to prior study dated: 05/27/2022. RV dimension within normal limits. Recommendations, Care & Conclusions No obvious valvular pathology seen on this study. Measurements 2D Linear Measurements IVSd: 1.31 0.6-0.9/0.6-1.0 cm LVIDd: 3.50 3.9-5.3/4.2-5.9 cm LVIDd Index: 1.71 2.4-3.2/2.2-3.1 cm/m2 LVIDs: 2.19 2.0-3.6 cm LVPWd: 1.33 0.7-1.1 cm Ao Root: 3.20 2.1-3.5 cm LA Diam: 3.40 2.7-3.8/3.0-4.0 cm LAIDs Index: 1.66 1.5-2.3 cm/m2 LV Mass: 196.14 67-162/88-224 g LV Mass Index: 95.68 43-95/49-115 g/m2 LVOT Diam: 2.10 3.0+(-)1.3 cm 2D Systolic Function EF 4C: 62.00 >55% EF 2C: 69.70 >55% EF BiP: 65.50 >55% Mitral Valve MV Pk E: 0.91 MV PK A: 0.88 MV Decel Time: 199.00 E/A: 1.00 E'Lateral: 7.40 E'Medial: 5.77 E/E' Med: 15.70 E/E' Lat: 12.20 PHT: 58.00 MVA PHT: 3.79 Decel [place]: 4.56 Aortic Valve AoV Pk Shady: 1.11 AoV Mn Shady: 0.79 AoV VTI: 0.31 AoV Pk Grad: 5.00 Aov Mn Grad: 3.00 RENY Cont.VTI: 3.66 LVOT LVOT Pk Shady: 1.11 LVOT Mn Shady: 0.75 LVOT VTI: 0.28 LVOT Pk Grad: 5.00 LVOT Mn Grad: 3.00 LVOT Diam: 2.10 LVOT Area: 3.46 Diastolic Function MV Pk E: 0.91 MV Pk A: 0.88 E/A: 1.00 E'Medial: 5.77 E/E' Med: 15.70 E' Laterial: 7.40 E/E' Lat: 12.20 Right Ventricle TAPSE (mm): 25.00 TVS' Shady: 14.00 Tricuspid Valve TR Pk Shady: 2.66 TR Pk Grad: 28.00 RA Press: 3.00 RVSP: 31.00 Great Vessels Aorta Ao Root-2D: 3.20 2.0-3.7 cm Ao Asc: 3.20 2.1-3.4 cm Pulmonary Valve PV Pk Shady: 0.89 Peak PV Grad: 3.00 Updated in Other Vendor System with Status of Final Godwin Mcleod MD electronically signed on 07/08/2024 11:04:01 AM with status of Final
== END ==
LOC: HO.CARD 15:44
PROVIDERS: PCP Family Medicine; Visit Provider Internal Medicine Cardiovascular Disease
DX: Z86.74 Personal history of sudden cardiac arrest (principal)
CPT/HCPCS: 93306

== ENCOUNTER → 2024-07-06 15:47 | Outpatient (BNV) | payer MEDICARE, MEDICAID, SELFPAY | PROVIDERS: PCP Family Medicine; Visit Provider Internal Medicine | DX: I36.1 Nonrheumatic tricuspid (valve) insufficiency (principal); I42.2 Other hypertrophic cardiomyopathy; Z86.74 Personal history of sudden cardiac arrest | CPT/HCPCS: 93306 ==

== ENCOUNTER 2024-07-13 11:35 | Outpatient (REF) | payer MEDICARE, MEDICAID, SELFPAY ==
[2024-07-13 12:39] LABS: Estimated Average Glucose 105 mg/dL; Hemoglobin A1C 134.9334 umol/L; Hemoglobin A1c % 5.3 % (<6.0)
[2024-07-13 12:41] LABS: Appearance Urine Clear; Color Urine Yellow; Glucose Urine UA Negative (Negative); Leukocyte Esterase Urine Small (1+) (Negative); Nitrite Urine Negative (Negative); UMIC TRIGGER UA YES; Urine Blood Negative (Negative); Urine Ketones Negative (Negative); Urine Protein Negative (Neg-Trace)
[2024-07-13 12:49] LABS: Bacteria Urine 1+ (None Seen); Hyaline Casts Urine 0-2 /LPF (0-2); RBC Urine 0-2 /HPF (0-2); WBC Urine 0-5 /HPF (0-5)
[2024-07-13 13:08] LABS: Alanine Aminotransferase 24 U/L (0-31); Albumin Level 4.7 g/dL (3.5-5.0); Alkaline Phosphatase 100 U/L (39-117); Anion Gap 14 (12-20); Aspartate Amino Transferase 30 U/L (5-31); Bilirubin Total 0.4 mg/dL (0.0-1.0); Blood Urea Nitrogen 11 mg/dL (9-16); Calcium 9.8 mg/dL (8.4-10.2); Carbon Dioxide 25 mmol/L (22-29); Chloride 106 mmol/L (96-108); Estimated Glomerular Filt Rate > 60; Glucose Fasting 92 mg/dL (60-99); Sodium 141 mmol/L (135-145); Total Protein 8.2 g/dL (6.5-8.0)
[2024-07-13 13:09] LABS: Creatinine Urine 143.23 mg/dL; Microalbum/Creatinine Ratio Ur 10.4 ug/mg cr (<30)
[2024-07-13 13:13] LABS: Vitamin D 25-OH Total 61.9 ng/mL (>30)
[2024-07-15 14:31] LABS: Morphine, Ur >10000 (H)
[2024-07-15 14:33] LABS: Codeine, Ur NEGATIVE; Hydrocodone, Ur NEGATIVE; Hydromorphone, Ur NEGATIVE; Norhydrocodone, Ur NEGATIVE; Noroxycodone, Ur NEGATIVE; Oxycodone, Ur NEGATIVE; Oxymorphone, Ur NEGATIVE
== END 2024-07-13 11:36 | disposition home or self-care (01) ==
LOC: HO.LAB 11:35
PROVIDERS: PCP Family Medicine; Visit Provider Family Medicine
DX: E55.9 Vitamin D deficiency, unspecified (principal); M85.80 Other specified disorders of bone density and structure, unspecified site; I10 Essential (primary) hypertension; F11.20 Opioid dependence, uncomplicated; R73.01 Impaired fasting glucose; Z86.74 Personal history of sudden cardiac arrest; Z95.810 Presence of automatic (implantable) cardiac defibrillator; Z00.00 Encounter for general adult medical examination without abnormal findings; Z79.899 Other long term (current) drug therapy
CPT/HCPCS: 80053; 80365; 81001; 82043; 82306; 82570; 83036; 93005; 99212; G0480

== ENCOUNTER 2024-07-13 12:19 | Outpatient (AMB) | payer MEDICARE, MEDICAID, SELFPAY ==
[2024-07-13 12:28] VITALS: BP 126/80; PULSE 91; BMI 46.2
--- NOTE | 2024-07-13 12:28 | A.OFFVIS_ITS ---
Vital Signs 07/13/24 12:28 Height 5 ft Weight 236 lb 12.423 oz BMI 46.2 BP 126/80 Blood Pressure Location Lt brachial Position Sitting Pulse 91 Intake Visit Reasons: 6 mth f/up Intake Note: 6 month F/U with Echo. Pt feeling okay. Print Line Tailer Required: No Accompanied by: Spouse Allergies hydromorphone [From DILAUDID] Allergy (Unknown, Verified 06/28/24 15:37) STOPS HEART ibuprofen [From MOTRIN] Allergy (Unknown, Verified 06/28/24 15:37) SEIZURE NSAIDS (Non-Steroidal Anti-Inflamma Allergy (Verified 06/28/24 15:37) Unknown Medication List - Last Reconciled 07/13/24 by Aquiles Bowen MD carisoprodol 350 mg PO BID PRN 30 days cholecalciferol (vitamin D3) 1,250 mcg PO QWEEK 28 days clonazepam 1 mg PO BID 30 days dicyclomine 20 mg PO QID gabapentin 800 mg PO QID levetiracetam (Keppra) 750 mg PO BID metoprolol tartrate 100 mg PO BID morphine 15 mg PO Q8H PRN 28 days morphine ER 15 mg PO Q12H 28 days sucralfate 1 g PO BID HPI Comments Details: She denies any syncope, palpitation, ICD discharge. Gayatri comes for follow-up. She has not had any cardiac symptoms. She says she has poor quality of life due to significant pain and other systemic issues. She denies any other cardiac symptoms. Recent echocardiogram shows normal LV ejection fraction with moderate asymmetric septal hypertrophy. [facility] Medical History Spinal cord stimulator status Depression PTSD (post-traumatic stress disorder) Ischemic colitis GERD (gastroesophageal reflux disease) Peptic ulcer disease Thrombocytopenia Pressure sore on buttocks History of sudden cardiac successfully resuscitated ICD (implantable cardioverter-defibrillator) in place Surgical History History of spinal surgery History of cholecystectomy Family History Mother Dementia Cancer Father Heart disease Social History Household Members: Spouse Housing: House Alcohol intake: never Comment: restraints Patient Tobacco Use Status: Current everyday Tobacco user Tobacco use type: Cigarette Cigarette Packs Per Day: 0.75 Cigarettes Per Day: 10 Years Smoked: 40 +/- e-Cigarette/Vaping Use: Never Used service: No Current occupational status: disabled Current occupational exposures/hazards: No Sexual orientation: Unable to collect Gender identity: Unable to collect Cognitive needs: No Hearing needs: No Vision needs: Yes (Wears glasses) Review of Systems Const Denies chills, Denies fatigue, Denies fever(s), Denies weight gain and Denies weight loss ENT Denies dizziness Card Denies chest pain, Denies leg edema, Denies lightheadedness, Denies palpitations, Denies dyspnea on exertion, Denies orthopnea and Denies other Resp Denies cough and Denies dyspnea on exertion GI Denies hematochezia and Denies change in stool character Musc Denies abnormal gait, Denies muscle weakness, Denies numbness, Denies radiating pain into limb and Denies tingling Neuro Denies abnormal gait, Denies dizziness, Denies numbness and Denies tingling Endo Denies fatigue and Denies palpitations Physical Exam Vital Signs: Last Vital Signs Pulse 91 07/13/24 12:28 BP 126/80 07/13/24 12:28 BMI result Body Mass Index 46.2 Const General: cooperative, comfortable, no acute distress, alert and awake Nutritional Appearance: obese Orientation/consciousness: patient oriented x3 Limitations: ambulation with cane Neck Neck: Yes trachea midline, Yes supple and Yes no JVD Resp Effort & Inspection: normal respiratory effort Auscultation: clear to auscultation bilaterally and diminished lung sounds Cardio Jugular venous distension: no JVD Palpation: normal PMI Rate: regular rate Rhythm: regular rhythm Heart sounds: S1 normal heart sound present and S2 normal heart sound present GI Auscultation: normal bowel sounds Skin General skin exam: no rashes or lesions noted Neuro General: patient oriented x3 and no focal motor deficits Extrem General: Yes no clubbing, cyanosis or edema Psych Appearance: grossly normal Office Procedures Cardiac Device Check Cardiac Device Check Details: Dual-chamber [employer] ICD in place. Programmed in DDDR 60 beats per minute. Atrial ventricular sensing is adequate atrial ventricular capture thresholds sangeetha quate. Battery life is about 3 months. Pacing and shock lead impedance is stable. No significant arrhythmias noted. [id number] Cardiac Device Check, dual lead implantable defibrillator Procedure code (CPT) selection complete EKG Details: EKG shows normal sinus rhythm with nonspecific ST T wave changes at 91 beats per minute [id number], Complete Assessment & Plan Assessment & Plan (1) History of sudden cardiac successfully resuscitated: Code(s): Z86.74 - Personal history of sudden cardiac arrest Category: Medical Plan: Prior history of sudden cardiac that which was successfully resuscitated and has had ICD in place. Patient has no recurrent events and is currently on metoprolol therapy. Suspected long QT syndrome although this is unclear. Recent echocardiogram also shows moderate asymmetric septal hypertrophy. Continue monitor clinically. (2) ICD (implantable cardioverter-defibrillator) in place: Comment: dual-chamber [employer] ICD in place for sudden cardiac with VF Code(s): Z95.810 - Presence of automatic (implantable) cardiac defibrillator Category: Medical Plan: Dual-chamber ICD in place for secondary prevention of sudden cardiac that. At this point time patient has had no recurrent events after ICD placement and no ICD shocks. Patient did express that she does not want to be resuscitated although she is not clear on whether she wants to do a pulse generator change. I have advised her to think about it and discuss with the family members. Will follow up in the clinic in 3 months time for ICD well Coding Level of Care Code Est Pt Level 4 (12540) Complex EM visit Add On G2211 Diagnoses History of sudden cardiac successfully resuscitated Z86.74 ICD (implantable cardioverter-defibrillator) in place Z95.810 CPT Codes Cardiac Device Check - Cardiac Device 5: 81314-RS Cardiac Device Check, dual lead implantable defibrillator ([id number]) EKG - CPT: 84623-[id number], Complete ([id number])
== END 2024-07-13 13:08 | disposition home or self-care (01) ==
LOC: HO.HCS 12:19
PROVIDERS: PCP Internal Medicine; Visit Provider Internal Medicine Cardiovascular Disease
DX: Z86.74 Personal history of sudden cardiac arrest (principal); Z95.810 Presence of automatic (implantable) cardiac defibrillator
CPT/HCPCS: 93010; 93283; 99214; G2211

== ENCOUNTER 2024-07-20 09:47 | Outpatient (AMB) | payer MEDICARE, MEDICAID, SELFPAY ==
[2024-07-20 10:09] VITALS: BP 126/80; PULSE 77; BMI 46.1
--- NOTE | 2024-07-20 10:09 | MHC.OFFVIS ---
Vital Signs 07/20/24 10:09 Height 5 ft Weight 236 lb BMI 46.1 BP 126/80 Blood Pressure Location Lt brachial Position Sitting Pulse 77 Intake Visit Reasons: ? defib went off Systems Architecture Analyst Required: No Pattern Data Operator: Pattern Data Operator Present Allergies hydromorphone [From DILAUDID] Allergy (Unknown, Verified 07/20/24 10:21) STOPS HEART ibuprofen [From MOTRIN] Allergy (Unknown, Verified 07/20/24 10:21) SEIZURE NSAIDS (Non-Steroidal Anti-Inflamma Allergy (Verified 07/20/24 10:21) Unknown Medication List - Last Reconciled 07/20/24 by DAYSI RebolledoC carisoprodol 350 mg PO BID PRN 30 days cholecalciferol (vitamin D3) 1,250 mcg PO QWEEK 28 days clonazepam 1 mg PO BID 30 days dicyclomine 20 mg PO QID gabapentin 800 mg PO QID levetiracetam (Keppra) 750 mg PO BID metoprolol tartrate 100 mg PO BID morphine 15 mg PO Q8H PRN 28 days morphine ER 15 mg PO Q12H 28 days sucralfate 1 g PO BID HPI HPI ? defib went off: Details: Gayatri is a 59-year-old female with past medical history of hyperlipidemia, chronic pain syndrome, sudden cardiac with resuscitation, long QT syndrome, ICD for secondary prevention who reports that her ICD has vibrated twice last evening and twice this morning. Today she reports the concerns with her ICD. She reports that she has been unchanged recently. She has daily issues with chronic pain in her back and currently right lower extremity. She is wearing an orthopedic boot due to a fracture in the lower leg that occurred months ago. She ambulates with a cane. She denies chest discomfort at rest or with activity. She has shortness of breath with physical activity. She is mostly sedentary. Taking all meds as directed. Her is present. [facility] Medical History Spinal cord stimulator status Depression PTSD (post-traumatic stress disorder) Ischemic colitis GERD (gastroesophageal reflux disease) Peptic ulcer disease Thrombocytopenia Pressure sore on buttocks History of sudden cardiac successfully resuscitated ICD (implantable cardioverter-defibrillator) in place Surgical History History of spinal surgery History of cholecystectomy Family History Mother Dementia Cancer Father Heart disease Social History Household Members: Spouse Housing: House Alcohol intake: never Comment: restraints Patient Tobacco Use Status: Current everyday Tobacco user Tobacco use type: Cigarette Cigarette Packs Per Day: 0.75 Cigarettes Per Day: 10 Years Smoked: 40 +/- e-Cigarette/Vaping Use: Never Used service: No Current occupational status: disabled Current occupational exposures/hazards: No Sexual orientation: Unable to collect Gender identity: Unable to collect Cognitive needs: No Hearing needs: No Vision needs: Yes (Wears glasses) Review of Systems Const All systems reviewed & are unremarkable except as noted in HPI and below ENT Denies dizziness Card Denies chest pain, Denies chest pain at rest, Denies chest pain with activity, Denies rapid heart rate, Denies pedal edema, Denies edema, Denies leg edema, Denies lightheadedness, Denies palpitations, Denies dyspnea, Denies dyspnea on exertion and Denies orthopnea Resp Denies cough, Denies dyspnea and Denies dyspnea on exertion GI Denies hematochezia and Denies change in stool character Musc Details: Chronic back pain, orthopedic boot on right lower extremity Reports abnormal gait, Reports limited range of motion, Denies muscle cramps, Denies muscle weakness, Denies numbness, Denies radiating pain into limb, Denies stiffness and Denies tingling Neuro Reports abnormal gait, Denies dizziness, Denies numbness and Denies tingling Endo Denies palpitations Physical Exam Vital Signs: Last Vital Signs Pulse 77 07/20/24 10:09 BP 126/80 07/20/24 10:09 BMI result Body Mass Index 46.1 Const General: cooperative, healthy appearing, comfortable and no acute distress Orientation/consciousness: patient oriented x3 Neck Neck: Yes normal visual inspection Resp Effort & Inspection: normal respiratory effort Auscultation: clear to auscultation bilaterally, no rales, no rhonchi and no wheezes Cardio Rate: regular rate Rhythm: regular rhythm Heart sounds: S1 normal heart sound present, S2 normal heart sound present, no murmurs and no rubs Neuro General: patient oriented x3 Extrem Other: No edema left lower extremity, orthopedic boot on right lower extremity Psych Appearance: grossly normal Mental Status: mental status grossly normal Speech and movement: Normal speech and movement present Office Procedures Cardiac Device Check Cardiac Device Check Details: [facility] device interrogation today, battery at ITA, reached 07/19/2024, DDDR mode, low rate 55, no VT or VF, V paced less than 1%, a paced 5.7%, frequent AMS episode related to atrial noise reversion, atrial threshold 0.5 volts at 0.5 milliseconds, ventricular threshold 2.125 volts at 0.5 milliseconds [id number] Cardiac Device Check, dual lead implantable defibrillator Procedure code (CPT) selection complete Assessment & Plan Assessment & Plan (1) ICD (implantable cardioverter-defibrillator) in place: Comment: dual-chamber [facility] ICD in place for sudden cardiac with VF Code(s): Z95.810 - Presence of automatic (implantable) cardiac defibrillator Category: Medical Plan: [facility] dual-chamber ICD interrogation today shows battery has reached ITA 07/19/2024. She also has atrial noise reversion triggering multiple AMS episodes. Discussed with [facility] rep. Patient may need new atrial lead. Patient is agreeable to generator change and lead replacement if recommended. She would like this procedure done by Dr. Perez. She is aware that it will be at [facility]. Will forward this information to his office. Informed her to expect a call from them regarding procedure dates. At this time she has a follow-up here in our office 10/19/2024. Will keep that appointment. (2) History of sudden cardiac successfully resuscitated: Code(s): Z86.74 - Personal history of sudden cardiac arrest Category: Medical Plan: Based on prior notes, Most likely related to long QT syndrome. Continue metoprolol. ICD in place. (3) ICD (implantable cardioverter-defibrillator) battery depletion: Code(s): Z45.02 - Encounter for adjustment and management of automatic implantable cardiac defibrillator Category: Medical Plan: Battery reached ITA 07/19/2024 Plan Time spent on chart review, documentation, interview and assessment Orders: Referrals Cardiac Electrophysiology Referral Z45.02 - Encounter for adjustment and management of automatic implantable cardiac defibrillator Coding Level of Care Code Est Pt Level 4 (86828) Complex EM visit Add On G2211 Diagnoses ICD (implantable cardioverter-defibrillator) in place Z95.810 History of sudden cardiac successfully resuscitated Z86.74 ICD (implantable cardioverter-defibrillator) battery depletion Z45.02 CPT Codes Cardiac Device Check - Cardiac Device 5: [id number] Cardiac Device Check, dual lead implantable defibrillator ([id number]) Time Spent (min) 36
== END 2024-07-20 10:40 | disposition home or self-care (01) ==
PROVIDERS: PCP Family Medicine; Visit Provider Nurse Practitioner Family
DX: Z95.810 Presence of automatic (implantable) cardiac defibrillator (principal); Z86.74 Personal history of sudden cardiac arrest; Z45.02 Encounter for adjustment and management of automatic implantable cardiac defibrillator
CPT/HCPCS: 93283; 99214; G2211

== ENCOUNTER → 2024-07-20 09:47 | Outpatient (BNVA) | payer MEDICARE, MEDICAID, SELFPAY | PROVIDERS: PCP Family Medicine; Visit Provider Nurse Practitioner Family | DX: I45.81 Long QT syndrome (principal); E78.5 Hyperlipidemia, unspecified; Z86.74 Personal history of sudden cardiac arrest; Z45.02 Encounter for adjustment and management of automatic implantable cardiac defibrillator | CPT/HCPCS: 99212 ==

== ENCOUNTER 2024-08-03 15:21 | Outpatient (AMB) | payer MEDICARE, MEDICAID, SELFPAY ==
--- NOTE | 2024-08-03 15:30 | MHC.PC.OV ---
Vital Signs 08/03/24 15:39 Height 5 ft Weight 241 lb BMI 47.1 BP 113/54 L Blood Pressure Location Rt brachial Position Sitting Respiration 16 Pulse 55 Pulse Source Pulse Oximeter Temp 96.1 F L Temp Source Temporal Artery Scan Pulse Oximetry (%) 93 Oxygen Delivery Method Room Air Intake Visit Reasons: f/u anxiety/depression, chronic pain Intake Note: f/u anxiety/depression chronic pain Allergies hydromorphone [From DILAUDID] Allergy (Unknown, Verified 07/20/24 10:21) STOPS HEART ibuprofen [From MOTRIN] Allergy (Unknown, Verified 07/20/24 10:21) SEIZURE NSAIDS (Non-Steroidal Anti-Inflamma Allergy (Verified 07/20/24 10:21) Unknown Medication List - Last Reconciled 08/03/24 by Alvino Mcfarlane MD carisoprodol 350 mg PO BID PRN 30 days cholecalciferol (vitamin D3) 50 mcg PO DAILY 90 days clonazepam 1 mg PO BID 30 days dicyclomine 20 mg PO QID gabapentin 800 mg PO QID levetiracetam (Keppra) 750 mg PO BID metoprolol tartrate 100 mg PO BID morphine 15 mg PO Q8H PRN 28 days morphine ER 15 mg PO Q12H 28 days penicillin V potassium 500 mg PO TID 10 days sucralfate 1 g PO BID Tobacco use date assessed: 12/05/23 Dental Screening Dental Screen Date: 11/10/23 HPI f/u anxiety/depression, chronic pain HPI Details 59 y/o female presents to f/u depression/anxiety/PTSD and acute on chronic pain. Had acute on chronic pain with R ankle fracture. Significant anxiety/depression with hx of PTSD. Had referred her to [facility] outpatient psychiatric consult team. PHQ-9 14, MARIN-7 11 today. Pt notes mood have improved over the holidays. Labs drawn 07/13/24. Reviewed labs with pt. A1c 5.3%. Vitamin D 61.9 ng/mL. Has complaints of a dental abscess. HPI Comments History of Present Illness Details Documentation assistance for Alvino Mcfarlane MD, was provided by Nico Harley,? Assistant Professor Of Theater on 08/03/2024 at 4:20 PM EST. I, Dr. Mcfarlane, have read, observed, and verified documentation. [facility] Medical History Spinal cord stimulator status Depression PTSD (post-traumatic stress disorder) Ischemic colitis GERD (gastroesophageal reflux disease) Peptic ulcer disease Thrombocytopenia Pressure sore on buttocks History of sudden cardiac successfully resuscitated ICD (implantable cardioverter-defibrillator) in place Surgical History History of spinal surgery History of cholecystectomy Family History Mother Dementia Cancer Father Heart disease Social History Household Members: Spouse Housing: House Alcohol intake: never Comment: restraints Patient Tobacco Use Status: Current everyday Tobacco user Tobacco use type: Cigarette Cigarette Packs Per Day: 0.75 Cigarettes Per Day: 10 Years Smoked: 40 +/- e-Cigarette/Vaping Use: Never Used service: No Current occupational status: disabled Current occupational exposures/hazards: No Sexual orientation: Unable to collect Gender identity: Unable to collect Cognitive needs: No Hearing needs: No Vision needs: Yes (Wears glasses) Questionnaire PHQ-9 Over the last 2 weeks, how often have you been bothered by any of the following problems? 1. Little interest or pleasure in doing things: several days 2. Feeling down, depressed, or hopeless: several days 3. Trouble falling or staying asleep, or sleeping too much: nearly every day 4. Feeling tired or having little energy: several days 5. Poor appetite or overeating: several days 6. Feeling bad about yourself - or that you are a failure or have let yourself or your family down: nearly every day 7. Trouble concentrating on things, such as reading the newspaper or watching television: nearly every day 8. Moving or speaking so slowly that other people could have noticed. Or the opposite - being so fidgety or restless that you have been moving around a lot more than usual: several days 9. Thoughts that you would be better off or of hurting yourself in some way: not at all Total score: 14 Depression Screening Interpretation: Positive Depression Screening Done: Yes 32690 - PHQ-9 Billing: Yes Source: Developed by Tona Sawyer.W. Franklyn, Jose De Anda and colleagues, with an educational johanny from [employer]. Thrive Questionnaire Date Thrive assessed: 06/28/24 I am a: Patient What is your living situation today?: I have a steady place to live Within the past 12 months, did the food you bought not last and you didn't have the money to get more?: Often true Within the past 12 months, did you worry whether your food would run out before you got money to buy more?: Often true Do you have trouble paying for medicines?: No Do you have trouble getting transportation to medical appointments?: Yes Do you have trouble paying your heating and electricity bill?: Yes Do you have trouble taking care of your child, family member or friend?: Yes Do you have trouble with day-to-day activities such as bathing, preparing meals, shopping, managing finances, etc.?: Yes Are you currently unemployed and looking for a job?: I choose not to answer this question Are you interested in more education?: No Please select the resources that you would like help with: None Currently or been in a relationship where the following occur: No concerns reported THRIVE Score: 4 AUDIT C Alcohol Use Questionnaire (AUDIT-C) 1. How often do you have a drink containing alcohol?: Never Total Score: 0 MARIN-7 AMB Questionnaire MARIN-7 Date MARIN - 7 assessed: 08/03/24 Feeling nervous, anxious, or on edge: 1 = Several days Not being able to stop or control worryin = Nearly every day Worrying too much about different things: 3 = Nearly every day Trouble relaxin = Nearly every day Being so restless that it is hard to sit still: 0 = Not at all Becoming easily annoyed or irritable: 1 = Several days Feeling afraid as if something awful might happen: 0 = Not at all Total MARIN-7 score (0-4 normal; 5-9 mild; 10-14 moderate; 15-21 severe): 11 Source: Developed by Drs. Kashif Turpin, Tona Estes, Jose De Anda and colleagues, with an educational johanny from [employer]. MARIN-7 Assessment Billing MARIN-7 Assessment Tool: MARIN-7 Assessment 90736 Review of Systems Const Denies chills, Denies fatigue, Denies fever(s), Denies headache(s) and Denies weakness ENT Denies dizziness and Denies headache(s) Card Denies dyspnea Resp Denies cough, Denies dyspnea, Denies wheezing and Denies other (shortness of breath) Musc Denies numbness and Denies tingling Neuro Denies dizziness, Denies headache(s), Denies numbness, Denies tingling and Denies weakness Psych Reports anxiety and Reports depression Endo Denies fatigue Aller/Immun Denies wheezing Physical exam (Primary Care) Vital Signs: Last Vital Signs Temp 96.1 F L 08/03/24 15:39 Pulse 55 08/03/24 15:39 Resp 16 08/03/24 15:39 BP 113/54 L 08/03/24 15:39 Pulse Ox 93 08/03/24 15:39 Oxygen Delivery Method Room Air 08/03/24 15:39 BMI result Body Mass Index 47.1 Tobacco/Smoking Status: Tobacco use Status Tobacco use date assessed 12/05/23 08/03/24 15:32 Patient Tobacco Use Status Current everyday Tobacco 08/03/24 15:32 Tobacco use type Cigarette 08/03/24 15:32 e-Cigarette/Vaping Use Never Used 08/03/24 15:32 PHQ-9: PHQ-9 Score PHQ-9: Total score 14 08/03/24 15:40 Depression Screening Interpretation: Positive Thrive Assessment: Date of Thrive Assessment Date Thrive assessed 06/28/24 08/03/24 15:32 Currently or been in a relationship where the following occur: No concerns reported Const General: well developed; No acute distress Nutritional Appearance: well nourished Orientation/consciousness: patient oriented x3 HENMT Head: Yes normocephalic and Yes atraumatic Eyes General: appearance normal, both eyes and all related structures Pupils: Equal, round and reactive pupils present EOM: EOMs intact bilaterally Resp Effort & Inspection: normal respiratory effort Neuro General: patient oriented x3 and gait normal Cranial nerves: Yes Equal, round and reactive pupils present Psych Affect: normal affect Coding Level of Care Code Est Pt Level 4 (43065) Diagnoses Anxiety with depression F41.8 PTSD (post-traumatic stress disorder) F43.10 Chronic pain syndrome G89.4 Low vitamin D level R79.89 Closed nondisplaced fracture of lateral malleolus of right fibula with routine healing, subsequent encounter S82.64XD Encounter type: subsequent encounter Fracture alignment: nondisplaced Fracture healing: with routine healing Laterality: right Dental abscess K04.7 Additional Codes MARIN-7 Assessment Billing - MARIN-7 Assessment Tool: MARIN-7 Assessment 65661 ([id number]) PHQ-9 - 02451 - PHQ-9 Billing: Yes ([id number]) Assessment & Plan Assessment & Plan (1) Anxiety with depression: Code(s): F41.8 - Other specified anxiety disorders Category: Medical Plan: Anxiety?and?depression?with?PTSD. Still?scoring?high?for?anxiety?depression?on?PHQ-9?and?marin?7?but on?speaking?with?patient?she?is?rather?happy?about?getting?her?home?decorated?for?the?holidays. She?had?declined?visit?with?[facility]?psychiatry?outpatient?team?and?says?he?only?wants?a?therapist?at?this?point. Will?ask?the?nurse?navigator?to?help?connect?her?therapist (2) PTSD (post-traumatic stress disorder): Code(s): F43.10 - Post-traumatic stress disorder, unspecified Category: Medical Plan: As?above (3) Chronic pain syndrome: Code(s): G89.4 - Chronic pain syndrome Category: Medical Plan: Stable?on?current?medication?regimen Most?recent?urine?drug?screen?at?last?visit?was?as?expected Continue?current?medications Patient?notes?that?she?may?be?getting?oral?surgery?soon?and?the?specialist?may?switch?her?to?Percocet?or?oxycodone?for?the?perioperative period. Will?have?oral?surgeon?manage?pain?perioperative?period?and?then?I?resume?management?with?current?regimen?thereafter. (4) Low vitamin D level: Code(s): R79.89 - Other specified abnormal findings of blood chemistry Category: Medical Plan: Vitamin-D?level?is?now?in?normal?range Will?switch?from?high-dose?weekly?cholecalciferol?to?a?daily?capsule (5) Fx lateral malleolus-closed: Code(s): S82.63XA - Displaced fracture of lateral malleolus of unspecified fibula, initial encounter for closed fracture Category: Medical Qualifiers: Encounter type: subsequent encounter Fracture alignment: nondisplaced Fracture healing: with routine healing Laterality: right Qualified Code(s): S82.64XD - Nondisplaced fracture of lateral malleolus of right fibula, subsequent encounter for closed fracture with routine healing Plan: Follow-up?with?ortho?as?recommended Advised?exercise?for?her?uninjured?leg?and?upper?extremities. She?is?currently?declining?physical?therapy?but?says?she?intends?to?get?physical?therapy?in?the?future (6) Dental abscess: Code(s): K04.7 - Periapical abscess without sinus Category: Medical Plan: Severe?dental?abscess?at?upper?incisors?which?are?broken Will?give?her?a?script?for?penicillin?VK Use?warm?saltwater?gargles?and?warm?compresses Strongly?encouraged?her?to?follow-up?with?her?dentist/oral?surgeon?as?soon?as?she?is?able Medications: New cholecalciferol (vitamin D3) 50 mcg PO DAILY 90 days 90 caps 2RF penicillin V potassium 500 mg PO TID 10 days 30 tabs 0RF Refilled morphine [facility] Verified. Partial Refill Upon Request. 15 mg PO Q8H 28 days PRN 84 tabs 0RF pain morphine ER [facility] Verified. Partial refill upon request. 15 mg PO Q12H 28 days 56 tabs 0RF Discontinued cholecalciferol (vitamin D3) Discontinued Reason: Doctor's Order 1,250 mcg PO QWEEK 28 days 4 caps 1RF
[2024-08-03 15:39] VITALS: BP 113/54; PULSE 55; RESP 16; TEMP 35.6; O2SAT 93; BMI 47.1
== END 2024-08-03 16:16 | disposition home or self-care (01) ==
PROVIDERS: PCP Family Medicine; Visit Provider Family Medicine
DX: F41.8 Other specified anxiety disorders (principal); F43.10 Post-traumatic stress disorder, unspecified; G89.4 Chronic pain syndrome; R79.89 Other specified abnormal findings of blood chemistry; S82.64XD Nondisplaced fracture of lateral malleolus of right fibula, subsequent encounter for closed fracture with routine healing; K04.7 Periapical abscess without sinus

== ENCOUNTER → 2024-08-03 15:21 | Outpatient (BNVA) | payer MEDICARE, MEDICAID, SELFPAY | PROVIDERS: PCP Family Medicine; Visit Provider Family Medicine | DX: F41.8 Other specified anxiety disorders (principal); F43.10 Post-traumatic stress disorder, unspecified; G89.4 Chronic pain syndrome; R79.89 Other specified abnormal findings of blood chemistry; S82.64XD Nondisplaced fracture of lateral malleolus of right fibula, subsequent encounter for closed fracture with routine healing; K04.7 Periapical abscess without sinus | CPT/HCPCS: 96127; 99212 ==

== ENCOUNTER 2024-08-16 15:59 | Outpatient (REF) | payer MEDICARE, MEDICAID, SELFPAY ==
[2024-08-16 17:25] LABS: Anion Gap 14 (12-20); Blood Urea Nitrogen 14 mg/dL (9-16); Calcium 9.7 mg/dL (8.4-10.2); Carbon Dioxide 27 mmol/L (22-29); Chloride 103 mmol/L (96-108); Estimated Glomerular Filt Rate > 60; Glucose Random 110 mg/dL (60-115); Sodium 140 mmol/L (135-145)
[2024-08-16 17:31] LABS: Prothrombin Time 11.5 SEC (10.9-12.4)
--- OUTSIDE RECORDS SUMMARY | 2024-08-18 17:15 | XMS_ITS ---
Author Organization [facility] Address [address] [place] [id number] Care Team Providers Care Chemist Enzymes Name Role Phone Brad Kebede MD Primary Care Provider Dany [facility] [phone] Medications Medication SIG (Take, Route, Frequency, Duration) Notes Start Date End Date Status MS Contin 15 MG 1 tablet Orally every 8 hours for 30 days may request partial fill 08/14/2023 Active Morphine Sulfate 15 MG 1 tablet as needed Orally every 8 hours for 30 days may request partial fill 08/14/2023 Active Encounters Encounter Location Date Provider Diagnosis [facility] [address] [place] [phone] 08/04/2023 Dany Peres residential (current) use of opiate analgesic Z79.891 Assessments Encounter Date Diagnosis (ICD Code) Assessment Notes Treatment Notes Treatment Clinical Notes Section Notes 08/04/2023 buttermaker (current) use of opiate analgesic (ICD-10 - Z79.891) Plan Of Treatment Medication Medication Name Sig Start Date Stop Date Notes MS Contin 15 MG 1 tablet Orally every 8 hours for 30 days 08/14/2023 may request partial fill Morphine Sulfate 15 MG 1 tablet as neede d Orally every 8 hours for 30 days 08/14/2023 may request partial fill Progress Notes * CHRISTAJUSTINEN LDOB: [birth year] (58 yo F)Acc No.[id number]:08/04/2023 Patient:?MARIAH GOODWIN :1965???Age:58 Y???Sex:Female Address:[address], [place], [address] * Refills? Refill Morphine Sulfate Tablet, 15 MG, Orally, 90 Tablet, 1 tablet as needed, every 8 hours, 30 days, Refills=0 Refill MS Contin Tablet Extended Release, 15 MG, Orally, 90 Tablet, 1 tablet, every 8 hours, 30 days, Refills=0 * true * Date:? Generated for Raffy frank/Khloe/Kuldipitting on:?08/18/2024 11:39 AM EST
--- OUTSIDE RECORDS SUMMARY | 2024-08-18 17:15 | XMS_ITS ---
Author Organization [facility] Address [address] [place] [address] Care Team Providers Care Clutch Assembler Name Role Phone Brad Kebede MD Primary Care Provider Dany Epperson Unavailable [phone] Allergies Allergen (clinical drug ingredient) Drug/Non Drug Allergy documented on EMR Reaction Allergy Type Onset Date Status Non-steroidal anti-inflammatory agent (FN) NSAIDs stomach upset Drug Allergy Active REASON FOR VISIT Neck pain, Upper back pain, Mid-lower back pain Medications Medication SIG (Take, Route, Frequency, Duration) Notes Start Date End Date Status MS Contin 15 MG 1 tablet Orally ever y 8 hours for 30 days may request partial fill 07/16/2023 Active Soma 350 MG 1 tablet as needed Orally twice a day for 30 days 07/15/2023 Active Morphine Sulfate 15 MG 1 tablet as needed Orally every 8 hours for 30 days may request partial fill 07/16/2023 Active Narcan 4 MG/0.1ML as directed, after use immediately call 911 Nasally as needed for 30 days 05/19/2018 Active Gabapentin 800 MG 1 tablet Orally four times a day for 90 days Active Metoprolol & Diet Manage Prod 100 mg 1 tablet 2 a day Activ e Sucralfate 1 GM 1 tablet on an empty stomach Orally 4 a day Active Dicyclomine HCl 20 MG Orally Four times a day Active Keppra 500 MG Orally every 12 hrs Active clonazePAM 1 MG 1 tablet Orally Twic e a day Active Social History Tobacco Use: Social History Observation Description Date Details (start date - stop date) Current Smoker 06/18/1975 - NA Tobacco Use/Smoking Question Answer Notes Are you a current smoker How often do you smoke cigarettes? every day How many cigarettes a day do you smoke? 11-20 How soon after you wake up do you smoke your fir st cigarette? 31-60 minutes Are you interested in quitting? Not ready to sudha t When did you start smoking? 06/18/1975 Section Notes: family hx: smokers Vital Signs Temperature 97.3 degrees Fahrenheit 07/15/20 23 Heart Rate 96 /min 07/15/2023 Height 61 in 07/15/2023 Weight 265 lbs 07/15/2023 BMI 50.07 kg/m2 07/15/2023 Oximetry 94 % 07/15/2023 Encounters Encounter Location Date Provider Diagnosis [facility] [address] [place] [id number] 07/15/2023 SharmaineMarcelagriffin Peres ad terminal makeup operator (current) use of opiate analgesic Z79.891 ; Spondylosis without myelopathy or radiculopathy, cervical region M47.812 and Spondylosis without myelopathy or radiculopathy, lumbar region M47.816 Assessments Encounter Date Diagnosis (ICD Code) Assessment Notes Treatment Notes Treatment Clinical Notes Section Notes 07/15/2023 ad terminal makeup operator (current) use of opiate analgesic (ICD-10 - Z79.891) 07/15/2023 Spondylosis without myelopathy or radiculopathy, cervical region (ICD-10 - M47.812) 07/15/2023 Spondylosis without myelopathy or radiculopathy, lumbar region (ICD-10 - M47.816) 07/15/2023 Other The aircraft skin burnisher was checked and appropriate. Taking pain medication from this office only, no sign of abuse or diversion. No evidence of respiratory depression or cognitive impairment while using current pain medications. Reviewed the risks and side effects of the pain medications, to include tolerance, physical and psychological dependence, constipation, confusion, respiratory depression. I reviewed our opioid consent contract, and contract was updated today. I recommended to start weaning down on the medication but declined, she requested to continue the same dose this month, and if needed will discuss a weaning protocol next month. I e prescribed morphine sulfate ER and IR. I recommended continuing the lumbar aned cervical strengthening exercises. Follow-up in 4 weeks. Plan Of Treatment Medication Medication Name Sig Start Date Stop Date Notes MS Contin 15 MG 1 tablet Orally every 8 hours for 30 days 07/16/2023 may request partial fill Soma 350 MG 1 tablet as needed Orally twice a day for 30 days 07/15/2023 Morphine Sulfate 15 MG 1 tablet as neede d Orally every 8 hours for 30 days 07/16/2023 may request partial fill Gabapentin 800 MG 1 tablet Orally four times a day for 90 days Treatment Notes Assessment Notes Other The aircraft skin burnisher was checked and appropriate. Taking pain medication from this office only, no sign of abuse or diversion. No evidence of respiratory depression or cognitive impairment while using current pain medications. Reviewed the risks and side effects of the pain medications, to include tolerance, physical and psychological dependence, constipation, confusion, respiratory depression. I reviewed our opioid consent contract, and contract was updated today. I recommended to start weaning down on the medication but declined, she requested to continue the same dose this month, and if needed will discuss a weaning protocol next month. I e prescribed morphine sulfate ER and IR. I recommended continuing the lumbar aned cervical strengthening exercises. Follow-up in 4 weeks. Next Appt Details Follow Up: 4 Weeks, Reason: Progress Notes * MARIAH GOODWIN LDOB: [birth year] (58 yo F)Acc No.[id number]:07/15/2023 Progress Notes Patient:?MARIAH GOODWIN Provider:?Luis Peres NP :1965???Age:58 Y???Sex:Female D ate:07/15/2023 Address:[address] [place], [place] [id number] Pcp:Brad Kebede MD Subjective: * Chief Complaints: * ???Neck painUpper back painM id-lower back pain * HPI: ???Type:? The patient presents for follow up of her neck and low back pain. She reports her pain started back in 2004, she underwent to a few lumbar surgereis including lamenectomy, fusion and kyphoplasty. ?CT of her cervical spine shows multilevel degenerative disease, stenodis and foraminal narrowing. ?She has tried injections at [facility] with no significant relief. She has been on the current regimen of morphine sulfate ER and MSIR with good relief of her pain for the past 6 years. ?She reports she is having difficulty finding a provider to take over her pain medications, she has an appointment at the end of July with a provider. ?She finds standing, walking, cooking aggravate her pain. She was cooking the other night and needed to take frequent breaks due to her low back pain. ? She has a lot of pressure in her low back. The pain is rated 7/10 today. ?The pain is described as aching and stabbing. ?Denies any side effect or constipation. ?UDs form 05/21/2023 positive for morphine, hydromorphone,carisprodrol, meprobamate, clonazepam. * ROS:?General/Constitutional:?Denies?Chills.?Denies?Fatigue.?Endocrine:?Denies?Diabetes.?Respiratory:?Denies?Breathing problems.?Cardiovascular:?Denies?Chest pain.?Musculoskeletal:?Admits?Neck pain.?Admits?Arthritis.?Admits?Back problems.?Skin:?Admits?Skin lesion(s).?Neurologic:?Admits?Tingling/Numbness.? * Medical History:? * Surgical History:?Pace maker / DEFIB neuro stimulator (implant and removal) gallbladder removed cyst removal disectomy * Hospitalization/Major Diagno stic Procedure:?seizures 02/20/2019er visit, son found her nude and unresponsive on the couch 06/08/2022ER FOR BUTTOCK PAIN 07/2022 * Family History:?Mother: dece ased, diagnosed with Other malignant neoplasm of unspecified site, Unspecified heart disease.?Father: neck fusion, diagnosed with Lumbago.?Paternal Grand Father: diagnosed with Other malignant neoplasm of unspecified site, Unspecified heart disease.?Paternal Grand Mother: diagnosed with Unspecified essential hypertension.?Maternal Grand Father: diagnosed with Unspecified heart disease.?Paternal uncle: diagnosed with Diabetes mellitus without mention of complication, type II or unspecified type, not stated as uncontrolled.? family hx: back problems on maternal and paternal sides no family hx: drug dependence no family hx: mental illness no family hx: stroke. * Social History:?Tobacco Use:?Tobacco Use/Smoking?Are you a?current smoker ?How often do you smoke cigarettes??every day ?How many cigarettes a day do you smoke??11-20 ?How soon after you wake up do you smoke your first cigarette??31-60 minutes ?Are you interested in quitting??Not ready to quit ?When did you start smoking??06/18/1975 ???family hx: smokers. * Medications:?TakingclonazePA M 1 MG Tablet 1 tablet Orally Twice a day Dicyclomine HCl 20 MG Tablet Orally Four times a day Keppra 500 MG Tablet Orally every 12 hrs Metoprolol & Diet Manage Prod 100 mg tablet 1 tablet 2 a day Sucralfate 1 GM Tablet 1 tablet on an empty stomach Orally 4 a day Narcan 4 MG/0.1ML Liquid as directed, after use immediately call 911 Nasally as needed Morphine Sulfate 15 MG Tablet 1 tablet as needed Orally every 8 hours , Notes to Pharmacist: may request partial fillMS Contin 15 MG Tablet Extended Release 1 tablet Orally every 8 hours , Notes to Pharmacist: may request partial fillSoma 350 MG Tablet 1 tablet as needed Orally twice a day Gabapentin 800 MG Tablet 1 tablet Orally four times a day Medication List reviewed and reconciled with the patientTaking clonazePAM 1 MG Tablet 1 tablet Orally Twice a day Taking Dicyclomine HCl 20 MG Tablet Orally Four times a day Taking Keppra 500 MG Tablet Orally every 12 hrs Taking Metoprolol & Diet Manage Prod 100 mg tablet 1 tablet 2 a day Taking Sucralfate 1 GM Tablet 1 tablet on an empty stomach Orally 4 a day Taking Narcan 4 MG/0.1ML Liquid as directed, after use immediately call 911 Nasally as needed Taking Morphine Sulfate 15 MG Tablet 1 tablet as needed Orally every 8 hours , Notes to Pharmacist: may request partial fillTaking MS Contin 15 MG Tablet Extended Release 1 tablet Orally every 8 hours , Notes to Pharmacist: may request partial fillTaking Soma 350 MG Tablet 1 tablet as needed Orally twice a day Taking Gabapentin 800 MG Tablet 1 tablet Orally four times a day Medication List reviewed and reconciled with the patient * Allergies:?NSAIDs: stomach u psetno[Allergies Verified] Objective: * Vitals:?Temp:97.3F, HR:96/mi n, Ht: 61 in, Wt:265lbs, BMI:50.07Index, Oxygen sat %:94%, Pain scale:91-10, Wt-k.2 kg. * Examination: ???General Examination: ?GENERAL APPEARANCE:? alert and oriented x3, ambulating with cane.?NECK:?moderate decrease range of motion on cervical extension,side bendingand rotatation with exacerbation of pain in these positions, positive bilateral cervical facet loading test, positive tenderness on palpating bilateral cervical paravertebral areas at C3,4,5,6 levels.?BACK:?moderate decrease range of motion on lumbar extension ,side bending and rotatation bilaterally with exacerbation of pain in these positions, positive bilateral lumbar facet loading test, positive tenderness on palpating bilateral paravertebral areas at L2,3,4,5S1 ,motor power 5/5, no sensory deficits to pin prick and touch, negative bilateral straight leg raising test, positive tenderness at left sacroiliac joint and left trochanter bursa area.? Assessment: * Assessment: 1.?[facility] (current) use o f opiate analgesic - Z79.891?2.?Spondylosis without myelopathy or radiculopathy, cervical region - M47.812?3.?Spondylosis without myelopathy or radiculopathy, lumbar region - M47.816? Plan: * Treatment: 2.?Others? Notes: The aircraft skin burnisher was checked and appropriate. Taking pain medication from this office only, no sign of abuse or diversion. No evidence of respiratory depression or cognitive impairment while using current pain medications. Reviewed the risks and side effects of the pain medications, to include tolerance, physical and psychological dependence, constipation, confusion, respiratory depression. I reviewed our opioid consent contract, and contract was updated today. I recommended to start weaning down on the medication but declined, she requested to continue the same dose this month, and if needed will discuss a weaning protocol next month. I e prescribed morphine sulfate ER and IR. I recommended continuing the lumbar aned cervical strengthening exercises. Follow-up in 4 weeks.?? * Procedure Codes:? * Follow Up:?4 Weeks * Images: * Sign off status: Completed true * Provider:?Luis Peres NP Date:?03/2023 Generated for Raffy frank/Khloe/eTransmitting on:?08/18/2024 05:15 PM EST History and Physical Notes * Examination Category Sub-Category Detail Notes Category Not es General Examination GENERAL APPEARANCE: alert an d oriented x3, ambulating with cane NECK: moderate decrease ra nge of motion on cervical extension,side bendingand rotatation with exacerbation of pain in these positions, positive bilateral cervical facet loading test, positive tenderness on palpating bilateral cervical paravertebral areas at C3,4,5,6 levels BACK: moderate decrease ra nge of motion on lumbar extension ,side bending and rotatation bilaterally with exacerbation of pain in these positions, positive bilateral lumbar facet loading test, positive tenderness on palpating bilateral paravertebral areas at L2,3,4,5S1 ,motor power 5/5, no sensory deficits to pin prick and touch, negative bilateral straight leg raising test, positive tenderness at left sacroiliac joint and left trochanter bursa area
--- OUTSIDE RECORDS SUMMARY | 2024-08-18 17:15 | XMS_ITS ---
Author Organization [facility] Address [address] [place] [address] Care Team Providers Care Clinical Services Professional Name Role Phone Brad Kebede MD Primary Care Provider Dany Epperson [phone] Encounters Encounter Location Date Provider Diagnosis [facility] [address] [place] [phone] 07/30/2023 Dany Peres Plan Of Treatment No Information Progress Notes * MARIAH GOODWIN LDOB: [birth year] (58 yo F)Acc No.[id number]:07/30/2023 Patient:?JUSTIN GOODWINKERWIN Villanueva :1965???Age:58 Y???Sex:Female Address:[address] [place], [address] * true * Date:? Generated for Printi monika/Khloe/eTransmitting on:?08/18/2024 05:15 PM EST
--- OUTSIDE RECORDS SUMMARY | 2024-08-18 17:16 | XMS_ITS | Patient Health Record ---
Author Organization [facility] Address [address] [place] [address] Care Team Providers Care Lidder Name Role Phone Brad Kebede MD Primary Care Provider Dany Epperson Unavailable [phone] Allergies Allergen (clinical drug ingredient) Drug/Non Drug Allergy documented on EMR Reaction Allergy Type Onset Date Status Non-steroidal anti-inflammatory agent (FN) NSAIDs stomach upset Drug Allergy Active Reason For Referral No Information Medications Medication SIG (Take, Route, Frequency, Duration) Notes Start Date End Date Status Soma 350 MG 1 tablet as needed Orally twice a day for 30 days 07/15/2023 Active Narcan 4 MG/0.1ML as directed, after use immediately call 911 Nasally as needed for 30 days 05/19/2018 Active Metoprolol & Diet Manage Prod 100 mg 1 tablet 2 a day Activ e MS Contin 15 MG 1 tablet Orally ever y 8 hours for 30 days may request partial fill 08/14/2023 Active Sucralfate 1 GM 1 tablet on an empty stomach Orally 4 a day Active Morphine Sulfate 15 MG 1 tablet as needed Orally every 8 hours for 30 days may request partial fill 08/14/2023 Active Dicyclomine HCl 20 MG Orally Four times a day Active Keppra 500 MG Orally every 12 hrs Active clonazePAM 1 MG 1 tablet Orally Twic e a day Active Gabapentin 800 MG 1 tablet Orally four times a day for 90 days Active Social History Tobacco Use: Social History [...] smoking? 06/18/1975 Section Notes: family hx: smokers family hx: smokers family hx: smokers family hx: smokers family hx: smokers family hx: smokers family hx: smokers family hx: smokers family hx: smokers family hx: smokers family hx: smokers family hx: smokers family hx: smokers family hx: smokers family hx: smokers family hx: smokers family hx: smokers family hx: smokers family hx: smokers family hx: smokers family hx: smokers family hx: smokers family hx: smokers family hx: smokers family hx: smokers family hx: smokers family hx: smokers family hx: smokers family hx: smokers family hx: smokers family hx: smokers family hx: smokers family hx: smokers family hx: smokers family hx: smokers family hx: smokers family hx: smokers family hx: smokers family hx: smokers family hx: smokers family hx: smokers family hx: smokers family hx: smokers family hx: smokers family hx: smokers family hx: smokers family hx: smokers family hx: smokers family hx: smokers family hx: smokers family hx: smokers family hx: smokers family hx: smokers family hx: smokers family hx: smokers family hx: smokers family hx: smokers family hx: smokers family hx: smokers family hx: smokers family hx: smokers family hx: smokers family hx: smokers family hx: smokers family hx: smokers family hx: smokers family hx: smokers family hx: smokers Problems Problem Type SNOMED Code ICD Code Onset Dates Problem Status W/U Status Risk Notes Problem Cervical spondylosis without myelopathy (400606361) Spondylosis without myelopathy or radiculopathy, cervical region (M47.812) Active confirmed Problem Lumbosacral spondylosis without myelopathy (75557420) Spondylosis without myelopathy or radiculopathy, lumbar region (M47.816) Active confirmed Problem High risk drug monitoring status (123023072) 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 (Z79.891) Active confirmed Plan Of Treatment Pending Test Test Name Order Date PHENCYCLIDINE (PCP) QUANTITATIVE 019 PHENCYCLIDINE (PCP) QUANTITATIVE 022 PHENCYCLIDINE (PCP) QUANTITATIVE 022 PHENCYCLIDINE (PCP) QUANTITATIVE 022 PHENCYCLIDINE (PCP) QUANTITATIVE 022 PHENCYCLIDINE (PCP) QUANTITATIVE 023 COCAINE QUANTITATIVE 12/04/2022 COCAINE QUANTITATIVE 02/25/2023 COCAINE QUANTITATIVE 09/11/2022 COCAINE QUANTITATIVE 05/21/2022 COCAINE QUANTITATIVE 02/27/2022 COCAINE QUANTITATIVE 01/29/2022 COCAINE QUANTITATIVE 11/06/2021 COCAINE QUANTITATIVE 07/20/2019 COCAINE QUANTITATIVE 05/21/2023 OXYCODONE QUANTITATIVE 05/21/2023 OXYCODONE QUANTITATIVE 02/25/2023 OXYCODONE QUANTITATIVE 07/20/2019 OXYCODONE QUANTITATIVE 01/29/2022 OXYCODONE QUANTITATIVE 11/06/2021 OXYCODONE QUANTITATIVE 02/27/2022 OXYCODONE QUANTITATIVE 05/21/2022 OXYCODONE QUANTITATIVE 12/04/2022 OXYCODONE QUANTITATIVE 09/11/2022 AMPHETAMINES QUANTITATIVE 09/11/2022 AMPHETAMINES QUANTITATIVE 05/21/2022 AMPHETAMINES QUANTITATIVE 01/29/2022 AMPHETAMINES QUANTITATIVE 02/27/2022 AMPHETAMINES QUANTITATIVE 11/06/2021 AMPHETAMINES QUANTITATIVE 07/20/2019 BARBITURATES QUANTITATIVE 07/20/2019 BARBITURATES QUANTITATIVE 11/06/2021 BARBITURATES QUANTITATIVE 12/04/2022 BARBITURATES QUANTITATIVE 02/25/2023 BARBITURATES QUANTITATIVE 05/21/2023 METHADONE QUANTITATIVE 05/21/2023 METHADONE QUANTITATIVE 02/25/2023 METHADONE QUANTITATIVE 12/04/2022 METHADONE QUANTITATIVE 09/11/2022 METHADONE QUANTITATIVE 05/21/2022 METHADONE QUANTITATIVE 01/29/2022 METHADONE QUANTITATIVE 02/27/2022 METHADONE QUANTITATIVE 07/20/2019 METHADONE QUANTITATIVE 11/06/2021 MDMA (ECSTASY) QUANTITATIVE 11/06/2021 MDMA (ECSTASY) QUANTITATIVE 07/20/2019 MDMA (ECSTASY) QUANTITATIVE 02/27/2022 MDMA (ECSTASY) QUANTITATIVE 01/29/2022 MDMA (ECSTASY) QUANTITATIVE 05/21/2022 MDMA (ECSTASY) QUANTITATIVE 09/11/2022 MDMA (ECSTASY) QUANTITATIVE 12/04/2022 MDMA (ECSTASY) QUANTITATIVE 02/25/2023 MDMA (ECSTASY) QUANTITATIVE 05/21/2023 TRAMADOL QUANTITATIVE 05/21/2023 TRAMADOL QUANTITATIVE 02/25/2023 TRAMADOL QUANTITATIVE 12/04/2022 TRAMADOL QUANTITATIVE 09/11/2022 TRAMADOL QUANTITATIVE 05/21/2022 TRAMADOL QUANTITATIVE 02/27/2022 TRAMADOL QUANTITATIVE 11/06/2021 TRAMADOL QUANTITATIVE 01/29/2022 TRAMADOL QUANTITATIVE 07/20/2019 FENTANYL QUANTITATIVE 11/06/2021 FENTANYL QUANTITATIVE 07/20/2019 FENTANYL QUANTITATIVE 02/27/2022 FENTANYL QUANTITATIVE 01/29/2022 FENTANYL QUANTITATIVE 05/21/2022 FENTANYL QUANTITATIVE 09/11/2022 FENTANYL QUANTITATIVE 12/04/2022 FENTANYL QUANTITATIVE 02/25/2023 FENTANYL QUANTITATIVE 05/21/2023 BUPRENORPHINE QUANTITATIVE 05/21/2023 BUPRENORPHINE QUANTITATIVE 02/25/2023 BUPRENORPHINE QUANTITATIVE 12/04/2022 BUPRENORPHINE QUANTITATIVE 09/11/2022 BUPRENORPHINE QUANTITATIVE 05/21/2022 BUPRENORPHINE QUANTITATIVE 01/29/2022 BUPRENORPHINE QUANTITATIVE 02/27/2022 BUPRENORPHINE QUANTITATIVE 07/20/2019 BUPRENORPHINE QUANTITATIVE 11/06/2021 BENZODIAZEPINE QUANTITATIVE 11/06/2021 BENZODIAZEPINE QUANTITATIVE 07/20/2019 BENZODIAZEPINE QUANTITATIVE 02/27/2022 BENZODIAZEPINE QUANTITATIVE 01/29/2022 BENZODIAZEPINE QUANTITATIVE 05/21/2022 BENZODIAZEPINE QUANTITATIVE 09/11/2022 BENZODIAZEPINE QUANTITATIVE 02/25/2023 BENZODIAZEPINE QUANTITATIVE 12/04/2022 BENZODIAZEPINE QUANTITATIVE 05/21/2023 OPIATES QUANTITATIVE 02/25/2023 OPIATES QUANTITATIVE 05/21/2023 OPIATES QUANTITATIVE 09/11/2022 OPIATES QUANTITATIVE 12/04/2022 OPIATES QUANTITATIVE 05/21/2022 OPIATES QUANTITATIVE 02/27/2022 OPIATES QUANTITATIVE 11/06/2021 OPIATES QUANTITATIVE 01/29/2022 OPIATES QUANTITATIVE 07/20/2019 ANTICONVULSANT QUANTITATIVE 01/29/2022 ANTICONVULSANT QUANTITATIVE 11/06/2021 ANTICONVULSANT QUANTITATIVE 02/27/2022 ANTICONVULSANT QUANTITATIVE 05/21/2022 ANTICONVULSANT QUANTITATIVE 09/11/2022 MUSCLE RELAXANT, QUANTITATIVE 12/04/2022 MUSCLE RELAXANT, QUANTITATIVE 02/25/2023 MUSCLE RELAXANT, QUANTITATIVE 05/21/2023 CATHINONES(BATH SALT) QUANTITATIVE 09/11 CATHINONES(BATH SALT) QUANTITATIVE 05/21 CATHINONES(BATH SALT) QUANTITATIVE 01/29 CATHINONES(BATH SALT) QUANTITATIVE 02/27 CATHINONES(BATH SALT) QUANTITATIVE 11/06 CATHINONES(BATH SALT) QUANTITATIVE 07/20 SLEEP AID QUANTITATIVE 07/20/2019 SLEEP AID QUANTITATIVE 11/06/2021 SLEEP AID QUANTITATIVE 01/29/2022 SLEEP AID QUANTITATIVE 02/27/2022 SLEEP AID QUANTITATIVE 05/21/2022 SLEEP AID QUANTITATIVE 09/11/2022 METHYLPHENIDATE 09/11/2022 METHYLPHENIDATE 05/21/2022 METHYLPHENIDATE 02/27/2022 METHYLPHENIDATE 01/29/2022 METHYLPHENIDATE 11/06/2021 METHYLPHENIDATE 07/20/2019 TAPENTADOL PANEL 07/20/2019 TAPENTADOL PANEL 11/06/2021 TAPENTADOL PANEL 01/29/2022 TAPENTADOL PANEL 02/27/2022 TAPENTADOL PANEL 05/21/2022 TAPENTADOL PANEL 09/11/2022 MERPERIDINE PANEL 09/11/2022 MERPERIDINE PANEL 05/21/2022 MERPERIDINE PANEL 02/27/2022 MERPERIDINE PANEL 01/29/2022 MERPERIDINE PANEL 11/06/2021 MERPERIDINE PANEL 07/20/2019 Amphetamine 12/04/2022 Amphetamine 05/21/2023 Amphetamine 02/25/2023 CREATININE 05/21/2023 CREATININE 09/11/2022 CREATININE 05/21/2022 CREATININE 02/27/2022 CREATININE 07/20/2019 CREATININE 11/06/2021 CREATININE 01/29/2022 Carisoprodol 01/29/2022 Carisoprodol 02/27/2022 Carisoprodol 11/06/2021 Carisoprodol 07/20/2019 Carisoprodol 05/21/2022 Carisoprodol 09/11/2022 LAB REPORT 09/11/2022 LAB REPORT 12/04/2022 LAB REPORT 05/21/2022 LAB REPORT 02/27/2022 LAB REPORT 01/29/2022 LAB REPORT 11/06/2021 LAB REPORT 05/21/2023 LAB REPORT 02/25/2023 [facility] PANEL,UR 08/14/2021 [facility] PANEL,UR 11/06/2021 [facility]UG PANEL,UR 01/29/2022 [facility]UG PANEL,UR 02/27/2022 [facility]UG PANEL,UR 05/21/2022 [facility] PANEL,UR 09/11/2022 [facility] PANEL,UR 05/21/2023 Insurance Providers Payer Name Payer Address Payer Phone Subscriber Number Group Number Insured Name Patient Relationship to Insured Coverage Start Date Coverage End Date Medicare B [facility] [address] [place] [id number] [id number] JENKIN MARIAH Self - patient is the insured [employer] Medicaid of [facility] [address] [place] [address] [id number] CHRISTA MARIAH Self - patient is the insured Medical (General) History Medical History History ICD Code Coronary Artery Disease Reflux Diarrhea Abdominal pain Disc disease DDD Scoliosis Joint pain Arthritis IBS osteoporosis Nerve Damage Pace Maker Thyroid nodules anxiety depression Headaches Hx of gout vomiting IBS ( Irriatable Bowel Syndrome) Ulcer Colitis Surgical History Surgery Date(Month/Year) Pace maker/ DEFIB neuro stimulator (implant and removal) gallbladder removed cyst removal disectomy Hospitalization History Reason Date(Month/Year) ER FOR BUTTOCK PAIN 07/2022 er visit, son found her nude and unrespo nsive on the couch 06/08/2022 seizures 02/20/2019
--- OUTSIDE RECORDS SUMMARY | 2024-08-18 17:16 | XMS_ITS ---
Author Organization [facility] Address [address] [place] [address] Care Team Providers Care Rack Washer Name Role Phone Brad Kebede MD Primary Care Provider Kashif Xiao Unavailable [phone] ALLERGIES No Known Allergies MEDICATIONS Medication SIG (Take, Route, Frequency, Duration) Notes Start Date End Date Status Hyoscyamine Sulfate Not-Taking Omeprazole 40 MG 1 capsule Orally Onc e a day for 30 day(s) 07/26/2011 Not-Taking metroNIDAZOLE 375 MG 2 capsules Orally every 8 hrs for 5 day(s) Not-Taking traMADol HCl Not-Tomer ing levoFLOXacin 500 MG 1 tablet Orally Once a day for 10 day(s) Not-Taking Soma 350mg Active Gabapentin 800mg Act nash oxyCODONE HCl 5mg Ac tive Omeprazole 40mg Acti ve clonazePAM Active levETIRAcetam ER 750 MG 1 tablet Orally Once a day for 30 day(s) Active Carisoprodol 350 MG 1 tablet as needed Orally Four times a day Active Folic Acid 1 MG 1 tablet Orally Once a day for 30 day(s) Active Dicyclomine HCl 20 MG 1 tablet Orally Th ree times a day for 30 day(s) Active Metoprolol Tartrate 100 MG 1 tablet with food Orally Twice a day for 30 day(s) Active Morphine Sulfate ER 15 MG 1 tablet Orall y every 12 hrs Active Sucralfate 1 GM 1 tablet on an empty stomach Orally Twice a day Active SOCIAL HISTORY Sex Assigned At : Social History Observation Description Sex Assigned At Unknown Alcohol Screen Question Answer Notes Did you have a drink containing alcohol in the p ast year? No Points 0 Interpretation Negative PROBLEMS Problem Type ICD Code Onset Dates Problem Status W/U Status Risk SNOMED Code Notes Problem Irritable bowel syndrome with diarrhea (K58.0) Active confirmed 716342383 Problem Peptic ulcer disease (K27.9) Active confirmed 30367119 Problem History of adenomatous polyp of colon (Z86.010) Active confirmed 298695113 VITAL SIGNS BMI 39.57 kg/m2 02/28/2023 Blood pressure systolic 000 mm Hg 02/29/20 Blood pressure diastolic 00 mm Hg 023 Height 63 in 02/28/2023 Temperature 97.3 degrees Fahrenheit 02/29/20 Weight 223.4 lbs 02/28/2023 Encounters Encounter Location Date Provider Diagnosis [facility] [address] [place] [address] 02/28/2023 Kashif Thurston Gastritis K29.70 ; Irritable bowel syndrome with diarrhea K58.0 ; Peptic ulcer disease K27.9 and History of adenomatous polyp of colon Z86.010 ASSESSMENTS Encounter Date Diagnosis Assessment Notes Treatment Notes Treatment Clinical Notes 02/28/2023 Gastritis (ICD-10 - K29.70) 02/28/2023 Irritable bowel syndrome with diarrhea (ICD-10 - K58.0) Use Dicyclomine and Imodium for the cramps and loose stools from the Irritable bowel syndrome 02/28/2023 Peptic ulcer disease (ICD-10 - K27.9) 02/28/2023 History of adenomatous polyp of colon (ICD-10 - Z86.010) 02/28/2023 Other Repeat colonosc opy in 10/2027 PLAN OF TREATMENT Treatment Notes Assessment Notes Irritable bowel syndrome with diarrhea U se Dicyclomine and Imodium for the cramps and loose stools from the Irritable bowel syndrome Other Repeat colonoscopy i n 10/2027 Next Appt Details Follow Up: prn, Reason: Progress Notes * Examination Category Sub-Category Detail Notes General Examination GENERAL APPEARANCE: pleasant , well nourished, well developed, in no acute distress EYES: sclera non-icteric NECK/THYROID: no cervical lymphade nopathy, neck supple HEART: S1, S2 normal LUNGS: clear to auscultatio n bilaterally ABDOMEN: normal bowel sounds, no guarding or rigidity, no hepatosplenomegaly, no masses palpable, soft, nontender, nondistended. NEUROLOGIC: alert and oriented SKIN: nonjaundiced, no spi marcos angiomata. EXTREMITIES: ORAL CAVITY: mucosa moist
--- OUTSIDE RECORDS SUMMARY | 2024-08-18 17:16 | XMS_ITS | Patient Health Record ---
Author Organization [facility] Address [address] [place] [address] Care Team Providers Care Prop Maker Name Role Phone Brad Kebede MD Primary Care Provider Kashif Xiao [phone] ALLERGIES No Known Allergies REASON FOR REFERRAL No Information MEDICATIONS Medication SIG (Take, Route, Frequency, Duration) Notes Start Date End Date Status levETIRAcetam ER 750 MG 1 tablet Orally Once a day for 30 day(s) Active Hyoscyamine Sulfate Not-Taking Carisoprodol 350 MG 1 tablet as needed Orally Four times a day Active Omeprazole 40 MG 1 capsule Orally Onc e a day for 30 day(s) 07/26/2011 Not-Taking Soma 350mg Active Folic Acid 1 MG 1 tablet Orally Once a day for 30 day(s) Active Gabapentin 800mg Act nash oxyCODONE HCl 5mg Ac tive Omeprazole 40mg Acti ve Dicyclomine HCl 10 MG 1 or 2 Orally Ever y 6 hours as needed for abdominal cramps/discomfort/bloa ting and/or diarrhea for 30 day(s) Active Morphine Sulfate ER 15 MG 1 tablet Orall y every 12 hrs Active metroNIDAZOLE 375 MG 2 capsules Orally every 8 hrs for 5 day(s) Not-Taking Sucralfate 1 GM 1 tablet on an empty stomach Orally Twice a day Active clonazePAM Active traMADol HCl Not-Tomer ing Metoprolol Tartrate 100 MG 1 tablet with food Orally Twice a day for 30 day(s) Active levoFLOXacin 500 MG 1 tablet Orally Once a day for 10 day(s) Not-Taking IMMUNIZATIONS Vaccine Route Administration Date Status Comme nts Influenza Unknown 08/22/2022 Refused SOCIAL HISTORY Sex Assigned At : Social History Observation Description Sex Assigned At Unknown Alcohol Screen Question Answer Notes Did you have a drink containing alcohol in the p ast year? No Points 0 Interpretation Negative PROBLEMS Problem Type ICD Code Onset Dates Problem Status W/U Status Risk SNOMED Code Notes Problem History of adenomatous polyp of colon (Z86.010) Active confirmed [id number] Problem Diarrhea (R19.7) Active confirmed Diarr hea (69465781) Problem Diverticulosis of large intestine without perforation or abscess without bleeding (K57.30) Active confirmed Diverticul ar disease of colon (930867050) Problem Irritable bowel syndrome with diarrhea (K58.0) Active confirmed 804044126 Problem Family history of colon cancer (Z80.0) Active confirmed Family History of Cancer of Colon (Situation) (602502999) Problem Peptic ulcer disease (K27.9) Active confirmed 17306197 Problem Gastritis (K29.70) Active confirmed Gas tritis (8817335) Problem Positive autoantibody screening for celiac disease (R76.8) Active confirmed 058361850 Problem Ischemic colitis (K55.9) Active confirmed Ischemic colitis (56092987) Encounters Encounter Location Date Provider Diagnosis [facility] [address] [place] [address] 03/30/2024 Kashif Thurston PLAN OF TREATMENT Pending Test Test Name Order Date LIVER PROFILE 07/08/2022 CRP 07/08/2022 CBC w DIFF 07/08/2022 SED RATE (ESR) 07/08/2022 CELIAC PANEL #10 07/08/2022 STOOL WBC 07/08/2022 C DIFFICILE RFLX PCR 07/08/2022 CALPROTECTIN, STOOL 07/08/2022 Future Test Test Name Order Date UPPER GI ENDOSCOPY 08/22/2022 COLONOSCOPY 08/22/2022 Insurance Providers Payer Name Payer Address Payer Phone Subscriber Number Group Number Insured Name Patient Relationship to Insured Coverage Start Date Coverage End Date MEDICARE OF [place] [address] [place] [address] [id number] MARIAH GOODWIN Self - patient is the insured [facility] [employer] [facility] [address] [place] [phone] [id number] MARIAH GOODWIN Self - patient is the insured MEDICAL (GENERAL) HISTORY Medical History History ICD Code Peptic ulcer disease--EGD's with me x 3 in 2010 with gastric and pyloric channel ulcer--biopsies negative for H.pylori Irritable bowel syndrome Denies ME,DM,CVA,Lung disease,renal dise ase Pacemaker/Defibrillator--hx of cardiac a rrest 2013 Cardiac arrest Seizures History of ischemic colitis- seen on a colonoscopy in 2016 at [facility], and with a CT in 05/2022 at [facility] [place] involving the descending colon Spinal compression fractures with Verteb roplasties Chronic pain--back, diffuse arthritis Bed sores --being followed at [facility] PTSD/Depression 2850-xyphlqajaiuu-xevobqo arrest 10/2022 Colonoscopy with 1 sm all tubular adenoma; no IBD, no microscopic colitis, biopsies from terminal ileum were unremarkable 10/2022 EGD normal duodenal b x, mild gastritis with negative H.pylori, small hiatal hernia, no esophagitis or Trinh's esophagus Surgical History Surgery Date(Month/Year) 6 back surgeries Cholecystectomy Pacemaker/defibrillator Spinal stimulator, but removed
--- OUTSIDE RECORDS SUMMARY | 2024-08-18 17:16 | XMS_ITS ---
Author Organization [facility] Address [address] [place] [address] Care Team Providers Care Nuclear Criticality Safety Engineer Name Role Phone Brad Kebede MD Primary Care Provider Kashif Xiao [phone] REASON FOR VISIT refill on dicyclomine MEDICATIONS Medication SIG (Take, Route, Fr equency, Duration) Notes Start Date End Date Status Dicyclomine HCl 10 MG 1 or 2 Orally Ever y 6 hours as needed for abdominal cramps/discomfort/bloating and/or diarrhea for 30 day(s) Ac tive Encounters Encounter Location Date Provider Diagnosis [facility] [address] [place] [address] 03/30/2024 Kashif Thurston PLAN OF TREATMENT Medication Medication Name Sig Start Date Stop Date Notes Dicyclomine HCl 10 MG 1 or 2 Orally Ever y 6 hours as needed for abdominal cramps/discomfort/bloating and/or diarrhea for 30 day(s)
== END 2024-08-16 16:00 | disposition home or self-care (01) ==
LOC: HO.LAB 15:59
PROVIDERS: PCP Family Medicine; Visit Provider Internal Medicine Cardiovascular Disease
DX: I48.91 Unspecified atrial fibrillation (principal)
CPT/HCPCS: 36415; 80048; 85025; 85610

== ENCOUNTER → 2024-08-27 23:59 | Outpatient (BNV) | payer MEDICARE, MEDICAID, SELFPAY ==
--- NOTE | 2024-09-02 15:53 | A.OFFVIS_ITS ---
Intake Visit Reasons: Remote Device Check-[facility] Allergies hydromorphone [From DILAUDID] Allergy (Unknown, Verified 07/20/24 10:21) STOPS HEART ibuprofen [From MOTRIN] Allergy (Unknown, Verified 07/20/24 10:21) SEIZURE NSAIDS (Non-Steroidal Anti-Inflamma Allergy (Verified 07/20/24 10:21) Unknown [facility] Medical History Spinal cord stimulator status Depression PTSD (post-traumatic stress disorder) Ischemic colitis GERD (gastroesophageal reflux disease) Peptic ulcer disease Thrombocytopenia Pressure sore on buttocks History of sudden cardiac successfully resuscitated ICD (implantable cardioverter-defibrillator) in place Surgical History History of spinal surgery History of cholecystectomy Family History Mother Dementia Cancer Father Heart disease Social History Household Members: Spouse Housing: House Alcohol intake: never Comment: restraints Patient Tobacco Use Status: Current everyday Tobacco user Tobacco use type: Cigarette Cigarette Packs Per Day: 0.75 Cigarettes Per Day: 10 Years Smoked: 40 +/- e-Cigarette/Vaping Use: Never Used service: No Current occupational status: disabled Current occupational exposures/hazards: No Sexual orientation: Unable to collect Gender identity: Unable to collect Cognitive needs: No Hearing needs: No Vision needs: Yes (Wears glasses) Office Procedures Cardiac Device Check Cardiac Device Check Details: Remote ICD report generated 08/27/2024. ICD function is adequate [id number] Cardiac Interrogation, implant defibrillator w/interim Procedure code (CPT) selection complete Assessment & Plan Assessment & Plan (1) ICD (implantable cardioverter-defibrillator) battery depletion: Code(s): Z45.02 - Encounter for adjustment and management of automatic implantable cardiac defibrillator Category: Medical Plan: See above Coding Level of Care Code Procedure Only Diagnoses ICD (implantable cardioverter-defibrillator) battery depletion Z45.02 CPT Codes Cardiac Device Check - Cardiac Device 13: [id number] Cardiac Interrogation, implant defibrillator w/interim ([id number])
== END ==
PROVIDERS: PCP Family Medicine; Visit Provider Internal Medicine Cardiovascular Disease
DX: Z45.02 Encounter for adjustment and management of automatic implantable cardiac defibrillator (principal)
CPT/HCPCS: 93295

== ENCOUNTER 2024-10-19 15:01 | Outpatient (AMB) | payer MEDICARE, MEDICAID, SELFPAY ==
--- NOTE | 2024-10-19 15:07 | MHC.OFFVIS ---
Vital Signs 10/19/24 15:08 Height 5 ft BMI Reason not done Patient refused/unable BP 120/82 Blood Pressure Location Lt brachial Position Sitting Pulse 91 Intake Visit Reasons: 3 mth w/ [address] [facility] ck Intake Note: 3 month follow-up [facility] check Filling And Stapling Machine Operator Required: No Allergies hydromorphone [From DILAUDID] Allergy (Unknown, Verified 07/20/24 10:21) STOPS HEART ibuprofen [From MOTRIN] Allergy (Unknown, Verified 07/20/24 10:21) SEIZURE NSAIDS (Non-Steroidal Anti-Inflamma Allergy (Verified 07/20/24 10:21) Unknown Medication List - Last Reconciled 10/19/24 by Aquiles Bowen MD carisoprodol 350 mg PO BID PRN 30 days cholecalciferol (vitamin D3) 50 mcg PO DAILY 90 days clonazepam 1 mg PO BID 30 days dicyclomine 20 mg PO QID gabapentin 800 mg PO QID levetiracetam (Keppra) 750 mg PO BID metoprolol tartrate 100 mg PO BID morphine 15 mg PO Q8H PRN 28 days morphine ER 15 mg PO Q12H 28 days sucralfate 1 g PO BID HPI Comments Details: Gayatri comes for follow-up. She underwent pulse generator change in August. Since then she had no new symptoms. She continues to have issues with her right ankle. No palpitation, lightheadedness, syncope, ICD discharge. Takes all her medications. She developed an allergic reaction to the adhesive bandage applied over the surgical site. Surgical wound is appear to be clean. No fever or chills. [facility] Medical History Spinal cord stimulator status Depression PTSD (post-traumatic stress disorder) Ischemic colitis GERD (gastroesophageal reflux disease) Peptic ulcer disease Thrombocytopenia Pressure sore on buttocks History of sudden cardiac successfully resuscitated ICD (implantable cardioverter-defibrillator) in place Surgical History History of spinal surgery History of cholecystectomy Family History Mother Dementia Cancer Father Heart disease Social History Household Members: Spouse Housing: House Alcohol intake: never Comment: restraints Patient Tobacco Use Status: Current everyday Tobacco user Tobacco use type: Cigarette Cigarette Packs Per Day: 0.75 Cigarettes Per Day: 10 Years Smoked: 40 +/- e-Cigarette/Vaping Use: Never Used service: No Current occupational status: disabled Current occupational exposures/hazards: No Sexual orientation: Unable to collect Gender identity: Unable to collect Cognitive needs: No Hearing needs: No Vision needs: Yes (Wears glasses) Review of Systems Const Denies chills, Denies fatigue, Denies fever(s), Denies frequent falls, Denies weakness, Denies weight gain and Denies weight loss ENT Denies dizziness Card Denies chest pain, Denies leg edema, Denies lightheadedness, Denies palpitations, Denies dyspnea, Denies dyspnea on exertion, Denies orthopnea and Denies other (loss of consciousness) Resp Denies cough, Denies dyspnea and Denies dyspnea on exertion GI Denies hematochezia and Denies change in stool character Musc Denies abnormal gait, Denies muscle weakness, Denies numbness, Denies radiating pain into limb and Denies tingling Neuro Denies abnormal gait, Denies dizziness, Denies frequent falls, Denies numbness, Denies tingling and Denies weakness Endo Denies fatigue and Denies palpitations Physical Exam Vital Signs: Last Vital Signs Pulse 91 10/19/24 15:08 BP 120/82 10/19/24 15:08 Const General: cooperative, healthy appearing, comfortable and no acute distress Orientation/consciousness: patient oriented x3 Neck Neck: Yes normal visual inspection Chest Chest palpation & inspection: other (ICD pocket is benign with well-healed scar) Resp Effort & Inspection: normal respiratory effort Auscultation: clear to auscultation bilaterally, no rales, no rhonchi and no wheezes Cardio Rate: regular rate Rhythm: regular rhythm Heart sounds: S1 normal heart sound present, S2 normal heart sound present, no murmurs and no rubs Neuro General: patient oriented x3 Extrem Other: No edema left lower extremity, orthopedic boot on right lower extremity Psych Appearance: grossly normal Mental Status: mental status grossly normal Speech and movement: Normal speech and movement present Office Procedures Cardiac Device Check Cardiac Device Check Details: Dual-chamber [facility] pacemaker in place. Programmed in DDDR at 55 beats per minute. Atrial pacing 12% of time. Intermittent episodes of PVCs noted. Atrial ventricular capture thresholds adequate and in auto capture mode. Atrial ventricular sensing is adequate. Pacing and shock lead impedance is stable. Battery life is up to 9.2 years 66053-TM Cardiac Device Check, dual lead implantable defibrillator Procedure code (CPT) selection complete Assessment & Plan Assessment & Plan (1) ICD (implantable cardioverter-defibrillator) in place: Comment: dual-chamber [facility] ICD in place for sudden cardiac with VF Code(s): Z95.810 - Presence of automatic (implantable) cardiac defibrillator Category: Medical Plan: ICD in place for sudden cardiac with VF successfully revived. Has not had any recurrent ICD discharge. Recent ICD pulse generator change. 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 Continue metoprolol therapy at 100 mg b.i.d.. She is noted to have PVCs. Avoidance of stimulants was discussed. Will monitor ICD remotely every 3 months. Follow up in the clinic 1 year's time. Will follow up in the clinic 1 year's time, sooner p.r.n.. Thank you for allowing me to partake in his care Coding Level of Care Code Est Pt Level 4 (15822) Complex EM visit Add On G2211 Diagnoses ICD (implantable cardioverter-defibrillator) in place Z95.810 CPT Codes Cardiac Device Check - Cardiac Device 5: [id number]-[id number] Cardiac Device Check, dual lead implantable defibrillator ([id number])
[2024-10-19 15:08] VITALS: BP 120/82; PULSE 91
== END 2024-10-19 15:43 | disposition home or self-care (01) ==
PROVIDERS: PCP Family Medicine; Visit Provider Internal Medicine Cardiovascular Disease
DX: Z95.810 Presence of automatic (implantable) cardiac defibrillator (principal)
CPT/HCPCS: 93283; 99214; G2211

== ENCOUNTER → 2024-10-19 15:01 | Outpatient (BNVA) | payer MEDICARE, MEDICAID, SELFPAY | PROVIDERS: PCP Family Medicine; Visit Provider Internal Medicine Cardiovascular Disease | DX: Z95.810 Presence of automatic (implantable) cardiac defibrillator (principal) | CPT/HCPCS: 99212 ==

== ENCOUNTER 2024-11-30 16:18 | Outpatient (AMB) | payer MEDICARE, MEDICAID, SELFPAY ==
--- NOTE | 2024-11-30 16:28 | A.OFFPC_ITS ---
Vital Signs 11/30/24 16:31 Height 5 ft Weight 223 lb BMI 43.5 BP 130/80 Blood Pressure Location Rt brachial Position Sitting Respiration 16 Pulse 105 H Pulse Source Pulse Oximeter Temp 100.1 F Temp Source Oral Pulse Oximetry (%) 94 Oxygen Delivery Method Room Air Intake Visit Reasons: f/u chronic pain Intake Note: patient is scheduled to follow up for chronic pain Youth Care Professional Required: No Allergies hydromorphone [From DILAUDID] Allergy (Unknown, Verified 11/30/24 16:30) STOPS HEART ibuprofen [From MOTRIN] Allergy (Unknown, Verified 11/30/24 16:30) SEIZURE NSAIDS (Non-Steroidal Anti-Inflamma Allergy (Verified 11/30/24 16:30) Unknown Medication List - Last Reconciled 11/30/24 by Alvino Mcfarlane MD carisoprodol 350 mg PO BID PRN 30 days cholecalciferol (vitamin D3) 50 mcg PO DAILY 90 days clonazepam 1 mg PO BID 30 days dicyclomine 20 mg PO QID gabapentin 800 mg PO QID levetiracetam (Keppra) 750 mg PO BID metoprolol tartrate 100 mg PO BID morphine 15 mg PO Q8H PRN 28 days morphine ER 15 mg PO Q12H 28 days sucralfate 1 g PO BID Tobacco use date assessed: 12/05/23 Dental Screening Dental Screen Date: 11/10/23 HPI f/u chronic pain HPI Details 59 y/o female presents to f/u chronic nc in, chronic conditions. Had been following up with Cardiology, Dr. Bowen for her ICD. Dual-chamber [facility] ICD in place for sudden cardiac with VF. She is on her pain meds as prescribed. She notes back pain, L knee pain. She notes chronic pain is especially bad some days, some days she feels pain is fine. Has trialed physical therapy before but she notes she feels she is in more pain than before when she does her exercises. [facility] Medical History Spinal cord stimulator status Depression PTSD (post-traumatic stress disorder) Ischemic colitis GERD (gastroesophageal reflux disease) Peptic ulcer disease Thrombocytopenia Pressure sore on buttocks History of sudden cardiac successfully resuscitated ICD (implantable cardioverter-defibrillator) in place Surgical History History of spinal surgery History of cholecystectomy Family History Mother Dementia Cancer Father Heart disease Social History Household Members: Spouse Housing: House Alcohol intake: never Comment: restraints Patient Tobacco Use Status: Current everyday Tobacco user Tobacco use type: Cigarette Cigarette Packs Per Day: 0.75 Cigarettes Per Day: 10 Years Smoked: 40 +/- e-Cigarette/Vaping Use: Never Used service: No Current occupational status: disabled Current occupational exposures/hazards: No Sexual orientation: Unable to collect Gender identity: Unable to collect Cognitive needs: No Hearing needs: No Vision needs: Yes (Wears glasses) Questionnaire PHQ-9 Over the last 2 weeks, how often have you been bothered by any of the following problems? 1. Little interest or pleasure in doing things: more than half the days 2. Feeling down, depressed, or hopeless: several days 3. Trouble falling or staying asleep, or sleeping too much: more than half the days 4. Feeling tired or having little energy: more than half the days 5. Poor appetite or overeating: several days 6. Feeling bad about yourself - or that you are a failure or have let yourself or your family down: several days 7. Trouble concentrating on things, such as reading the newspaper or watching television: several days 8. Moving or speaking so slowly that other people could have noticed. Or the opposite - being so fidgety or restless that you have been moving around a lot more than usual: several days 9. Thoughts that you would be better off or of hurting yourself in some way: not at all Total score: 11 Source: Developed by Drs. Kashif Turpin, Tona Estes, Jose De Anda and colleagues, with an educational johanny from [employer]. Thrive Questionnaire Date Thrive assessed: 11/23/24 I am a: Patient What is your living situation today?: I have a steady place to live Within the past 12 months, did the food you bought not last and you didn't have the money to get more?: I choose not to answer this question Within the past 12 months, did you worry whether your food would run out before you got money to buy more?: I choose not to answer this question Do you have trouble paying for medicines?: I choose not to answer this question Do you have trouble getting transportation to medical appointments?: I choose not to answer this question Do you have trouble paying your heating and electricity bill?: I choose not to answer this question Do you have trouble taking care of your child, family member or friend?: No Do you have trouble with day-to-day activities such as bathing, preparing meals, shopping, managing finances, etc.?: Yes Are you currently unemployed and looking for a job?: No Are you interested in more education?: No Please select the resources that you would like help with: None Currently or been in a relationship where the following occur: No concerns reported THRIVE Score: 0 AUDIT C Alcohol Use Questionnaire (AUDIT-C) 1. How often do you have a drink containing alcohol?: Never 3. How often do you have six or more drinks on one occasion?: Never Total Score: 0 MARIN-7 AMB Questionnaire MARIN-7 Date MARIN - 7 assessed: 08/03/24 Feeling nervous, anxious, or on edge: 1 = Several days Not being able to stop or control worryin = Several days Worrying too much about different things: 1 = Several days Trouble relaxin = More than half the days Being so restless that it is hard to sit still: 0 = Not at all Becoming easily annoyed or irritable: 1 = Several days Feeling afraid as if something awful might happen: 0 = Not at all Total MARIN-7 score (0-4 normal; 5-9 mild; 10-14 moderate; 15-21 severe): 6 Source: Developed by Drs. Kashif Turpin, Tona Estes, Jose De Anda and colleagues, with an educational johanny from [employer]. Review of Systems Const Denies chills, Denies fatigue, Denies fever(s), Denies headache(s) and Denies weakness ENT Denies dizziness and Denies headache(s) Card Denies dyspnea Resp Denies cough, Denies dyspnea, Denies wheezing and Denies other (shortness of breath) Musc Denies numbness and Denies tingling Neuro Denies dizziness, Denies headache(s), Denies numbness, Denies tingling and Denies weakness Psych Denies anxiety and Denies depression Endo Denies fatigue Aller/Immun Denies wheezing Physical exam (Primary Care) Vital Signs: Last Vital Signs Temp 100.1 F 11/30/24 16:31 Pulse 105 H 11/30/24 16:31 Resp 16 11/30/24 16:31 BP 130/80 11/30/24 16:31 Pulse Ox 94 11/30/24 16:31 Oxygen Delivery Method Room Air 11/30/24 16:31 BMI result Body Mass Index 43.5 Tobacco/Smoking Status: Tobacco use Status Tobacco use date assessed 12/05/23 11/30/24 16:36 Patient Tobacco Use Status Current everyday Tobacco 11/30/24 16:36 Tobacco use type Cigarette 11/30/24 16:36 e-Cigarette/Vaping Use Never Used 11/30/24 16:36 PHQ-9: PHQ-9 Score PHQ-9: Total score 11 11/30/24 16:38 Thrive Assessment: Date of Thrive Assessment Date Thrive assessed 11/23/24 11/30/24 16:36 Currently or been in a relationship where the following occur: No concerns reported Const General: well developed; No acute distress Nutritional Appearance: well nourished and obese morbidly obese Orientation/consciousness: patient oriented x3 HENMT Head: Yes normocephalic and Yes atraumatic Eyes General: appearance normal, both eyes and all related structures Pupils: Equal, round and reactive pupils present EOM: EOMs intact bilaterally Resp Effort & Inspection: normal respiratory effort Neuro General: patient oriented x3 and gait normal Cranial nerves: Yes Equal, round and reactive pupils present Psych Affect: normal affect Coding Level of Care Code Est Pt Level 3 (96331) Diagnoses Chronic pain syndrome G89.4 ICD (implantable cardioverter-defibrillator) in place Z95.810 Assessment & Plan Assessment & Plan (1) Chronic pain syndrome: Code(s): G89.4 - Chronic pain syndrome Category: Medical Plan: Back pain. L Knee pain. Fairly?stable?though?she?says?she?does?still?have?days?with?increased?pain She?tries?not?to?use?Excedrin?often?due?to?history?ulcers. No?recent?history?of?ulcers?and?she?does?tolerate?Excedrin.??She?can?use?this?th is?very?sparingly. Can?also?use?topicals May get Injection in L knee. ?From?Dr. Gambino in?the?future. Follow-up?with pain?management?and?also?Ortho. Dr Gambino, Dr [facility] Will?check?urine?drug?screen?with?next?labs (2) ICD (implantable cardioverter-defibrillator) in place: Comment: dual-chamber [facility] ICD in place for sudden cardiac with VF Code(s): Z95.810 - Presence of automatic (implantable) cardiac defibrillator Category: Medical Plan: Recent?ICD?replacement Healed?well. Follow-up?with?Cardiology?as?recommended Orders: Orders Complete Blood Count Auto Diff Today Z00.00 - Encounter for general adult medical examination without abnormal findings Lipid Panel Today Z00.00 - Encounter for general adult medical examination without abnormal findings Comprehensive Gillespie. Panel Fast Today Z00.00 - Encounter for general adult medical examination without abnormal findings Microalbumin, Random (w Creat) Today I10 - Essential (primary) hypertension UA and rflx microscopic Today Z00.00 - Encounter for general adult medical examination without abnormal findings TSH reflex Free T4 Today Z00.00 - Encounter for general adult medical examination without abnormal findings Hemoglobin A1c Today R73.01 - Impaired fasting glucose Drug Screen Urine Today F11.20 - Opioid dependence, uncomplicated
[2024-11-30 16:31] VITALS: BP 130/80; PULSE 105; RESP 16; TEMP 37.8; O2SAT 94; BMI 43.5
--- OUTSIDE RECORDS SUMMARY | 2024-11-30 19:46 | XMS_ITS | Data Portability ---
Author Organization [facility], [facility] Address [address] [place] [address] Care Team Providers Care Tool Straightener Name Role Phone CHANELLE MORA Primary Care Provider Assessment Encounter Date Assessment Date Assessment LastModified by Organization Details LastModified Time 06/29/2024 06/29/2024 CHIEF COMPLAINT: Right ankle pain and swelling HISTORY OF PRESENT ILLNESS: Gayatri is a 59-year-old woman who is seen today as a new patient who sustained a right ankle fracture resulting from a fall on 01/24/2024, over 5 months ago. She has been managed by Rajeev ZAMARRIPA at [facility]. She was casted initially and remains in a CAM boot. He comes in today with her . He is followed by [facility]. She has had a previous spine surgeries. She smokes a pack of cigarettes per day. She also has IBS. She is tearful today as she feels her injury was mismanaged at [facility].. Past family, medical, social history and review of systems has been reviewed, updated and is located in the patient? s chart. PHYSICAL EXAMINATION: General: 5', 248 lbs, healthy appearing, in no acute distress Psych: alert and oriented x3, normal mood Skin: intact without ulceration or lesion, normal turgor Lungs: respirations unlabored Cardiac: heart rate regular, normal peripheral pulses Musculoskeletal: On seated exam, there is asymmetric swelling of the right ankle. She has normal ankle and foot alignment. On seated exam, she is tender over the right distal fibula and there is palpable callus formation. Skin is intact. There is no medial ankle or deltoid ligament tenderness. There is mild syndesmotic tenderness. She has some discomfort with sagittal plane ankle range of motion. She is distally neurovascularly intact. X-RAYS: Five standing views of the right foot and ankle were ordered, obtained and reviewed by me today at [facility], demonstrating healing oblique Rodriguez B right lateral malleolus fracture with abundant callus formation, subtle valgus tilt of the ankle, question of small medial malleolar avulsion fracture. There is mild shortening of the fibula. IMPRESSION: 5 months status post right Rodriguez B distal fibular fracture with question of incomplete healing PLAN: He will remain in the boot for the time being. I have urged her to quit smoking in the event that surgery is indicated. I have recommended a CT scan of the right ankle to further evaluate, alignment and healing of her fracture as well as to evaluate for arthritis. I will speak with her by telephone to review the CT scan. If there is evidence of a nonunion, we will consider a bone stimulator. Ultimately, if the fracture fails to heal, she may require right distal fibular ORIF with lengthening osteotomy. I would like to avoid surgery if possible given her tobacco use and the fact that she is on chronic narcotics. I discussed this with her today. All questions were answered. [email or web address] Not available 06/29/2024 13:39:06 07/15/2024 07/15/2024 Telemedicine Telephone Encounter Patient Location: Home Physician Location: [facility] Office [place], [place] Time spent with patient: 16 minutes (including CT scan review) CHIEF COMPLAINT: Right ankle pain and swelling HISTORY OF PRESENT ILLNESS: Gayatri is a 59-year-old woman who I am speaking with by telephone for CT scan review. I first met her on 06/29/2024. We recall that she sustained a right ankle fracture resulting from a fall on 01/24/2024, 6 months ago. She has been managed by Rajeev ZAMARRIPA at [facility]. She was casted initially and remains in a CAM boot. She is followed by [facility]. She has had multiple previous spine surgeries. She was smoking a pack of cigarettes per day and has cut back to 2-3 cigarettes per day. She also has IBS. She has history of osteoporosis. Past family, medical, social history and review of systems has been reviewed, updated and is located in the patient? s chart. PHYSICAL EXAMINATION: deferred Based on my physical exam from 06/29/24: General: 5', 248 lbs, healthy appearing, in no acute distress Psych: alert and oriented x3, normal mood Skin: intact without ulceration or lesion, normal turgor Lungs: respirations unlabored Cardiac: heart rate regular, normal peripheral pulses Musculoskeletal: On seated exam, there is asymmetric swelling of the right ankle. She has normal ankle and foot alignment. On seated exam, she is tender over the right distal fibula and there is palpable callus formation. Skin is intact. There is no medial ankle or deltoid ligament tenderness. There is mild syndesmotic tenderness. She has some discomfort with sagittal plane ankle range of motion. She is distally neurovascularly intact. 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 There is mild shortening of the fibula. CT: I independently reviewed her recent CT scan images through [facility] from 07/05/24, demonstrating a right distal fibular Rodriguez B nonunion without any appreciable osseous bridging. The fracture gap measures 3-4 mm. IMPRESSION: 6 months status post right Rodriguez B distal fibular fracture with nonunion evident on CT scan PLAN: She will remain in the boot for the time being. I have urged her to quit smoking in the event that surgery is indicated. I have recommended trial of a bone growth stimulator, which I believe she qualifies for this she has a nonunion 6 months after her injury and is a smoker. I will plan to see her back in 2 months for reevaluation. Ultimately, if the fracture fails to heal, she may require right distal fibular ORIF with lengthening osteotomy. I would like to avoid surgery if possible given her tobacco use and the fact that she is on chronic narcotics. I discussed this with her today. All questions were answered. This visit was a real-time Telemedicine interaction between a physician in a medical office and patient from their home. The totality of the communication of information exchanged between the physician (myself) and the patient during the course of the synchronous telemedicine service was sufficient to meet the galaviz components and/or requirement of the same service when rendered via a stzp-vy-megu interaction. I discussed with the patient the risks and benefits of telemedicine services and the patient consented to the receipt of such telemedicine services. [email or web address] Not available 07/15/2024 16:42:24 09/23/2024 09/23/2024 CHIEF COMPLAINT: Right ankle pain HISTORY OF PRESENT ILLNESS: Gayatri is a 59-year-old woman who I am seeing today in follow-up with regard to her right ankle. I first met her on 06/29/2024 and last spoke with her on 07/15/[address] scan review. We recall that she sustained a right ankle fracture resulting from a fall on 01/24/2024, 8 months ago. She was initially managed by Rajeev ZAMARRIPA at [facility]. She was casted initially and remains in a CAM boot. She is also followed by [facility] for chronic back and neck pain. She has had multiple previous spine surgeries. She was smoking a pack of cigarettes per day and has cut back to 2-3 cigarettes per day. She also has IBS. She has history of osteoporosis. She is feeling significantly better today. I had recommended a bone stimulator but she cannot use this because of a pacemaker. Her pain level is 6/10. She still walks with a limp but is happy with her improvement. Past family, medical, social history and review of systems has been reviewed, updated and is located in the patient? s chart. No interval changes. PHYSICAL EXAMINATION: General: 5', 248 lbs, healthy appearing, in no acute distress Psych: alert and oriented x3, normal mood Skin: intact without ulceration or lesion, normal turgor Lungs: respirations unlabored Cardiac: heart rate regular, normal peripheral pulses Musculoskeletal: On seated exam, there is mild residual swelling of the right ankle. She has normal ankle and foot alignment. On seated exam, she is mildly tender over the right distal fibula and there is palpable callus formation. Skin is intact. There is no medial ankle or deltoid ligament tenderness. There is minimal syndesmotic tenderness. She has some mild discomfort with sagittal plane ankle range of motion. She is distally neurovascularly intact. X-RAYS: Three standing views of the right ankle were ordered, obtained and reviewed by me today at [facility], demonstrating healed oblique Rodriguez B right lateral malleolus fracture-nonunion with abundant callus formation, subtle valgus tilt of the ankle. IMPRESSION: 8 months status post right Rodriguez B distal fibular fracture with significant interval healing PLAN: She is doing much better. Her x-rays today demonstrate fracture healing. I have recommended she transition from the boot to an ASO brace, which was provided today. I have recommended a home exercise program as she cannot drive and therefore cannot attend physical therapy. She will follow up with us in 2-3 months sure she is continuing to improve. She has a small area of palpable callus over the lateral malleolus but I would not recommend an exostectomy. All questions were answered. I would like to avoid surgery if possible given her tobacco use and the fact that she is on chronic narcotics. The patient is ambulatory, but has weakness and/or instability of their extremity which requires stabilization from this semi-rigid/rigid orthosis to improve their function. Verbal and written instructions for the use and application of this item were given. Patient was instructed that should the brace result in increased pain, decreased sensation, increased swelling or an overall worsening of their medical condition, to please contact our office immediately. [email or web address] Not available 09/23/2024 16:35:13 Plan of Treatment Reminders Order Date Submit Date Provider Last Modified By Organization Details Last Modified Time Details Appointments RECHECK 15 2024 04:00P German Valente PA-C Not available Not available Not available Lab None recorded. Referral None recorded. Procedures None recorded. Surgeries None recorded. Imaging XR, ankle, 3 or more view - RM 108 -- RECHECK 3V ANKLE WB 2024 025 [facility], [address], [place], [address], 10/05/2024 07:36:13 XR, ankle, 3 or more view - RM 108--new 3V ANKLE WB, 2V FOOT WB 2023 024 [facility], [address], [address], [place], [address], 07/20/2024 16:09:16 XR, foot, 2 view 2023 024 [email or web address], [address], [address], [place], [address], 07/20/2024 16:09:15 CT, ankle, w/o contrast - eval fracture healing 2023 024 [email or web address] [facility] [place], [address] [facility], [address], [place], [address], 07/20/2024 16:09:16 Medication Orders None recorded. Patient TargetsNo targets recorded. Patient InstructionsNo instructions recorded. Reason for Referral None Reported. Results Created Date Observation Date Name Description Value Unit Range Abnormal Flag Note LastModifiedBy Organization Detail LastModifiedTime 06/29/2006/29/2024 XR, ankle , 3 or more view [email or web address]:/ [email or web address] ?Encry pted=s hAaTro YD8dLq bEUv6g %2BXZw aYqtaq 0bqfl% 2Fg9IQ a4ajBk vP9nXo QUaueC m3YtLR FvZl JJ8[place] HZtai3 9v9381 AC0Kqa 3SDUqO lKiQtr MwF INTERFACE [facility] [address], [place], [address], 06/29/2024 13:13:49 06/29/20 24 06/29/2024 XR, ankle , 3 or more view [email or web address]:/ [email or web address] ?Encry pted=s hAaTro YD8dLq bEUv6g %2BXZw aYqtaq 0bqfl% 2Fg9IQ a4ajBk vP9nXo QUaueC m3YtLR FvZl [facility] 2v0488 AC0Kqa 3SDUqO lKiQtr MwF INTERFACE [facility] [address], [place], [address], 06/29/2024 13:13:51 06/29/20 24 06/29/2024 XR, foot, 2 view http:/ [email or web address] ?Encry pted=s hAaTro YD8dLq bEUv6g %2BXZw aYqtaq 0bqfl% 2Fg9IQ a4ajBk vP9nXo QUaueC m3YtLR FvZlgJ JJ8mAn HZtai3 3b9134 AC0Kqa 3SDUqO iKiQtr MwF INTERFACE [facility] [address], [place], [address], 06/29/2024 13:15:48 06/29/20 24 06/29/2024 XR, foot, 2 view http:/ [email or web address] ?Encry pted=s hAaTro YD8dLq bEUv6g %2BXZw aYqtaq 0bqfl% 2Fg9IQ a4ajBk vP9nXo QUaueC m3YtLR FvZl JJ8mAn HZtai3 5p6817 AC0Kqa 3SDUqO iKiQtr MwF INTERFACE [facility] [address] [facility] [address], [place], [address], 06/29/2024 13:15:50 07/07/20 24 07/05/2024 CT, ankle , w/o contr ast No observ ation [facility] ed. [email or web address] [place] [address] [facility] [address], [place], [address], 07/08/2024 06:50:12 07/19/20 24 01/24/2024 XR, ankle No observ ation record ed. [facility] ([facility]) [address] [facility] [address], [place], [address], 07/19/2024 16:45:40 09/23/19 25 09/23/2024 XR, ankle , 3 or more view http:/ [email or web address] ?Encry pted=s hAaTro YD8dLq bEUv6g %2BXZw aYqtaq 0bqfl% 2Fg9IQ a4ajBk vP9nXo QUaueC m3YtLR FvZlJ JJ8mAn HZtai3 1v1369 AC0Kqb 3iAU6K gKiQtr MwF INTERFACE [facility] [address], [place], [address], 09/23/2024 15:02:28 09/23/19 25 09/23/2024 XR, ankle , 3 or more view http:/ [email or web address] ?Encry pted=s hAaTro YD8dLq bEUv6g %2BXZw aYqtaq 0bqfl% 2Fg9IQ a4ajBk vP9nXo QUaueC m3YtLR FvZlgJ JJ8mAn HZtai3 5j3382 AC0Kqb 3iAU6K gKiQtr MwF INTERFACE [facility] [address], [place], [address], 09/23/2024 15:02:31 Result Notes None recorded. Procedures Surgical History None recorded. Imaging Results Imaging Date Name Status LastModified by Organiz [facility] Details LastModified Time 06/29/2024 XR, ankle, 3 or more view completed INTERFACE [facility] [address] [facility], [place], [address], 06/29/2024 13:13:49 06/29/2024 XR, ankle, 3 or more view completed INTERFACE [facility] [address] [facility], [place], [address], 06/29/2024 13:13:51 06/29/2024 XR, foot, 2 view completed [facility] [address], [place], [address], 06/29/2024 13:15:48 06/29/2024 XR, foot, 2 view completed INTERFACE [facility] [address], [place], [address], 06/29/2024 13:15:50 07/05/2024 CT, ankle, w/o contrast [email or web address] [facility] [place] [address] [facility] [address], [place], [address], 07/08/2024 06:50:12 01/24/2024 XR, ankle completed [email or web address] [facility] ([facility]) [address] [facility] [address], [place], [address], 07/19/2024 16:45:40 09/23/2024 XR, ankle, 3 or more view completed INTERFACE [facility] [address], [place], [address], 09/23/2024 15:02:28 09/23/2024 XR, ankle, 3 or more view completed INTERFACE [facility] [address], [place], [address], 09/23/2024 15:02:31 Procedure Notes None recorded. Medical Equipment None Reported. Allergies Allergen ID Allergen Name Allergen Category Reaction Reaction Severity Criticality Documentation Date Start Date Code Code System Note Provider Name and Address Organization Details Recorded Time 979443 Dilaudid medicatio n Not available Not available Not available 06/29/2024 50286 3 RxNorm [facility] 4 13:49:59 753680 Non-stero idal anti-infl ammatory agent (product) medicatio n Not available Not available Not available 06/29/2024 42236 005 SNOMED [facility] 4 13:50:04 Medications Name Sig Start Date Stop Date Status Note LastModified by Organization Details LastModified Time carisoprodol 350 mg tablet TAKE 1 TABLET BY MOUTH TWICE DAILY NEEDED FOR PAIN OR SPASM active Not Available Not Available No t Available clonidine HCl 0.1 mg tablet TAKE ONE-HALF TABLET BY MOUTH THREE TIMES DAILY NEEDED FOR WITHDRAWAL SYMPTOMS active Not Available Not Available No t Available acetaminophe n 325 mg tablet TAKE 2 TABLETS BY MOUTH EVERY 4 HOURS NEEDED FOR PAIN active Not Available Not Available No t Available metoprolol tartrate 100 mg tablet TAKE 1 TABLET BY MOUTH TWICE DAILY active Not Available Not Available No t Available clonazepam 1 mg tablet TAKE 1 TABLET BY MOUTH TWICE DAILY active Not Available Not Available No t Available penicillin V potassium 500 mg tablet TAKE 1 TABLET BY MOUTH THREE TIMES DAILY FOR 10 DAYS active Not Available Not Available Not Available folic acid 400 mcg tablet TAKE 1 TABLET BY MOUTH DAILY active Not Available Not Available Not Available famotidine 20 mg tablet TAKE 1 TABLET BY MOUTH DAILY active Not Available Not Available Not Available gabapentin 800 mg tablet TAKE 1 TABLET BY MOUTH FOUR TIMES DAILY active Not Available Not Available Not Available oseltamivir 75 mg capsule TAKE 1 CAPSULE BY MOUTH EVERY 12 HOURS FOR 5 DAYS active Not Available Not Available N ot Available buspirone 10 mg tablet TAKE 1 TABLET BY MOUTH TWICE DAILY active Not Available Not Available No t Available clonazepam 2 mg tablet TAKE 1/2 TABLET BY MOUTH TWICE DAILY active Not Available Not Available No t Available bupropion HCl 75 mg tablet TAKE 1/2 TABLET BY MOUTH TWICE DAILY active Not Available Not Available No t Available morphine ER 15 mg tablet,exten ded release TAKE 1 TABLET BY MOUTH EVERY 12 HOURS active Not Available Not Available No t Available levetiraceta m 750 mg tablet TAKE 1 TABLET BY MOUTH TWICE DAILY active Not Available Not Available No t Available morphine 15 mg immediate release tablet TAKE 1 TABLET BY MOUTH EVERY 8 HOURS NEEDED PAIN active Not Available Not Available Not Available dicyclomine 10 mg capsule TAKE 1-2 CAPSULES BY MOUTH EVERY 6 HOURS NEEDED FOR ABDOMINAL CRAMPS/DISC OMFORT/BLOA TING AND/OR DIARRHEA active Not Available Not Available No t Available Hibiclens 4 % topical liquid APPLY TOPICALLY TWICE DAILY FOR 10 DAYS. WASH HANDS TWICE DAILY FOR 10 DAYS active Not Available Not Available No t Available cholecalcife rol (vitamin D3) 1,250 mcg (50,000 unit) capsule TAKE 1 CAPSULE BY MOUTH EVERY WEEK FOR 28 DAYS active Not Available Not Available No t Available BinaxNOW COVID-19 Ag Self Test kit TEST DIRECTED TODAY active Not Available Not Available No t Available Vitals Date Recorded Body height Body mass index (BMI) Body weight Provider Name and Address Organization Details Last Updated DateTime 06/29/2024 152.4 cm 48.4 kg/m2 911802.91 g BAILEY Villanueva [place] - [facility] 06/29/2024 13:49:53 Date Recorded Body height Body mass index (BMI) Body weight Provider Name and Address Organization Details Last Updated DateTime 09/23/2024 152.4 cm 48.4 kg/m2 492954.91 g BAILEY HERRINGBakariASTON Villanueva [place] - [facility] 09/23/2024 14:57:04 Social History None recorded. Functional Status None recorded. Mental Status None recorded. Family History Nothing Reported. Medical History No medical history recorded. Gynecological HistoryNo gynecological history recorded. Obstetrics History GPAL:G 0 P 0 0 0 0 Past Encounters Encounter ID Performer Location Encounter Start Date Encounter Closed Date Diagnosis/Indication Diagnosis SNOMED-CT Code Diagnosis ICD10 Code Diagnosis Note [id number] Ozzy Ferguson MD [facility] [address] [place] [address] 06/29/2024 12:33:40 07/20/2024 16:09:15 Ankle pain 462869352 M25.571 Closed fra cture of right ankle 4120522420 7461128 S82.891A Closed fra cture of lateral malleolus 12986216 S82.61XA [id number] Ozzy Ferguson MD [facility] [address] [facility] [address] [place] [address] 07/15/2024 15:32:35 08/12/2024 14:27:49 Closed fracture of lateral malleolus 10222775 S82.61XK [id number] [facility] [address] [address] [place] [address] 09/23/2024 14:48:12 10/05/2024 07:36:12 Ankle pain 170679237 M25.579 M25.571 Closed fra cture of ankle 21957416 S82.891D Closed fra cture of lateral malleolus 88328314 S82.61XG Health Concerns Section Related Observation LastModified by Organization Detai ls LastModified Time None Recorded Concern Status LastModified by Organization Details LastModified Time None Recorded Advance Directives Directive None Recorded Payers Encounter Date Sequence Insurance Name Policy Number Policy Agarwal Covered Member ID Agarwal Member ID Guarantor Name 06/29/2024 1 [place] [employer] Gayatri Lopez [id number] Gayatri Lopez 06/29/2024 2 [place] [facility] [id number] Gayatri Lopez 07/15/2024 1 [place] [facility] Gayatri Wangscotty [id number] Gayatri Lopez 07/15/2024 2 [place] Gayatri Villanueva John [id number] Gayatri Lopez 09/23/2024 1 [place] [facility] Gayatri Villanueva John [id number] Gayatri Lopez 09/23/2024 2 [place] Gayatri Villanueva John [id number] Gayatri Lopez OBGygriffin Episode No OBEpisode recorded.
--- OUTSIDE RECORDS SUMMARY | 2024-11-30 19:47 | XMS_ITS | Patient Health Record ---
Author Organization [facility] Address [address] [place] [address] Care Team Providers Care Welder/Fitter Name Role Phone Brad Kebede MD Primary Care Provider Kashif Xiao [phone] Allergies No Known Allergies Reason For Referral No Information Medications Medication [...] Once a day for 10 day(s) Not-Taking Immunizations Vaccine Route Administration Date Status Comme nts Influenza Unknown 08/22/2022 Refused Social History Alcohol Screen Question Answer Notes Did you have a drink containing alcohol in the p ast year? No Points 0 Interpretation Negative Section Notes: She does smoke, but denies s ignificant alcohol intake She does smoke, but denies s ignificant alcohol intake She does smoke, but denies s ignificant alcohol intake Problems Problem Type SNOMED Code ICD Code Onset Dates Problem Status W/U Status Risk Notes Problem 074448477 History of adenomatous polyp of colon (Z86.010) Active confirmed Problem Diarrhea (88606628) Diarrhea (R19.7) Active confirmed Problem Diverticular disease of colon (827954621) Diverticulosis of large intestine without perforation or abscess without bleeding (K57.30) Active confirmed Problem 385646698 Irritable bowel syndrome with diarrhea (K58.0) Active confirmed Problem Family History of Cancer of Colon (Situation) (204589803) Family history of colon cancer (Z80.0) Active confirmed Problem 27944922 Peptic ulcer disease (K27.9) Active confirmed Problem Gastritis (9342819) Gastritis (K29.70) Active confirmed Problem 501025839 Positive autoantibody screening for celiac disease (R76.8) Active confirmed Problem Ischemic colitis (75112965) Ischemic colitis (K55.9) Active confirmed Encounters Encounter Location Date Provider Diagnosis [facility] [address] [place] [address] 03/30/2024 Kashif Thurston Plan Of Treatment Pending Test Test Name Order Date LIVER [...] OF [place] [address] [place] [address] [id number] MARIAH GOODWIN Self - patient is the insured MEDICAID OF [facility] [address] [place] [id number] MARIAH GOODWIN Self - patient is the insured Medical (General) History Medical History History ICD Code Peptic ulcer disease--EGD's with me x 3 in 2010 with gastric and pyloric channel ulcer--biopsies negative for H.pylori Irritable bowel syndrome Denies [place],DM,CVA,Lung disease,renal dise ase Pacemaker/Defibrillator--hx of cardiac a rrest 2013 Cardiac arrest Seizures History of ischemic colitis- seen on a colonoscopy in 2016 at [facility], and with [place] [facility] [place] the descending colon Spinal compression fractures with Verteb roplasties Chronic pain--back, diffuse arthritis Bed sores --being followed at [facility] PTSD/Depression 1985-ogasmqzzsyil-sfxnqcy arrest 10/2022 Colonoscopy with 1 sm all tubular adenoma; no IBD, no microscopic colitis, biopsies from terminal ileum were unremarkable 10/2022 EGD normal duodenal b x, mild gastritis with negative H.pylori, small hiatal hernia, no esophagitis or Trinh's esophagus Surgical History Surgery Date(Month/Year) 6 back surgeries Cholecystectomy Pacemaker/defibrillator Spinal stimulator, but removed
--- OUTSIDE RECORDS SUMMARY | 2024-11-30 19:47 | XMS_ITS ---
Author Organization [facility] Address [address] [place] [address] Care Team Providers Care Carburetor Specialist Name Role Phone Brad Kebede MD Primary Care Provider Dany Epperson [facility] [phone] Encounters Encounter Location Date Provider Diagnosis [facility] [address] [place] [phone] 07/30/2023 Dany Peres Plan Of Treatment No Information Progress Notes * MARIAH GOODWIN LDOB: [birth year] (58 yo F)Acc No.[id number]:07/30/2023 Patient:?THOMASANA PAULAJUSTINKERWIN Villanueva :1965???Age:58 Y???Sex:Female Address:[address] [place], [address] * true * Date:? Generated for Printi monika/Khloe/eTransmitting on:?11/30/2024 07:47 PM EDT
--- OUTSIDE RECORDS SUMMARY | 2024-11-30 19:47 | XMS_ITS ---
Author Organization [facility] Address [address] [place] [address] Care Team Providers Care Leather Goods Sales Representative Name Role Phone Brad Kebede MD Primary Care Provider Kashif Xiao [phone] REASON FOR VISIT refill on dicyclomine Medications Medication SIG (Take, Route, Fr equency, Duration) Notes Start Date End Date Status Dicyclomine HCl 10 MG 1 or 2 Orally Ever y 6 hours as needed for abdominal cramps/discomfort/bloating and/or diarrhea for 30 day(s) Ac tive Encounters Encounter Location Date Provider Diagnosis [facility] [address] [place] [address] 03/30/2024 Kashif Thurston Plan Of Treatment Medication Medication Name Sig Start Date Stop Date Notes Dicyclomine HCl 10 MG 1 or 2 Orally Ever y 6 hours as needed for abdominal cramps/discomfort/bloating and/or diarrhea for 30 day(s) Progress Notes * THOMASMARIAH GOSS LDOB: [birth year] (59 yo F)Acc No.[id number]:03/30/2024 Patient:?MARIAH GOODWIN :1965???Age:59 Y???Sex:Female Address: [place] [address] * Refills? Refill Dicyclomine HCl Capsule, 10 MG, Orally, 150, 1 or 2, Every 6 hours as needed for abdominal cramps/discomfort/bloating and/or diarrhea, 30 day(s), Refills=6 * true * Date:? Generated for Raffy frank/Khloe/Bhumika on:?11/30/2024 07:47 PM EDT
--- OUTSIDE RECORDS SUMMARY | 2024-11-30 19:47 | XMS_ITS ---
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 Z79.891 ; Spondylosis without myelopathy or radiculopathy, cervical region M47.812 and Spondylosis without myelopathy or radiculopathy, lumbar region M47.816 Assessments Encounter Date Diagnosis (ICD Code) Assessment Notes Treatment Notes Treatment Clinical Notes Section Notes 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 Taking pain medication [...] days Treatment Notes Assessment Notes Other The floor finisher helper was checked and appropriate. Taking pain medication [...] MARIAH GOODWIN LDOB: [birth year] (58 yo F)Acc No.[id number]:07/15/2023 Progress Notes Patient:?MARIAH GOODWIN Provider:?Luis Peres NP :1965???Age:58 Y???Sex:Female D ate:07/15/2023 Address:[address] [place], [place] [phone] Pcp:Brad Kebede MD Subjective: * Chief Complaints: [...] foraminal narrowing. ?She has tried injections at [facility] with no significant relief. She [...] left trochanter bursa area.? Assessment: * Assessment: 1.?care home (current) use o f opiate analgesic - Z79.891?2.?Spondylosis without myelopathy or radiculopathy, cervical region - M47.812?3.?Spondylosis without myelopathy or radiculopathy, lumbar region - M47.816? Plan: * Treatment: 2.?Others? Notes: The floor finisher helper was checked and appropriate. Taking pain medication [...] Peres NP Date:?03/2023 Generated for Raffy frank/Khloe/eTransmitting on:?11/30/2024 07:46 PM EDT History and Physical Notes * Examination Category [...]
--- OUTSIDE RECORDS SUMMARY | 2024-11-30 19:47 | XMS_ITS ---
Author Organization [facility] Address [address] [place] [address] Care Team Providers Care Pathology Laboratory Technologist Name Role Phone Brad Kebede MD Primary Care Provider Dany Epperson [facility] [phone] Medications Medication SIG (Take, Route, Frequency, Duration) Notes Start Date End Date Status MS Contin 15 MG 1 tablet Orally every 8 hours for 30 days may request partial fill 08/14/2023 Active Morphine Sulfate 15 MG 1 tablet as needed Orally every 8 hours for 30 days may request partial fill 08/14/2023 Active Encounters Encounter Location Date Provider Diagnosis [facility] [address] [place] [address] 08/04/2023 Dany Peres [facility] (current) use of opiate analgesic Z79.891 Assessments Encounter Date Diagnosis (ICD Code) Assessment Notes Treatment Notes Treatment Clinical Notes Section Notes 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 Refill Morphine Sulfate Tablet, 15 MG, Orally, 90 Tablet, 1 tablet as needed, every 8 hours, 30 days, Refills=0 Refill MS Contin Tablet Extended Release, 15 MG, Orally, 90 Tablet, 1 tablet, every 8 hours, 30 days, Refills=0 * true * Date:? Generated for Raffy frank/Khloe/Kuldipitting on:?11/30/2024 07:46 PM EDT
--- OUTSIDE RECORDS SUMMARY | 2024-11-30 19:47 | XMS_ITS | Clinical Summary ---
Author Organization [address] [place] [address] Address [address] [place] [address] Phone Care Team Providers Care Occupational Medicine Officer Name Role Phone Alvino Mcfarlane MD Primary Care Provider [phone] Allergies Active Allergy Reactions Criticality Noted Date Comments Escitalopram Oxalate 07/29/2016 Lexapro Hydromorphone 08/18/2024 Lisinopril 04/16/2015 Nsaids (Non-Steroidal Anti-I nflammatory Drug) GI bleeding 03/31/2015 Medications carisoprodoL (SOMA) 350 mg tablet Take 1 Tab by mouth 2 times daily as needed for Muscle spasms. 07/29/2016 Active clonazePAM (KlonoPIN) 1 mg tablet Take 1 Tab by mouth 2 times daily. 06/18/2020 Active dicyclomine (BENTYL) 20 mg tablet Take 1 Tablet by mouth every 6 hours. Active gabapentin (NEURONTIN) 800 mg tablet Take 800 mg by mouth 4 times daily. Active levETIRAcetam (KEPPRA) 750 mg tablet Take 1 Tab by mouth 2 times daily. 06/18/2020 Active metoprolol succinate (TOPROL-XL) 100 mg 24 hr tablet Take 1 Tab by mouth 2 Times Daily. 06/18/2020 Active morphine (MSIR) 15 mg tablet 15mg instant 3x 15mg extend 2x 06/18/2020 Active sucralfate (CARAFATE) 1 gram tablet Take 1 tablet by mouth 2 times daily (before meals). 11/16/2021 Active Active Problems Problem Noted Date Diagnosed Date Encounter for checking and t esting of cardiac pacemaker pulse generator (battery) 08/13/2024 Other pulmonary embolism wit hout acute cor pulmonale, unspecified chronicity 07/29/2024 Thrombocytopenia, unspecified 07/29/2024 Other hypertrophic cardiomyopathy 07/29/2024 Morbid obesity with BMI of 40.0-44.9, adult 07/10 External hemorrhoid 12/16/2016 Ischemic colitis 12/16/2016 Overview (07/28/2024): Follows with GI Prolonged QT interval syndrome 08/16/2016 Seizure disorder 08/16/2016 Overview (07/28/2024): On keppra F/u with neurology Left thyroid nodule 08/08/2015 Overview (07/28/2024): S/p FNA 02/2017 which is benign Vitamin D deficiency 05/04/2015 AICD (automatic cardioverter/defibrillator) pres ent 03/31/2015 Overview (07/28/2024): Last interoggation 10/2019 Follows with cardiology Anxiety and depression 03/31/2015 Cardiac arrest 03/31/2015 Overview (07/28/2024): Told due to long QT syndrome In March 2014 s/p pacemaker Sees Dr. Bowen Compression fracture of L2 03/31/2015 Overview (07/28/2024): S/p Kyphoplasty and disectomy done with PSS - Dr. Llanes, now follows with pain management Dr. Price pain management they prescribe all narcotics HTN (hypertension), benign 03/31/2015 Hyperlipidemia with target LDL less than 130 Overview (07/28/2024): IMO update IBS (irritable bowel syndrome) 03/31/2015 Multiple gastric ulcers 03/31/2015 Overview (07/28/2024): Dr. Thurston at [place] Osteoporosis 03/31/2015 Cervical herniated disc 11/27/2009 Overview (07/28/2024): Herniated disc , not a surgical candidate, follows with Dr. Price pain management Immunizations Name Administration Dates Next Due Influenza, Unspecified 07/09/2016 Tdap Tetanus diptheria acell ular pertussis (Boostrix; Adacel) 7yo and older 02/12/2013 Surgical History Surgery Date Site/Laterality Comments BACK SURGERY PROCEDURE: HISTORICAL BACK SURGERY; COMMENT: Dr. Moyer and sees PSS/ L4-S1 fusion CHOLECYSTECTOMY PROCEDURE: HISTORICAL CHOLECYSTECTOMY OTHER SURGICAL HISTORY 03/2015 PROCEDURE: PERCUTANEOUS VERTEBROPLASTY EA ADDL THRC/LMBR; COMMENT: L1-L2 COLONOSCOPY 4 PROCEDURE: HISTORICAL COLONOSCOPY OTHER SURGICAL HISTORY 03/22/16 PROCEDURE: UPPER GASTROINTESTINAL ENDOSCOPY IN; COMMENT: erosive gastritis of antral mucosa COLONOSCOPY W/ BIOPSIES 10/07/16 PROCEDURE: [place] COLONOSCOPY W/BIOPSY SINGLE/MULTIPLE; COMMENT: Probable ischemic sigmoid colitis; random biopsies from remainder of colon were normal. Small hemorrhoids; repeat in 10 years. Ischemic sigmoid colitis by vision and biopsy Medical History Medical History Date Comments IBS (irritable bowel syndrome) D X:IBS (irritable bowel syndrome) Vitamin D deficiency 05/04/2015 DX:Vitamin D deficiency Cardiac arrest 03/31/2015 DX:Cardiac arres t ([facility]); COMMENT: Told due to long QT syndrome In March 2014 s/p pacemaker Sees Dr. Sandoval Multiple gastric ulcers 03/31/2015 DX:Multi ple gastric ulcers; COMMENT: Dr. Thurston at [place] Anxiety and depression 03/31/2015 DX:Anxiet y and depression External hemorrhoid 12/16/2016 DX:External hemorrhoid AICD (automatic cardioverter/defibrillator) present 03/31/2015 DX:AICD (automatic cardioverter/defibrillator) present; COMMENT: Last interoggation 02/2017 Cervical herniated disc 11/27/2009 DX:Cervi ada herniated disc; COMMENT: Herniated disc , not a surgical candidate, follows with Dr. Price pain management Compression fracture of L2 (CMS/HCC) 03/31/2015 DX:Compression fracture of L2 ([facility]); COMMENT: S/p Kyphoplasty and disectomy done with PSS - Dr. Llanes, now follows with pain management Dr. Price pain management they prescribe all narcotics Convulsion (CMS/HCC) 07/26/2015 DX:Convulsi on ([facility]); COMMENT: Being followed currently with Dr. Kenyon who is giving her clonazepam HTN (hypertension), benign 03/31/2015 DX:HT N (hypertension), benign Hyperlipidemia with target L DL less than 130 03/31/2015 DX:Hyperlipidemia with targe t LDL less than 130; COMMENT: IMO update Ischemic colitis ([facility]) 12/16/2016 DX:Is chemic colitis ([facility]); COMMENT: Follows with GI Left thyroid nodule 08/08/2015 DX:Left thyr oid nodule; COMMENT: S/p FNA 02/2017 which is benign Osteoporosis 03/31/2015 DX:Osteoporosis Prolonged QT interval syndrome 08/16/2016 D X:Prolonged QT interval syndrome Seizure disorder ([facility]) 08/16/2016 DX:Se izure disorder ([facility]); COMMENT: On keppra F/u with neurology Morbid obesity with BMI of 4 0.0-44.9, adult ([facility]) 10/07/2017 DX:Morbid obesity with BMI o f 40.0-44.9, adult ([facility]) Tobacco abuse 11/04/2017 DX:Tobacco abuse Cervical smear refused 11/04/2017 DX:Cervic al smear refused; COMMENT: Patient refused PAP smear Family History Medical History Relation Name Comments Other: Other Father neck pain Colon cancer Mother 2016 Breast cancer Neg Hx Relation Name Status Comments Brother Alive helathy Daughter Alive age 23 epilipsy Father Alive HTN, CAD Maternal Grandfather alcohol ism Maternal Grandmother alzheim ers Mother Alive unknown Paternal Grandfather (Age 90) co rigoberto cancer, prostate cancer, bone cancer, heart disease, hip replacements, HTN Paternal Grandmother HTN, gl ocoma, diabetes, CHF Sister 1 Alive arthritis Sister 2 Alive asthma, HTN Sister 3 Alive healthy Social History Tobacco Use Types Packs/Day Years Used Date Smoking Tobacco: Every Day Cigarettes Smokeless Tobacco: Never Alcohol Use Standard Drinks/Week Comments No 0 (1 standard drink = 0.6 oz pur e alcohol) Comments Unknown Sex and Gender Information Value Date Recorded Sex Assigned at Female 08/17/2024 11:16 AM EST Legal Sex Female 5:25 PM EST Gender Identity Female 08/17/2024 11:28 AM EST Sexual Orientation Straight 08/17/2024 11 :28 AM EST Obstetrics History Last Filed Vital Signs Vital Sign Reading Time Taken Comments Blood Pressure 98/82 08/18/2024 3:11 PM EST Pulse 59 08/18/2024 3:11 PM EST Temperature 35.9 ??C (96.7 ??F) 08/18/2024 11:[address] Respiratory Rate 12 08/18/2024 3:11 PM EST Oxygen Saturation 93% 08/18/2024 3:11 PM EST Inhaled Oxygen Concentration - - Weight 107 kg (235 lb) 08/18/2024 10:59 AM EST Height 152.4 cm (5') 08/18/2024 10:59 AM EST Body Mass Index 45.9 08/18/2024 10:59 AM EST Plan of Treatment Scheduled Procedures Name Priority Associated Diagnoses Date/Ti me PACEMAKER BATTERY CHANGE AICD (automatic cardioverter/defibrillator) present Long Q-T syndrome Health Maintenance Due Date Last Done Comments Hepatitis B Vaccines (1 of 3 - 19+ 3-dose series) 02/19/1984 Pneumococcal Vaccine: 50+ Years (1 of 2 - PCV) 02/19/1984 Pneumococcal Vaccine: Pediatrics (0 to 5 Years) and At-Risk Patients (6 to 64 Years) (1 of 2 - PCV) 02/19/1984 Zoster Vaccines (1 of 2) 2015 Cervical Cancer Screening: P ap Smear 11/04/2020 11/04/2017 Breast Cancer Screening 11/28/2020 11/29/19 19, 11/15/2017 Depression Screening 08/17/2022 HIV Screening 08/17/2022 Medicare Annual Wellness Visit 08/17/2022 Osteoporosis Screening (Bone Density Screening) 08/17/2022 Social Influencers of Health Screening 08/17/2022 DTaP,Tdap,and Td Vaccines (2 - Td or Tdap) 02/12/2023 02/12/2013 COVID-19 Vaccine ( - 2023-2 5 season) 2024 Influenza Vaccine (#1) 2024 6, 07/09/2016 Hypertension/CHF/CAD Annual BMP Blood Test 08/18/2025 08/18/2024, 05/01/2023 Colorectal Cancer Screening: Colonoscopy 10/07/2026 10/07/2016 Cholesterol Screening (Lipid Panel) 05/01/2028 05/01/2023 RSV Immunization Patients 60 + Years Old (1 - 1-dose 75+ series) 02/19/2040 Hepatitis C Screening Completed 09/06/2016 HIB Vaccines Aged Out No longer eligi ble based on patient's age to complete this topic HPV Vaccines Aged Out No longer eligi ble based on patient's age to complete this topic Hepatitis A Vaccines Aged Out No long er eligible based on patient's age to complete this topic IPV Vaccines Aged Out No longer eligi ble based on patient's age to complete this topic MMR Vaccines Aged Out No longer eligi ble based on patient's age to complete this topic Meningococcal ACWY Vaccine Aged Out N o longer eligible based on patient's age to complete this topic Meningococcal B Vacine Aged Out No lo nger eligible based on patient's age to complete this topic RSV Immunization Patients Under 20 months Aged Out No longer eligible b ased on patient's age to complete this topic Varicella Vaccines Aged Out No longer eligible based on patient's age to complete this topic Medical Devices Implanted Type Area Supervisor [employer] Device Identifier Shelf Expiration Date Model / Serial / Lot Defib Icd 2 Chmbr Ruthy Khan Icd - [id number] - [id number] Implanted:Qty: 1 on 08/18/2024 by Sean Perez MD at [facility] Cardiac ICD Left: Chest Wall [facility] [id number] 03/07/2025 [id number] / [id number] / Procedures Procedure Name Priority Date/Time Associated Diagnosis Comments BASIC METABOLIC PANEL Routine 08/18/2024 12:30 PM EST Atrial fibrillation (CMS/HCC) LIPID PANEL Routine 05/01/2023 SCR MAMMO BI INCL CAD Routine 11/28/2018 11:32 AM EDT Encounter for screening mammogram for malignant neoplasm of breast HM PAP SMEAR Routine 11/04/2017 HM COLONOSCOPY Routine 10/07/2016 HEPATITIS C SCREENING Routine 09/06/2016 from Last 3 Months or Most Recently Relevant to Health Maintenance Results * (ABNORMAL) Basic metabolic panel (08/18/2024 12:30 PM EST) Sodium 139 133 - 145 mmol/L LAB CHEMISTRY METHOD 08/18/2024 12:58 PM [facility] Potassium 4.1 3.5 - 5.5 mmol/L LAB CHEMISTRY METHOD 08/18/2024 12:58 PM [facility] Chloride 106 96 - 110 mmol/L LAB CHEMISTRY METHOD 08/18/2024 12:58 PM [facility] CO2 29 21 - 32 mmol/L LAB CHEMISTRY METHOD 08/18/2024 12:58 PM [facility] Anion Gap 4 3 - 11 LAB CHEMISTRY METHOD 08/18/2024 12:58 PM [facility] Glucose 104(H) 70 - 100 mg/dL LAB CHEMISTRY METHOD 08/18/2024 12:58 PM [facility] BUN 13 5 - 25 mg/dL LAB CHEMISTRY METHOD 08/18/2024 12:58 PM [facility] Creatinine 0.77 0.50 - 1.10 mg/dL LAB CHEMISTRY METHOD 08/18/2024 12:58 PM [facility] eGFR 89 >=60 mL/min/1. 73m2 LAB CHEMISTRY METHOD 08/18/2024 12:58 PM [facility] Comment:Calculation based on the??Chronic Kidney Disease Epidemiology Collaboration (CKD-EPI) equation refit??without adjustment for race. BUN/Creatinine Ratio 16.9 LAB CHEMISTRY METHOD 08/18/2024 12:58 PM [facility] Calcium 9.0 8.5 - 10.5 mg/dL LAB CHEMISTRY METHOD 08/18/2024 12:58 PM [facility] Blood Venous blood specimen / Unknown Venipuncture / Unknown 08/18/2024 12:30 PM EST 08/18/2024 12:32 PM EST Sean Perez MD LAB BLOOD ORDERABLES Final Res [facility] [address] [facility] [place] [address], * (ABNORMAL) Lipid panel (05/01/2023) LDL/HDL Ratio 4 0 - 4 Triglycerides 307(A) 0 - 150 mg/dL Cholesterol 191 0 - 200 mg/dL HDL 46 >=40 mg/dL LDL Cholesterol 84 0 - 100 mg/dL Blood Venous blood specimen / Unknown [facility] Provider LAB BLOOD ORDERABLES Briana l Result * SCR MAMMO BI INCL CAD (11/28/2018 11:32 AM EDT) Anatomical Region Laterality Modality Radiographic Meme ging 11/15/2017 11:2 6 AM EST Narrative 11/30/2018 11:43 AM EDT This is a summary report. The complete report is available in the patient's medical record. If you cannot access the medical record, please contact the sending organization for a detailed fax or copy. Full field digital screening mammography, reviewed with CAD and compared to previous. ??The breasts are composed of fatty and fibroglandular tissue. ??No suspicious mass, architectural distortion or suspicious calcifications are identified. IMPRESSION: : No mammographic evidence of malignancy. BIRADS 1-Negative; N. 5 year breast cancer risk assessment 1.1 % Lifetime breast cancer risk assessment 8.4 % Breast cancer risk category Low (<15%) Procedure Note Gabbi Douglas MD - 08/27/2022 This is a summary report. The complete report is available in thepatient's medical record. If you cannot access the medical record, pleasecontact the sending organization for a detailed fax or copy. Full field digital screening mammography, reviewed with CAD and comparedto previous. The breasts are composed of fatty and fibroglandular tissue.No suspicious mass, architectural distortion or suspicious calcificationsare identified. IMPRESSION: : No mammographic evidence of malignancy. BIRADS 1-Negative; N. 5 year breast cancer risk assessment 1.1 % Lifetime breast cancer risk assessment 8.4 % Breast cancer risk category Low (<15%) Stephanie Lofton MD IMG XR PROCEDURES Final Resu lt * Pap Smear (11/04/2017) Pathologist [facility] Pap smear Refused, Abstracted Historical Provider HEALTH MAINTENANCE Final Result * Colonoscopy (10/07/2016) Pathologist [facility] Colonoscopy No Interpretation , Abstracted Anatomical Region Laterality Modality Other Historical Provider HEALTH MAINTENANCE Final Result * Hepatitis C Screening (09/06/2016) [facility] Hepatitis C Screening Abstracted Historical Provider HEALTH MAINTENANCE Final Result from Last 3 Months or Most Recently Relevant to Health Maintenance Insurance MEDICARE [place]ICAID - [place] Advance Directives Documents on File Type Date Recorded Patient Student Records Specialist Expl anation Advance Directives and Reena joy Will 08/19/2024 10:40 AM Care Teams Occupational Medicine Officer Relationship Specialty Start Date End Date Alvino Mcfarlane MD [address] [place] [address] Dr Rebekah [place] PCP - General Family Medicine 07/29/24
== END 2024-11-30 17:13 | disposition home or self-care (01) ==
LOC: HO.HMCFM 16:19
PROVIDERS: PCP Family Medicine; Visit Provider Family Medicine
DX: G89.4 Chronic pain syndrome (principal); Z95.810 Presence of automatic (implantable) cardiac defibrillator

== ENCOUNTER → 2024-11-30 16:18 | Outpatient (BNVA) | payer MEDICARE, MEDICAID, SELFPAY | PROVIDERS: PCP Family Medicine; Visit Provider Family Medicine | DX: G89.4 Chronic pain syndrome (principal); Z95.810 Presence of automatic (implantable) cardiac defibrillator | CPT/HCPCS: 99212 ==

== ENCOUNTER → 2025-01-16 23:59 | Outpatient (BNV) | payer MEDICARE, MEDICAID, SELFPAY ==
--- NOTE | 2025-01-17 16:37 | A.OFFVIS_ITS ---
Intake Visit Reasons: Remote ICD check- [facility] Allergies hydromorphone [From DILAUDID] Allergy (Unknown, Verified 11/30/24 16:30) STOPS HEART ibuprofen [From MOTRIN] Allergy (Unknown, Verified 11/30/24 16:30) SEIZURE NSAIDS (Non-Steroidal Anti-Inflamma Allergy (Verified 11/30/24 16:30) Unknown [facility] Medical History (Updated 01/17/25 @ 16:37 by Aquiles Bowen MD) ICD (implantable cardioverter-defibrillator) battery depletion Spinal cord stimulator status Depression PTSD (post-traumatic stress disorder) Ischemic colitis GERD (gastroesophageal reflux disease) Peptic ulcer disease Thrombocytopenia Pressure sore on buttocks History of sudden cardiac successfully resuscitated ICD (implantable cardioverter-defibrillator) in place Surgical History History of spinal surgery History of cholecystectomy Family History Mother Dementia Cancer Father Heart disease Social History Household Members: Spouse Housing: House Alcohol intake: never Comment: restraints Patient Tobacco Use Status: Current everyday Tobacco user Tobacco use type: Cigarette Cigarette Packs Per Day: 0.75 Cigarettes Per Day: 10 Years Smoked: 40 +/- e-Cigarette/Vaping Use: Never Used service: No Current occupational status: disabled Current occupational exposures/hazards: No Sexual orientation: Unable to collect Gender identity: Unable to collect Cognitive needs: No Hearing needs: No Vision needs: Yes (Wears glasses) Office Procedures Cardiac Device Check Cardiac Device Check Details: Remote ICD report generated January 1607/2025. ICD function is adequate [id number] Cardiac Interrogation, implant defibrillator w/interim Procedure code (CPT) selection complete Assessment & Plan Assessment & Plan (1) ICD (implantable cardioverter-defibrillator) in place: Comment: dual-chamber [facility] ICD in place for sudden cardiac with VF Code(s): Z95.810 - Presence of automatic (implantable) cardiac defibrillator Category: Medical Plan: See above Coding Level of Care Code Procedure Only Diagnoses ICD (implantable cardioverter-defibrillator) in place Z95.810 CPT Codes Cardiac Device Check - Cardiac Device 13: [id number] Cardiac Interrogation, implant defibrillator w/interim ([id number])
== END ==
PROVIDERS: PCP Family Medicine; Visit Provider Internal Medicine Cardiovascular Disease
DX: I46.9 Cardiac arrest, cause unspecified (principal); Z95.810 Presence of automatic (implantable) cardiac defibrillator
CPT/HCPCS: 93295

== ENCOUNTER 2025-02-26 08:51 | Outpatient (REF) | payer MEDICARE, MEDICAID, SELFPAY ==
--- OUTSIDE RECORDS SUMMARY | 2025-02-26 08:55 | XMS_ITS | Data Portability ---
Author Organization [facility], [facility] Address [address] [place] [address] Care Team Providers Care Radar Repairer Name Role Phone CHANELLE MORA Primary Care [...] has been managed by Rajeev ZAMARRIPA at [facility]. She was casted initially and remains in a CAM boot. He comes in today with her . He is followed by [facility]. She has had a previous spine surgeries. She smokes a pack of cigarettes per day. She also has IBS. She is tearful today as she feels her injury was mismanaged at [facility].. Past family, medical, social history and review of systems has been reviewed, updated and is located in the patient s chart. PHYSICAL EXAMINATION: General: 5', 248 [...] obtained and reviewed by me today at [facility], demonstrating healing oblique Rodriguez B right [...] with her today. All questions were answered. Not available 06/29/2024 13:39:06 07/15/2024 07/15/2024 Telemedicine Telephone Encounter Patient Location: Home Physician Location: [facility] Office [place], [place] Time spent with patient: 16 minutes [...] has been managed by Rajeev ZAMARRIPA at [facility]. She was casted initially and remains in a CAM boot. She is followed by [facility]. She has had multiple previous spine surgeries. She was smoking a pack of cigarettes per day and has cut back to 2-3 cigarettes per day. She also has IBS. She has history of osteoporosis. Past family, medical, social history and review of systems has been reviewed, updated and is located in the patient s chart. PHYSICAL EXAMINATION: deferred Based on [...] reviewed her recent CT scan images through [facility] from 07/05/24, demonstrating a right distal fibular [...] the same service when rendered via a mrug-zm-iowo interaction. I discussed with the patient the risks and benefits of telemedicine services and the patient consented to the receipt of such telemedicine services. Not available 07/15/2024 16:42:24 09/23/2024 09/23/2024 CHIEF [...] was initially managed by Rajeev ZAMARRIPA at [facility]. She was casted initially and remains in a CAM boot. She is also followed by [facility] for chronic back and [...] reviewed, updated and is located in the patient s chart. No interval changes. PHYSICAL EXAMINATION: [...] obtained and reviewed by me today at [facility], demonstrating healed oblique Rodriguez B right [...] Organization Details Last Modified Time Details Appointments None recorded. Lab None recorded. Referral None recorded. Procedures None recorded. Surgeries None recorded. Imaging XR, ankle, 3 or more view - RM 108 -- RECHECK 3V ANKLE WB 2024 025 [facility], [address], [address], [place], [address], 5 07:36:13 XR, ankle, 3 or more view - RM 108--new 3V ANKLE WB, 2V FOOT WB 2023 024 [facility], [address], [address], [place], [address], 4 16:09:16 XR, foot, 2 view 2023 024 [facility], [address], [address], [place], [address], 4 16:09:15 CT, ankle, w/o contrast - eval fracture healing 2023 024 [email or web address], [address] [address] [facility], [address], [place], [address], 16:09:16 Medication Orders None recorded. Patient TargetsNo targets recorded. Patient InstructionsNo instructions recorded. Reason for Referral None Reported. Results Created Date Observation Date Name Description Value Unit Range Abnormal Flag Note LastModifiedBy Organization Detail LastModifiedTime 06/29/2006/29/2024 XR, ankle , 3 or more view [email or web address] ?Encry pted=s hAaTro YD8dLq bEUv6g %2BXZw aYqtaq 0bqfl% 2Fg9IQ a4ajBk vP9nXo QUaueC m3YtLR FvZl JJ8mAn HZtai3 2s8999 AC0Kqa 3SDUqO lKiQtr MwF INTERFACE [facility] [address], [place], [address], 06/29/2024 13:13:49 06/29/20 24 06/29/2024 XR, ankle , 3 or more view [email or web address] ?Encry pted=s hAaTro YD8dLq bEUv6g %2BXZw aYqtaq 0bqfl% 2Fg9IQ a4ajBk vP9nXo QUaueC m3YtLR FvZl JJ8Gaston HZtai3 9q3087 AC0Kqa 3SDUqO lKiQtr MwF INTERFACE [facility] [address], [place], [address], 06/29/2024 13:13:51 06/29/2006/29/2024 XR, foot, 2 view [email or web address] ?Encry pted=s hAaTro YD8dLq bEUv6g %2BXZw aYqtaq 0bqfl% 2Fg9IQ a4ajBk vP9nXo QUaueC m3YtLR FvZl JJ8mAn HZtai3 0w1920 AC0Kqa 3SDUqO iKiQtr MwF INTERFACE [facility] [address], [place], [address], 06/29/2024 13:15:48 06/29/20 24 06/29/2024 XR, foot, 2 view [email or web address]:/ [email or web address] ?Encry pted=s hAaTro YD8dLq bEUv6g %2BXZw aYqtaq 0bqfl% 2Fg9IQ a4ajBk vP9nXo QUaueC m3YtLR FvZlgJ JJ8Gaston HZtai3 1w7850 AC0Kqa 3SDUqO iKiQtr MwF INTERFACE [facility] [address], [place], [address], 06/29/2024 13:15:50 07/07/20 24 07/05/2024 CT, ankle , w/o contr ast No observ ation record ed. [email or web address] [facility] [address], [place], [address], 07/08/2024 06:50:12 07/19/20 24 01/24/2024 XR, ankle No observ ation record ed. [email or web address] [facility] [address], [place], [address], 07/19/2024 16:45:40 09/23/19 25 09/23/2024 XR, ankle , 3 or more view [email or web address]:/ [email or web address] ?Encry pted=s hAaTro YD8dLq bEUv6g %2BXZw aYqtaq 0bqfl% 2Fg9IQ a4ajBk vP9nXo QUaueC m3YtLR FvZlgJ JJ8mAn HZtai3 6f9392 AC0Kqb 3iAU6K gKiQtr MwF INTERFACE [facility] [address], [place], [address], 09/23/2024 15:02:28 09/23/19 25 09/23/2024 XR, ankle , 3 or more view http:/ [email or web address] ?Encry pted=s hAaTro YD8dLq bEUv6g %2BXZw aYqtaq 0bqfl% 2Fg9IQ a4ajBk vP9nXo QUaueC m3YtLR FvZlgJ JJ8mAn HZtai3 8g7282 AC0Kqb 3iAU6K gKiQtr MwF INTERFACE [facility] [address] [facility] [address], [place], [address], 09/23/2024 15:02:31 Result Notes Documentation Provider Name and Address Organization Details Recorded Time Xr, Ankle, 3 Or More View : [email or web address] Encrypted=lqOtZsuHC4vYidV Uv6g%3HMGjyImtyr4cgic%2Fg 4DMl1edKmiO8gMrGNtvkYe1Pc UQWaKxgAAF2gPyXMaxi22r856 5QX1Drv3YMAfOvBhHokHmJ Not Available [facility] 06/29/2024 13:13: 50 Xr, Ankle, 3 Or More View : [email or web address]? Encrypted=ahTqFpkYT5mXtwU Uv6g%8TWWzpIxtzm3ngsz%2Fg 3LQn1jyWvzC7cQyKOixvKf5Sw MJPfHudEHY8yCoTPwog94g888 5JS1Bmk8OXAxGsGzAqsCgC Not Available [facility] 06/29/2024 13:13: 52 Xr, Foot, 2 View : [email or web address] Encrypted=ksJrMetPG2oPozB Uv6g%8RGZbjPnhte1hdyd%2Fg 9PFu5unMruE5kFoSJhssQe7Lf OEMlHjpZMZ0qImFFbju02x645 8WZ7Roj8EYQePhNnRrsKoX Not Available [facility] 06/29/2024 13:15: 48 Xr, Foot, 2 View : [email or web address] Encrypted=ioZzPqjGQ1rUhmF Uv6g%0VLYsuMizcg3lwvo%2Fg 6MPr2wqOtrV7aViPKufzMl3Nn XJLbDbgBVK9wGyJLxat95k986 9CC1Qbz7VAVuXaFhUtjEnO Not Available [facility] 06/29/2024 13:15: 50 Xr, Ankle, 3 Or More View : [email or web address] Encrypted=jfGsJffOH3rYktI Uv6g%4UDRpzUuqfw2hfbk%2Fg 9OMc7ivZjjC3lNaBThhdDp9Og IWUxOurCJL5mPnMVkzt00h469 3NE0Kaj2iYS3QeWjCwkRzW Not Available [facility] 09/23/2024 15:02: 29 Xr, Ankle, 3 Or More View : [email or web address] Encrypted=fvEoInqUM6hTnyI Uv6g%9OUOzyQkqih0jqwi%2Fg 1ZEu9vtGspF2gPwHIelbNx5Jg UAFdXooAOA6fJuEIiqo55f684 8CW9Oyy3lYR5BbBwQjyNzU Not Available [facility] 09/23/2024 15:02: 31 Medical Equipment None Reported. Allergies Allergen ID Allergen Name Allergen Category Reaction Reaction Severity Criticality Documentation Date Start Date Code Code System Note Provider Name and Address Organization Details Recorded Time 821684 Dilaudid medicatio n Not available Not available Not available 06/29/2024 93540 3 RxNorm BAILEY [facility] MAXINE cochran [place] - [facility] 13:49:59 495855 Non-stero idal anti-infl ammatory agent (product) medicatio n Not available Not available Not available 06/29/2024 36994 005 SNOMED BAILEY [facility] [place] - [facility] 13:50:04 Medications Name Sig Start Date Stop [...] 1 TABLET BY MOUTH EVERY 12 HOURS FOR 28 DAYS active Not Available Not Available Not Available levetiraceta m 750 mg tablet TAKE 1 TABLET BY MOUTH TWICE DAILY active Not Available Not Available No t Available morphine 15 mg immediate release tablet TAKE 1 TABLET BY MOUTH EVERY 8 HOURS NEEDED FOR PAIN active Not Available Not Available No t Available dicyclomine 10 mg capsule TAKE 1-2 [...] Updated DateTime 09/23/2024 152.4 cm 48.4 kg/m2 680270.91 g BAILEY KIRT Villanueva [facility] 09/23/2024 14:57:04 Date Recorded Body height Provider Name an d Address Organization Details Last Updated DateTime 12/17/2024 152.4 cm HUBER SOALRESANDERSLYNN [facility] 12/17/2024 15:42:19 Date Recorded Body height Body mass index (BMI) Body weight Provider Name and Address Organization Details Last Updated DateTime 06/29/2024 152.4 cm 48.4 kg/m2 696295.91 g BAILEYYAKELIN Villanueva [facility] 06/29/2024 13:49:53 Social History None recorded. Functional Status None recorded. Mental Status None recorded. Family History Nothing Reported. Medical History No medical history recorded. Gynecological HistoryNo gynecological history recorded. Obstetrics History GPAL:G 0 P 0 0 0 0 Past Encounters Encounter ID Performer Location Encounter Start Date Encounter Closed Date Diagnosis/Indication Diagnosis SNOMED-CT Code Diagnosis ICD10 Code Diagnosis Note [id number] MD Traci Garcia [address] [place] [address] 06/29/2024 12:33:40 07/20/2024 16:09:15 Ankle pain 571273656 M25.571 Closed fra cture of right ankle 0234864063 8068550 S82.891A Closed fra cture of lateral malleolus 99315360 S82.61XA [id number] MD Traci Garcia [address] [place] [address] 07/15/2024 15:32:35 08/12/2024 14:27:49 Closed fracture of lateral malleolus 72055560 S82.61XK [id number] MD MAC [facility] [address] [place] [address] 09/23/2024 14:48:12 10/05/2024 07:36:12 Ankle pain 760572379 M25.579 M25.571 Closed fra cture of ankle 31284614 S82.891D Closed fra cture of lateral malleolus 77503021 S82.61XG [id number] DIEGO Martinez [facility] [address] [place] [address] 12/17/2024 15:40:06 01/05/2025 12:14:57 Ankle pain 458464319 M25.571 Health Concerns Section Related Observation LastModified by Organization Detai ls LastModified Time None Recorded Concern Status LastModified by Organization Details LastModified Time None Recorded Advance Directives Directive None Recorded Payers Insurance Date Sequence Insurance Name Policy Number Policy Agarwal Covered Member ID Agarwal Member ID Guarantor Name 12/17/2024 1 [place] [employer] Gayatri Lopez [id number] Gayatri Lopez 12/17/2024 2 [place] [facility] Gayatri [facility] [id number] Gayatri Lopez Notes Date Note Type Note Provider Name and Address Organization Details Recorded Time 12/17/2024 text/html I am seeing this patient under the supervision of Dr. Schultz who was available but who did not see the patient. Clinical update: Patient is here today for recheck. She has been followed for this issue by Dr. Ferguson. Reports she has not been using the brace because it is uncomfortable, she has been utilizing her boot as needed when she goes out. Reports things have been improving. Physical exam, imaging review, impression, and plan for today's visit updated below. CHIEF COMPLAINT: Right ankle painHISTORY OF PRESENT ILLNESS: Gayatri is a 59-year-old [...] was initially managed by Rajeev ZAMARRIPA at [facility]. She was casted initially and remains in a CAM boot. She is also followed by [facility] for chronic back and [...] a limp but is happy with her improvement.Past family, medical, social history and review of systems has been reviewed, updated and is located in the patient s chart. No interval changes.PHYSICAL EXAMINATION:General: 5', 248 lbs, healthy appearing, in no acute distressPsych: alert and oriented x3, normal moodSkin: intact without ulceration or lesion, normal turgorLungs: respirations unlaboredCardiac: heart rate regular, normal peripheral pulsesMusculoskeletal : On seated exam, there is mild residual [...] range of motion. She is distally neurovascularly intact.Previous films:Three standing views of the right ankle demonstrate healed oblique Rodriguez B right lateral malleolus fracture-nonunion with abundant callus formation, subtle valgus tilt of the ankle.IMPRESSION: 11 months status post right Rodriguez B distal fibular fracture with significant interval healingPLAN: I discussed my findings and situation with the patient. We discussed potential treatment options at this time. She is doing much better. She will wean from her boot to a comfortable ankle brace and work on ankle exercises at home. She will follow-up with us on an as-needed basis. If things worsen or change she will call the office. Patient understands and agrees with this plan. All questions were answered. Speech recognition business insight and analytics manager software was used to create portions of this document. An attempt at proofreading has been made to minimize errors. Please call for corrections. Velia Valente PA-C [address], [place], [address], [facility] 12/17/2024 16:22:36 OBGyn Episode No OBEpisode recorded.
[2025-02-26 09:34] LABS: MANUAL DIFF FLAG NO
[2025-02-26 09:47] LABS: Amphetamine Screen Urine Not Detected (Not Detect); Barbiturates, Urine Not Detected (Not Detect); Benzodiazepines Screen Urine POSITIVE (Not Detect); Buprenorphine Scr Not Detected (Not Detect); Cannabinoid Screen Urine Not Detected (Not Detect); Cocaine Screen Urine Not Detected (Not Detect); Fentanyl, urine Not Detected (Not Detect); Methadone Screen, Urine Not Detected (Not Detect); Opiate Screen Urine POSITIVE (Not Detect); Oxycodone Screen Urine Not Detected (Not Detect); Phencyclidine Screen Urine Not Detected (Not Detect)
[2025-02-26 10:06] LABS: Basophils Percent Auto 0.5 % (0-2); Eosinophils Absolute Auto 0.3 X10*3/uL (0.0-0.4); Hematocrit 45.1 % (37.0-47.0); Hemoglobin 15.1 g/dl (12.0-16.0); Imm Gran Abs Auto 0.04 X10*3/uL (0.00-0.03); Imm Gran Pct Auto 0.5 % (0.0-0.4); Lymphocytes Absolute Auto 3.7 X10*3/uL (1.2-4.9); Mean Corpuscular HGB Conc 33.5 g/dl (31.0-35.0); Mean Corpuscular Hemoglobin 31.9 pg (27.0-33.0); Mean Corpuscular Volume 95.1 fL (80.0-98.0); Mean Platelet Volume 9.1 fL (9.4-12.3); Monocytes Absolute Auto 0.4 X10*3/uL (0.1-1.2); Monocytes Percent Auto 4.9 % (2-11); Neutrophils Absolute Auto 4.2 x10*3/uL (2.0-8.3); Neutrophils Percent Auto 48.1 % (45-73); Platelet Count 216 X10*3/uL (160-400); Red Blood Count 4.74 X10*6/uL (4.20-5.50); Red Cell Distribution Width 13.5 % (11.0-16.0); White Blood Count 8.7 X10*3/uL (4.8-10.8)
[2025-02-26 10:08] LABS: Appearance Urine Clear; Color Urine Yellow; Glucose Urine UA Negative (Negative); Leukocyte Esterase Urine Trace (Negative); Nitrite Urine Negative (Negative); PH 5.5 (5.0-9.0); Specific Gravity - Urine >= 1.030 (1.005-1.025); UMIC TRIGGER UA YES; Urine Blood Negative (Negative); Urine Ketones Trace mg/dL (Negative); Urine Protein Negative (Neg-Trace)
[2025-02-26 10:13] LABS: Bacteria Urine Trace (None Seen); Creatinine Urine 258.96 mg/dL; Microalbum/Creatinine Ratio Ur 4.6 ug/mg cr (<30); RBC Urine 0-2 /HPF (0-2); WBC Urine 0-5 /HPF (0-5)
[2025-02-26 10:20] LABS: Estimated Average Glucose 105 mg/dL; Hemoglobin A1c % 5.3 % (<6.0)
[2025-02-26 10:47] LABS: Alanine Aminotransferase 17 U/L (0-31); Albumin Level 4.3 g/dL (3.5-5.0); Alkaline Phosphatase 88 U/L (39-117); Anion Gap 13 (12-20); Aspartate Amino Transferase 29 U/L (5-31); Bilirubin Total 0.3 mg/dL (0.0-1.0); Blood Urea Nitrogen 14 mg/dL (9-16); Calcium 9.7 mg/dL (8.4-10.2); Carbon Dioxide 25 mmol/L (22-29); Chloride 105 mmol/L (96-108); Cholesterol 240 mg/dL (<200); Estimated Glomerular Filt Rate > 60; Glucose Fasting 85 mg/dL (60-99); HDL Cholesterol 46 mg/dL (>40); LDL Cholesterol Calculated 156 mg/dL (<100); Potassium 4.2 mmol/L (3.3-5.1); Sodium 139 mmol/L (135-145); Total Protein 7.6 g/dL (6.5-8.0); Triglycerides 190 mg/dL (<150)
== END 2025-02-26 08:52 | disposition home or self-care (01) ==
LOC: HO.LAB 08:51
PROVIDERS: PCP Family Medicine; Visit Provider Family Medicine
DX: Z00.00 Encounter for general adult medical examination without abnormal findings (principal); I10 Essential (primary) hypertension; F11.20 Opioid dependence, uncomplicated; R73.01 Impaired fasting glucose
CPT/HCPCS: 80053; 80061; 80307; 81001; 81003; 82043; 82570; 83036; 84443; 85025

== ENCOUNTER → 2025-03-01 16:20 | Outpatient (BNVA) | payer MEDICARE, MEDICAID, SELFPAY | PROVIDERS: PCP Family Medicine; Visit Provider Family Medicine | DX: M54.9 Dorsalgia, unspecified (principal); G89.4 Chronic pain syndrome; E78.00 Pure hypercholesterolemia, unspecified; F43.10 Post-traumatic stress disorder, unspecified | CPT/HCPCS: 99212 ==

== ENCOUNTER 2025-04-14 13:32 | Outpatient (AMB) | payer MEDICARE, MEDICAID, SELFPAY ==
--- OUTSIDE RECORDS SUMMARY | 2025-04-14 13:36 | XMS_ITS | Clinical Summary ---
Author Organization [address] [place] [address] Address [address] [place] [address] Phone Care Team Providers Care Corporate Meeting Planner Name Role Phone Alvino Mcfarlane MD Primary Care Provider [phone] Allergies Active Allergy Reactions Criticality Noted Date [...] wit hout acute cor pulmonale, unspecified chronicity ([facility] [place], [facility] V28) 07/29/2024 Thrombocytopenia, unspecified ([facility] [place]) 07/10 Other hypertrophic cardiomyo paco ([facility] [place], [facility] V28) 07/29/2024 Morbid obesity with BMI of 4 0.0-44.9, adult ([facility] V[facility], [facility] V28) 07/28/2024 External hemorrhoid 12/16/2016 Ischemic colitis ([place] [id number]) 12/16/2016 Overview (07/28/2024): Follows with GI Prolonged QT interval syndrome 08/16/2016 Seizure disorder ([facility] [place], [facility] V28) 05/2016 Overview (07/28/2024): [facility] Left thyroid nodule 08/08/2015 Overview (07/28/2024): S/p FNA 02/2017 which is benign Vitamin D deficiency 05/04/2015 AICD (automatic cardioverter/defibrillator) pres ent 03/31/2015 Overview (07/28/2024): Last interoggation 10/2019 Follows with cardiology Anxiety and depression 03/31/2015 Cardiac arrest ([facility] [place], [facility] V28) 2014 Overview (07/28/2024): Told due to long QT syndrome In March 2014 s/p pacemaker Sees Dr. Bowen Compression fracture of L2 ([facility], [facility] V28) 03/31/2015 Overview (07/28/2024): S/p Kyphoplasty and disectomy done with PSS - Dr. Llanes, now follows with pain management Dr. Price pain management they prescribe all narcotics HTN (hypertension), benign 03/31/2015 Hyperlipidemia with target LDL less than 130 Overview (07/28/2024): IMO update IBS (irritable bowel syndrome) 03/31/2015 Multiple gastric ulcers 03/31/2015 Overview (07/28/2024): Dr. Thurston at [facility] Osteoporosis 03/31/2015 Cervical herniated disc 11/27/2009 Overview [...] VERTEBROPLASTY EA ADDL THRC/LMBR; COMMENT: L1-L2 COLONOSCOPY 4.4. PROCEDURE: HISTORICAL COLONOSCOPY OTHER SURGICAL HISTORY 03/22/16 PROCEDURE: UPPER GASTROINTESTINAL ENDOSCOPY IN; COMMENT: erosive gastritis of antral mucosa COLONOSCOPY W/ BIOPSIES 10/07/16 PROCEDURE: NV COLONOSCOPY W/BIOPSY SINGLE/MULTIPLE; COMMENT: Probable ischemic sigmoid colitis; random biopsies from remainder of colon were normal. Small hemorrhoids; repeat in 10 years. Ischemic sigmoid colitis by vision and biopsy Medical History Medical History Date Comments IBS (irritable bowel syndrome) D X:IBS (irritable bowel syndrome) Vitamin D deficiency 05/04/2015 DX:Vitamin D deficiency Cardiac arrest (CMS/HCC V24, CMS/HCC V28) 03/31/2015 DX:Cardiac arrest (HCC); COM MENT: Told due to long QT syndrome In March 2014 s/p pacemaker Sees Dr. Sandoval Multiple gastric ulcers 03/31/2015 DX:Multi ple gastric ulcers; COMMENT: Dr. Thurston at [facility] Anxiety and depression 03/31/2015 DX:Anxiet y and depression External hemorrhoid 12/16/2016 DX:External hemorrhoid AICD (automatic cardioverter/defibrillator) present 03/31/2015 DX:AICD (automatic cardioverter/defibrillator) present; COMMENT: Last interoggation 02/2017 Cervical herniated disc 11/27/2009 DX:Cervi ada herniated disc; COMMENT: Herniated disc , not a surgical candidate, follows with Dr. Price pain management Compression fracture of L2 ( [facility], [facility] V28) 03/31/2015 DX:Compression fracture of L 2 ([facility]); COMMENT: S/p Kyphoplasty and disectomy done with PSS - Dr. Llanes, now follows with pain management Dr. Price pain management they prescribe all narcotics Convulsion ([facility], [facility] V28) 07/26/2015 DX:Convulsion (HCC); COMMENT: Being followed currently with Dr. Kenyon who is giving her clonazepam HTN (hypertension), benign 03/31/2015 DX:HT N (hypertension), benign Hyperlipidemia with target L DL less than 130 03/31/2015 DX:Hyperlipidemia with targe t LDL less than 130; COMMENT: IMO update Ischemic colitis ([facility]) 12/16/2016 D X:Ischemic colitis ([facility]); COMMENT: Follows with GI Left thyroid nodule 08/08/2015 DX:Left thyr oid nodule; COMMENT: S/p FNA 02/2017 which is benign Osteoporosis 03/31/2015 DX:Osteoporosis Prolonged QT interval syndrome 08/16/2016 D X:Prolonged QT interval syndrome Seizure disorder ([facility] V2 4, [facility] V28) 08/16/2016 DX:Seizure disorder ([facility]); C OMMENT: On [facility] F/u with neurology Morbid obesity with BMI of 4 0.0-44.9, adult ([facility], [facility] V28) 10/07/2017 DX:Morbid obesity wit h BMI of 40.0-44.9, adult ([facility]) Tobacco abuse 11/04/2017 DX:Tobacco abuse Cervical smear [...] 59 08/18/2024 3:11 PM EST Temperature 35.9 C (96.7 F) 08/18/2024 11:09 AM EST Respiratory Rate 12 08/18/2024 3:11 PM EST [...] Health Maintenance Due Date Last Done Comments Pneumococcal Vaccine: 50+ Years (1 of 2 - PCV) 02/19/1984 Zoster Vaccines (1 of 2) 2015 Cervical Cancer Screening: P ap Smear 11/04/2020 11/04/2017 Breast Cancer Screening 11/28/2020 11/29/19 19, 11/15/2017 HIV Screening 08/17/2022 Medicare Annual Wellness Visit 08/17/2022 Osteoporosis Screening (Bone Density Screening) 08/17/2022 Social Influencers of Health Screening 08/17/2022 DTaP,Tdap,and Td Vaccines (2 - Td or Tdap) 02/12/2023 02/12/2013 COVID-19 Vaccine ( - 2023-2 5 season) 2024 Depression Screening 09/08/2024 RSV Immunization Adult Patients (1 - Risk 60-74 years 1-dose series) 2025 Influenza Vaccine (#1) 2025 6, 07/09/2016 Hypertension/CHF/CAD Annual BMP Blood Test 08/18/2025 08/18/2024, 05/01/2023 Colorectal Cancer Screening: Colonoscopy 10/07/2026 10/07/2016 Cholesterol Screening (Lipid Panel) 05/01/2028 05/01/2023 Hepatitis C Screening Completed 09/06/2016 HIB Vaccines Aged Out No longer eligi ble based on patient's age to complete this topic HPV Vaccines Aged Out No longer eligi ble based on patient's age to complete this topic Hepatitis A Vaccines Aged Out No long er eligible based on patient's age to complete this topic Hepatitis B Vaccines Aged Out No long er eligible [...] age to complete this topic Meningococcal B Vaccine Aged Out No l onger eligible based on patient's age to complete this topic RSV Immunization Patients Under 20 months Aged Out No longer eligible b ased on patient's age to complete this topic Varicella Vaccines Aged Out No longer eligible based on patient's age to complete this topic Medical Devices Implanted Type Area [employer] Device Identifier Shelf Expiration Date Model / Serial / Lot Defib Icd [address] Icd - [id number] - [id number] Implanted:Qty: 1 on 08/18/2024 by Sean Perez MD at [facility] Cardiac ICD Left: Chest Wall [facility] [id number] 03/07/2025 [id number] / [id number] / Procedures Procedure Name Priority Date/Time Associated Diagnosis Comments CARDIAC DEVICE CHECK- IN CLINIC- [facility]J Routine 02/15/2025 9:44 AM EDT Encounter for adjustment or management of cardiac device BASIC METABOLIC PANEL Routine 08/18/2024 12:30 PM EST Atrial fibrillation (CMS/HCC V24, CMS/HCC V28) LIPID PANEL Routine 05/01/2023 SCR MAMMO BI INCL CAD Routine 11/28/2018 11:32 AM EDT Encounter for screening mammogram for malignant neoplasm of breast HM PAP SMEAR Routine 11/04/2017 HM COLONOSCOPY Routine 10/07/2016 HEPATITIS C SCREENING Routine 09/06/2016 from Last 3 Months or Most Recently Relevant to Health Maintenance Results * CARDIAC DEVICE CHECK- IN CLINIC- [facility] (02/15/2025 9:44 AM EDT) Date Time Interrogation Session [id number] CV DEVICE CHECK Implantable Pulse Generator [employer] CV DEVICE CHECK Implantable Pulse Generator Type ICD CV DEVICE CHECK Implantable Pulse Generator Model [address]ra [address] DR [id number] CV DEVICE CHECK Implantable Pulse Generator Serial Number [id number] CV DEVICE CHECK Implantable Pulse Generator Implant Date [id number] CV DEVICE CHECK Battery Remaining Longevity 0.0 CV DEVICE CHECK Battery Status End of Service CV DEVICE CHECK Danis Statistic RA Percent Paced 0.00 CV DEVICE CHECK Danis Statistic RV Percent Paced 0.00 CV DEVICE CHECK Lead Channel Sensing Intrinsic Amplitude 2.600 CV DEVICE CHECK Lead Channel Setting Sensing Sensitivity 0.50 CV DEVICE CHECK Lead Channel Impedance Value 300 CV DEVICE CHECK Lead Channel Pacing Threshold Amplitude 0.750 CV DEVICE CHECK Lead Channel Pacing Threshold Pulse Width 0.5 CV DEVICE CHECK Lead Channel RA Pacing Threshold Date 2024-07-29 CV DEVICE CHECK Lead Channel Setting Pacing Amplitude 1.500 CV DEVICE CHECK Lead Channel Setting Pacing Pulse Width 0.5 CV DEVICE CHECK Lead Channel Sensing Intrinsic Amplitude 10.800 CV DEVICE CHECK Lead Channel Setting Sensing Sensitivity 0.50 CV DEVICE CHECK Lead Channel Impedance Value 338 CV DEVICE CHECK Lead Channel Pacing Threshold Amplitude 2.630 CV DEVICE CHECK Lead Channel Pacing Threshold Pulse Width 0.5 CV DEVICE CHECK Lead Channel RV Pacing Threshold Date 2024-07-29 CV DEVICE CHECK Lead Channel Setting Pacing Amplitude 2.880 CV DEVICE CHECK Lead Channel Setting Pacing Pulse Width 0.5 CV DEVICE CHECK Danis Setting Mode (NBG Code) DDDR CV DEVICE CHECK Danis Setting Lower Rate Limit 55 CV DEVICE CHECK Danis Setting AT Mode Switch Rate 180 CV DEVICE CHECK Danis Setting Maximum Tracking Rate 120 CV DEVICE CHECK Danis Setting Maximum Sensor Rate 130 CV DEVICE CHECK Danis Setting PAV Delay 200 CV DEVICE CHECK Danis Setting DIONNE Delay 200 CV DEVICE CHECK Zone Setting Type Category VF CV DEVICE CHECK Rate 200 CV DEVICE CHECK Therapies ATP While Charging, 30J, 36J, 40J CV DEVICE CHECK Zone Setting Status On CV DEVICE CHECK Zone ID 1 CV DEVICE CHECK Anatomical Region Laterality Modality Device Interroga tion 07/29/2024 Impressions 08/04/2024 10:10 AM EST Normal In-Office: No Events * Normal Device Function * Alerts or events: None * Battery: EOS, 0 mos * Sensing, impedance and thresholds reviewed and tested * Presenting Rhythm: - VS 50's * Heart Rate Histograms reviewed * Pacing and Detection Parameters were evaluated Generator change being booked by CARISA, pt will be seen in-office once following new device implant , then return to Dr Bowen for monitoring/maintenance Narrative Procedure Note Sean Perez MD - 02/15/2025 IMPRESSION: Normal In-Office: No Events * Normal Device Function * Alerts or events: None * Battery: EOS, 0 mos * Sensing, impedance and thresholds reviewed and tested * Presenting Rhythm: - VS 50's * Heart Rate Histograms reviewed * Pacing and Detection Parameters were evaluated Generator change being booked by CARISA, pt will be seen in-office oncefollowing new device implant , then return to Dr Bowen formonitoring/maintenance us Order Referral Cardiovascular CV IMPLANTABLE CAR DIAC DEVICE PROCEDURES Final Result * (ABNORMAL) Basic metabolic panel (08/18/2024 12:30 PM EST) Sodium 139 133 - 145 mmol/L LAB CHEMISTRY METHOD 08/18/2024 12:58 PM EST [facility] Potassium 4.1 3.5 - 5.5 mmol/L LAB CHEMISTRY METHOD 08/18/2024 12:58 PM EST [facility] Chloride 106 96 - 110 mmol/L LAB CHEMISTRY METHOD 08/18/2024 12:[address] [facility] CO2 29 21 - 32 mmol/L LAB CHEMISTRY METHOD 08/18/2024 12:[address] [facility] Anion Gap 4 3 - 11 LAB CHEMISTRY METHOD 08/18/2024 12:[address] [facility] Glucose 104(H) 70 - 100 mg/dL LAB CHEMISTRY METHOD 08/18/2024 12:[address] [facility] BUN 13 5 - 25 mg/dL LAB CHEMISTRY METHOD 08/18/2024 12:[address] [facility] Creatinine 0.77 0.50 - 1.10 mg/dL LAB CHEMISTRY METHOD 08/18/2024 12:[address] [facility] eGFR 89 >=60 mL/min/1. 73m2 LAB CHEMISTRY METHOD 08/18/2024 12:[address] [facility] Comment:Calculation based on the Chronic Kidney Disease Epidemiology Collaboration (CKD-EPI) equation refit without adjustment for race. BUN/Creatinine Ratio 16.9 LAB CHEMISTRY METHOD 08/18/2024 12:[address] [facility] Calcium 9.0 8.5 - 10.5 mg/dL LAB CHEMISTRY METHOD 08/18/2024 12:[address] [facility] Blood Venous blood specimen / Unknown Venipuncture / Unknown 08/18/2024 12:30 PM EST 08/18/2024 12:32 PM EST us Sean Perez MD LAB BLOOD ORDERABLES Final Res ult [facility] [address] [place] [address], * (ABNORMAL) Lipid panel (05/01/2023) LDL/HDL Ratio 4 0 - 4 Triglycerides 307(A) 0 - 150 mg/dL Cholesterol 191 0 - 200 mg/dL HDL 46 >=40 mg/dL LDL Cholesterol 84 0 - 100 mg/dL Blood Venous blood specimen / Unknown Historical Provider LAB BLOOD ORDERABLES Briana l Result [...] reviewed with CAD and compared to previous. The breasts are composed of fatty and fibroglandular tissue. No suspicious mass, architectural distortion or suspicious calcifications [...] Final Resu lt * Pap Smear (11/04/2017) Pap smear Refused, Abstracted Historical Provider HEALTH MAINTENANCE Final Result * Colonoscopy (10/07/2016) Colonoscopy No Interpretation , Abstracted Anatomical Region Laterality Modality Other Historical Provider HEALTH MAINTENANCE Final Result * Hepatitis C Screening (09/06/2016) Pathologist [facility] Hepatitis C Screening Abstracted Historical Provider HEALTH MAINTENANCE Final Result from Last 3 Months or Most Recently Relevant to Health Maintenance Insurance MEDICARE [place]ICA[place] - [place] Advance Directives Documents on File Type Date Recorded Patient Metrologist Expl anation Advance Directives and Livin g Will 08/19/2024 10:40 AM Care Teams Corporate Meeting Planner Relationship Specialty Start Date End Date Alvino Mcfarlane MD [address] [place] [address] Dr Rebekah [place] PCP - General Family Medicine 07/29/24
--- OUTSIDE RECORDS SUMMARY | 2025-04-14 13:36 | XMS_ITS | Patient Health Record ---
Author Organization [facility] Address [address] [place] [address] Care Team Providers Care Conduit Reamer Operator Name Role Phone Brad Kebede MD Primary Care Provider Kashif Xiao [phone] Allergies No Known Allergies Reason For Referral [...] Problem Status W/U Status Risk Notes Problem 033516737 History of adenomatous polyp of colon (Z86.010) Active confirmed Problem Diarrhea (53771993) Diarrhea (R19.7) Active confirmed Problem Diverticular disease of colon (998048346) Diverticulosis of large intestine without perforation or abscess without bleeding (K57.30) Active confirmed Problem 400573691 Irritable bowel syndrome with diarrhea (K58.0) Active confirmed Problem Family History of Cancer of Colon (Situation) (535548144) Family history of colon cancer (Z80.0) Active confirmed Problem 36990514 Peptic ulcer disease (K27.9) Active confirmed Problem Gastritis (5909556) Gastritis (K29.70) Active confirmed Problem 062308551 Positive autoantibody screening for celiac disease (R76.8) Active confirmed Problem Ischemic colitis (67082501) Ischemic colitis (K55.9) Active confirmed Plan Of Treatment Pending Test [...] OF [place] [address] [place] [address] [id number] MARIAH GOODWIN Self - patient is the insured MEDICAID OF [facility] [address] [place] [address] [id number] MARIAH GOODWIN Self - patient is the insured Medical (General) History Medical History History ICD Code Peptic ulcer disease--EGD's with me x 3 in 2010 with gastric and pyloric channel ulcer--biopsies negative for H.pylori Irritable bowel syndrome Denies [place],DM,CVA,Lung disease,renal dise ase Pacemaker/Defibrillator--hx of cardiac a rrest 2013 Cardiac arrest Seizures History of ischemic colitis- seen on a colonoscopy in 2016 at [facility], and with a CT in 05/2022 at [facility] involving the descending colon Spinal compression fractures with Verteb roplasties Chronic pain--back, diffuse arthritis Bed sores --being followed at [facility] PTSD/Depression 7856-uegeiahtqsyh-eoeaxhn arrest 10/2022 Colonoscopy with 1 sm all tubular adenoma; no IBD, no microscopic colitis, biopsies from terminal ileum were unremarkable 10/2022 EGD normal duodenal b x, mild gastritis with negative H.pylori, small hiatal hernia, no esophagitis or Trinh's esophagus Surgical History Surgery Date(Month/Year) 6 back surgeries Cholecystectomy Pacemaker/defibrillator Spinal stimulator, but removed
--- OUTSIDE RECORDS SUMMARY | 2025-04-14 13:36 | XMS_ITS | Patient Health Record ---
Author Organization [facility] Address [address] [place] [address] Care Team Providers Care Stereoptic Projection Topographer Name Role Phone Brad Kebede MD Primary Care Provider Dany Epperson Unavailable [phone] Allergies Allergen (clinical drug ingredient) Drug/Non Drug Allergy documented on EMR Reaction Allergy Type Onset Date Status Non-steroidal anti-inflammatory agent (FN) NSAIDs stomach upset Drug Allergy Active Reason For Referral No Information Medications Medication SIG (Take, Route, Frequency, Duration) Notes Start Date End Date Status Soma 350 MG 1 tablet as needed Orally twice a day; Duration: 30 days 07/15/2023 Active Narcan 4 MG/0.1ML as directed, after use immediately call 911 Nasally as needed; Duration: 30 days 05/19/2018 Active Metoprolol & Diet Manage Prod 100 mg 1 tablet 2 a day Activ e MS Contin 15 MG 1 tablet Orally ever y 8 hours; Duration: 30 days may request partial fill 08/14/2023 Active Sucralfate 1 GM 1 tablet on an empty stomach Orally 4 a day Active Morphine Sulfate 15 MG 1 tablet as needed Orally every 8 hours; Duration: 30 days may request partial fill 08/14/2023 Active Dicyclomine HCl 20 MG Orally Four times a day Active Keppra 500 MG Orally every 12 hrs Active clonazePAM 1 MG 1 tablet Orally Twic e a day Active Gabapentin 800 MG 1 tablet Orally four times a day; Duration: 90 days Active Social History Tobacco Use: [...] Problem Status W/U Status Risk Notes Problem Spondylosis without myelopathy or radiculopathy, cervical region (M47.812) Active confirmed Problem Lumbosacral spondylosis without myelopathy (66373281) Spondylosis without myelopathy or radiculopathy, lumbar region (M47.816) Active confirmed Problem High risk drug monitoring status (222302169) assisted (current) use of opiate analgesic (Z79.891) Active [...] 11/06/2021 LAB REPORT 05/21/2023 LAB REPORT 02/25/2023 [facility] 08/14/2021 [facility] 11/06/2021 [facility] 01/29/2022 [facility] 02/27/2022 [facility] 05/21/2022 [facility] 09/11/2022 [facility] 05/21/2023 Insurance Providers Payer Name Payer Address Payer Phone Subscriber Number Group Number Insured Name Patient Relationship to Insured Coverage Start Date Coverage End Date [place] [address] [place] [id number] CHRISTA MARIAH Self - patient is the insured [employer] Medicaid of [place] [address] [place] [address] [id number] CHRISTA MARIAH Self - patient is the [...]
--- NOTE | 2025-04-14 13:58 | A.OFFPC_ITS ---
Vital Signs 04/14/25 14:06 Height 5 ft BMI Reason not done Patient refused/unable BP 138/88 Blood Pressure Location Rt brachial Position Sitting Respiration 16 Pulse 99 Pulse Source Pulse Oximeter Temp 98.6 F Temp Source Temporal Artery Scan Pulse Oximetry (%) 95 Oxygen Delivery Method Room Air Intake Visit Reasons: medication concerns Intake Note: Gayatri presents in the office today with medication concerns. Thread Cutter back order of morphine. Percocet does not work. Allergies hydromorphone (From DILAUDID) Allergy (Unknown, Verified 04/14/25 14:01) STOPS HEART ibuprofen (From MOTRIN) Allergy (Unknown, Verified 04/14/25 14:01) SEIZURE NSAIDS (Non-Steroidal Anti-Inflamma Allergy (Verified 04/14/25 14:01) Unknown Tobacco use date assessed: 04/14/25 Dental Screening Dental Screen Date: 04/14/25 Did you have a dental visit in the last 12 months?: No Did you have a dental problem in the last 6 months where you did not have access to dental care?: No Was dental information given to patient?: Patient declined HPI medication concerns HPI Details 60 y/o female presents to f/u chronic co nditions such as chronic pain, meds. [facility] Medical History (Updated 01/17/25 @ 16:37 by Aquiles Bowen MD) ICD (implantable cardioverter-defibrillator) battery depletion Spinal cord stimulator status Depression PTSD (post-traumatic stress disorder) Ischemic colitis GERD (gastroesophageal reflux disease) Peptic ulcer disease Thrombocytopenia Pressure sore on buttocks History of sudden cardiac successfully resuscitated ICD (implantable cardioverter-defibrillator) in place Surgical History History of spinal surgery History of cholecystectomy Family History (Updated 04/14/25 @ 14:05 by Patricia Shaikh MA) Mother Dementia Cancer Father Heart disease Social History (Updated 04/14/25 @ 14:05 by Patricia Shaikh MA) Household Members: Spouse Housing: House Alcohol intake: never Comment: restraints Patient Tobacco Use Status: Current everyday Tobacco user Tobacco use type: Cigarette Cigarette Packs Per Day: 0.75 Cigarettes Per Day: 10 Years Smoked: 40 +/- Packs Per Year: 0 Packs per year/per ci.00 e-Cigarette/Vaping Use: Never Used Second Hand Smoke Exposure: Yes Use of substances other than those prescribed or required for medical reasons: No service: No Current occupational status: disabled Current occupational exposures/hazards: No Sexual orientation: Unable to collect Gender identity: Unable to collect Cognitive needs: No Hearing needs: No Vision needs: Yes (Wears glasses) Questionnaire Thrive Questionnaire Date Thrive assessed: 11/23/24 I am a: Patient What is your living situation today?: I have a steady place to live Within the past 12 months, did the food you bought not last and you didn't have the money to get more?: I choose not to answer this question Within the past 12 months, did you worry whether your food would run out before you got money to buy more?: I choose not to answer this question Do you have trouble paying for medicines?: I choose not to answer this question Do you have trouble getting transportation to medical appointments?: I choose not to answer this question Do you have trouble paying your heating and electricity bill?: I choose not to answer this question Do you have trouble taking care of your child, family member or friend?: No Do you have trouble with day-to-day activities such as bathing, preparing meals, shopping, managing finances, etc.?: Yes Are you currently unemployed and looking for a job?: No Are you interested in more education?: No Please select the resources that you would like help with: None Currently or been in a relationship where the following occur: No concerns reported THRIVE Score: 0 MARIN-7 AMB Questionnaire MARIN-7 Date MARIN - 7 assessed: 08/03/24 Source: Developed by Drs. Kashif Turpin, Tona Estes, Jose De Anda and colleagues, with an educational johanny from [employer]. Review of Systems Const Denies chills, Denies fatigue, Denies fever(s), Denies headache(s) and Denies weakness ENT Denies dizziness and Denies headache(s) Card Denies dyspnea Resp Denies cough, Denies dyspnea, Denies wheezing and Denies other (shortness of breath) Musc Denies numbness and Denies tingling Neuro Denies dizziness, Denies headache(s), Denies numbness, Denies tingling and Denies weakness Psych Denies anxiety and Denies depression Endo Denies fatigue Aller/Immun Denies wheezing Physical exam (Primary Care) Vital Signs: Last Vital Signs Temp 98.6 F 04/14/25 14:06 Pulse 99 04/14/25 14:06 Resp 16 04/14/25 14:06 BP 138/88 04/14/25 14:06 Pulse Ox 95 04/14/25 14:06 Oxygen Delivery Method Room Air 04/14/25 14:06 Tobacco/Smoking Status: Tobacco use Status Tobacco use date assessed 04/14/25 04/14/25 14:05 Patient Tobacco Use Status Current everyday Tobacco 04/14/25 14:05 Tobacco use type Cigarette 04/14/25 14:05 e-Cigarette/Vaping Use Never Used 04/14/25 14:05 Thrive Assessment: Date of Thrive Assessment Date Thrive assessed 11/23/24 04/14/25 13:58 Currently or been in a relationship where the following occur: No concerns reported Const General: well developed; No acute distress Nutritional Appearance: well nourished Orientation/consciousness: patient oriented x3 HENMT Head: Yes normocephalic and Yes atraumatic Eyes General: appearance normal, both eyes and all related structures Pupils: Equal, round and reactive pupils present EOM: EOMs intact bilaterally Resp Effort & Inspection: normal respiratory effort Neuro General: patient oriented x3 and gait normal Cranial nerves: Yes Equal, round and reactive pupils present Psych Affect: normal affect Coding Level of Care Code Est Pt Level 3 (53801) Diagnoses Chronic pain syndrome G89.4 Assessment & Plan Assessment & Plan (1) Chronic pain syndrome: Code(s): G89.4 - Chronic pain syndrome Category: Medical Plan: Patient presents to follow-up chronic pain. She had originally been on morphine ER 15 mg b.i.d. and morphine IR 15 mg QA hours. She was steady on this regimen with good compliance and appropriate urine screening. Shortage in medication at the pharmacy resulted in changes to her medication regimen and miscommunication. Will try to resume her original regimen. Nurse at our office will check with pharmacies to ensure they medication. Patient understands to use her medications as prescribed. Will recheck urine drug screening at her next visit. Orders: Orders Drug Screen Urine Today F11.20 - Opioid dependence, uncomplicated Comprehensive [place]. Panel Fast Today E78.00 - Pure hypercholesterolemia, unspecified, Z00.00 - Encounter for general adult medical examination without abnormal findings LDL Cholesterol Direct Today E78.00 - Pure hypercholesterolemia, unspecified, E78.5 - Hyperlipidemia, unspecified Medications: Refilled morphine ER MassPat Verified. Partial Fill upon patient request. 15 mg PO Q12H 56 tabs 0RF 28 days Discontinued oxycodone MassPat Verified. Partial Fill upon patient request. Discontinued Reason: Doctor's Order 7.5 mg (1.5 x 5 mg) PO TID 30 days PRN 135 tabs 0RF pain Resumed morphine MassPat Verified. Partial Fill upon patient request. 15 mg PO Q8H PRN 84 tabs 0RF pain 28 days morphine 15 mg PO Q8H 28 days PRN 84 tabs 0RF pain
[2025-04-14 14:06] VITALS: BP 138/88; PULSE 99; RESP 16; TEMP 37; O2SAT 95
== END 2025-04-14 15:06 | disposition home or self-care (01) ==
LOC: HO.HMCFM 13:33
PROVIDERS: PCP Family Medicine; Visit Provider Family Medicine
DX: G89.4 Chronic pain syndrome (principal)

== ENCOUNTER → 2025-04-14 13:32 | Outpatient (BNVA) | payer MEDICARE, MEDICAID, SELFPAY | PROVIDERS: PCP Family Medicine; Visit Provider Family Medicine | DX: G89.4 Chronic pain syndrome (principal) | CPT/HCPCS: 99212 ==

== ENCOUNTER → 2025-04-17 23:59 | Outpatient (BNV) | payer MEDICARE, MEDICAID, SELFPAY ==
--- NOTE | 2025-04-19 12:21 | A.OFFVIS_ITS ---
Intake Visit Reasons: Remote ICD check- [facility] Allergies hydromorphone (From DILAUDID) Allergy (Unknown, Verified 04/14/25 14:01) STOPS HEART ibuprofen (From MOTRIN) Allergy (Unknown, Verified 04/14/25 14:01) SEIZURE NSAIDS (Non-Steroidal Anti-Inflamma Allergy (Verified 04/14/25 14:01) Unknown [facility] Medical History (Updated 01/17/25 @ 16:37 by Aquiles Bowen MD) ICD (implantable cardioverter-defibrillator) battery depletion Spinal cord stimulator status Depression PTSD (post-traumatic stress disorder) Ischemic colitis GERD (gastroesophageal reflux disease) Peptic ulcer disease Thrombocytopenia Pressure sore on buttocks History of sudden cardiac successfully resuscitated ICD (implantable cardioverter-defibrillator) in place Surgical History History of spinal surgery History of cholecystectomy Family History (Updated 04/14/25 @ 14:05 by Patricia Shaikh MA) Mother Dementia Cancer Father Heart disease Social History (Updated 04/14/25 @ 14:05 by Patricia Shaikh MA) Household Members: Spouse Housing: House Alcohol intake: never Comment: restraints Patient Tobacco Use Status: Current everyday Tobacco user Tobacco use type: Cigarette Cigarette Packs Per Day: 0.75 Cigarettes Per Day: 10 Years Smoked: 40 +/- Packs Per Year: 0 Packs per year/per ci.00 e-Cigarette/Vaping Use: Never Used Second Hand Smoke Exposure: Yes Use of substances other than those prescribed or required for medical reasons: No service: No Current occupational status: disabled Current occupational exposures/hazards: No Sexual orientation: Unable to collect Gender identity: Unable to collect Cognitive needs: No Hearing needs: No Vision needs: Yes (Wears glasses) Office Procedures Cardiac Device Check Cardiac Device Check Details: Remote ICD report generated 04/17/2025. ICD function is adequate [id number] Cardiac Interrogation, implant defibrillator w/interim Procedure code (CPT) selection complete Assessment & Plan Assessment & Plan (1) ICD (implantable cardioverter-defibrillator) in place: Comment: dual-chamber [place] [facility] ICD in place for sudden cardiac with VF Code(s): Z95.810 - Presence of automatic (implantable) cardiac defibrillator Category: Medical Plan: See above Coding Level of Care Code Procedure Only Diagnoses ICD (implantable cardioverter-defibrillator) in place Z95.810 CPT Codes Cardiac Device Check - Cardiac Device 13: [id number] Cardiac Interrogation, implant defibrillator w/interim ([id number])
== END ==
PROVIDERS: PCP Family Medicine; Visit Provider Internal Medicine Cardiovascular Disease
DX: Z45.02 Encounter for adjustment and management of automatic implantable cardiac defibrillator (principal)
CPT/HCPCS: 93295

== ENCOUNTER 2025-06-11 09:39 | Outpatient (REF) | payer MEDICARE, MEDICAID, SELFPAY ==
--- OUTSIDE RECORDS SUMMARY | 2025-06-11 09:43 | XMS_ITS | Clinical Summary ---
Author Organization [address] [place] [address] Address [address] [place] [address] Phone Care Team Providers Care Cardiology Rn Name Role Phone Alvino Mcfarlane MD Primary Care Provider [phone] Allergies Active Allergy Reactions Criticality Noted Date [...] wit hout acute cor pulmonale, unspecified chronicity ([facility] [place], [facility] V28) 07/29/2024 Thrombocytopenia, unspecified ([facility] V24) 07/10 Other hypertrophic cardiomyo paco ([facility] V24, [facility] V28) 07/29/2024 Morbid obesity with BMI of 4 0.0-44.9, adult ([facility] V24, [facility] V28) 07/28/2024 External hemorrhoid 12/16/2016 Ischemic colitis ([place] [id number]) 12/16/2016 Overview (07/28/2024): Follows with GI Prolonged QT interval syndrome 08/16/2016 Seizure disorder ([facility] V24, [facility] V28) 05/2016 Overview (07/28/2024): [facility] neurology Left thyroid nodule 08/08/2015 Overview (07/28/2024): S/p FNA 02/2017 which is benign Vitamin D deficiency 05/04/2015 AICD (automatic cardioverter/defibrillator) pres ent 03/31/2015 Overview (07/28/2024): Last interoggation 10/2019 Follows with cardiology Anxiety and depression 03/31/2015 Cardiac arrest ([facility] V24, [facility] V28) 2014 Overview (07/28/2024): Told due to long QT syndrome In March 2014 s/p pacemaker Sees Dr. Bowen Compression fracture of L2 ([facility] V24, [facility] V28) 03/31/2015 Overview (07/28/2024): S/p Kyphoplasty and disectomy done with PSS - Dr. Llanes, now follows with pain management Dr. Price pain management they prescribe all narcotics HTN (hypertension), benign 03/31/2015 Hyperlipidemia with target LDL less than 130 Overview (07/28/2024): IMO update IBS (irritable bowel syndrome) 03/31/2015 Multiple gastric ulcers 03/31/2015 Overview (07/28/2024): Dr. Thurston at [facility] Osteoporosis 03/31/2015 Cervical herniated disc 11/27/2009 Overview (07/28/2024): Herniated disc , not a surgical candidate, follows with Dr. Price pain management Immunizations Immunization Administration Dates Next Due Influenza, Unspecified 07/09/2016 [...] antral mucosa COLONOSCOPY W/ BIOPSIES 10/07/16 PROCEDURE: MS COLONOSCOPY W/BIOPSY SINGLE/MULTIPLE; COMMENT: Probable ischemic sigmoid [...] ple gastric ulcers; COMMENT: Dr. Thurston at [facility] Anxiety and depression 03/31/2015 DX:Anxiet y and depression External hemorrhoid 12/16/2016 DX:External hemorrhoid AICD (automatic cardioverter/defibrillator) present 03/31/2015 DX:AICD (automatic cardioverter/defibrillator) present; COMMENT: Last interoggation 02/2017 Cervical herniated disc 11/27/2009 DX:Cervi ada herniated disc; COMMENT: Herniated disc , not a surgical candidate, follows with Dr. Price pain management Compression fracture of L2 ( [facility] V24, [facility] V28) 03/31/2015 DX:Compression fracture of L 2 ([facility]); COMMENT: S/p Kyphoplasty and disectomy done with PSS - Dr. Llanes, now follows with pain management Dr. Price pain management they prescribe all narcotics Convulsion ([facility] V24, [facility] V28) 07/26/2015 DX:Convulsion (HCC); COMMENT: Being followed currently with Dr. Kenyon who is giving her clonazepam HTN (hypertension), benign 03/31/2015 DX:HT N (hypertension), benign Hyperlipidemia with target L DL less than 130 03/31/2015 DX:Hyperlipidemia with targe t LDL less than 130; COMMENT: IMO update Ischemic colitis ([facility] V24) 12/16/2016 D X:Ischemic colitis ([facility]); COMMENT: Follows with GI Left thyroid nodule 08/08/2015 DX:Left thyr oid nodule; COMMENT: S/p FNA 02/2017 which is benign Osteoporosis 03/31/2015 DX:Osteoporosis Prolonged QT interval syndrome 08/16/2016 D X:Prolonged QT interval syndrome Seizure disorder ([facility] V2 4, [facility] V28) 08/16/2016 DX:Seizure disorder ([facility]); C OMMENT: On kera F/u with neurology Morbid obesity with BMI of 4 0.0-44.9, adult ([facility] V24, [facility] V28) 10/07/2017 DX:Morbid obesity wit h BMI of 40.0-44.9, adult ([facility]) Tobacco abuse 11/04/2017 DX:Tobacco abuse Cervical [...] (2 - Td or Tdap) 02/12/2023 02/12/2013 Depression Screening 09/08/2024 RSV Immunization Adult Patients (1 - Risk 60-74 years 1-dose series) 2025 COVID-19 Vaccine (1 - 2023-2 5 season) 2025 Influenza Vaccine (#1) 2025 6, 07/09/2016 [...] this topic Medical Devices Implanted Type Area Senior Electrical Controls Engineer Device Identifier Shelf Expiration Date Model / Serial / Lot Defib Icd [address] Icd - [id number] - [id number] Implanted:Qty: 1 on 08/18/2024 by Sean Perez MD at [facility] Cardiac ICD Left: Chest Wall [facility] [id number] 03/07/2025 [id number] / [id number] / Procedures Procedure Name Priority Date/Time Associated Diagnosis Comments BASIC METABOLIC PANEL Routine 08/18/2024 12:30 PM EST Atrial fibrillation (CMS/HCC V24, CMS/HCC V28) LIPID PANEL Routine 05/01/2023 SCR MAMMO BI INCL CAD Routine 11/28/2018 11:32 AM EDT Encounter for screening mammogram for malignant neoplasm of breast PAP SMEAR Routine 11/04/2017 COLONOSCOPY Routine 10/07/2016 HEPATITIS C SCREENING Routine 09/06/2016 from Last 3 Months or Most Recently Relevant to Health Maintenance Results * (ABNORMAL) Basic metabolic panel (08/18/2024 12:30 PM EST) Sodium 139 133 - 145 mmol/L LAB CHEMISTRY METHOD 08/18/2024 12:58 PM [facility] Potassium 4.1 3.5 - 5.5 mmol/L LAB CHEMISTRY METHOD 08/18/2024 12:58 PM [facility] Chloride 106 96 - 110 mmol/L LAB CHEMISTRY METHOD 08/18/2024 12:58 PM [facility] CO2 29 21 - 32 mmol/L LAB CHEMISTRY METHOD 08/18/2024 12:58 PM [facility] Anion Gap 4 3 - 11 LAB CHEMISTRY METHOD 08/18/2024 12:58 PM [facility] Glucose 104(H) 70 - 100 mg/dL LAB CHEMISTRY METHOD 08/18/2024 12:58 PM [facility] BUN 13 5 - 25 mg/dL LAB CHEMISTRY METHOD 08/18/2024 12:58 PM [facility] Creatinine 0.77 0.50 - 1.10 mg/dL LAB CHEMISTRY METHOD 08/18/2024 12:58 PM [facility] eGFR 89 >=60 mL/min/1. 73m2 LAB CHEMISTRY METHOD 08/18/2024 12:58 PM [facility] Comment:Calculation based on the Chronic Kidney Disease Epidemiology Collaboration (CKD-EPI) equation refit without adjustment for race. BUN/Creatinine Ratio 16.9 LAB CHEMISTRY METHOD 08/18/2024 12:58 PM EST [facility] Calcium 9.0 8.5 - 10.5 mg/dL LAB CHEMISTRY METHOD 08/18/2024 12:58 PM EST [facility] Blood Venous blood specimen / Unknown Venipuncture / Unknown 08/18/2024 12:30 PM EST 08/18/2024 12:32 PM EST Sean Perez MD LAB BLOOD ORDERABLES Final Res ult [facility] [address] [place] [address], * (ABNORMAL) Lipid panel (05/01/2023) LDL/HDL Ratio 4 0 - 4 Triglycerides 307(A) 0 - 150 mg/dL Cholesterol 191 0 - 200 mg/dL HDL 46 >=40 mg/dL LDL Cholesterol 84 0 - 100 mg/dL Blood Venous blood specimen / Unknown Tabatha Donovan MD LAB BLOOD ORDERABLES Rbiana l Result * SCR MAMMO BI INCL [...] % Breast cancer risk category Low (<15%) Result [facility] Stephanie Lofton MD IMG XR PROCEDURES Final Resu lt * Pap Smear (11/04/2017) [facility] Pap smear Refused, Abstracted Result [facility] Provider HEALTH MAINTENANCE Final Result * Colonoscopy (10/07/2016) [facility] Colonoscopy No Interpretation , Abstracted Anatomical Region Laterality Modality Other Result [facility] Historical Provider HEALTH MAINTENANCE Final Result * Hepatitis C Screening (09/06/2016) [facility] Hepatitis C Screening Abstracted Result [facility] Provider HEALTH MAINTENANCE Final Result from Last 3 Months or Most Recently Relevant to Health Maintenance Insurance MEDICARE [place]ICA[place] - [place] Advance Directives Documents on File Type Date Recorded Patient Melting Operator Expl anation Advance Directives and Livin g Will 08/19/2024 10:40 AM Care Teams Cardiology Rn Relationship Specialty Start Date End Date Alvino Mcfarlane MD [address] [place] [address] [address] [facility] [address] PCP - General Family Medicine 07/29/24
--- OUTSIDE RECORDS SUMMARY | 2025-06-11 09:43 | XMS_ITS | Patient Health Record ---
Author Organization [facility] Address [address] [place] [address] Care Team Providers Care Medical Services Assistant Name Role Phone Brad Kebede MD Primary Care Provider Kashif Xiao [phone] Allergies No Known Allergies Reason For Referral [...] 5mg Ac tive Omeprazole 40mg Acti ve Morphine Sulfate ER 15 MG 1 tablet Orall y every 12 hrs Active metroNIDAZOLE 375 MG 2 capsules Orally every 8 hrs for 5 day(s) Not-Taking Sucralfate 1 GM 1 tablet on an empty stomach Orally Twice a day Active clonazePAM Active traMADol HCl Not-Tomer ing Dicyclomine HCl 10 MG 1 or 2 Orally Ever y 6 hours if needed for abdominal cramps/bloating/discom fort/diarrhea for 30 days Active Metoprolol Tartrate 100 MG 1 tablet [...] Problem Status W/U Status Risk Notes Problem 399422375 History of adenomatous polyp of colon (Z86.010) Active confirmed Problem Diarrhea (33611875) Diarrhea (R19.7) Active confirmed Problem Diverticular disease of colon (869199923) Diverticulosis of large intestine without perforation or abscess without bleeding (K57.30) Active confirmed Problem 204684732 Irritable bowel syndrome with diarrhea (K58.0) Active confirmed Problem Family History of Cancer of Colon (Situation) (552901532) Family history of colon cancer (Z80.0) Active confirmed Problem 17324700 Peptic ulcer disease (K27.9) Active confirmed Problem Gastritis (4503468) Gastritis (K29.70) Active confirmed Problem 621041901 Positive autoantibody screening for celiac disease (R76.8) Active confirmed Problem Ischemic colitis (17340348) Ischemic colitis (K55.9) Active confirmed Plan Of [...] Start Date Coverage End Date MEDICARE OF [place] [address] [place] HDEZDIEGOJEFF [id number] CHRISTA MARIAH Self - patient is the insured MEDICAID OF [facility] [address] [place] [phone] [id number] MARIAH GOODWIN Self - patient is the insured Medical (General) History Medical History History ICD Code Peptic ulcer disease--EGD's with me x 3 in 2010 with gastric and pyloric channel ulcer--biopsies negative for H.pylori Irritable bowel syndrome Denies VA,DM,CVA,Lung disease,renal dise ase Pacemaker/Defibrillator--hx of cardiac a rrest 2013 Cardiac arrest Seizures History of ischemic colitis- seen on a colonoscopy in 2016 at [facility], and with a CT in 05/2022 at [facility] involving the descending colon Spinal compression fractures with Verteb roplasties Chronic pain--back, diffuse arthritis Bed sores --being followed at [facility] PTSD/Depression [id number]-[id number] arrest 10/2022 Colonoscopy with 1 sm all tubular adenoma; no IBD, no microscopic colitis, biopsies from terminal ileum were unremarkable 10/2022 EGD normal duodenal b x, mild gastritis with negative H.pylori, small hiatal hernia, no esophagitis or Trinh's esophagus Surgical History Surgery Date(Month/Year) 6 back surgeries Cholecystectomy Pacemaker/defibrillator Spinal stimulator, but removed
--- OUTSIDE RECORDS SUMMARY | 2025-06-11 09:44 | XMS_ITS | Patient Health Record ---
Author Organization [facility] Pain Address [address] [place] [address] Care Team Providers Care Shrimp Peeling Machine Tender Name Role Phone Brad Kebede MD Primary Care Provider Dany Epperson Unavailable [phone] Allergies Allergen (clinical drug ingredient) Drug/Non Drug Allergy documented on EMR Reaction Allergy Type Onset Date Status Non-steroidal anti-inflammatory agent (FN) NSAIDs stomach upset Drug Allergy Active Reason For Referral No Information Medications Medication SIG (Take, Route, Frequency, Duration) Notes Start Date End Date Status Soma 350 MG Tablet 1 tablet as needed Orally twice a day; Duration: 30 days 07/15/2023 Active Narcan 4 MG/0.1ML Liquid as directed, after use immediately call 911 Nasally as needed; Duration: 30 days 05/19/2018 Active Metoprolol & Diet Manage Prod 100 mg tablet 1 tablet 2 a day Active MS Contin 15 MG Tablet Extended Release 1 tablet Orally every 8 hours; Duration: 30 days may request partial fill 08/14/2023 Active Sucralfate 1 GM Tablet 1 tablet on an empty stomach Orally 4 a day Active Morphine Sulfate 15 MG Tablet 1 tablet as needed Orally every 8 hours; Duration: 30 days may request partial fill 08/14/2023 Active Dicyclomine HCl 20 MG Tablet Orally Four times a day Active Keppra 500 MG Tablet Orally every 12 hrs Active clonazePAM 1 MG Tablet 1 tablet Orally Twice a day Active Gabapentin 800 MG Tablet 1 tablet Orally four times a day; Duration: 90 days Active Social History Tobacco Use: Social History Observation Description Date Details (start date - stop date) Current Smoker 06/18/1975 - NA Social History Tobacco Use: Social Info Question Answer Notes Tobacco Use/Smoking Are you a current smoker How often do you smoke cigarettes? every day How many cigarettes a day do you smoke? 11-20 How soon after you wake up do you smoke your first cigarette? 31-60 minutes Are you interested in quitting? Not ready to quit When did you start smoking? 06/18/1975 Section [...] Risk Notes Problem Cervical spondylosis without myelopathy (859789227) Spondylosis without myelopathy or radiculopathy, cervical region (M47.812) Active confirmed Problem Lumbosacral spondylosis without myelopathy (77253118) Spondylosis without myelopathy or radiculopathy, lumbar region (M47.816) Active confirmed Problem High risk drug monitoring status (080090313) medical terminologist (current) use of opiate analgesic (Z79.891) Active confirmed Plan Of Treatment Pending Test Test Name Order Date PHENCYCLIDINE (PCP) QUANTITATIVE 019 PHENCYCLIDINE (PCP) QUANTITATIVE 022 PHENCYCLIDINE (PCP) QUANTITATIVE 05/24/2 022 PHENCYCLIDINE (PCP) QUANTITATIVE 022 PHENCYCLIDINE (PCP) [...] 11/06/2021 LAB REPORT 05/21/2023 LAB REPORT 02/25/2023 [place] [facility] 08/14/2021 [facility] 11/06/2021 [facility] [facility] 01/29/2022 [place] [facility] 02/27/2022 [place] [facility] 05/21/2022 [place] [facility] 09/11/2022 [facility] [facility] 05/21/2023 Insurance Providers Payer Name Payer Address Payer Phone Subscriber Number Group Number Insured Name Patient Relationship to Insured Coverage Start Date Coverage End Date Medicare B [facility] [address] [place] [phone] [id number] [id number] MARIAH GOODWIN Self - patient is the insured [employer] Medicaid of [place] [address] [place] [address] [id number] MARIAH GOODWIN Self - patient is the [...]
[2025-06-11 11:07] LABS: Appearance Urine Clear; Glucose Urine UA Negative (Negative); PH 6.0 (5.0-9.0); Specific Gravity - Urine 1.015 (1.005-1.025); UMIC TRIGGER UA YES
[2025-06-11 11:12] LABS: Cannabinoid Screen Urine Not Detected (Not Detect)
[2025-06-11 11:33] LABS: Alanine Aminotransferase 16 U/L (0-31); Albumin Level 4.4 g/dL (3.5-5.0); Alkaline Phosphatase 86 U/L (39-117); Anion Gap 17 (12-20); Aspartate Amino Transferase 24 U/L (5-31); Blood Urea Nitrogen 15 mg/dL (9-16); Calcium 9.6 mg/dL (8.4-10.2); Carbon Dioxide 26 mmol/L (22-29); Chloride 100 mmol/L (96-108); Estimated Glomerular Filt Rate > 60; Potassium 4.7 mmol/L (3.3-5.1); Sodium 138 mmol/L (135-145); Total Protein 7.2 g/dL (6.5-8.0)
== END 2025-06-11 09:40 | disposition home or self-care (01) ==
LOC: HO.LAB 09:39
PROVIDERS: PCP Family Medicine; Visit Provider Family Medicine
DX: Z00.00 Encounter for general adult medical examination without abnormal findings (principal); Z51.81 Encounter for therapeutic drug level monitoring; F11.20 Opioid dependence, uncomplicated; E78.00 Pure hypercholesterolemia, unspecified; E78.5 Hyperlipidemia, unspecified
CPT/HCPCS: 80053; 80307; 81001; 81003; 83721

== ENCOUNTER 2025-06-14 15:22 | Outpatient (AMB) | payer MEDICARE, MEDICAID, SELFPAY ==
--- NOTE | 2025-06-14 15:25 | A.OFFPC_ITS ---
Vital Signs 06/14/25 15:30 06/14/25 15:41 Height 5 ft Weight 217 lb 4 oz BMI 42.4 BP 146/100 H 140/66 H Blood Pressure Location Lt brachial Lt brachial Position Sitting Sitting Respiration 16 Pulse 94 Pulse Source Pulse Oximeter Temp 97.7 F Temp Source Temporal Artery Scan Pulse Oximetry (%) 96 Oxygen Delivery Method Room Air Intake Visit Reasons: f/u HLD Intake Note: Gayatri presents in the office today to follow up on her cholesterol. Allergies hydromorphone (From DILAUDID) Allergy (Unknown, Verified 06/14/25 15:28) STOPS HEART ibuprofen (From MOTRIN) Allergy (Unknown, Verified 06/14/25 15:28) SEIZURE NSAIDS (Non-Steroidal Anti-Inflamma Allergy (Verified 06/14/25 15:28) Unknown Medication List - Last Reconciled 06/14/25 by Alvino Mcfarlane MD carisoprodol 350 mg PO BID PRN 28 days cholecalciferol (vitamin D3) 50 mcg PO DAILY 90 days clonazepam 1 mg PO BID 30 days dicyclomine 20 mg PO QID gabapentin 800 mg PO QID levetiracetam (Keppra) 750 mg PO BID metoprolol tartrate 100 mg PO BID morphine 15 mg PO Q8H PRN 28 days morphine ER 15 mg PO Q12H 28 days rosuvastatin 5 mg PO DAILY 90 days sucralfate 1 g PO BID Tobacco use date assessed: 06/14/25 Dental Screening Dental Screen Date: 06/14/25 Did you have a dental visit in the last 12 months?: No Did you have a dental problem in the last 6 months where you did not have access to dental care?: No Was dental information given to patient?: Patient declined HPI f/u HLD HPI Details 60 y/o female presents to f/u lipids, ch ronic pain. No recent lipid panel to review. Blood pressure today elevated at 140/66, 94p. She is on metoprolol 100mg b.i.d. Denies any swelling of her feet/ankles. Reports some hypersomnia. [facility] Medical History (Updated 06/14/25 @ 16:03 by Alvino Mcfarlane MD) ICD (implantable cardioverter-defibrillator) battery depletion Spinal cord stimulator status Depression PTSD (post-traumatic stress disorder) Ischemic colitis GERD (gastroesophageal reflux disease) Peptic ulcer disease Thrombocytopenia Pressure sore on buttocks History of sudden cardiac successfully resuscitated ICD (implantable cardioverter-defibrillator) in place Surgical History History of spinal surgery History of cholecystectomy Family History Mother Dementia Cancer Father Heart disease Social History (Updated 06/14/25 @ 15:30 by Patricia Shaikh CMA) Household Members: Spouse Housing: House Alcohol intake: never Comment: restraints Patient Tobacco Use Status: Current everyday Tobacco user Tobacco use type: Cigarette Cigarette Packs Per Day: 0.75 Cigarettes Per Day: 10 Years Smoked: 40 +/- e-Cigarette/Vaping Use: Never Used Second Hand Smoke Exposure: Yes service: No Current occupational status: disabled Current occupational exposures/hazards: No Sexual orientation: Unable to collect Gender identity: Unable to collect Cognitive needs: No Hearing needs: No Vision needs: Yes (Wears glasses) Questionnaire Thrive Questionnaire Date Thrive assessed: 11/23/24 I am a: Patient What is your living situation today?: I have a steady place to live Within the past 12 months, did the food you bought not last and you didn't have the money to get more?: I choose not to answer this question Within the past 12 months, did you worry whether your food would run out before you got money to buy more?: I choose not to answer this question Do you have trouble paying for medicines?: I choose not to answer this question Do you have trouble getting transportation to medical appointments?: I choose not to answer this question Do you have trouble paying your heating and electricity bill?: I choose not to answer this question Do you have trouble taking care of your child, family member or friend?: No Do you have trouble with day-to-day activities such as bathing, preparing meals, shopping, managing finances, etc.?: Yes Are you currently unemployed and looking for a job?: No Are you interested in more education?: No Please select the resources that you would like help with: None Currently or been in a relationship where the following occur: No concerns reported THRIVE Score: 0 MARIN-7 AMB Questionnaire MARIN-7 Date MARIN - 7 assessed: 08/03/24 Source: Developed by Drs. Kashif Turpin, Tona Estes, Jose De Anda and colleagues, with an educational johanny from [employer]. Review of Systems Const Denies chills, Denies fatigue, Denies fever(s), Denies headache(s) and Denies weakness ENT Denies dizziness and Denies headache(s) Card Denies dyspnea Resp Denies cough, Denies dyspnea, Denies wheezing and Denies other (shortness of breath) Musc Denies numbness and Denies tingling Neuro Denies dizziness, Denies headache(s), Denies numbness, Denies tingling and Denies weakness Psych Denies anxiety and Denies depression Endo Denies fatigue Aller/Immun Denies wheezing Physical exam (Primary Care) Vital Signs: Last Vital Signs Temp 97.7 F 06/14/25 15:30 Pulse 94 06/14/25 15:30 Resp 16 06/14/25 15:30 BP 140/66 H 06/14/25 15:41 Pulse Ox 96 06/14/25 15:30 Oxygen Delivery Method Room Air 06/14/25 15:30 BMI result Body Mass Index 42.4 Tobacco/Smoking Status: Tobacco use Status Tobacco use date assessed 06/14/25 06/14/25 15:33 Patient Tobacco Use Status Current everyday Tobacco 06/14/25 15:30 Tobacco use type Cigarette 06/14/25 15:30 e-Cigarette/Vaping Use Never Used 06/14/25 15:30 Thrive Assessment: Date of Thrive Assessment Date Thrive assessed 11/23/24 06/14/25 15:27 Currently or been in a relationship where the following occur: No concerns reported Const General: well developed; No acute distress Nutritional Appearance: well nourished Orientation/consciousness: patient oriented x3 [facility] Head: Yes normocephalic and Yes atraumatic Eyes General: appearance normal, both eyes and all related structures Pupils: Equal, round and reactive pupils present EOM: EOMs intact bilaterally Resp Effort & Inspection: normal respiratory effort Neuro General: patient oriented x3 and gait normal Cranial nerves: Yes Equal, round and reactive pupils present Psych Affect: normal affect Coding Level of Care Code Est Pt Level 5 (40381) Diagnoses Chronic pain syndrome G89.4 Hypercholesterolemia E78.00 Hypertension I10 Hypersomnia G47.10 Assessment & Plan Assessment & Plan (1) Chronic pain syndrome: Code(s): G89.4 - Chronic pain syndrome Category: Medical Plan: Stable on her current regimen Recent urine drug screen was appropriate Continue current medications (2) Hypercholesterolemia: Code(s): E78.00 - Pure hypercholesterolemia, unspecified Category: Medical Plan: LDL cholesterol improved on low dose of rosuvastatin Increasing rosuvastatin 5 mg to 10 mg daily. (3) Hypertension: Code(s): I10 - Essential (primary) hypertension Category: Medical Plan: Blood pressure is elevated. Patient declines medication today but she will work on a diet low in salt/sodium Continue working on weight loss Encouraged stress reduction and she will follow-up with her therapist We did discuss that if blood pressure is still elevated at her next visit we should consider medications such as hydrochlorothiazide which was briefly mentioned today (4) Hypersomnia: Code(s): G47.10 - Hypersomnia, unspecified Category: Medical Plan: Hypersomnia and difficulty sleeping with waking and feeling unrested in the morning Referred to sleep medicine Orders: Orders Hemoglobin A1c 06/14/25 R73.01 - Impaired fasting glucose Lipid Panel 06/14/25 E78.00 - Pure hypercholesterolemia, unspecified, Z00.00 - Encounter for general adult medical examination without abnormal findings Comprehensive [place]. Panel Fast 06/14/25 E78.00 - Pure hypercholesterolemia, unspecified, Z00.00 - Encounter for general adult medical examination without abnormal findings Referrals Sleep Medicine Referral G47.10 - Hypersomnia, unspecified, G47.9 - Sleep disorder, unspecified Medications: Changed From rosuvastatin 5 mg PO DAILY 90 days 90 tabs 3RF To rosuvastatin 10 mg PO DAILY 90 tabs 3RF 90 days
[2025-06-14 15:30] VITALS: BP 146/100; PULSE 94; RESP 16; TEMP 36.5; O2SAT 96; BMI 42.4
[2025-06-14 15:41] VITALS: BP 140/66
--- OUTSIDE RECORDS SUMMARY | 2025-06-14 18:34 | XMS_ITS | Patient Health Record ---
Author Organization [facility] Pain Address [address] [place] [address] Care Team Providers Care Director Non Profit Name Role Phone Brad Kebede MD Primary Care Provider Dany Epperson Unavailable [phone] Allergies Allergen (clinical drug ingredient) Drug/Non Drug [...] Risk Notes Problem Cervical spondylosis without myelopathy (379865568) Spondylosis without myelopathy or radiculopathy, cervical region (M47.812) Active confirmed Problem Lumbosacral spondylosis without myelopathy (60315742) Spondylosis without myelopathy or radiculopathy, lumbar region (M47.816) Active confirmed Problem High risk drug monitoring status (088993621) 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 analgesic (Z79.891) Active [...] 11/06/2021 LAB REPORT 05/21/2023 LAB REPORT 02/25/2023 [place] [facility] 08/14/2021 [facility] 11/06/2021 [facility] [facility] 01/29/2022 [facility] [facility] 02/27/2022 [facility] 05/21/2022 [facility] 09/11/2022 [facility] 05/21/2023 Insurance Providers Payer Name Payer Address Payer Phone Subscriber Number Group Number Insured Name Patient Relationship to Insured Coverage Start Date Coverage End Date Medicare B [facility] [address] [place] [phone] [id number] [id number] MARIAH GOODWIN Self - patient is the insured [employer] of [place] [address] [place] [address] [id number] MARIAH GOODWIN Self - patient is the [...]
--- OUTSIDE RECORDS SUMMARY | 2025-06-14 18:34 | XMS_ITS | Patient Health Record ---
Author Organization [facility] Address [address] [place] [address] Care Team Providers Care Yarn Salvager Name Role Phone Brad Kebede MD Primary Care Provider Kashif Xiao [phone] Allergies No Known Allergies Reason For Referral [...] Problem Status W/U Status Risk Notes Problem 180463263 History of adenomatous polyp of colon (Z86.010) Active confirmed Problem Diarrhea (94955720) Diarrhea (R19.7) Active confirmed Problem Diverticular disease of colon (516608612) Diverticulosis of large intestine without perforation or abscess without bleeding (K57.30) Active confirmed Problem 883158023 Irritable bowel syndrome with diarrhea (K58.0) Active confirmed Problem Family History of Cancer of Colon (Situation) (397508746) Family history of colon cancer (Z80.0) Active confirmed Problem 67794106 Peptic ulcer disease (K27.9) Active confirmed Problem Gastritis (4180123) Gastritis (K29.70) Active confirmed Problem 960209302 Positive autoantibody screening for celiac disease (R76.8) Active confirmed Problem Ischemic colitis (57671207) Ischemic colitis (K55.9) Active confirmed Plan Of [...] Start Date Coverage End Date [place]ARE OF [place] [address] [place] [id number] CHRISTA MARIAH Self - patient is the insured MEDICAID OF [facility] [address] [place] [phone] [id number] MARIAH GOODWIN Self - patient is the insured Medical (General) History Medical History History ICD Code Peptic ulcer disease--EGD's with me x 3 in 2010 with gastric and pyloric channel ulcer--biopsies negative for H.pylori Irritable bowel syndrome Denies MS,DM,CVA,Lung disease,renal dise ase Pacemaker/Defibrillator--hx of cardiac a rrest 2013 Cardiac arrest Seizures History of ischemic colitis- seen on a colonoscopy in 2016 at [facility], and with a CT in 05/2022 at [facility] involving the descending colon Spinal compression fractures with Verteb roplasties Chronic pain--back, diffuse arthritis Bed sores --being followed at [facility] PTSD/Depression 7059-vczuntluykkd-oruwriu arrest 10/2022 Colonoscopy with 1 sm all tubular adenoma; no IBD, no microscopic colitis, biopsies from terminal ileum were unremarkable 10/2022 EGD normal duodenal b x, mild gastritis with negative H.pylori, small hiatal hernia, no esophagitis or Trinh's esophagus Surgical History Surgery Date(Month/Year) 6 back surgeries Cholecystectomy Pacemaker/defibrillator Spinal stimulator, but removed
--- OUTSIDE RECORDS SUMMARY | 2025-06-14 18:35 | XMS_ITS | Clinical Summary ---
Author Organization [address] [place] [address] Address [address] [place] [address] Phone Care Team Providers Care Repair Technician Name Role Phone Alvino Mcfarlane MD Primary Care Provider [phone] Allergies Active Allergy Reactions Criticality Noted Date [...] wit hout acute cor pulmonale, unspecified chronicity ([facility] V24, [facility] V28) 07/29/2024 Thrombocytopenia, unspecified ([facility] V24) 07/10 Other hypertrophic cardiomyo paco ([facility] V24, [facility] V28) 07/29/2024 Morbid obesity with BMI of 4 0.0-44.9, adult ([facility] V24, [facility] V28) 07/28/2024 External hemorrhoid 12/16/2016 Ischemic colitis ([place] 198374) 12/16/2016 Overview (07/28/2024): Follows with GI Prolonged QT interval syndrome 08/16/2016 Seizure disorder ([facility] V24, [facility] V28) 05/2016 Overview (07/28/2024): [facility] Left thyroid nodule 08/08/2015 Overview (07/28/2024): S/p FNA 02/2017 which is benign Vitamin D deficiency 05/04/2015 AICD (automatic cardioverter/defibrillator) pres ent 03/31/2015 Overview (07/28/2024): Last interoggation 10/2019 Follows with cardiology Anxiety and depression 03/31/2015 Cardiac arrest ([facility] V24, [facility] V28) 2014 Overview (07/28/2024): Told due to long QT syndrome In March 2014 s/p pacemaker Sees Dr. Bowen Compression fracture of L2 ([facility] V24, [facility] V28) 03/31/2015 Overview (07/28/2024): S/p Kyphoplasty and disectomy done with PSS - Dr. Llanes, now follows with pain management Dr. Price pain management they prescribe all narcotics HTN (hypertension), benign 03/31/2015 Hyperlipidemia with target LDL less than 130 Overview (07/28/2024): IMO update IBS (irritable bowel syndrome) 03/31/2015 Multiple gastric ulcers 03/31/2015 Overview (07/28/2024): Dr. Thurston at [place] Osteoporosis 03/31/2015 Cervical herniated disc 11/27/2009 Overview [...] antral mucosa COLONOSCOPY W/ BIOPSIES 10/07/16 PROCEDURE: AL COLONOSCOPY W/BIOPSY SINGLE/MULTIPLE; COMMENT: Probable ischemic sigmoid [...] ple gastric ulcers; COMMENT: Dr. Thurston at [place] Anxiety and depression 03/31/2015 DX:Anxiet y and depression External hemorrhoid 12/16/2016 DX:External hemorrhoid AICD (automatic cardioverter/defibrillator) present 03/31/2015 DX:AICD (automatic cardioverter/defibrillator) present; COMMENT: Last interoggation 02/2017 Cervical herniated disc 11/27/2009 DX:Cervi ada herniated disc; COMMENT: Herniated disc , not a surgical candidate, follows with Dr. Price pain management Compression fracture of L2 ( [facility] V24, [facility] V28) 03/31/2015 DX:Compression fracture of L 2 ([facility]); COMMENT: S/p Kyphoplasty and disectomy done with PSS - Dr. Llanes, now follows with pain management Dr. Price pain management they prescribe all narcotics Convulsion ([facility] V24, [facility] V28) 07/26/2015 DX:Convulsion (HCC); COMMENT: Being followed currently with Dr. Kenyon who is giving her clonazepam HTN (hypertension), benign 03/31/2015 DX:HT N (hypertension), benign Hyperlipidemia with target L DL less than 130 03/31/2015 DX:Hyperlipidemia with targe t LDL less than 130; COMMENT: IMO update Ischemic colitis ([facility] V24) 12/16/2016 D X:Ischemic colitis ([facility]); COMMENT: Follows with GI Left thyroid nodule 08/08/2015 DX:Left thyr oid nodule; COMMENT: S/p FNA 02/2017 which is benign Osteoporosis 03/31/2015 DX:Osteoporosis Prolonged QT interval syndrome 08/16/2016 D X:Prolonged QT interval syndrome Seizure disorder ([facility] V2 4, [facility] V28) 08/16/2016 DX:Seizure disorder ([facility]); C OMMENT: On kera F/u with neurology Morbid obesity with BMI of 4 0.0-44.9, adult ([facility] V24, [facility] V28) 10/07/2017 DX:Morbid obesity wit h BMI of 40.0-44.9, adult ([facility]) Tobacco abuse 11/04/2017 DX:Tobacco abuse [...] this topic Medical Devices Implanted Type Area Attending Urologist Device Identifier Shelf Expiration Date Model / Serial / Lot Defib Icd [address] Icd - [id number] - [id number] Implanted:Qty: 1 on 08/18/2024 by Sean Perez MD at [facility] Cardiac ICD Left: Chest Wall [facility] [id number] 03/07/2025 [id number] / [id number] / Procedures Procedure Name Priority Date/Time [...] mmol/L LAB CHEMISTRY METHOD 08/18/2024 12:58 PM [facility] Potassium 4.1 3.5 - 5.5 mmol/L LAB CHEMISTRY METHOD 08/18/2024 12:58 PM [facility] Chloride 106 96 - 110 mmol/L LAB CHEMISTRY METHOD 08/18/2024 12:58 PM [facility] CO2 29 21 - 32 mmol/L LAB CHEMISTRY METHOD 08/18/2024 12:58 PM [facility] Anion Gap 4 3 - 11 LAB CHEMISTRY METHOD 08/18/2024 12:58 PM [facility] Glucose 104(H) 70 - 100 mg/dL LAB CHEMISTRY METHOD 08/18/2024 12:58 PM [facility] BUN 13 5 - 25 mg/dL LAB CHEMISTRY METHOD 08/18/2024 12:58 PM [facility] Creatinine 0.77 0.50 - 1.10 mg/dL LAB CHEMISTRY METHOD 08/18/2024 12:58 PM [facility] eGFR 89 >=60 mL/min/1. 73m2 LAB CHEMISTRY METHOD 08/18/2024 12:58 PM [facility] Comment:Calculation based on the Chronic Kidney Disease Epidemiology Collaboration (CKD-EPI) equation refit without adjustment for race. BUN/Creatinine Ratio 16.9 LAB CHEMISTRY METHOD 08/18/2024 12:58 PM EST [facility] Calcium 9.0 8.5 - 10.5 mg/dL LAB CHEMISTRY METHOD 08/18/2024 12:58 PM EST [facility] Blood Venous blood specimen / Unknown Venipuncture / Unknown 08/18/2024 12:30 PM EST 08/18/2024 12:32 PM EST Sean Perez MD LAB BLOOD ORDERABLES Final Res ult [facility] [address] [place] [address], * (ABNORMAL) Lipid panel (05/01/2023) LDL/HDL Ratio 4 0 - 4 Triglycerides 307(A) 0 - 150 mg/dL Cholesterol 191 0 - 200 mg/dL HDL 46 >=40 mg/dL LDL Cholesterol 84 0 - 100 mg/dL Blood Venous blood specimen / Unknown Tabatha Donovan MD LAB BLOOD ORDERABLES Briana l Result * [...] Breast cancer risk category Low (<15%) Result [facility] Stephanie Lofton MD IMG XR PROCEDURES Final Resu lt * Pap Smear (11/04/2017) [facility] Pap smear Refused, Abstracted Result [facility] Provider HEALTH MAINTENANCE Final Result * Colonoscopy (10/07/2016) [facility] Colonoscopy No Interpretation , Abstracted Anatomical Region Laterality Modality Other Result [facility] Historical Provider HEALTH MAINTENANCE Final Result * Hepatitis C Screening (09/06/2016) [facility] Hepatitis C Screening Abstracted Result [facility] Provider HEALTH MAINTENANCE Final Result from Last 3 Months or Most Recently Relevant to Health Maintenance Insurance MEDICARE [place]ICAID - [place] Advance Directives Documents on File Type Date Recorded Patient Fire Prevention Specialist Expl anation Advance Directives and Livin g Will 08/19/2024 10:40 AM Care Teams Repair Technician Relationship Specialty Start Date End Date Alvino Mcfarlane MD [address] [place] [address] Dr Veloz [place] PCP - General Family Medicine 07/29/24
== END 2025-06-14 16:10 | disposition home or self-care (01) ==
LOC: HO.HMCFM 15:23
PROVIDERS: PCP Family Medicine; Visit Provider Family Medicine
DX: G89.4 Chronic pain syndrome (principal); E78.00 Pure hypercholesterolemia, unspecified; I10 Essential (primary) hypertension; G47.10 Hypersomnia, unspecified

== ENCOUNTER → 2025-06-14 15:22 | Outpatient (BNVA) | payer MEDICARE, MEDICAID, SELFPAY | PROVIDERS: PCP Family Medicine; Visit Provider Family Medicine | DX: G89.4 Chronic pain syndrome (principal); E78.00 Pure hypercholesterolemia, unspecified; I10 Essential (primary) hypertension; G47.10 Hypersomnia, unspecified; R73.01 Impaired fasting glucose | CPT/HCPCS: 99212 ==

== ENCOUNTER → 2025-07-26 12:23 | Outpatient (BNV) | payer MEDICARE, MEDICAID, SELFPAY | PROVIDERS: PCP Family Medicine | DX: I46.9 Cardiac arrest, cause unspecified (principal); Z45.02 Encounter for adjustment and management of automatic implantable cardiac defibrillator | CPT/HCPCS: 93295 ==

== ENCOUNTER 2025-07-27 14:53 | Outpatient (AMB) | payer MEDICARE, MEDICAID, SELFPAY ==
--- NOTE | 2025-07-27 14:59 | MHC.OFFVIS ---
Intake Visit Reasons: 6m Accompanied by: Spouse Allergies hydromorphone (From DILAUDID) Allergy (Unknown, Verified 07/27/25 15:02) STOPS HEART ibuprofen (From MOTRIN) Allergy (Unknown, Verified 07/27/25 15:02) SEIZURE NSAIDS (Non-Steroidal Anti-Inflamma Allergy (Verified 07/27/25 15:02) Unknown Medication List - Last Reconciled 07/27/25 by Mary Jane Dumont CNP carisoprodol 350 mg PO BID PRN 28 days cholecalciferol (vitamin D3) 50 mcg PO DAILY 90 days clonazepam 1 mg PO BID 30 days dicyclomine 20 mg PO QID gabapentin 800 mg PO QID 30 days levetiracetam 750 mg PO BID metoprolol tartrate 100 mg PO BID morphine 15 mg PO Q8H PRN 28 days morphine ER 15 mg PO Q12H 28 days rosuvastatin 10 mg PO DAILY 90 days sucralfate 1 g PO BID HPI Comments Details: She was doing okay. She was taking levetiracetam twice a day, gabapentin four times a day, and clonazepam twice a day. No seizure. Chronic low back pain and generalized body pains. Walking with cane, no recent falls. Sleep was up and down.? Fractured right ankle mortise on 01/24/2024, fell after being weak and dehydrated, was vomiting and had diarrhea from IBS.?Last seizure on 02/19/2019. Has long Q-T syndrome, so she did not take Lexapro. Gets panic attacks and feels she almost . Pain clinic for her narcotics. She has had a defibrillator implanted. No further episodes after that. Of interest, both of them had witnessed multiple seizures in her daughter who has epilepsy. [facility] Medical History (Updated 07/27/25 @ 15:01 by Mary Jane Dumont CNP) ICD (implantable cardioverter-defibrillator) battery depletion Spinal cord stimulator status Depression PTSD (post-traumatic stress disorder) Ischemic colitis GERD (gastroesophageal reflux disease) Peptic ulcer disease Thrombocytopenia Pressure sore on buttocks History of sudden cardiac successfully resuscitated ICD (implantable cardioverter-defibrillator) in place Surgical History History of spinal surgery History of cholecystectomy Family History Mother Dementia Cancer Father Heart disease Social History (Updated 06/14/25 @ 15:30 by Patricia Shaikh CMA) Household Members: Spouse Housing: House Alcohol intake: never Comment: restraints Patient Tobacco Use Status: Current everyday Tobacco user Tobacco use type: Cigarette Cigarette Packs Per Day: 0.75 Cigarettes Per Day: 10 Years Smoked: 40 +/- e-Cigarette/Vaping Use: Never Used Second Hand Smoke Exposure: Yes service: No Current occupational status: disabled Current occupational exposures/hazards: No Sexual orientation: Unable to collect Gender identity: Unable to collect Cognitive needs: No Hearing needs: No Vision needs: Yes (Wears glasses) Review of Systems Const Denies chills, Denies daytime sleepiness, Reports difficulty sleeping, Denies fatigue, Denies fever(s), Denies frequent falls, Denies headache(s), Denies increased appetite, Denies poor appetite, Denies snoring, Denies weakness, Denies weight gain and Denies weight loss Eyes Denies loss of vision ENT Denies vertigo, Denies dizziness, Denies headache(s) and Denies neck pain Card Denies chest pain at rest, Denies chest pain with activity, Denies syncope, Denies leg edema, Denies palpitations, Denies dyspnea and Denies dyspnea on exertion Resp Denies cough, Denies dyspnea, Denies dyspnea on exertion and Denies snoring GI Denies abdominal pain, Denies constipation, Denies heartburn, Denies diarrhea and Denies nausea Denies urinary frequency, Denies urinary incontinence and Denies urinary urgency Musc Denies abnormal gait, Reports back pain, Denies myalgias, Denies arthralgias, Denies neck pain, Denies numbness and Denies tingling Neuro Denies abnormal gait, Denies vertigo, Denies dizziness, Denies syncope, Denies frequent falls, Denies headache(s), Denies lack of coordination, Denies loss of vision, Denies memory loss, Denies numbness, Denies Other visual disturbances, Denies restless legs, Denies seizure-like activity, Denies tingling, Denies paresthesias, Denies tremor(s) and Denies weakness Psych Reports anxiety, Reports depression, Denies auditory hallucinations, Denies memory loss and Denies visual hallucinations Endo Denies fatigue and Denies palpitations Physical Exam Const Other: General Appearance:? normal, in no acute distress. Heart:? S1, S2 normal, no murmurs. Lungs:? clear anteriorly and posteriorly. Musculoskeletal:? normal. Extremities:? no edema. Psych:? alert, oriented, cognitive function intact, cooperative with exam. Neuro Other: Abnormal Neurological Findings:?L shoulder abduction loss. Mental Status: alert and oriented X 3. Normal attention, orientation, memory, and affect. Cranial Nerves: Pupils are equal, round, and reactive to light. External ocular muscles are intact. Visual [place] are full, no ptosis. Face is symmetrical, no facial weakness or droop. Facial sensations are normal. Tongue protrudes in midline. Palate elevates symmetrically. Shoulder shrugging is normal Motor Examination: Normal muscle tone, bulk and strength. No atrophy or fasciculations. No drift of the extended upper extremities. DTR 2+. Plantars are flexor. Sensory Exam: Normal light touch, temperature, pinprick, vibration, and joint-position sensations. Rhomberg sign is absent. Coordination: No ataxia. No titubation. Szdsrm-fs-byxl, ilys-ujwm-cftu test, and rapid alternating movements were normal. Gait Exam: Walking with cane. Cerebellar Signs: Cujbwj-mk-anbx and cfas-dw-awtr is normal. No dysdiadochokinesia. Extrapyramidal System: No tremor, rigidity with normal facial expressions. No bradykinesia. No bradyphrenia. Normal arm swing and posture. No propulsion or retropulsion. Speech: Normal. Assessment & Plan Assessment & Plan (1) Seizure disorder: Code(s): G40.909 - Epilepsy, unspecified, not intractable, without status epilepticus Category: Medical Plan: Continue gabapentin 800mg 1 tablet four times a day. Continue levetiracetam 750mg 1 tablet twice a day. Continue clonazepam 1mg 1 tablet twice a day #60 for 30 days. (2) Low back pain: Code(s): M54.50 - Low back pain, unspecified Category: Medical Qualifiers: Chronicity: chronic Back pain laterality: unspecified Sciatica presence: unspecified whether sciatica present Qualified Code(s): M54.50 - Low back pain, unspecified; G89.29 - Other chronic pain (3) Anxiety: Code(s): F41.9 - Anxiety disorder, unspecified Category: Medical Plan . Coding Level of Care Code Est Pt Level 4 (91353) Diagnoses Seizure disorder G40.909 Chronic low back pain, unspecified back pain laterality, unspecified whether sciatica present M54.50; G89.29 Chronicity: chronic Back pain laterality: unspecified Sciatica presence: unspecified whether sciatica present Anxiety F41.9
--- OUTSIDE RECORDS SUMMARY | 2025-07-28 03:26 | XMS_ITS | Patient Health Record ---
Author Organization [facility] Pain Address [address] [place] [address] Care Team Providers Care Microphone Operator Name Role Phone Brad Kebede MD Primary Care Provider Dany Epperson Unavailable [phone] Allergies Allergen (clinical drug ingredient) Drug/Non Drug [...] Risk Notes Problem Cervical spondylosis without myelopathy (978570709) Spondylosis without myelopathy or radiculopathy, cervical region (M47.812) Active confirmed Problem Lumbosacral spondylosis without myelopathy (93821796) Spondylosis without myelopathy or radiculopathy, lumbar region (M47.816) Active confirmed Problem High risk drug monitoring status (710392658) manager intermediate (current) use of opiate analgesic (Z79.891) Active [...] 11/06/2021 LAB REPORT 05/21/2023 LAB REPORT 02/25/2023 [facility] 08/14/2021 [facility] 11/06/2021 [facility] 01/29/2022 [facility] 02/27/2022 [facility] 05/21/2022 [facility] 09/11/2022 [facility] 05/21/2023 Insurance Providers Payer Name Payer Address Payer Phone Subscriber Number Group Number Insured Name Patient Relationship to Insured Coverage Start Date Coverage End Date Medicare B [facility] [address] [place] [phone] [id number] MARIAH GOODWIN Self - patient is the insured [employer] of [place] [address] [place] [phone] [id number] MARIAH GOODWIN Self - patient is the [...]
--- OUTSIDE RECORDS SUMMARY | 2025-07-28 03:26 | XMS_ITS | Patient Health Record ---
Author Organization [facility] Address [address] [place] [address] Care Team Providers Care Director Dance Name Role Phone Brad Kebede MD Primary Care Provider Kashif Xiao [phone] Allergies No Known Allergies Reason For Referral No Information Medications Medication SIG (Take, Route, Frequency, Duration) Notes Start Date End Date Status levETIRAcetam ER 750 MG Tablet Extended Release 24 Hour 1 tablet Orally Once a day; Duration: 30 day(s) Active Hyoscyamine Sulfate Not-Taking/PRN Carisoprodol 350 MG Tablet 1 tablet as needed Orally Four times a day Active Omeprazole 40 MG Capsule Delayed Release 1 capsule Orally Once a day; Duration: 30 day(s) 07/26/2011 Not-Taking/P RN Soma 350mg Active Folic Acid 1 MG Tablet 1 tablet Orally O nce a day; Duration: 30 day(s) Active Gabapentin 800mg Act nash oxyCODONE HCl 5mg Ac tive Omeprazole 40mg Acti ve Morphine Sulfate ER 15 MG Tablet Extended Release 1 tablet Orally every 12 hrs Active metroNIDAZOLE 375 MG Capsule 2 capsules Orally every 8 hrs; Duration: 5 day(s) Not-Taking/IA N Sucralfate 1 GM Tablet 1 tablet on an em pty stomach Orally Twice a day Active clonazePAM Active traMADol HCl Not-Tomer ing/PRN Dicyclomine HCl 10 MG Capsule 1 or 2 Orally Every 6 hours if needed for abdominal cramps/bloating/disc omfort/diarrhea; Duration: 30 days Active Metoprolol Tartrate 100 MG Tablet 1 tablet with food Orally Twice a day; Duration: 30 day(s) Active levoFLOXacin 500 MG Tablet 1 tablet Orally Once a day; Duration: 10 day(s) Not-Taking/PRN Immunizations Vaccine Route Administration Date Status Comme nts Influenza Unknown 08/22/2022 Refused Social History Social History Drugs/Alcohol: Social Info Question Answer Notes Alcohol Screen Did you have a drink containing alcohol in the past year? No Points 0 Interpretation Negative Additional Details Category Social Info Options Details Miscellaneous: Marital status: Occupation: disabled Section Notes: She does smoke, but denies s ignificant alcohol intake She does smoke, but denies s ignificant alcohol intake She does smoke, but denies s ignificant alcohol intake Problems Problem Type SNOMED Code ICD Code Onset Dates Problem Status W/U Status Risk Notes Problem History of adenomatous polyp of colon (731439123) History of adenomatous polyp of colon (Z86.010) Active confirmed Problem Diarrhea (27111620) Diarrhea (R19.7) Active confirmed Problem Diverticular disease of colon (804455728) Diverticulosis of large intestine without perforation or abscess without bleeding (K57.30) Active confirmed Problem Irritable bowel syndrome with diarrhea (422780114) Irritable bowel syndrome with diarrhea (K58.0) Active confirmed Problem Family History of Cancer of Colon (Situation) (764624300) Family history of colon cancer (Z80.0) Active confirmed Problem Peptic ulcer disease (50816503) Peptic ulcer disease (K27.9) Active confirmed Problem Gastritis (1806686) Gastritis (K29.70) Active confirmed Problem Autoantibody screening for celiac disease positive (519795383) Positive autoantibody screening for celiac disease (R76.8) Active confirmed Problem Ischemic colitis (01766807) Ischemic colitis (K55.9) Active confirmed Plan Of [...] Start Date Coverage End Date MEDICARE OF [place] [address] [place] [id number] [phone] [id number] MARIAH GOODWIN Self - patient is the insured MEDICAID OF [facility] [address] [place] [phone] [id number] MARIAH GOODWIN Self - patient is the insured Medical (General) History Medical History History ICD Code Peptic ulcer disease--EGD's with me x 3 in 2010 with gastric and pyloric channel ulcer--biopsies negative for H.pylori Irritable bowel syndrome Denies UT,DM,CVA,Lung disease,renal dise ase Pacemaker/Defibrillator--hx of cardiac a rrest 2013 Cardiac arrest Seizures History of ischemic colitis- seen on a colonoscopy in 2016 at [facility], and with a CT in 05/2022 at [facility] involving the descending colon Spinal compression fractures with Verteb roplasties Chronic pain--back, diffuse arthritis Bed sores --being followed at [facility] PTSD/Depression [id number] arrest 10/2022 Colonoscopy with 1 sm all tubular adenoma; no IBD, no microscopic colitis, biopsies from terminal ileum were unremarkable 10/2022 EGD normal duodenal b x, mild gastritis with negative H.pylori, small hiatal hernia, no esophagitis or Trinh's esophagus Surgical History Surgery Date(Month/Year) 6 back surgeries Cholecystectomy Pacemaker/defibrillator Spinal stimulator, but removed
== END 2025-07-27 15:23 | disposition home or self-care (01) ==
PROVIDERS: PCP Family Medicine; Referring Provider Internal Medicine; Visit Provider Registered Nurse
DX: G40.909 Epilepsy, unspecified, not intractable, without status epilepticus (principal); M54.50 Low back pain, unspecified; G89.29 Other chronic pain; F41.9 Anxiety disorder, unspecified
CPT/HCPCS: 99214

== ENCOUNTER → 2025-07-27 14:53 | Outpatient (BNVA) | payer MEDICARE, MEDICAID, SELFPAY | PROVIDERS: PCP Family Medicine; Referring Provider Internal Medicine; Visit Provider Registered Nurse | DX: G40.909 Epilepsy, unspecified, not intractable, without status epilepticus (principal); M54.50 Low back pain, unspecified; G89.29 Other chronic pain; F41.9 Anxiety disorder, unspecified; Z72.0 Tobacco use; Z95.0 Presence of cardiac pacemaker | CPT/HCPCS: 99212 ==